=== PATIENT | female | born 1950 | race African-American/Black ===

== ENCOUNTER 2016-05-27 10:09 | Emergency (ER) | payer MEDICARE, MEDICAID ==
[~2016-05-27] VITALS: Ht 165.1 cm; Wt 81.8 kg
[~2016-05-27 10:09] MED LIST: AMLO-512 PO; CELE200 PO; CITA20TA9 PO; FLUT110HFA IH; METF500T4 PO; PANT40TA25 PO; PREM625 PO; QUET200XR PO; TIOT185 IH
[2016-05-27 10:26] LABS: GLUCOSE,POINT OF CARE 109 MG/DL (70-110)
[2016-05-27] MEDS ORDERED: BARIUM SULFATE 0.1% SUSPENSION 450 ML BOTTLE PO ONE (11:30)
[2016-05-27] MEDS ORDERED: KETOROLAC TROMETHAMINE 30 MG/ML VIAL IVP ONE (11:30)
[2016-05-27 11:52] LABS: BASOPHILS % (AUTO) 0.5 % (0.0-2.0); EOSINOPHILS % (AUTO) 0.8 % (1.0-6.0); HEMATOCRIT 31.5 % (36-46); LYMPHOCYTES # (AUTO) 2.1 K/uL (1.0-4.8); LYMPHOCYTES % (AUTO) 27.5 % (22.0-44.0); MEAN CORPUSCULAR HEMOGLOBIN 28.4 pg (26.0-34.0); MEAN CORPUSCULAR HGB CONC 31.7 G/dL (31.0-37.0); MEAN CORPUSCULAR VOLUME 90 fL (80-100); MONOCYTES # (AUTO) 0.8 K/uL (0.1-1.0); MONOCYTES % (AUTO) 10.3 % (2.0-9.0); NEUTROPHILS # (AUTO) 4.7 K/uL (1.8-7.7); NEUTROPHILS % (AUTO) 60.9 % (40.0-70.0); PLATELET COUNT (AUTO) 279 K/uL (150-450); RED BLOOD CELL COUNT(AUTO) 3.52 MIL/uL (4.00-5.20); RED CELL DISTRIBUTION WIDTH 16.4 % (11.5-14.5); WHITE BLOOD COUNT (AUTO) 7.7 K/uL (4.5-11.0)
[2016-05-27 12:01] LABS: ANION GAP 8 mmol/L (8-16); CALCIUM, TOTAL 8.7 mg/dL (8.8-10.5); CARBON DIOXIDE 29 mmol/L (22-29); CHLORIDE 105 mmol/L (98-107); GLOMERULAR FILTR. RATE CALC > 60 mL/min (>60); POTASSIUM 4.1 mmol/L (3.5-5.1); SODIUM SERUM 142 mmol/L (136-145); UREA NITROGEN, BLOOD 10 mg/dL (7-18)
[2016-05-27 12:08] LABS: ALANINE AMINOTRANSFERASE 49 U/L (12-78); ALBUMIN 3.1 g/dL (3.4-5.0); ASPARTATE AMINOTRANSFERASE 60 U/L (15-37); BILIRUBIN,TOTAL 0.4 mg/dL (0.1-1.0); TOTAL PROTEIN, SERUM 6.9 g/dL (6.4-8.2)
[2016-05-27] MEDS ORDERED: KETOROLAC TROMETHAMINE 60 MG/2 ML VIAL IM ONE (12:30)
[2016-05-27] MEDS ORDERED: SODIUM CHLORIDE 0.9% 100 ML ONE (13:08)
[2016-05-27] MEDS ORDERED: IOVERSOL 350 MG/ML 100 ML VIAL ONE (13:08)
[2016-05-27 15:36] VITALS: BP 128/82
[2016-06-17] MEDS ORDERED: DOXY100C PO (12:43)
== END 2016-05-27 15:51 | disposition home or self-care (01) ==
LOC: EMS 10:13
DX: T81.30XA Disruption of wound, unspecified, initial encounter (principal); E11.9 Type 2 diabetes mellitus without complications; I10 Essential (primary) hypertension; G43.909 Migraine, unspecified, not intractable, without status migrainosus; F17.210 Nicotine dependence, cigarettes, uncomplicated
CPT/HCPCS: 36415; 74176; 80053; 82962; 83690; 85025; 96372; 99285; J1885 ×2; J7050; Q9967

== ENCOUNTER 2016-06-04 10:37 | Emergency (ER) | payer MEDICARE, MEDICAID ==
[~2016-06-04] VITALS: Ht 165.1 cm; Wt 81.8 kg
[2016-06-04 10:57] LABS: GLUCOSE,POINT OF CARE 156 MG/DL (70-110)
[2016-06-04] MEDS ORDERED: NEOMYCIN/BACITRACIN/POLYMYXIN B OINTMENT PACKET TP ONE (11:30)
[2016-06-04] MEDS ORDERED: QUET200T PO (11:36)
[2016-06-04] MEDS ORDERED: QUET200XR PO (11:39)
[2016-06-04 11:49] VITALS: BP 128/62
[2016-06-17] MEDS ORDERED: DOXY100C PO (12:43)
== END 2016-06-04 11:52 | disposition home or self-care (01) ==
LOC: EMS 10:39 → EEVIPCON 10:39 → EMS 11:52
DX: T81.30XA Disruption of wound, unspecified, initial encounter (principal); E11.9 Type 2 diabetes mellitus without complications; I10 Essential (primary) hypertension; F20.9 Schizophrenia, unspecified; F41.9 Anxiety disorder, unspecified; F31.9 Bipolar disorder, unspecified; G43.909 Migraine, unspecified, not intractable, without status migrainosus
CPT/HCPCS: 82962; 87070; 87205; 99282

== ENCOUNTER → 2016-06-17 | Outpatient (CLI) | payer MEDICARE, MEDICAID ==
[~2016-06-17] VITALS: Ht 165.1 cm; Wt 83.7 kg
[~2016-06-17] MED LIST changes: +DOXY100C PO; +INSU100V12 SQ
[2016-06-17 10:35] VITALS: BP 137/69
[2016-06-17 11:26] LABS: GLUCOSE,POINT OF CARE 163 MG/DL (70-110)
== END | disposition home or self-care (01) ==
LOC: HBOWC 09:25
PROVIDERS: ATTEND Emergency Medicine
DX: E11.622 Type 2 diabetes mellitus with other skin ulcer (principal); L98.491 Non-pressure chronic ulcer of skin of other sites limited to breakdown of skin; E11.40 Type 2 diabetes mellitus with diabetic neuropathy, unspecified; I10 Essential (primary) hypertension; E66.9 Obesity, unspecified; J44.9 Chronic obstructive pulmonary disease, unspecified; G43.909 Migraine, unspecified, not intractable, without status migrainosus; M19.90 Unspecified osteoarthritis, unspecified site; Z96.659 Presence of unspecified artificial knee joint; F17.210 Nicotine dependence, cigarettes, uncomplicated
CPT/HCPCS: 82962; 97597

== ENCOUNTER → 2016-06-24 | Outpatient (CLI) | payer MEDICARE, MEDICAID ==
[2016-06-24 10:17] VITALS: BP 154/71
== END | disposition home or self-care (01) ==
LOC: HBOWC 09:49
PROVIDERS: ATTEND Emergency Medicine
DX: L98.491 Non-pressure chronic ulcer of skin of other sites limited to breakdown of skin (principal); I10 Essential (primary) hypertension; J44.9 Chronic obstructive pulmonary disease, unspecified; G43.909 Migraine, unspecified, not intractable, without status migrainosus; E11.40 Type 2 diabetes mellitus with diabetic neuropathy, unspecified; E66.9 Obesity, unspecified; F17.210 Nicotine dependence, cigarettes, uncomplicated; F20.9 Schizophrenia, unspecified; M16.12 Unilateral primary osteoarthritis, left hip; F31.9 Bipolar disorder, unspecified; F41.9 Anxiety disorder, unspecified; Z96.659 Presence of unspecified artificial knee joint

== ENCOUNTER 2016-08-03 20:52 | Emergency (ER) | payer MEDICARE, MEDICAID ==
[~2016-08-03] VITALS: Ht 165.1 cm; Wt 81.0 kg
[~2016-08-03 20:52] MED LIST changes: -INSU100V12 SQ
[2016-08-03 21:38] LABS: BASOPHILS # (AUTO) 0.03 K/uL (0.00-0.20); BASOPHILS % (AUTO) 0.3 % (0.0-2.0); EOSINOPHILS # (AUTO) 0.01 K/uL (0.00-0.70); EOSINOPHILS % (AUTO) 0.11 % (1.0-6.0); HEMATOCRIT 32.5 % (36-46); HEMOGLOBIN 10.4 g/dL (12.0-16.0); LYMPHOCYTES # (AUTO) 2.2 K/uL (1.0-4.8); LYMPHOCYTES % (AUTO) 18.3 % (22.0-44.0); MEAN CORPUSCULAR HEMOGLOBIN 25.6 pg (26.0-34.0); MEAN CORPUSCULAR HGB CONC 31.9 G/dL (31.0-37.0); MEAN CORPUSCULAR VOLUME 80 fL (80-100); MONOCYTES # (AUTO) 0.8 K/uL (0.1-1.0); MONOCYTES % (AUTO) 6.9 % (2.0-9.0); NEUTROPHILS % (AUTO) 74.4 % (40.0-70.0); PLATELET COUNT (AUTO) 373 K/uL (150-450); RED BLOOD CELL COUNT(AUTO) 4.05 MIL/uL (4.00-5.20); RED CELL DISTRIBUTION WIDTH 17.5 % (11.5-14.5)
[2016-08-03 21:38] LABS: APPEARANCE,URINE CLEAR (CLEAR); GLUCOSE, URINE (UA) >=1000 mg/dL (NEGATIVE); KETONES,URINE NEGATIVE (NEGATIVE); LEUKOCYTE ESTERASE ,URINE NEGATIVE (NEGATIVE); OCCULT BLOOD,URINE SMALL (NEGATIVE); PH,URINE 7.5 (5.0-8.0); PROTEIN,URINE NEGATIVE (NEGATIVE)
[2016-08-03] MEDS ORDERED: KETOROLAC TROMETHAMINE 30 MG/ML VIAL IVP ONE (21:45)
[2016-08-03] MEDS ORDERED: SODIUM CHLORIDE 0.9% 1,000 ML IV ONE (21:45)
[2016-08-03 21:46] LABS: ADD UA MICROSCOPIC YES
[2016-08-03 21:58] LABS: RBC MORPHOLOGY COMMENT ABNORMAL RBC MORPH
[2016-08-03 22:03] LABS: WBC,URINE 0-2 /HPF (0-5)
[2016-08-03 23:24] LABS: ALANINE AMINOTRANSFERASE 36 U/L (12-78); ALBUMIN 3.6 g/dL (3.4-5.0); ANION GAP 13 mmol/L (8-16); ASPARTATE AMINOTRANSFERASE 49 U/L (15-37); BILIRUBIN,TOTAL 0.5 mg/dL (0.1-1.0); CALCIUM, TOTAL 9.3 mg/dL (8.8-10.5); CARBON DIOXIDE 23 mmol/L (22-29); CHLORIDE 101 mmol/L (98-107); CREATININE 0.84 mg/dL (0.60-1.30); GLOMERULAR FILTR. RATE CALC > 60 mL/min (>60); POTASSIUM 4.1 mmol/L (3.5-5.1); SODIUM SERUM 137 mmol/L (136-145); TOTAL PROTEIN, SERUM 7.9 g/dL (6.4-8.2); UREA NITROGEN, BLOOD 11 mg/dL (7-18)
[2016-08-03] MEDS ORDERED: INSULIN REGULAR, HUMAN 100 UNITS/ML IVP ONE (23:45)
[2016-08-04 01:30] VITALS: BP 121/86
[2016-08-04 01:32] LABS: GLUCOSE COMMENT 1 Doctor Notified; GLUCOSE,POINT OF CARE 237 MG/DL (70-110)
== END 2016-08-04 02:19 | disposition home or self-care (01) ==
LOC: EMS 20:55
DX: N20.0 Calculus of kidney (principal); F17.210 Nicotine dependence, cigarettes, uncomplicated; F41.9 Anxiety disorder, unspecified; M19.90 Unspecified osteoarthritis, unspecified site; F31.9 Bipolar disorder, unspecified; I10 Essential (primary) hypertension; G43.909 Migraine, unspecified, not intractable, without status migrainosus; E11.9 Type 2 diabetes mellitus without complications; Z87.442 Personal history of urinary calculi; F20.9 Schizophrenia, unspecified; Z79.899 Other long term (current) drug therapy
CPT/HCPCS: 36415; 74176; 80053; 81001; 82962; 84703; 85025; 96361; 96374; 96375; 99285; J1815; J1885; J7030

== ENCOUNTER 2016-09-03 11:30 | Inpatient (IN) | payer MEDICARE, MEDICAID ==
[~2016-09-03] VITALS: Ht 165.1 cm; Wt 72.4 kg
[2016-09-03 11:46] LABS: GLUCOSE,POINT OF CARE 408 MG/DL (70-110)
[2016-09-03 14:18] LABS: BASOPHILS # (AUTO) 0.05 K/uL (0.00-0.20); BASOPHILS % (AUTO) 0.6 % (0.0-2.0); EOSINOPHILS # (AUTO) 0.05 K/uL (0.00-0.70); EOSINOPHILS % (AUTO) 0.65 % (1.0-6.0); HEMATOCRIT 30.7 % (36-46); HEMOGLOBIN 9.3 g/dL (12.0-16.0); LYMPHOCYTES # (AUTO) 2.8 K/uL (1.0-4.8); LYMPHOCYTES % (AUTO) 34.8 % (22.0-44.0); MEAN CORPUSCULAR HEMOGLOBIN 23.7 pg (26.0-34.0); MEAN CORPUSCULAR HGB CONC 30.4 G/dL (31.0-37.0); MEAN CORPUSCULAR VOLUME 78 fL (80-100); MONOCYTES # (AUTO) 0.7 K/uL (0.1-1.0); MONOCYTES % (AUTO) 8.2 % (2.0-9.0); NEUTROPHILS # (AUTO) 4.4 K/uL (1.8-7.7); NEUTROPHILS % (AUTO) 55.8 % (40.0-70.0); PLATELET COUNT (AUTO) 337 K/uL (150-450); RED BLOOD CELL COUNT(AUTO) 3.93 MIL/uL (4.00-5.20); RED CELL DISTRIBUTION WIDTH 17.6 % (11.5-14.5)
[2016-09-03 14:20] LABS: RBC MORPHOLOGY COMMENT ABNORMAL RBC MORPH
[2016-09-03] MEDS ORDERED: LORazepam 2 MG TABLET PO ONE (14:30)
[2016-09-03] MEDS ORDERED: QUEtiapine FUMARATE 25 MG TABLET PO ONE (14:30)
[2016-09-03 14:32] LABS: ALANINE AMINOTRANSFERASE 66 U/L (12-78); ALBUMIN 3.3 g/dL (3.4-5.0); ANION GAP 12 mmol/L (8-16); ASPARTATE AMINOTRANSFERASE 67 U/L (15-37); BILIRUBIN,TOTAL 0.6 mg/dL (0.1-1.0); CALCIUM, TOTAL 8.3 mg/dL (8.8-10.5); CARBON DIOXIDE 23 mmol/L (22-29); CHLORIDE 99 mmol/L (98-107); CREATININE 0.71 mg/dL (0.60-1.30); GLOMERULAR FILTR. RATE CALC > 60 mL/min (>60); POTASSIUM 3.5 mmol/L (3.5-5.1); SODIUM SERUM 134 mmol/L (136-145); TOTAL PROTEIN, SERUM 6.5 g/dL (6.4-8.2); UREA NITROGEN, BLOOD 8 mg/dL (7-18)
[2016-09-03] MEDS ORDERED: MetFORMIN HCL 500 MG TABLET PO ONE ×2 (14:45→17:15)
[2016-09-03] MEDS ORDERED: INSULIN REGULAR, HUMAN 100 UNITS/ML SQ ONE ×2 (14:45→17:15)
[2016-09-03 14:52] LABS: GLUCOSE COMMENT 1 Doctor Notified; GLUCOSE,POINT OF CARE 520 MG/DL (70-110)
[2016-09-03] MEDS ORDERED: ZOLPIDEM TARTRATE 10 MG TABLET PO PRN (15:15)
[2016-09-03 15:57] LABS: GLUCOSE COMMENT 1 Doctor Notified; GLUCOSE,POINT OF CARE 490 MG/DL (70-110)
[2016-09-03 16:39] LABS: CHOL/HDL RATIO 1.7 (3.9-5.7)
[2016-09-03 16:47] LABS: GLUCOSE COMMENT 1 Repeated; GLUCOSE,POINT OF CARE 476 MG/DL (70-110)
[2016-09-03 17:52] LABS: GLUCOSE,POINT OF CARE 349 MG/DL (70-110)
[2016-09-03 20:17] LABS: GLUCOSE,POINT OF CARE 281 MG/DL (70-110)
[2016-09-03] MEDS: QUEtiapine FUMARATE 200 MG TABLET PO SCH (21:43)
[2016-09-03] MEDS: CITALOPRAM HYDROBROMIDE 20 MG TABLET PO SCH (21:43)
[2016-09-03 22:20] VITALS: BP 145/74
[2016-09-04] MEDS ORDERED: DEXTROSE 50%-WATER 25 GM/50 ML SYRINGE IVP PRN ×2 (06:15)
[2016-09-04 06:17] LABS: GLUCOSE COMMENT 1 Doctor Notified; GLUCOSE,POINT OF CARE 468 MG/DL (70-110)
[2016-09-04] MEDS ORDERED: INSULIN ASPART 100 UNITS/ML SQ ONE ×3 (07:00→12:30)
[2016-09-04] MEDS: PANTOPRAZOLE SODIUM 40 MG DR TABLET PO SCH (07:11)
[2016-09-04] MEDS: MetFORMIN HCL 500 MG TABLET PO SCH ×2 (07:11→16:31)
[2016-09-04] MEDS: AmLODIPine BESYLATE 10 MG TABLET PO SCH (08:35)
[2016-09-04] MEDS: TIOTROPIUM BROMIDE 18 MCG/INH HANDIHALER [5] IH SCH (08:35)
[2016-09-04] MEDS: FLUTICASONE PROPIONATE HFA 110 MCG/PUFF 12 GM INHALER IH SCH ×2 (08:36→16:23)
[2016-09-04] MEDS: INSULIN DETEMIR 100 UNITS/ML SQ SCH ×2 (09:50→20:59)
[2016-09-04 10:14] VITALS: BP 153/89
[2016-09-04] MEDS: TraMADol HCL 50 MG TABLET PO PRN (10:14)
[2016-09-04 11:22] LABS: GLUCOSE COMMENT 1 Received Meds; GLUCOSE,POINT OF CARE 565 MG/DL (70-110)
[2016-09-04] MEDS: INSULIN ASPART 100 UNITS/ML SQ PRN ×3 (11:32→21:00)
[2016-09-04 12:41] LABS: GLUCOSE COMMENT 1 Post Meal; GLUCOSE,POINT OF CARE 527 MG/DL (70-110)
[2016-09-04 13:52] LABS: GLUCOSE COMMENT 1 Doctor Notified; GLUCOSE,POINT OF CARE 300 MG/DL (70-110)
[2016-09-04] MEDS: LORazepam 2 MG TABLET PO PRN (13:54)
[2016-09-04] MEDS: HALOPERIDOL 5 MG TABLET PO PRN (16:31)
[2016-09-04 16:42] LABS: GLUCOSE COMMENT 1 Received Meds; GLUCOSE,POINT OF CARE 382 MG/DL (70-110)
[2016-09-04 16:57] VITALS: BP 152/90
[2016-09-04] MEDS: QUEtiapine FUMARATE 200 MG TABLET PO SCH (20:40)
[2016-09-04] MEDS: CITALOPRAM HYDROBROMIDE 20 MG TABLET PO SCH (20:40)
[2016-09-04 20:43] LABS: GLUCOSE COMMENT 1 Received Meds; GLUCOSE,POINT OF CARE 370 MG/DL (70-110)
[2016-09-05 03:20] VITALS: BP 138/92
[2016-09-05 05:57] LABS: GLUCOSE COMMENT 1 Received Meds; GLUCOSE,POINT OF CARE 401 MG/DL (70-110)
[2016-09-05] MEDS ORDERED: INSULIN ASPART 100 UNITS/ML SQ ONE (06:30)
[2016-09-05] MEDS: MetFORMIN HCL 500 MG TABLET PO SCH ×2 (07:19→16:18)
[2016-09-05] MEDS: PANTOPRAZOLE SODIUM 40 MG DR TABLET PO SCH (07:19)
[2016-09-05] MEDS: TIOTROPIUM BROMIDE 18 MCG/INH HANDIHALER [5] IH SCH (08:36)
[2016-09-05] MEDS: FLUTICASONE PROPIONATE HFA 110 MCG/PUFF 12 GM INHALER IH SCH ×2 (08:36→16:17)
[2016-09-05] MEDS: AmLODIPine BESYLATE 10 MG TABLET PO SCH (08:38)
[2016-09-05 08:40] VITALS: BP 108/56
[2016-09-05] MEDS: LORazepam 2 MG TABLET PO PRN (08:40)
[2016-09-05] MEDS: TraMADol HCL 50 MG TABLET PO PRN ×2 (08:40→16:24)
[2016-09-05] MEDS ORDERED: INSULIN DETEMIR 100 UNITS/ML SQ SCH (09:00)
[2016-09-05 11:12] LABS: GLUCOSE COMMENT 1 Received Meds; GLUCOSE,POINT OF CARE 350 MG/DL (70-110)
[2016-09-05] MEDS: INSULIN ASPART 100 UNITS/ML SQ PRN ×3 (11:16→21:19)
[2016-09-05] MEDS ORDERED: INSULIN DETEMIR 100 UNITS/ML SQ ONE (14:30)
[2016-09-05] MEDS: HALOPERIDOL 5 MG TABLET PO PRN (16:23)
[2016-09-05 16:26] VITALS: BP 125/78
[2016-09-05 16:46] LABS: GLUCOSE,POINT OF CARE 332 MG/DL (70-110)
[2016-09-05] MEDS: CITALOPRAM HYDROBROMIDE 20 MG TABLET PO SCH (20:31)
[2016-09-05] MEDS: QUEtiapine FUMARATE 200 MG TABLET PO SCH (20:31)
[2016-09-05 20:37] LABS: GLUCOSE COMMENT 1 Received Meds; GLUCOSE,POINT OF CARE 365 MG/DL (70-110)
[2016-09-05] MEDS: INSULIN DETEMIR 100 UNITS/ML SQ SCH (21:18)
[2016-09-06 02:31] VITALS: BP 145/82
[2016-09-06 03:54] VITALS: BP 152/85
[2016-09-06] MEDS: TraMADol HCL 50 MG TABLET PO PRN ×2 (03:54→11:09)
[2016-09-06 03:56] VITALS: BP_SYST 152; BP_DIAS 85; BP_DIAS 87
[2016-09-06 04:02] LABS: GLUCOSE,POINT OF CARE 243 MG/DL (70-110)
[2016-09-06] MEDS: PANTOPRAZOLE SODIUM 40 MG DR TABLET PO SCH (06:37)
[2016-09-06] MEDS: INSULIN ASPART 100 UNITS/ML SQ PRN ×3 (06:45→12:17)
[2016-09-06] MEDS: MetFORMIN HCL 500 MG TABLET PO SCH (06:57)
[2016-09-06] MEDS: FLUTICASONE PROPIONATE HFA 110 MCG/PUFF 12 GM INHALER IH SCH (08:39)
[2016-09-06] MEDS: TIOTROPIUM BROMIDE 18 MCG/INH HANDIHALER [5] IH SCH (08:40)
[2016-09-06] MEDS: AmLODIPine BESYLATE 10 MG TABLET PO SCH (08:41)
[2016-09-06] MEDS: INSULIN DETEMIR 100 UNITS/ML SQ SCH (09:17)
[2016-09-06 10:22] VITALS: BP 153/88
[2016-09-06] MEDS ORDERED: INSULIN DETEMIR 100 UNITS/ML SQ ONE (11:45)
[2016-09-06 11:57] LABS: GLUCOSE COMMENT 1 Received Meds; GLUCOSE,POINT OF CARE 377 MG/DL (70-110)
[2016-09-06 12:09] VITALS: BP 148/84
[2016-09-06] MEDS ORDERED: CITA20TA9 PO (12:28)
[2016-09-06] MEDS ORDERED: INSU100V12 SQ (12:29)
[2016-09-06] MEDS ORDERED: INSULIN DETEMIR 100 UNITS/ML SQ SCH (21:00)
== END 2016-09-06 15:21 | disposition home or self-care (01) | DRG 885 ==
LOC: EMS 11:32 → 3EX 20:45
PROVIDERS: ADMIT Psychiatry & Neurology Psychiatry; ATTEND Psychiatry & Neurology Psychiatry
DX: F25.9 Schizoaffective disorder, unspecified (principal); R45.851 Suicidal ideations; F41.9 Anxiety disorder, unspecified; F31.9 Bipolar disorder, unspecified; I10 Essential (primary) hypertension; G43.909 Migraine, unspecified, not intractable, without status migrainosus; B19.20 Unspecified viral hepatitis C without hepatic coma; M19.90 Unspecified osteoarthritis, unspecified site; E11.65 Type 2 diabetes mellitus with hyperglycemia; D64.9 Anemia, unspecified; J44.9 Chronic obstructive pulmonary disease, unspecified; K21.9 Gastro-esophageal reflux disease without esophagitis; F10.20 Alcohol dependence, uncomplicated; F11.10 Opioid abuse, uncomplicated; F17.210 Nicotine dependence, cigarettes, uncomplicated; Z79.899 Other long term (current) drug therapy; Z79.84 Long term (current) use of oral hypoglycemic drugs; Z90.710 Acquired absence of both cervix and uterus; Z96.659 Presence of unspecified artificial knee joint; Z91.14 Patient's other noncompliance with medication regimen; Z87.442 Personal history of urinary calculi; Z82.49 Family history of ischemic heart disease and other diseases of the circulatory system; Z83.3 Family history of diabetes mellitus
CPT/HCPCS: 82962; 96372; 99285; J1815; J3535

== ENCOUNTER 2016-09-28 01:43 | Emergency (ER) | payer MEDICARE, MEDICAID ==
[~2016-09-28] VITALS: Ht 165.1 cm; Wt 72.7 kg
[~2016-09-28 01:43] MED LIST changes: -CELE200 PO; -DOXY100C PO; +INSU100V12 SQ; -PREM625 PO
[2016-09-28] MEDS ORDERED: HYDROCODONE/ACETAMINOPHEN 5-325 MG TABLET PO ONE (03:15)
[2016-09-28] MEDS ORDERED: TraMADol HCL 50 MG TABLET PO ONE (03:45)
[2016-09-28 04:03] VITALS: BP 142/75
== END 2016-09-28 04:13 | disposition home or self-care (01) ==
LOC: EMS 01:46
DX: Z76.0 Encounter for issue of repeat prescription (principal); M25.552 Pain in left hip; G89.29 Other chronic pain; I10 Essential (primary) hypertension; F41.9 Anxiety disorder, unspecified; E11.9 Type 2 diabetes mellitus without complications; F20.9 Schizophrenia, unspecified; F17.210 Nicotine dependence, cigarettes, uncomplicated; F31.9 Bipolar disorder, unspecified; Z79.4 Long term (current) use of insulin; G43.909 Migraine, unspecified, not intractable, without status migrainosus; Z79.899 Other long term (current) drug therapy
CPT/HCPCS: 82962; 99283

== ENCOUNTER 2016-12-28 10:59 | Emergency (ER) | payer MEDICARE, MEDICAID ==
[~2016-12-28] VITALS: Ht 165.1 cm; Wt 73.6 kg
[2016-12-28 11:12] LABS: GLUCOSE,POINT OF CARE 96 MG/DL (70-110)
[2016-12-28] MEDS ORDERED: KETOROLAC TROMETHAMINE 60 MG/2 ML VIAL IM ONE (12:00)
[2016-12-28 14:44] VITALS: BP 121/63
== END 2016-12-28 15:07 | disposition home or self-care (01) ==
LOC: EMS 11:02
DX: S30.0XXA Contusion of lower back and pelvis, initial encounter (principal); M19.90 Unspecified osteoarthritis, unspecified site; F17.210 Nicotine dependence, cigarettes, uncomplicated; E11.9 Type 2 diabetes mellitus without complications; I10 Essential (primary) hypertension; G43.909 Migraine, unspecified, not intractable, without status migrainosus; Z87.442 Personal history of urinary calculi; W01.0XXA Fall on same level from slipping, tripping and stumbling without subsequent striking against object, initial encounter; Y93.89 Activity, other specified; Y92.89 Other specified places as the place of occurrence of the external cause; Y99.8 Other external cause status
CPT/HCPCS: 72220; 82962; 96372; 99284; 99406; J1885

== ENCOUNTER 2017-01-11 12:45 | Emergency (ER) | payer MEDICARE, MEDICAID ==
[~2017-01-11] VITALS: Ht 165.1 cm; Wt 72.7 kg
[2017-01-11 12:57] LABS: GLUCOSE,POINT OF CARE 279 MG/DL (70-110)
[2017-01-11] MEDS ORDERED: LIDOCAINE HCL 5% TRANSDERMAL PATCH TD ONE (14:00)
[2017-01-11] MEDS ORDERED: HYDROmorphone 2 MG/ML SYRINGE IM ONE (14:00)
[2017-01-11 14:16] VITALS: BP 149/72
== END 2017-01-11 14:26 | disposition home or self-care (01) ==
LOC: EMS 12:48
DX: G89.29 Other chronic pain (principal); M54.5 Low back pain; E11.9 Type 2 diabetes mellitus without complications; M19.90 Unspecified osteoarthritis, unspecified site; I10 Essential (primary) hypertension; F17.210 Nicotine dependence, cigarettes, uncomplicated; Z87.442 Personal history of urinary calculi
CPT/HCPCS: 82962; 96372; 99283; J1170

== ENCOUNTER 2017-01-30 13:05 | Emergency (ER) | payer MEDICARE, MEDICAID ==
[~2017-01-30] VITALS: Ht 165.1 cm; Wt 72.0 kg
[2017-01-30] MEDS ORDERED: TRAM50TA4 PO (13:18)
[2017-01-30] MEDS ORDERED: KETOROLAC TROMETHAMINE 30 MG/ML VIAL IVP ONE (13:30)
[2017-01-30] MEDS ORDERED: ONDANSETRON HCL 4 MG/2 ML VIAL IVP ONE (13:30)
[2017-01-30] MEDS ORDERED: SODIUM CHLORIDE 0.9% 1,000 ML IV ONE (13:30)
[2017-01-30] MEDS ORDERED: LORazepam 2 MG/ML VIAL IVP ONE (13:30)
[2017-01-30 13:56] LABS: BASOPHILS % (AUTO) 0.7 % (0.0-2.0); EOSINOPHILS % (AUTO) 0.2 % (1.0-6.0); HEMATOCRIT 35.7 % (36-46); HEMOGLOBIN 11.3 g/dL (12.0-16.0); LYMPHOCYTES # (AUTO) 2.2 K/uL (1.0-4.8); LYMPHOCYTES % (AUTO) 21.9 % (22.0-44.0); MEAN CORPUSCULAR HEMOGLOBIN 24.4 pg (26.0-34.0); MEAN CORPUSCULAR HGB CONC 31.6 G/dL (31.0-37.0); MEAN CORPUSCULAR VOLUME 77 fL (80-100); MONOCYTES # (AUTO) 0.3 K/uL (0.1-1.0); NEUTROPHILS # (AUTO) 7.3 K/uL (1.8-7.7); NEUTROPHILS % (AUTO) 74.2 % (40.0-70.0); PLATELET COUNT (AUTO) 366 K/uL (150-450); RED BLOOD CELL COUNT(AUTO) 4.63 MIL/uL (4.00-5.20); RED CELL DISTRIBUTION WIDTH 17.4 % (11.5-14.5); WHITE BLOOD COUNT (AUTO) 9.9 K/uL (4.5-11.0)
[2017-01-30 14:10] LABS: ANION GAP 17 mmol/L (8-16); CALCIUM, TOTAL 9.1 mg/dL (8.8-10.5); CARBON DIOXIDE 22 mmol/L (22-29); CHLORIDE 104 mmol/L (98-107); CREATININE 0.69 mg/dL (0.60-1.30); GLOMERULAR FILTR. RATE CALC > 60 mL/min (>60); POTASSIUM 3.2 mmol/L (3.5-5.1); SODIUM SERUM 143 mmol/L (136-145); UREA NITROGEN, BLOOD 8 mg/dL (7-18)
[2017-01-30 14:11] LABS: RBC MORPHOLOGY COMMENT ABNORMAL RBC MORPH
[2017-01-30 14:16] LABS: ALANINE AMINOTRANSFERASE 37 U/L (12-78); ALBUMIN 3.8 g/dL (3.4-5.0); ASPARTATE AMINOTRANSFERASE 44 U/L (15-37); BILIRUBIN,TOTAL 0.6 mg/dL (0.1-1.0); TOTAL PROTEIN, SERUM 8.3 g/dL (6.4-8.2)
[2017-01-30 15:15] VITALS: BP 122/76
[2017-01-30 16:19] LABS: GLUCOSE,POINT OF CARE 198 MG/DL (70-110)
== END 2017-01-30 15:39 | disposition home or self-care (01) ==
LOC: EMS 13:08
DX: R10.13 Epigastric pain (principal); F41.9 Anxiety disorder, unspecified; I10 Essential (primary) hypertension; E11.9 Type 2 diabetes mellitus without complications; F17.210 Nicotine dependence, cigarettes, uncomplicated
CPT/HCPCS: 36415; 71010; 80053; 82962; 83690; 84484; 85025; 93005; 96361; 96374; 96375; 99285; J1885; J2060; J2405; J7030

== ENCOUNTER 2017-03-27 00:01 | Emergency (ER) | payer MEDICARE, MEDICAID ==
[~2017-03-27] VITALS: Ht 165.1 cm; Wt 72.0 kg
[~2017-03-27 00:01] MED LIST changes: +TRAM50TA4 PO
[2017-03-27 00:32] LABS: GLUCOSE,POINT OF CARE 280 MG/DL (70-110)
[2017-03-27] MEDS ORDERED: CITALOPRAM HYDROBROMIDE 20 MG TABLET PO ONE (01:30)
[2017-03-27] MEDS ORDERED: MORPHINE SULFATE 4 MG/ML SYRINGE IM ONE (01:30)
[2017-03-27] MEDS ORDERED: ONDANSETRON HCL 4 MG/2 ML VIAL IM ONE (01:30)
[2017-03-27] MEDS ORDERED: QUEtiapine FUMARATE 100 MG TABLET PO ONE (01:30)
[2017-03-27 02:04] VITALS: BP 130/90
== END 2017-03-27 03:09 | disposition home or self-care (01) ==
LOC: EMS 00:03
DX: M54.5 Low back pain (principal); G89.29 Other chronic pain; E11.9 Type 2 diabetes mellitus without complications; I10 Essential (primary) hypertension; G43.909 Migraine, unspecified, not intractable, without status migrainosus; F17.210 Nicotine dependence, cigarettes, uncomplicated; Z87.442 Personal history of urinary calculi; Z79.4 Long term (current) use of insulin
CPT/HCPCS: 82962; 96372; 99284; 99406; J2270; J2405

== ENCOUNTER 2017-04-04 11:49 | Emergency (ER) | payer MEDICARE, MEDICAID ==
[~2017-04-04] VITALS: Ht 165.1 cm; Wt 72.7 kg
[2017-04-04 13:45] VITALS: BP 148/95
[2017-04-04 14:07] LABS: GLUCOSE,POINT OF CARE 203 MG/DL (70-110)
== END 2017-04-04 13:56 | disposition home or self-care (01) ==
LOC: EMS 11:52
DX: Z76.0 Encounter for issue of repeat prescription (principal); I10 Essential (primary) hypertension; F17.210 Nicotine dependence, cigarettes, uncomplicated; E11.9 Type 2 diabetes mellitus without complications; G43.909 Migraine, unspecified, not intractable, without status migrainosus; Z87.442 Personal history of urinary calculi
CPT/HCPCS: 82962; 99283

== ENCOUNTER 2017-04-06 11:15 | Emergency (ER) | payer MEDICARE, MEDICAID ==
[~2017-04-06] VITALS: Ht 165.1 cm; Wt 72.7 kg
[2017-04-06 11:28] LABS: GLUCOSE,POINT OF CARE 132 MG/DL (70-110)
[2017-04-06 12:59] VITALS: BP 152/94
== END 2017-04-06 13:21 | disposition home or self-care (01) ==
LOC: EMS 11:17
DX: M54.5 Low back pain (principal); G89.29 Other chronic pain; I10 Essential (primary) hypertension; E11.9 Type 2 diabetes mellitus without complications; G43.909 Migraine, unspecified, not intractable, without status migrainosus; F17.210 Nicotine dependence, cigarettes, uncomplicated; Z76.0 Encounter for issue of repeat prescription; Z87.442 Personal history of urinary calculi
CPT/HCPCS: 82962; 99283

== ENCOUNTER 2017-04-14 16:06 | Emergency (ER) | payer MEDICARE, MEDICAID ==
[~2017-04-14] VITALS: Ht 165.1 cm; Wt 72.7 kg
[2017-04-14 18:20] VITALS: BP 153/84
== END 2017-04-14 18:31 | disposition home or self-care (01) ==
LOC: EMS 16:07
DX: Z76.0 Encounter for issue of repeat prescription (principal); I10 Essential (primary) hypertension; M19.90 Unspecified osteoarthritis, unspecified site; F31.9 Bipolar disorder, unspecified; E11.9 Type 2 diabetes mellitus without complications; K75.9 Inflammatory liver disease, unspecified; G43.909 Migraine, unspecified, not intractable, without status migrainosus; F20.9 Schizophrenia, unspecified; F17.210 Nicotine dependence, cigarettes, uncomplicated; Z87.442 Personal history of urinary calculi; Z90.710 Acquired absence of both cervix and uterus; Z98.890 Other specified postprocedural states; Z79.899 Other long term (current) drug therapy
CPT/HCPCS: 99283

== ENCOUNTER 2017-04-19 11:32 | Emergency (ER) | payer MEDICARE, MEDICAID ==
[~2017-04-19] VITALS: Ht 170.2 cm; Wt 70.5 kg
[2017-04-19 12:18] VITALS: BP 137/72
== END 2017-04-19 12:52 | disposition home or self-care (01) ==
LOC: EMS 11:38
DX: Z76.0 Encounter for issue of repeat prescription (principal); M19.90 Unspecified osteoarthritis, unspecified site; F31.9 Bipolar disorder, unspecified; K75.9 Inflammatory liver disease, unspecified; I10 Essential (primary) hypertension; G43.909 Migraine, unspecified, not intractable, without status migrainosus; F17.210 Nicotine dependence, cigarettes, uncomplicated; Z79.899 Other long term (current) drug therapy; Z98.890 Other specified postprocedural states
CPT/HCPCS: 82962; 99283

== ENCOUNTER 2017-05-18 14:19 | Emergency (ER) | payer MEDICARE, MEDICAID ==
[~2017-05-18] VITALS: Ht 165.1 cm; Wt 72.7 kg
[2017-05-18 14:48] LABS: GLUCOSE,POINT OF CARE 208 MG/DL (70-110)
[2017-05-18] MEDS ORDERED: TraMADol HCL 50 MG TABLET PO ONE (16:45)
[2017-05-18 17:31] VITALS: BP 133/73
== END 2017-05-18 17:33 | disposition home or self-care (01) ==
LOC: EMS 14:28
DX: S50.312A Abrasion of left elbow, initial encounter (principal); M54.9 Dorsalgia, unspecified; G43.909 Migraine, unspecified, not intractable, without status migrainosus; F20.9 Schizophrenia, unspecified; E11.9 Type 2 diabetes mellitus without complications; F41.9 Anxiety disorder, unspecified; I10 Essential (primary) hypertension; M19.90 Unspecified osteoarthritis, unspecified site; F17.210 Nicotine dependence, cigarettes, uncomplicated; Z79.4 Long term (current) use of insulin; Z90.710 Acquired absence of both cervix and uterus; Z87.442 Personal history of urinary calculi; W18.39XA Other fall on same level, initial encounter; Y93.89 Activity, other specified; Y92.89 Other specified places as the place of occurrence of the external cause; Y99.8 Other external cause status
CPT/HCPCS: 70450; 72100; 72125; 82962; 99284

== ENCOUNTER 2017-06-03 23:27 | Emergency (ER) | payer MEDICARE, MEDICAID ==
[~2017-06-03] VITALS: Ht 165.1 cm; Wt 72.7 kg
[2017-06-03 23:53] LABS: BASOPHILS % (AUTO) 0.4 % (0.0-2.0); EOSINOPHILS % (AUTO) 0.1 % (1.0-6.0); HEMATOCRIT 29.6 % (36-46); HEMOGLOBIN 9.2 g/dL (12.0-16.0); LYMPHOCYTES # (AUTO) 0.9 K/uL (1.0-4.8); LYMPHOCYTES % (AUTO) 10.2 % (22.0-44.0); MEAN CORPUSCULAR HGB CONC 31.2 G/dL (31.0-37.0); MEAN CORPUSCULAR VOLUME 77 fL (80-100); MONOCYTES # (AUTO) 0.4 K/uL (0.1-1.0); MONOCYTES % (AUTO) 4.2 % (2.0-9.0); NEUTROPHILS # (AUTO) 7.6 K/uL (1.8-7.7); NEUTROPHILS % (AUTO) 85.1 % (40.0-70.0); PLATELET COUNT (AUTO) 174 K/uL (150-450); RED BLOOD CELL COUNT(AUTO) 3.84 MIL/uL (4.00-5.20); RED CELL DISTRIBUTION WIDTH 19.1 % (11.5-14.5)
[2017-06-04 00:02] LABS: ANION GAP 14 mmol/L (8-16); CALCIUM, TOTAL 8.4 mg/dL (8.8-10.5); CARBON DIOXIDE 23 mmol/L (22-29); CHLORIDE 102 mmol/L (98-107); CREATININE 0.63 mg/dL (0.60-1.30); GLOMERULAR FILTR. RATE CALC > 60 mL/min (>60); GLUCOSE,RANDOM 168 mg/dL (70-110); POTASSIUM 3.2 mmol/L (3.5-5.1); SODIUM SERUM 139 mmol/L (136-145); UREA NITROGEN, BLOOD 12 mg/dL (7-18)
[2017-06-04 00:07] LABS: ALANINE AMINOTRANSFERASE 41 U/L (12-78); ALBUMIN 3.4 g/dL (3.4-5.0); ALKALINE PHOSPHATASE 209 U/L (46-116); ASPARTATE AMINOTRANSFERASE 58 U/L (15-37); BILIRUBIN,TOTAL 0.4 mg/dL (0.1-1.0); TOTAL PROTEIN, SERUM 7.2 g/dL (6.4-8.2)
[2017-06-04 00:23] LABS: GLUCOSE,POINT OF CARE 190 MG/DL (70-110)
[2017-06-04 00:43] LABS: APPEARANCE,URINE CLEAR (CLEAR); BILIRUBIN,URINE NEGATIVE (NEGATIVE); GLUCOSE, URINE (UA) NEGATIVE (NEGATIVE); KETONES,URINE NEGATIVE (NEGATIVE); LEUKOCYTE ESTERASE ,URINE TRACE (NEGATIVE); NITRATE,URINE NEGATIVE (NEGATIVE); OCCULT BLOOD,URINE LARGE (NEGATIVE); PROTEIN,URINE NEGATIVE (NEGATIVE)
[2017-06-04 00:47] LABS: AMPHET/METH SCREEN,URINE NEGATIVE (NEGATIVE); BARBITURATE SCREEN, URINE NEGATIVE (NEGATIVE); BENZODIAZEPINES SCREEN,URINE NEGATIVE (NEGATIVE); CANNABINOID SCREEN,URINE NEGATIVE (NEGATIVE); COCAINE SCREEN,URINE NEGATIVE (NEGATIVE); METHADONE SCREEN, URINE NEGATIVE (NEGATIVE); OPIATE SCREEN,URINE POSITIVE (NEGATIVE); PHENCYCLIDINE SCREEN,URINE POSITIVE (NEGATIVE)
[2017-06-04 00:59] LABS: BACTERIA,URINE Moderate /HPF (None Seen); RBC,URINE 26-50 /HPF (0-2); SQUAMOUS EPITHELIAL CELL,UR Moderate /LPF (None Seen)
[2017-06-04 01:38] LABS: GLUCOSE,POINT OF CARE 105 MG/DL (70-110)
[2017-06-04 02:40] VITALS: BP 137/69
[2017-06-04 02:42] LABS: GLUCOSE,POINT OF CARE 136 MG/DL (70-110)
== END 2017-06-04 03:25 | disposition home or self-care (01) ==
LOC: EMS 23:31
DX: E11.649 Type 2 diabetes mellitus with hypoglycemia without coma (principal); T68.XXXA Hypothermia, initial encounter; F19.10 Other psychoactive substance abuse, uncomplicated; I10 Essential (primary) hypertension; Z79.4 Long term (current) use of insulin; F17.210 Nicotine dependence, cigarettes, uncomplicated
CPT/HCPCS: 36415; 80053; 80307; 81001; 82962; 85025; 87086; 93005; 99285; G0480

== ENCOUNTER 2017-06-17 12:01 | Inpatient (IN) | payer MEDICARE, MEDICAID ==
[~2017-06-17] VITALS: Ht 165.1 cm; Wt 72.3 kg
[2017-06-17 12:14] LABS: GLUCOSE,POINT OF CARE 209 MG/DL (70-110)
[2017-06-17 12:54] LABS: BASOPHILS % (AUTO) 1.1 % (0.0-2.0); EOSINOPHILS % (AUTO) 0.7 % (1.0-6.0); HEMATOCRIT 35.9 % (36-46); HEMOGLOBIN 11.3 g/dL (12.0-16.0); LYMPHOCYTES # (AUTO) 2.1 K/uL (1.0-4.8); LYMPHOCYTES % (AUTO) 30.6 % (22.0-44.0); MEAN CORPUSCULAR HEMOGLOBIN 24.2 pg (26.0-34.0); MEAN CORPUSCULAR HGB CONC 31.5 G/dL (31.0-37.0); MEAN CORPUSCULAR VOLUME 77 fL (80-100); MONOCYTES # (AUTO) 0.6 K/uL (0.1-1.0); MONOCYTES % (AUTO) 8.4 % (2.0-9.0); NEUTROPHILS % (AUTO) 59.2 % (40.0-70.0); PLATELET COUNT (AUTO) 250 K/uL (150-450); RED BLOOD CELL COUNT(AUTO) 4.68 MIL/uL (4.00-5.20)
[2017-06-17 13:10] LABS: ANION GAP 13 mmol/L (8-16); CALCIUM, TOTAL 8.9 mg/dL (8.8-10.5); CARBON DIOXIDE 25 mmol/L (22-29); CHLORIDE 103 mmol/L (98-107); CREATININE 0.61 mg/dL (0.60-1.30); GLOMERULAR FILTR. RATE CALC > 60 mL/min (>60); GLUCOSE,RANDOM 146 mg/dL (70-110); POTASSIUM 3.7 mmol/L (3.5-5.1); SODIUM SERUM 141 mmol/L (136-145); UREA NITROGEN, BLOOD 9 mg/dL (7-18)
[2017-06-17 13:15] LABS: ALANINE AMINOTRANSFERASE 47 U/L (12-78); ALBUMIN 3.9 g/dL (3.4-5.0); ALKALINE PHOSPHATASE 222 U/L (46-116); ASPARTATE AMINOTRANSFERASE 56 U/L (15-37); BILIRUBIN,TOTAL 0.4 mg/dL (0.1-1.0); TOTAL PROTEIN, SERUM 7.7 g/dL (6.4-8.2)
[2017-06-17] MEDS ORDERED: TraMADol HCL 50 MG TABLET PO ONE (14:30)
[2017-06-17] MEDS ORDERED: DiphenhydrAMINE HCL 25 MG CAPSULE PO ONE (14:30)
[2017-06-17] MEDS ORDERED: HALOPERIDOL 5 MG TABLET PO ONE (14:30)
[2017-06-17] MEDS ORDERED: LORazepam 1 MG TABLET PO ONE (14:30)
[2017-06-17 16:15] LABS: APPEARANCE,URINE CLEAR (CLEAR); BILIRUBIN,URINE NEGATIVE (NEGATIVE); GLUCOSE, URINE (UA) NEGATIVE (NEGATIVE); KETONES,URINE NEGATIVE (NEGATIVE); LEUKOCYTE ESTERASE ,URINE SMALL (NEGATIVE); NITRATE,URINE NEGATIVE (NEGATIVE); OCCULT BLOOD,URINE NEGATIVE (NEGATIVE); PH,URINE 5.5 (5.0-8.0); PROTEIN,URINE NEGATIVE (NEGATIVE)
[2017-06-17 16:20] LABS: AMPHET/METH SCREEN,URINE NEGATIVE (NEGATIVE); BARBITURATE SCREEN, URINE NEGATIVE (NEGATIVE); BENZODIAZEPINES SCREEN,URINE NEGATIVE (NEGATIVE); CANNABINOID SCREEN,URINE NEGATIVE (NEGATIVE); COCAINE SCREEN,URINE NEGATIVE (NEGATIVE); METHADONE SCREEN, URINE NEGATIVE (NEGATIVE); OPIATE SCREEN,URINE POSITIVE (NEGATIVE)
[2017-06-17 16:24] LABS: PHENCYCLIDINE SCREEN,URINE NEGATIVE (NEGATIVE)
[2017-06-17 16:58] LABS: BACTERIA,URINE None Seen /HPF (None Seen); RBC,URINE None Seen /HPF (0-2); SQUAMOUS EPITHELIAL CELL,UR Rare /LPF (None Seen)
[2017-06-17 17:17] LABS: GLUCOMETER DEV NAME(LOC) 3EX 1; GLUCOSE,POINT OF CARE 148 MG/DL (70-110)
[2017-06-17] MEDS ORDERED: DEXTROSE 50%-WATER 25 GM/50 ML SYRINGE IVP PRN (17:45)
[2017-06-17] MEDS ORDERED: IBUPROFEN 400 MG TABLET PO PRN (18:15)
[2017-06-17] MEDS: LORazepam 2 MG TABLET PO PRN (20:21)
[2017-06-17] MEDS: HALOPERIDOL 5 MG TABLET PO PRN (20:21)
[2017-06-17 20:28] LABS: GLUCOMETER DEV NAME(LOC) 3EX 1; GLUCOSE,POINT OF CARE 180 MG/DL (70-110)
[2017-06-17 20:29] VITALS: BP 136/81
[2017-06-17] MEDS: INSULIN ASPART 100 UNITS/ML SQ PRN (20:29)
[2017-06-18 01:50] VITALS: BP 153/90
[2017-06-18] MEDS: TraMADol HCL 50 MG TABLET PO PRN ×2 (02:02→15:22)
[2017-06-18 05:28] LABS: GLUCOMETER DEV NAME(LOC) 3EI B; GLUCOSE,POINT OF CARE 151 MG/DL (70-110)
[2017-06-18] MEDS: MetFORMIN HCL 500 MG TABLET PO SCH ×2 (07:04→17:07)
[2017-06-18] MEDS: PANTOPRAZOLE SODIUM 40 MG DR TABLET PO SCH (07:04)
[2017-06-18] MEDS: INSULIN ASPART 100 UNITS/ML SQ PRN ×3 (07:16→17:15)
[2017-06-18 07:27] LABS: CHOL/HDL RATIO 1.7 (3.9-5.7)
[2017-06-18] MEDS: FLUTICASONE PROPIONATE HFA 110 MCG/PUFF 12 GM INHALER IH SCH ×2 (08:13→17:17)
[2017-06-18] MEDS: TIOTROPIUM BROMIDE 18 MCG/INH HANDIHALER [5] IH SCH (08:15)
[2017-06-18] MEDS: NICOTINE 7 MG/24 HOUR PATCH TD SCH (08:17)
[2017-06-18] MEDS: AmLODIPine BESYLATE 10 MG TABLET PO SCH (08:18)
[2017-06-18 08:58] LABS: GLUCOMETER DEV NAME(LOC) 3EI B; GLUCOSE,POINT OF CARE 89 MG/DL (70-110)
[2017-06-18] MEDS ORDERED: INSULIN DETEMIR 100 UNITS/ML SQ SCH (09:00)
[2017-06-18 10:10] VITALS: BP 150/83
[2017-06-18 12:03] LABS: GLUCOMETER DEV NAME(LOC) 3EI B; GLUCOSE,POINT OF CARE 155 MG/DL (70-110)
[2017-06-18] MEDS: ESTROGENS,CONJUGATED 0.625 MG TABLET PO SCH (12:26)
[2017-06-18 15:23] VITALS: BP 164/108
[2017-06-18 16:23] VITALS: BP 151/87
[2017-06-18] MEDS ORDERED: CloNIDine HCL 0.1 MG TABLET PO PRN (17:15)
[2017-06-18 18:37] LABS: GLUCOMETER DEV NAME(LOC) 3EX 1; GLUCOSE,POINT OF CARE 196 MG/DL (70-110)
[2017-06-18 20:54] VITALS: BP 145/89
[2017-06-18] MEDS: CITALOPRAM HYDROBROMIDE 20 MG TABLET PO SCH (21:14)
[2017-06-18] MEDS: QUEtiapine FUMARATE 200 MG ER TABLET PO SCH (21:14)
[2017-06-18 21:28] LABS: GLUCOMETER DEV NAME(LOC) 3EX 1; GLUCOSE,POINT OF CARE 106 MG/DL (70-110)
[2017-06-19 05:57] LABS: GLUCOMETER DEV NAME(LOC) 3EI B; GLUCOSE,POINT OF CARE 151 MG/DL (70-110)
[2017-06-19] MEDS: INSULIN ASPART 100 UNITS/ML SQ PRN ×3 (06:56→17:34)
[2017-06-19] MEDS: PANTOPRAZOLE SODIUM 40 MG DR TABLET PO SCH (07:06)
[2017-06-19 07:07] VITALS: BP 136/57
[2017-06-19] MEDS: MetFORMIN HCL 500 MG TABLET PO SCH ×2 (07:07→16:40)
[2017-06-19] MEDS: TraMADol HCL 50 MG TABLET PO PRN ×2 (07:17→16:25)
[2017-06-19 08:17] VITALS: BP 161/78
[2017-06-19] MEDS: NICOTINE 7 MG/24 HOUR PATCH TD SCH (09:00)
[2017-06-19 09:08] VITALS: BP 161/78
[2017-06-19] MEDS: FLUTICASONE PROPIONATE HFA 110 MCG/PUFF 12 GM INHALER IH SCH ×2 (09:20→16:22)
[2017-06-19] MEDS: AmLODIPine BESYLATE 10 MG TABLET PO SCH (09:20)
[2017-06-19] MEDS: ESTROGENS,CONJUGATED 0.625 MG TABLET PO SCH (09:20)
[2017-06-19] MEDS: TIOTROPIUM BROMIDE 18 MCG/INH HANDIHALER [5] IH SCH (09:20)
[2017-06-19 09:33] LABS: GLUCOMETER DEV NAME(LOC) 3EX 1; GLUCOSE,POINT OF CARE 127 MG/DL (70-110)
[2017-06-19 11:43] LABS: GLUCOMETER DEV NAME(LOC) 3EX 1; GLUCOSE,POINT OF CARE 175 MG/DL (70-110)
[2017-06-19] MEDS: INSULIN GLARGINE,HUM.REC.ANLOG 100 UNITS/ML SQ SCH ×2 (11:51→17:32)
[2017-06-19 16:26] VITALS: BP 130/81
[2017-06-19 17:12] LABS: GLUCOMETER DEV NAME(LOC) 3EX 1; GLUCOSE,POINT OF CARE 209 MG/DL (70-110)
[2017-06-19] MEDS: LORazepam 2 MG TABLET PO PRN (18:27)
[2017-06-19] MEDS: HALOPERIDOL 5 MG TABLET PO PRN (18:27)
[2017-06-19] MEDS: QUEtiapine FUMARATE 200 MG ER TABLET PO SCH (20:32)
[2017-06-19] MEDS: CITALOPRAM HYDROBROMIDE 20 MG TABLET PO SCH (20:32)
[2017-06-20 00:30] VITALS: BP 161/88
[2017-06-20] MEDS: LORazepam 2 MG TABLET PO PRN (00:37)
[2017-06-20] MEDS: TraMADol HCL 50 MG TABLET PO PRN (01:07)
[2017-06-20] MEDS: ZOLPIDEM TARTRATE 10 MG TABLET PO PRN (02:08)
[2017-06-20] MEDS: HALOPERIDOL 5 MG TABLET PO PRN (02:08)
[2017-06-20 05:44] LABS: GLUCOMETER DEV NAME(LOC) 3EI B; GLUCOSE,POINT OF CARE 285 MG/DL (70-110)
[2017-06-20] MEDS: MetFORMIN HCL 500 MG TABLET PO SCH ×2 (07:01→17:43)
[2017-06-20] MEDS: PANTOPRAZOLE SODIUM 40 MG DR TABLET PO SCH (07:01)
[2017-06-20] MEDS: INSULIN ASPART 100 UNITS/ML SQ PRN ×4 (07:19→21:02)
[2017-06-20] MEDS: ESTROGENS,CONJUGATED 0.625 MG TABLET PO SCH (09:09)
[2017-06-20] MEDS: AmLODIPine BESYLATE 10 MG TABLET PO SCH (09:09)
[2017-06-20] MEDS: TIOTROPIUM BROMIDE 18 MCG/INH HANDIHALER [5] IH SCH (09:10)
[2017-06-20] MEDS: FLUTICASONE PROPIONATE HFA 110 MCG/PUFF 12 GM INHALER IH SCH ×2 (09:11→16:52)
[2017-06-20] MEDS: NICOTINE 7 MG/24 HOUR PATCH TD SCH (09:17)
[2017-06-20] MEDS: INSULIN GLARGINE,HUM.REC.ANLOG 100 UNITS/ML SQ SCH ×2 (09:33→17:06)
[2017-06-20 10:13] VITALS: BP 159/100
[2017-06-20 11:12] LABS: GLUCOMETER DEV NAME(LOC) 3EX 1; GLUCOSE,POINT OF CARE 153 MG/DL (70-110)
[2017-06-20 16:02] LABS: GLUCOMETER DEV NAME(LOC) 3EX 1; GLUCOSE,POINT OF CARE 272 MG/DL (70-110)
[2017-06-20 17:00] VITALS: BP 143/64
[2017-06-20] MEDS: QUEtiapine FUMARATE 200 MG ER TABLET PO SCH (21:02)
[2017-06-20] MEDS: CITALOPRAM HYDROBROMIDE 20 MG TABLET PO SCH (21:02)
[2017-06-20 21:08] LABS: GLUCOMETER DEV NAME(LOC) 3EX 1; GLUCOSE,POINT OF CARE 156 MG/DL (70-110)
[2017-06-21 02:20] VITALS: BP 138/79
[2017-06-21] MEDS: TraMADol HCL 50 MG TABLET PO PRN ×3 (02:24→19:11)
[2017-06-21] MEDS: HALOPERIDOL 5 MG TABLET PO PRN ×3 (04:22→19:11)
[2017-06-21 06:38] LABS: GLUCOMETER DEV NAME(LOC) 3EX 1; GLUCOSE,POINT OF CARE 259 MG/DL (70-110)
[2017-06-21] MEDS: INSULIN ASPART 100 UNITS/ML SQ PRN ×4 (07:20→21:31)
[2017-06-21] MEDS: MetFORMIN HCL 500 MG TABLET PO SCH ×2 (07:23→16:46)
[2017-06-21] MEDS: PANTOPRAZOLE SODIUM 40 MG DR TABLET PO SCH (07:23)
[2017-06-21] MEDS: NICOTINE 7 MG/24 HOUR PATCH TD SCH (09:00)
[2017-06-21 09:05] VITALS: BP 157/83
[2017-06-21] MEDS: TIOTROPIUM BROMIDE 18 MCG/INH HANDIHALER [5] IH SCH (09:07)
[2017-06-21] MEDS: FLUTICASONE PROPIONATE HFA 110 MCG/PUFF 12 GM INHALER IH SCH ×2 (09:07→16:44)
[2017-06-21] MEDS: ESTROGENS,CONJUGATED 0.625 MG TABLET PO SCH (09:08)
[2017-06-21] MEDS: AmLODIPine BESYLATE 10 MG TABLET PO SCH (09:08)
[2017-06-21] MEDS: INSULIN GLARGINE,HUM.REC.ANLOG 100 UNITS/ML SQ SCH ×2 (09:18→16:53)
[2017-06-21] MEDS: ACETAMINOPHEN 325 MG TABLET PO PRN (09:20)
[2017-06-21 11:12] LABS: GLUCOMETER DEV NAME(LOC) 3EX 1; GLUCOSE,POINT OF CARE 248 MG/DL (70-110)
[2017-06-21] MEDS: LORazepam 2 MG TABLET PO PRN ×2 (11:19→19:11)
[2017-06-21 16:48] LABS: GLUCOMETER DEV NAME(LOC) 3EX 1; GLUCOSE,POINT OF CARE 217 MG/DL (70-110)
[2017-06-21 18:46] VITALS: BP 141/71
[2017-06-21 19:08] VITALS: BP 139/77
[2017-06-21 20:08] VITALS: BP 140/82
[2017-06-21] MEDS: QUEtiapine FUMARATE 200 MG ER TABLET PO SCH (21:10)
[2017-06-21] MEDS: CITALOPRAM HYDROBROMIDE 20 MG TABLET PO SCH (21:10)
[2017-06-21 21:22] LABS: GLUCOMETER DEV NAME(LOC) 3EX 1; GLUCOSE,POINT OF CARE 202 MG/DL (70-110)
[2017-06-22 00:28] VITALS: BP 160/96
[2017-06-22] MEDS: ZOLPIDEM TARTRATE 10 MG TABLET PO PRN (00:31)
[2017-06-22 05:28] LABS: GLUCOMETER DEV NAME(LOC) 3EI B; GLUCOSE,POINT OF CARE 178 MG/DL (70-110)
[2017-06-22] MEDS: PANTOPRAZOLE SODIUM 40 MG DR TABLET PO SCH (06:51)
[2017-06-22] MEDS: MetFORMIN HCL 500 MG TABLET PO SCH ×2 (06:52→16:45)
[2017-06-22] MEDS: INSULIN ASPART 100 UNITS/ML SQ PRN ×3 (07:15→21:32)
[2017-06-22] MEDS: NICOTINE 7 MG/24 HOUR PATCH TD SCH (09:00)
[2017-06-22] MEDS: TIOTROPIUM BROMIDE 18 MCG/INH HANDIHALER [5] IH SCH (09:05)
[2017-06-22] MEDS: FLUTICASONE PROPIONATE HFA 110 MCG/PUFF 12 GM INHALER IH SCH ×2 (09:05→16:34)
[2017-06-22] MEDS: ESTROGENS,CONJUGATED 0.625 MG TABLET PO SCH (09:06)
[2017-06-22] MEDS: AmLODIPine BESYLATE 10 MG TABLET PO SCH (09:06)
[2017-06-22 09:11] VITALS: BP 140/86
[2017-06-22] MEDS: TraMADol HCL 50 MG TABLET PO PRN ×2 (09:11→16:35)
[2017-06-22] MEDS: INSULIN GLARGINE,HUM.REC.ANLOG 100 UNITS/ML SQ SCH ×2 (09:45→16:44)
[2017-06-22 11:27] LABS: GLUCOMETER DEV NAME(LOC) 3EX 1; GLUCOSE,POINT OF CARE 138 MG/DL (70-110)
[2017-06-22] MEDS: LORazepam 2 MG TABLET PO PRN (13:03)
[2017-06-22] MEDS: HALOPERIDOL 5 MG TABLET PO PRN (14:09)
[2017-06-22 16:30] VITALS: BP 133/73
[2017-06-22 16:36] LABS: GLUCOMETER DEV NAME(LOC) 3EX 1; GLUCOSE,POINT OF CARE 170 MG/DL (70-110)
[2017-06-22 17:30] VITALS: BP 141/81
[2017-06-22] MEDS: QUEtiapine FUMARATE 200 MG ER TABLET PO SCH (20:32)
[2017-06-22] MEDS: CITALOPRAM HYDROBROMIDE 20 MG TABLET PO SCH (20:32)
[2017-06-22 20:57] LABS: GLUCOMETER DEV NAME(LOC) 3EX 1; GLUCOSE,POINT OF CARE 165 MG/DL (70-110)
[2017-06-23] VITALS (8 sets, daily range): BP systolic 127–147; BP diastolic 66–81
[2017-06-23] MEDS: ZOLPIDEM TARTRATE 10 MG TABLET PO PRN (00:45)
[2017-06-23] MEDS: TraMADol HCL 50 MG TABLET PO PRN ×3 (00:46→17:28)
[2017-06-23] MEDS: HALOPERIDOL 5 MG TABLET PO PRN ×2 (03:17→16:32)
[2017-06-23 05:43] LABS: GLUCOMETER DEV NAME(LOC) 3EI B; GLUCOSE,POINT OF CARE 133 MG/DL (70-110)
[2017-06-23] MEDS: MetFORMIN HCL 500 MG TABLET PO SCH ×2 (06:28→17:30)
[2017-06-23] MEDS: PANTOPRAZOLE SODIUM 40 MG DR TABLET PO SCH (06:28)
[2017-06-23] MEDS: QUEtiapine FUMARATE 200 MG ER TABLET PO SCH ×2 (08:58→21:15)
[2017-06-23] MEDS: AmLODIPine BESYLATE 10 MG TABLET PO SCH (08:59)
[2017-06-23] MEDS: TIOTROPIUM BROMIDE 18 MCG/INH HANDIHALER [5] IH SCH (08:59)
[2017-06-23] MEDS ORDERED: INSULIN GLARGINE,HUM.REC.ANLOG 100 UNITS/ML SQ SCH (09:00)
[2017-06-23] MEDS: FLUTICASONE PROPIONATE HFA 110 MCG/PUFF 12 GM INHALER IH SCH ×2 (09:00→16:32)
[2017-06-23] MEDS: ESTROGENS,CONJUGATED 0.625 MG TABLET PO SCH (09:00)
[2017-06-23] MEDS: NICOTINE 7 MG/24 HOUR PATCH TD SCH (09:00)
[2017-06-23 09:32] LABS: GLUCOMETER DEV NAME(LOC) 3EX 1; GLUCOSE,POINT OF CARE 183 MG/DL (70-110)
[2017-06-23] MEDS: INSULIN GLARGINE,HUM.REC.ANLOG 100 UNITS/ML SQ SCH ×2 (09:52→17:30)
[2017-06-23 12:12] LABS: GLUCOMETER DEV NAME(LOC) 3EX 1; GLUCOSE,POINT OF CARE 225 MG/DL (70-110)
[2017-06-23] MEDS: INSULIN ASPART 100 UNITS/ML SQ PRN ×2 (12:18→17:30)
[2017-06-23] MEDS: ACETAMINOPHEN 325 MG TABLET PO PRN (14:34)
[2017-06-23] MEDS: LORazepam 2 MG TABLET PO PRN (16:33)
[2017-06-23 16:43] LABS: GLUCOMETER DEV NAME(LOC) 3EX 1; GLUCOSE,POINT OF CARE 316 MG/DL (70-110)
[2017-06-23 20:33] LABS: GLUCOMETER DEV NAME(LOC) 3EX 1; GLUCOSE,POINT OF CARE 121 MG/DL (70-110)
[2017-06-23] MEDS: CITALOPRAM HYDROBROMIDE 20 MG TABLET PO SCH (21:14)
[2017-06-24] VITALS (8 sets, daily range): BP systolic 132–173; BP diastolic 59–84
[2017-06-24] MEDS: LORazepam 2 MG TABLET PO PRN ×3 (00:26→22:25)
[2017-06-24] MEDS: TraMADol HCL 50 MG TABLET PO PRN ×3 (01:32→17:53)
[2017-06-24] MEDS: HALOPERIDOL 5 MG TABLET PO PRN ×2 (04:11→22:01)
[2017-06-24 05:22] LABS: GLUCOMETER DEV NAME(LOC) 3EI B; GLUCOSE,POINT OF CARE 252 MG/DL (70-110)
[2017-06-24] MEDS: MetFORMIN HCL 500 MG TABLET PO SCH ×2 (07:03→16:09)
[2017-06-24] MEDS: PANTOPRAZOLE SODIUM 40 MG DR TABLET PO SCH (07:03)
[2017-06-24] MEDS: INSULIN ASPART 100 UNITS/ML SQ PRN ×3 (07:10→17:15)
[2017-06-24] MEDS ORDERED: HydrALAZINE HCL 25 MG TABLET PO SCH (09:00)
[2017-06-24] MEDS: FLUTICASONE PROPIONATE HFA 110 MCG/PUFF 12 GM INHALER IH SCH ×2 (09:32→16:10)
[2017-06-24] MEDS: TIOTROPIUM BROMIDE 18 MCG/INH HANDIHALER [5] IH SCH (09:32)
[2017-06-24] MEDS: NICOTINE 7 MG/24 HOUR PATCH TD SCH (09:34)
[2017-06-24] MEDS: ESTROGENS,CONJUGATED 0.625 MG TABLET PO SCH (09:34)
[2017-06-24] MEDS: HydrALAZINE HCL 25 MG TABLET PO SCH ×2 (09:35→21:21)
[2017-06-24] MEDS: AmLODIPine BESYLATE 10 MG TABLET PO SCH (09:36)
[2017-06-24 09:52] LABS: GLUCOMETER DEV NAME(LOC) 3EX 1; GLUCOSE,POINT OF CARE 106 MG/DL (70-110)
[2017-06-24] MEDS: INSULIN GLARGINE,HUM.REC.ANLOG 100 UNITS/ML SQ SCH ×2 (10:16→17:14)
[2017-06-24 11:52] LABS: GLUCOMETER DEV NAME(LOC) 3EX 1; GLUCOSE,POINT OF CARE 159 MG/DL (70-110)
[2017-06-24] MEDS: CITALOPRAM HYDROBROMIDE 20 MG TABLET PO SCH (21:21)
[2017-06-24] MEDS: QUEtiapine FUMARATE 200 MG ER TABLET PO SCH (21:22)
[2017-06-24 21:27] LABS: GLUCOMETER DEV NAME(LOC) 3EX 1; GLUCOSE,POINT OF CARE 177 MG/DL (70-110)
[2017-06-24 21:27] LABS: GLUCOMETER DEV NAME(LOC) 3EX 1; GLUCOSE,POINT OF CARE 208 MG/DL (70-110)
[2017-06-25 05:53] LABS: GLUCOMETER DEV NAME(LOC) 3EI B; GLUCOSE,POINT OF CARE 153 MG/DL (70-110)
[2017-06-25] MEDS: MetFORMIN HCL 500 MG TABLET PO SCH ×2 (07:05→16:50)
[2017-06-25] MEDS: PANTOPRAZOLE SODIUM 40 MG DR TABLET PO SCH (07:05)
[2017-06-25] MEDS: INSULIN ASPART 100 UNITS/ML SQ PRN ×3 (07:06→16:55)
[2017-06-25 08:30] VITALS: BP 131/69
[2017-06-25] MEDS: INSULIN GLARGINE,HUM.REC.ANLOG 100 UNITS/ML SQ SCH ×2 (08:34→16:54)
[2017-06-25] MEDS: FLUTICASONE PROPIONATE HFA 110 MCG/PUFF 12 GM INHALER IH SCH ×2 (08:36→16:49)
[2017-06-25] MEDS: ESTROGENS,CONJUGATED 0.625 MG TABLET PO SCH (08:36)
[2017-06-25] MEDS: AmLODIPine BESYLATE 10 MG TABLET PO SCH (08:36)
[2017-06-25] MEDS: HydrALAZINE HCL 25 MG TABLET PO SCH ×2 (08:36→21:16)
[2017-06-25] MEDS: TIOTROPIUM BROMIDE 18 MCG/INH HANDIHALER [5] IH SCH (08:36)
[2017-06-25] MEDS: TraMADol HCL 50 MG TABLET PO PRN ×2 (08:37→16:52)
[2017-06-25] MEDS: NICOTINE 7 MG/24 HOUR PATCH TD SCH (09:00)
[2017-06-25 16:10] LABS: GLUCOMETER DEV NAME(LOC) 3EX 1; GLUCOSE,POINT OF CARE 395 MG/DL (70-110)
[2017-06-25 16:52] VITALS: BP 148/84
[2017-06-25 17:12] LABS: GLUCOMETER DEV NAME(LOC) 3EX 1; GLUCOSE,POINT OF CARE 148 MG/DL (70-110)
[2017-06-25] MEDS: LORazepam 2 MG TABLET PO PRN (17:54)
[2017-06-25] MEDS: CITALOPRAM HYDROBROMIDE 20 MG TABLET PO SCH (21:16)
[2017-06-25] MEDS: QUEtiapine FUMARATE 200 MG ER TABLET PO SCH (21:16)
[2017-06-25 21:22] LABS: GLUCOMETER DEV NAME(LOC) 3EX 1; GLUCOSE,POINT OF CARE 115 MG/DL (70-110)
[2017-06-26 03:05] VITALS: BP 144/77
[2017-06-26] MEDS: TraMADol HCL 50 MG TABLET PO PRN ×2 (03:05→11:05)
[2017-06-26 07:11] LABS: GLUCOMETER DEV NAME(LOC) 3EI B; GLUCOSE,POINT OF CARE 137 MG/DL (70-110)
[2017-06-26] MEDS: MetFORMIN HCL 500 MG TABLET PO SCH (07:16)
[2017-06-26] MEDS: PANTOPRAZOLE SODIUM 40 MG DR TABLET PO SCH (07:16)
[2017-06-26] MEDS: NICOTINE 7 MG/24 HOUR PATCH TD SCH (09:00)
[2017-06-26] MEDS: FLUTICASONE PROPIONATE HFA 110 MCG/PUFF 12 GM INHALER IH SCH (09:32)
[2017-06-26] MEDS: TIOTROPIUM BROMIDE 18 MCG/INH HANDIHALER [5] IH SCH (09:32)
[2017-06-26] MEDS: INSULIN GLARGINE,HUM.REC.ANLOG 100 UNITS/ML SQ SCH (09:34)
[2017-06-26] MEDS: ESTROGENS,CONJUGATED 0.625 MG TABLET PO SCH (09:34)
[2017-06-26] MEDS: AmLODIPine BESYLATE 10 MG TABLET PO SCH (09:34)
[2017-06-26] MEDS: HydrALAZINE HCL 25 MG TABLET PO SCH (09:34)
[2017-06-26 10:44] VITALS: BP 124/63
[2017-06-26 11:23] LABS: GLUCOMETER DEV NAME(LOC) 3EX 1; GLUCOSE,POINT OF CARE 115 MG/DL (70-110)
[2017-06-26] MEDS ORDERED: PREM625 PO (13:02)
[2017-06-26] MEDS ORDERED: HYDR25TA84 PO (13:03)
[2017-06-26] MEDS ORDERED: INSLAN SQ (13:03)
== END 2017-06-26 15:15 | disposition home or self-care (01) | DRG 885 ==
LOC: EMS 12:03 → 3EX 16:21
PROVIDERS: ADMIT Psychiatry & Neurology Psychiatry; ATTEND Psychiatry & Neurology Psychiatry
DX: F25.1 Schizoaffective disorder, depressive type (principal); R45.851 Suicidal ideations; J44.9 Chronic obstructive pulmonary disease, unspecified; E11.65 Type 2 diabetes mellitus with hyperglycemia; B18.2 Chronic viral hepatitis C; F32.9 Major depressive disorder, single episode, unspecified; F60.9 Personality disorder, unspecified; I10 Essential (primary) hypertension; D64.9 Anemia, unspecified; F17.200 Nicotine dependence, unspecified, uncomplicated; K21.9 Gastro-esophageal reflux disease without esophagitis; M19.90 Unspecified osteoarthritis, unspecified site; Z96.659 Presence of unspecified artificial knee joint; Z79.899 Other long term (current) drug therapy; Z87.442 Personal history of urinary calculi; Z90.710 Acquired absence of both cervix and uterus
CPT/HCPCS: 82962; 99285; G0480; J1815; J3535

== ENCOUNTER 2017-07-13 11:28 | Emergency (ER) | payer MEDICARE, MEDICAID ==
[~2017-07-13] VITALS: Ht 165.1 cm; Wt 72.7 kg
[~2017-07-13 11:28] MED LIST changes: +HYDR25TA84 PO; +INSLAN SQ; -INSU100V12 SQ; +PREM625 PO; -TRAM50TA4 PO
[2017-07-13] MEDS ORDERED: KETOROLAC TROMETHAMINE 60 MG/2 ML VIAL IM ONE (12:45)
[2017-07-13 13:10] VITALS: BP 128/82
== END 2017-07-13 13:15 | disposition home or self-care (01) ==
LOC: EMS 11:29
DX: S50.01XA Contusion of right elbow, initial encounter (principal); M54.5 Low back pain; I10 Essential (primary) hypertension; E11.9 Type 2 diabetes mellitus without complications; F17.210 Nicotine dependence, cigarettes, uncomplicated; Z79.4 Long term (current) use of insulin; W18.39XA Other fall on same level, initial encounter; Y93.89 Activity, other specified; Y92.89 Other specified places as the place of occurrence of the external cause; Y99.8 Other external cause status
CPT/HCPCS: 96372; 99283; J1885

== ENCOUNTER 2017-07-15 12:35 | Emergency (ER) | payer MEDICARE, MEDICAID ==
[~2017-07-15] VITALS: Ht 165.1 cm; Wt 72.0 kg
[2017-07-15 12:43] LABS: GLUCOSE,POINT OF CARE 243 MG/DL (70-110)
[2017-07-15 14:05] LABS: BASOPHILS % (AUTO) 1.2 % (0.0-2.0); EOSINOPHILS % (AUTO) 0.3 % (1.0-6.0); HEMATOCRIT 31.6 % (36-46); HEMOGLOBIN 9.9 g/dL (12.0-16.0); LYMPHOCYTES # (AUTO) 2.7 K/uL (1.0-4.8); LYMPHOCYTES % (AUTO) 23.2 % (22.0-44.0); MEAN CORPUSCULAR HGB CONC 31.4 G/dL (31.0-37.0); MEAN CORPUSCULAR VOLUME 76 fL (80-100); MONOCYTES % (AUTO) 8.9 % (2.0-9.0); NEUTROPHILS # (AUTO) 7.6 K/uL (1.8-7.7); NEUTROPHILS % (AUTO) 66.4 % (40.0-70.0); PLATELET COUNT (AUTO) 295 K/uL (150-450); RED BLOOD CELL COUNT(AUTO) 4.15 MIL/uL (4.00-5.20); RED CELL DISTRIBUTION WIDTH 19.1 % (11.5-14.5)
[2017-07-15 14:10] LABS: ANION GAP 12 mmol/L (8-16); CALCIUM, TOTAL 8.5 mg/dL (8.8-10.5); CARBON DIOXIDE 23 mmol/L (22-29); CHLORIDE 104 mmol/L (98-107); CREATININE 0.76 mg/dL (0.60-1.30); GLOMERULAR FILTR. RATE CALC > 60 mL/min (>60); GLUCOSE,RANDOM 201 mg/dL (70-110); POTASSIUM 3.6 mmol/L (3.5-5.1); SODIUM SERUM 139 mmol/L (136-145); UREA NITROGEN, BLOOD 17 mg/dL (7-18)
[2017-07-15 14:17] LABS: ALANINE AMINOTRANSFERASE 37 U/L (12-78); ALBUMIN 3.2 g/dL (3.4-5.0); ALKALINE PHOSPHATASE 127 U/L (46-116); ASPARTATE AMINOTRANSFERASE 32 U/L (15-37); BILIRUBIN,TOTAL 0.4 mg/dL (0.1-1.0); PROTHROMBIN TIME 10.3 SEC (9.4-11.6); TOTAL PROTEIN, SERUM 7.5 g/dL (6.4-8.2)
[2017-07-15 14:18] VITALS: BP 104/60
[2017-07-15] MEDS ORDERED: SULFAMETHOX/TRIMETH DS 800-160 MG/TABLET PO ONE (15:00)
[2017-07-15] MEDS ORDERED: CEPHALEXIN MONOHYDRATE 500 MG CAPSULE PO ONE (15:00)
== END 2017-07-15 15:12 | disposition home or self-care (01) ==
LOC: EMS 12:37
DX: L03.115 Cellulitis of right lower limb (principal); E11.9 Type 2 diabetes mellitus without complications; F31.9 Bipolar disorder, unspecified; F20.9 Schizophrenia, unspecified; I10 Essential (primary) hypertension; G89.29 Other chronic pain; G43.909 Migraine, unspecified, not intractable, without status migrainosus; F41.9 Anxiety disorder, unspecified; F17.210 Nicotine dependence, cigarettes, uncomplicated; Z87.442 Personal history of urinary calculi; Z79.4 Long term (current) use of insulin
CPT/HCPCS: 82962; 93971; 99285

== ENCOUNTER 2017-10-05 17:06 | Inpatient (IN) | payer MEDICARE, MEDICAID ==
[~2017-10-05] VITALS: Ht 162.6 cm; Wt 71.6 kg
[~2017-10-05 17:06] MED LIST changes: +CITA-106 PO; -CITA20TA9 PO; -METF500T4 PO; +METF500T6 PO
[2017-10-05 17:18] LABS: GLUCOSE,POINT OF CARE 148 MG/DL (70-110)
[2017-10-05 19:25] LABS: AMPHET/METH SCREEN,URINE NEGATIVE (NEGATIVE); BARBITURATE SCREEN, URINE NEGATIVE (NEGATIVE); BENZODIAZEPINES SCREEN,URINE NEGATIVE (NEGATIVE); CANNABINOID SCREEN,URINE NEGATIVE (NEGATIVE); COCAINE SCREEN,URINE NEGATIVE (NEGATIVE); METHADONE SCREEN, URINE NEGATIVE (NEGATIVE); OPIATE SCREEN,URINE POSITIVE (NEGATIVE)
[2017-10-05 19:26] LABS: PHENCYCLIDINE SCREEN,URINE NEGATIVE (NEGATIVE)
[2017-10-05] MEDS ORDERED: DiphenhydrAMINE HCL 50 MG/ML VIAL IM ONE (19:30)
[2017-10-05 19:40] LABS: BASOPHILS % (AUTO) 0.5 % (0.0-2.0); EOSINOPHILS % (AUTO) 0.4 % (1.0-6.0); HEMATOCRIT 36.7 % (36-46); HEMOGLOBIN 11.9 g/dL (12.0-16.0); LYMPHOCYTES # (AUTO) 2.2 K/uL (1.0-4.8); LYMPHOCYTES % (AUTO) 28.7 % (22.0-44.0); MEAN CORPUSCULAR HEMOGLOBIN 26.6 pg (26.0-34.0); MEAN CORPUSCULAR HGB CONC 32.5 G/dL (31.0-37.0); MEAN CORPUSCULAR VOLUME 82 fL (80-100); MONOCYTES # (AUTO) 0.5 K/uL (0.1-1.0); NEUTROPHILS # (AUTO) 4.8 K/uL (1.8-7.7); NEUTROPHILS % (AUTO) 63.4 % (40.0-70.0); PLATELET COUNT (AUTO) 275 K/uL (150-450); RED BLOOD CELL COUNT(AUTO) 4.49 MIL/uL (4.00-5.20); RED CELL DISTRIBUTION WIDTH 17.9 % (11.5-14.5)
[2017-10-05 19:58] LABS: ANION GAP 11 mmol/L (8-16); CALCIUM, TOTAL 8.9 mg/dL (8.8-10.5); CARBON DIOXIDE 25 mmol/L (22-29); CHLORIDE 103 mmol/L (98-107); CREATININE 0.87 mg/dL (0.60-1.30); GLOMERULAR FILTR. RATE CALC > 60 mL/min (>60); GLUCOSE,RANDOM 175 mg/dL (70-110); POTASSIUM 3.6 mmol/L (3.5-5.1); SODIUM SERUM 139 mmol/L (136-145); UREA NITROGEN, BLOOD 12 mg/dL (7-18)
[2017-10-05 20:04] LABS: ALANINE AMINOTRANSFERASE 36 U/L (12-78); ALBUMIN 3.8 g/dL (3.4-5.0); ALKALINE PHOSPHATASE 129 U/L (46-116); ASPARTATE AMINOTRANSFERASE 34 U/L (15-37); BILIRUBIN,TOTAL 0.6 mg/dL (0.1-1.0); TOTAL PROTEIN, SERUM 8.2 g/dL (6.4-8.2)
[2017-10-05 21:58] LABS: APPEARANCE,URINE CLEAR (CLEAR); BILIRUBIN,URINE NEGATIVE (NEGATIVE); GLUCOSE, URINE (UA) NEGATIVE (NEGATIVE); KETONES,URINE NEGATIVE (NEGATIVE); LEUKOCYTE ESTERASE ,URINE SMALL (NEGATIVE); NITRATE,URINE NEGATIVE (NEGATIVE); OCCULT BLOOD,URINE MODERATE (NEGATIVE); PH,URINE 6.5 (5.0-8.0); PROTEIN,URINE NEGATIVE (NEGATIVE)
[2017-10-05 22:22] LABS: BACTERIA,URINE Few /HPF (None Seen); SQUAMOUS EPITHELIAL CELL,UR Few /LPF (None Seen)
[2017-10-05] MEDS: LORazepam 2 MG TABLET PO PRN (22:41)
[2017-10-05] MEDS: ZOLPIDEM TARTRATE 10 MG TABLET PO PRN (22:41)
[2017-10-05 23:19] VITALS: BP 155/89
[2017-10-06] MEDS: LORazepam 2 MG TABLET PO PRN ×4 (02:27→17:49)
[2017-10-06 06:19] LABS: CHOL/HDL RATIO 1.6 (3.9-5.7)
[2017-10-06 07:43] LABS: GLUCOSE,POINT OF CARE 137 MG/DL (70-110)
[2017-10-06 08:15] VITALS: BP 170/92
[2017-10-06] MEDS ORDERED: ACETAMINOPHEN 325 MG TABLET PO PRN ×2 (08:45→21:30)
[2017-10-06] MEDS ORDERED: IBUPROFEN 400 MG TABLET PO PRN (08:45)
[2017-10-06] MEDS ORDERED: DEXTROSE 50%-WATER 25 GM/50 ML SYRINGE IVP PRN (09:00)
[2017-10-06] MEDS: TIOTROPIUM BROMIDE 18 MCG/INH HANDIHALER [5] IH SCH (09:23)
[2017-10-06] MEDS: ESTROGENS,CONJUGATED 0.625 MG TABLET PO SCH (09:28)
[2017-10-06] MEDS: PANTOPRAZOLE SODIUM 40 MG DR TABLET PO SCH (09:28)
[2017-10-06] MEDS: CIPROFLOXACIN HCL 500 MG TABLET PO SCH ×2 (09:28→16:20)
[2017-10-06] MEDS: AmLODIPine BESYLATE 10 MG TABLET PO SCH (09:29)
[2017-10-06] MEDS: HydrALAZINE HCL 25 MG TABLET PO SCH ×2 (09:29→21:32)
[2017-10-06] MEDS: INSULIN GLARGINE,HUM.REC.ANLOG 100 UNITS/ML SQ SCH ×2 (09:46→17:17)
[2017-10-06 10:30] VITALS: BP 137/64
[2017-10-06 11:28] LABS: GLUCOSE,POINT OF CARE 211 MG/DL (70-110)
[2017-10-06] MEDS: INSULIN LISPRO 100 UNITS/ML SQ PRN ×3 (11:30→21:34)
[2017-10-06] MEDS: ChlorproMAZINE HCL 50 MG TABLET PO PRN ×2 (13:26→16:21)
[2017-10-06 16:23] LABS: GLUCOMETER DEV NAME(LOC) 3EI B; GLUCOSE,POINT OF CARE 264 MG/DL (70-110)
[2017-10-06] MEDS: MetFORMIN HCL 500 MG TABLET PO SCH (17:17)
[2017-10-06 19:52] VITALS: BP 130/70
[2017-10-06] MEDS ORDERED: ONDANSETRON HCL 4 MG TABLET PO PRN ×2 (21:30)
[2017-10-06] MEDS ORDERED: ALBUTEROL SULFATE HFA 90 MCG/PUFF 8 GM INHALER IH PRN (21:30)
[2017-10-06] MEDS ORDERED: PETROLATUM,WHITE 71 GM JELLY TP PRN (21:30)
[2017-10-06] MEDS ORDERED: MAG HYDROX/AL HYDROX/SIMETH ES 30 ML SUSPENSION UDCUP PO PRN (21:30)
[2017-10-06] MEDS ORDERED: MAGNESIUM HYDROXIDE SUSPENSION 30 ML UDCUP PO PRN (21:30)
[2017-10-06] MEDS ORDERED: DOCUSATE SODIUM 100 MG CAPSULE PO PRN (21:30)
[2017-10-06] MEDS: CITALOPRAM HYDROBROMIDE 20 MG TABLET PO SCH (21:32)
[2017-10-06 21:49] LABS: GLUCOMETER DEV NAME(LOC) 3EI B; GLUCOSE,POINT OF CARE 176 MG/DL (70-110)
[2017-10-06] MEDS: QUEtiapine FUMARATE 200 MG ER TABLET PO SCH (22:00)
[2017-10-07] MEDS: ZOLPIDEM TARTRATE 10 MG TABLET PO PRN (00:43)
[2017-10-07] MEDS: LORazepam 2 MG TABLET PO PRN (00:43)
[2017-10-07 00:48] VITALS: BP 138/68
[2017-10-07] MEDS: MetFORMIN HCL 500 MG TABLET PO SCH ×2 (06:31→17:27)
[2017-10-07 06:43] LABS: GLUCOMETER DEV NAME(LOC) 3EI B; GLUCOSE,POINT OF CARE 194 MG/DL (70-110)
[2017-10-07] MEDS: INSULIN LISPRO 100 UNITS/ML SQ PRN ×4 (06:48→21:30)
[2017-10-07 07:56] LABS: HEMOGLOBIN A1C 6.2 % (4.5-6.2)
[2017-10-07 08:18] LABS: THYROID STIMULATING HORMONE 1.94 uIU/mL (0.36-3.74)
[2017-10-07 08:30] VITALS: BP 136/93
[2017-10-07] MEDS: TIOTROPIUM BROMIDE 18 MCG/INH HANDIHALER [5] IH SCH (09:00)
[2017-10-07] MEDS: INSULIN GLARGINE,HUM.REC.ANLOG 100 UNITS/ML SQ SCH ×2 (09:00→17:28)
[2017-10-07] MEDS: AmLODIPine BESYLATE 10 MG TABLET PO SCH (11:06)
[2017-10-07] MEDS: HydrALAZINE HCL 25 MG TABLET PO SCH ×2 (11:06→20:40)
[2017-10-07] MEDS: PANTOPRAZOLE SODIUM 40 MG DR TABLET PO SCH (11:06)
[2017-10-07] MEDS: ESTROGENS,CONJUGATED 0.625 MG TABLET PO SCH (11:07)
[2017-10-07] MEDS: CIPROFLOXACIN HCL 500 MG TABLET PO SCH ×2 (11:07→17:27)
[2017-10-07] MEDS: NICOTINE 14 MG/24 HOUR PATCH TD SCH (11:15)
[2017-10-07] MEDS: IBUPROFEN 400 MG TABLET PO PRN (11:16)
[2017-10-07 11:48] LABS: GLUCOMETER DEV NAME(LOC) 3EI B; GLUCOSE,POINT OF CARE 172 MG/DL (70-110)
[2017-10-07 13:46] VITALS: BP 144/96
[2017-10-07 17:38] LABS: GLUCOMETER DEV NAME(LOC) 3EI B; GLUCOSE,POINT OF CARE 142 MG/DL (70-110)
[2017-10-07] MEDS: CITALOPRAM HYDROBROMIDE 20 MG TABLET PO SCH (20:40)
[2017-10-07] MEDS: QUEtiapine FUMARATE 200 MG ER TABLET PO SCH (20:40)
[2017-10-07 20:53] LABS: GLUCOMETER DEV NAME(LOC) 3EI B; GLUCOSE,POINT OF CARE 200 MG/DL (70-110)
[2017-10-07 22:42] VITALS: BP 137/68
[2017-10-08] MEDS: ZOLPIDEM TARTRATE 10 MG TABLET PO PRN (00:01)
[2017-10-08 01:43] VITALS: BP 118/70
[2017-10-08] MEDS: LORazepam 2 MG TABLET PO PRN (04:41)
[2017-10-08 05:53] LABS: GLUCOMETER DEV NAME(LOC) 3EI B; GLUCOSE,POINT OF CARE 85 MG/DL (70-110)
[2017-10-08] MEDS: MetFORMIN HCL 500 MG TABLET PO SCH ×2 (07:02→17:38)
[2017-10-08] MEDS: TIOTROPIUM BROMIDE 18 MCG/INH HANDIHALER [5] IH SCH (08:59)
[2017-10-08] MEDS: CIPROFLOXACIN HCL 500 MG TABLET PO SCH ×2 (09:00→17:38)
[2017-10-08] MEDS: HydrALAZINE HCL 25 MG TABLET PO SCH ×2 (09:00→20:31)
[2017-10-08] MEDS: PANTOPRAZOLE SODIUM 40 MG DR TABLET PO SCH (09:00)
[2017-10-08] MEDS: AmLODIPine BESYLATE 10 MG TABLET PO SCH (09:00)
[2017-10-08] MEDS: NICOTINE 14 MG/24 HOUR PATCH TD SCH (09:00)
[2017-10-08] MEDS: INSULIN GLARGINE,HUM.REC.ANLOG 100 UNITS/ML SQ SCH ×2 (09:01→17:55)
[2017-10-08] MEDS: ESTROGENS,CONJUGATED 0.625 MG TABLET PO SCH (09:02)
[2017-10-08] MEDS: IBUPROFEN 400 MG TABLET PO PRN (09:05)
[2017-10-08 09:39] LABS: % IRON SATURATION 20.1 % (22-44)
[2017-10-08 11:28] LABS: GLUCOMETER DEV NAME(LOC) 3EI B; GLUCOSE,POINT OF CARE 224 MG/DL (70-110)
[2017-10-08] MEDS: INSULIN LISPRO 100 UNITS/ML SQ PRN ×2 (12:16→17:55)
[2017-10-08 16:24] VITALS: BP 143/76
[2017-10-08 17:59] LABS: GLUCOMETER DEV NAME(LOC) 3EI B; GLUCOSE,POINT OF CARE 202 MG/DL (70-110)
[2017-10-08] MEDS: QUEtiapine FUMARATE 200 MG ER TABLET PO SCH (20:31)
[2017-10-08] MEDS: CITALOPRAM HYDROBROMIDE 20 MG TABLET PO SCH (20:32)
[2017-10-08 21:12] LABS: GLUCOMETER DEV NAME(LOC) 3EI B; GLUCOSE,POINT OF CARE 97 MG/DL (70-110)
[2017-10-09 00:50] VITALS: BP 147/77
[2017-10-09] MEDS: ZOLPIDEM TARTRATE 10 MG TABLET PO PRN ×2 (00:55→22:40)
[2017-10-09] MEDS: LORazepam 2 MG TABLET PO PRN ×2 (01:48→20:48)
[2017-10-09 06:14] LABS: GLUCOMETER DEV NAME(LOC) 3EI B; GLUCOSE,POINT OF CARE 152 MG/DL (70-110)
[2017-10-09] MEDS: INSULIN LISPRO 100 UNITS/ML SQ PRN ×2 (06:50→11:22)
[2017-10-09] MEDS: MetFORMIN HCL 500 MG TABLET PO SCH ×2 (06:51→17:12)
[2017-10-09] MEDS: HydrALAZINE HCL 25 MG TABLET PO SCH ×2 (08:41→20:47)
[2017-10-09] MEDS: ESTROGENS,CONJUGATED 0.625 MG TABLET PO SCH (08:41)
[2017-10-09] MEDS: TIOTROPIUM BROMIDE 18 MCG/INH HANDIHALER [5] IH SCH (08:42)
[2017-10-09] MEDS: AmLODIPine BESYLATE 10 MG TABLET PO SCH (08:42)
[2017-10-09] MEDS: NICOTINE 14 MG/24 HOUR PATCH TD SCH (08:42)
[2017-10-09] MEDS: CIPROFLOXACIN HCL 500 MG TABLET PO SCH ×2 (08:42→17:12)
[2017-10-09] MEDS: PANTOPRAZOLE SODIUM 40 MG DR TABLET PO SCH (08:42)
[2017-10-09] MEDS: INSULIN GLARGINE,HUM.REC.ANLOG 100 UNITS/ML SQ SCH ×2 (08:44→17:56)
[2017-10-09 09:24] VITALS: BP 155/90
[2017-10-09 11:18] LABS: GLUCOMETER DEV NAME(LOC) 3EI B; GLUCOSE,POINT OF CARE 159 MG/DL (70-110)
[2017-10-09] MEDS ORDERED: DEXTROSE 50%-WATER 25 GM/50 ML SYRINGE IVP PRN (15:30)
[2017-10-09 16:25] VITALS: BP 142/79
[2017-10-09] MEDS: FERROUS SULFATE 325 MG EC TABLET PO SCH (17:12)
[2017-10-09 17:23] LABS: GLUCOMETER DEV NAME(LOC) 3EI B; GLUCOSE,POINT OF CARE 123 MG/DL (70-110)
[2017-10-09] MEDS: CITALOPRAM HYDROBROMIDE 20 MG TABLET PO SCH (20:47)
[2017-10-09] MEDS: QUEtiapine FUMARATE 200 MG ER TABLET PO SCH (20:47)
[2017-10-09 20:58] LABS: GLUCOMETER DEV NAME(LOC) 3EI B; GLUCOSE,POINT OF CARE 99 MG/DL (70-110)
[2017-10-10] MEDS: LORazepam 2 MG TABLET PO PRN (01:16)
[2017-10-10 01:52] VITALS: BP 150/73
[2017-10-10 02:40] VITALS: BP 143/81
[2017-10-10] MEDS: IBUPROFEN 400 MG TABLET PO PRN ×2 (02:46→12:39)
[2017-10-10 05:40] LABS: GLUCOMETER DEV NAME(LOC) 3EI B; GLUCOSE,POINT OF CARE 267 MG/DL (70-110)
[2017-10-10] MEDS: MetFORMIN HCL 500 MG TABLET PO SCH ×2 (06:44→16:36)
[2017-10-10] MEDS: FERROUS SULFATE 325 MG EC TABLET PO SCH ×3 (06:44→16:36)
[2017-10-10] MEDS: INSULIN LISPRO 100 UNITS/ML SQ PRN ×2 (06:45→17:40)
[2017-10-10] MEDS: NICOTINE 14 MG/24 HOUR PATCH TD SCH (09:00)
[2017-10-10 09:42] VITALS: BP 158/92
[2017-10-10] MEDS: HydrALAZINE HCL 25 MG TABLET PO SCH ×2 (10:18→20:17)
[2017-10-10] MEDS: CIPROFLOXACIN HCL 500 MG TABLET PO SCH ×2 (10:18→16:36)
[2017-10-10] MEDS: AmLODIPine BESYLATE 10 MG TABLET PO SCH (10:18)
[2017-10-10] MEDS: PANTOPRAZOLE SODIUM 40 MG DR TABLET PO SCH (10:18)
[2017-10-10] MEDS: ESTROGENS,CONJUGATED 0.625 MG TABLET PO SCH (10:18)
[2017-10-10] MEDS: TIOTROPIUM BROMIDE 18 MCG/INH HANDIHALER [5] IH SCH (10:18)
[2017-10-10] MEDS: INSULIN GLARGINE,HUM.REC.ANLOG 100 UNITS/ML SQ SCH ×2 (10:21→16:43)
[2017-10-10 12:01] LABS: GLUCOMETER DEV NAME(LOC) 3EI B; GLUCOSE,POINT OF CARE 101 MG/DL (70-110)
[2017-10-10 12:39] VITALS: BP 144/89
[2017-10-10] MEDS: ChlorproMAZINE HCL 50 MG TABLET PO PRN (12:39)
[2017-10-10 13:39] VITALS: BP 135/76
[2017-10-10 16:13] VITALS: BP 140/84
[2017-10-10 18:16] LABS: GLUCOMETER DEV NAME(LOC) 3EI B; GLUCOSE,POINT OF CARE 181 MG/DL (70-110)
[2017-10-10] MEDS: CITALOPRAM HYDROBROMIDE 20 MG TABLET PO SCH (20:17)
[2017-10-10] MEDS: QUEtiapine FUMARATE 200 MG ER TABLET PO SCH (20:17)
[2017-10-10 20:36] LABS: GLUCOMETER DEV NAME(LOC) 3EI B; GLUCOSE,POINT OF CARE 128 MG/DL (70-110)
[2017-10-11 05:55] LABS: GLUCOMETER DEV NAME(LOC) 3EI B; GLUCOSE,POINT OF CARE 151 MG/DL (70-110)
[2017-10-11] MEDS: FERROUS SULFATE 325 MG EC TABLET PO SCH ×3 (07:00→17:37)
[2017-10-11] MEDS: MetFORMIN HCL 500 MG TABLET PO SCH ×2 (07:00→17:37)
[2017-10-11] MEDS: INSULIN LISPRO 100 UNITS/ML SQ PRN ×2 (07:20→17:38)
[2017-10-11] MEDS: HydrALAZINE HCL 25 MG TABLET PO SCH ×2 (08:28→20:25)
[2017-10-11] MEDS: ESTROGENS,CONJUGATED 0.625 MG TABLET PO SCH (08:28)
[2017-10-11] MEDS: PANTOPRAZOLE SODIUM 40 MG DR TABLET PO SCH (08:28)
[2017-10-11] MEDS: ChlorproMAZINE HCL 50 MG TABLET PO PRN ×3 (08:28→20:25)
[2017-10-11] MEDS: CIPROFLOXACIN HCL 500 MG TABLET PO SCH (08:28)
[2017-10-11] MEDS: AmLODIPine BESYLATE 10 MG TABLET PO SCH (08:29)
[2017-10-11] MEDS: NICOTINE 14 MG/24 HOUR PATCH TD SCH (08:29)
[2017-10-11] MEDS: INSULIN GLARGINE,HUM.REC.ANLOG 100 UNITS/ML SQ SCH ×2 (08:32→17:39)
[2017-10-11] MEDS: TIOTROPIUM BROMIDE 18 MCG/INH HANDIHALER [5] IH SCH (08:33)
[2017-10-11] MEDS: LORazepam 2 MG TABLET PO PRN (09:36)
[2017-10-11] MEDS: IBUPROFEN 400 MG TABLET PO PRN ×2 (09:37→19:00)
[2017-10-11 11:28] LABS: GLUCOMETER DEV NAME(LOC) 3EI B; GLUCOSE,POINT OF CARE 137 MG/DL (70-110)
[2017-10-11 17:56] LABS: GLUCOMETER DEV NAME(LOC) 3EI B; GLUCOSE,POINT OF CARE 204 MG/DL (70-110)
[2017-10-11 19:01] VITALS: BP 129/69
[2017-10-11] MEDS: CITALOPRAM HYDROBROMIDE 20 MG TABLET PO SCH (20:25)
[2017-10-11] MEDS: QUEtiapine FUMARATE 200 MG ER TABLET PO SCH (20:25)
[2017-10-11 20:32] LABS: GLUCOMETER DEV NAME(LOC) 3EI B; GLUCOSE,POINT OF CARE 133 MG/DL (70-110)
[2017-10-11] MEDS: ZOLPIDEM TARTRATE 10 MG TABLET PO PRN (21:26)
[2017-10-12] MEDS: ChlorproMAZINE HCL 50 MG TABLET PO PRN ×2 (03:38→09:55)
[2017-10-12 03:49] VITALS: BP 133/93
[2017-10-12] MEDS: LORazepam 2 MG TABLET PO PRN ×2 (04:37→12:38)
[2017-10-12 06:41] LABS: GLUCOMETER DEV NAME(LOC) 3EI B; GLUCOSE,POINT OF CARE 158 MG/DL (70-110)
[2017-10-12] MEDS: INSULIN LISPRO 100 UNITS/ML SQ PRN (06:50)
[2017-10-12] MEDS: MetFORMIN HCL 500 MG TABLET PO SCH (07:08)
[2017-10-12] MEDS: FERROUS SULFATE 325 MG EC TABLET PO SCH ×2 (07:08→12:38)
[2017-10-12] MEDS ORDERED: FERR-89 PO (07:53)
[2017-10-12] MEDS ORDERED: PANT40TA25 PO (07:54)
[2017-10-12] MEDS: NICOTINE 14 MG/24 HOUR PATCH TD SCH (09:00)
[2017-10-12] MEDS: PANTOPRAZOLE SODIUM 40 MG DR TABLET PO SCH (09:46)
[2017-10-12] MEDS: HydrALAZINE HCL 25 MG TABLET PO SCH (09:46)
[2017-10-12] MEDS: ESTROGENS,CONJUGATED 0.625 MG TABLET PO SCH (09:46)
[2017-10-12] MEDS: AmLODIPine BESYLATE 10 MG TABLET PO SCH (09:46)
[2017-10-12] MEDS: TIOTROPIUM BROMIDE 18 MCG/INH HANDIHALER [5] IH SCH (09:50)
[2017-10-12] MEDS: INSULIN GLARGINE,HUM.REC.ANLOG 100 UNITS/ML SQ SCH (09:50)
[2017-10-12 11:50] LABS: GLUCOMETER DEV NAME(LOC) 3EI B; GLUCOSE,POINT OF CARE 114 MG/DL (70-110)
[2017-10-12 12:38] VITALS: BP 138/77
[2017-10-12] MEDS: IBUPROFEN 400 MG TABLET PO PRN (12:38)
[2017-10-12 13:38] VITALS: BP 135/77
== END 2017-10-12 15:05 | disposition home or self-care (01) | DRG 885 ==
LOC: EMS 17:07 → AHU 22:30 → 3EI 10-06 14:30
PROVIDERS: ADMIT Psychiatry & Neurology Psychiatry; ATTEND Psychiatry & Neurology Psychiatry
DX: F25.9 Schizoaffective disorder, unspecified (principal); R45.851 Suicidal ideations; B18.2 Chronic viral hepatitis C; D50.9 Iron deficiency anemia, unspecified; E03.9 Hypothyroidism, unspecified; E11.9 Type 2 diabetes mellitus without complications; E78.5 Hyperlipidemia, unspecified; G43.909 Migraine, unspecified, not intractable, without status migrainosus; M70.21 Olecranon bursitis, right elbow; I10 Essential (primary) hypertension; I25.10 Atherosclerotic heart disease of native coronary artery without angina pectoris; J44.9 Chronic obstructive pulmonary disease, unspecified; F41.9 Anxiety disorder, unspecified; K21.9 Gastro-esophageal reflux disease without esophagitis; K59.00 Constipation, unspecified; M19.90 Unspecified osteoarthritis, unspecified site; F17.210 Nicotine dependence, cigarettes, uncomplicated; Z96.659 Presence of unspecified artificial knee joint; Z90.710 Acquired absence of both cervix and uterus; Z79.899 Other long term (current) drug therapy; Z79.4 Long term (current) use of insulin; Z87.442 Personal history of urinary calculi; Z71.6 Tobacco abuse counseling
CPT/HCPCS: 82728; 83036; 83540; 83550; 84443; 84550; 87086; 90472; 99285; G0480; J1200; J1815; J3230; Q0162

== ENCOUNTER 2017-11-20 17:05 | Emergency (ER) | payer MEDICAID, MEDICARE ==
[~2017-11-20] VITALS: Ht 165.1 cm; Wt 72.7 kg
[~2017-11-20 17:05] MED LIST changes: +FERR-89 PO
[2017-11-20] MEDS ORDERED: LIDOCAINE HCL 5% TRANSDERMAL PATCH TD ONE (18:00)
[2017-11-20] MEDS ORDERED: HYDROmorphone 2 MG/ML SYRINGE IM ONE (18:00)
[2017-11-20 20:00] VITALS: BP 132/71
== END 2017-11-20 20:22 | disposition home or self-care (01) ==
LOC: EMS 17:07
DX: M54.5 Low back pain (principal); G89.29 Other chronic pain; I10 Essential (primary) hypertension; E11.9 Type 2 diabetes mellitus without complications; G43.909 Migraine, unspecified, not intractable, without status migrainosus; F17.210 Nicotine dependence, cigarettes, uncomplicated; Z79.4 Long term (current) use of insulin
CPT/HCPCS: 72100; 96372; 99284; J1170

== ENCOUNTER 2017-12-01 11:19 | Emergency (ER) | payer MEDICARE, MEDICAID ==
[~2017-12-01] VITALS: Ht 165.1 cm; Wt 72.7 kg
[2017-12-01 11:34] LABS: GLUCOSE,POINT OF CARE 184 MG/DL (70-110)
[2017-12-01 13:49] LABS: BASOPHILS % (AUTO) 0.4 % (0.0-2.0); HEMATOCRIT 32.3 % (36-46); HEMOGLOBIN 10.5 g/dL (12.0-16.0); LYMPHOCYTES # (AUTO) 1.7 K/uL (1.0-4.8); LYMPHOCYTES % (AUTO) 19.6 % (22.0-44.0); MEAN CORPUSCULAR HGB CONC 32.4 G/dL (31.0-37.0); MEAN CORPUSCULAR VOLUME 86 fL (80-100); MONOCYTES # (AUTO) 0.6 K/uL (0.1-1.0); MONOCYTES % (AUTO) 6.8 % (2.0-9.0); NEUTROPHILS # (AUTO) 6.1 K/uL (1.8-7.7); NEUTROPHILS % (AUTO) 72.2 % (40.0-70.0); PLATELET COUNT (AUTO) 234 K/uL (150-450); RED BLOOD CELL COUNT(AUTO) 3.74 MIL/uL (4.00-5.20)
[2017-12-01 13:59] LABS: ANION GAP 10 mmol/L (8-16); CALCIUM, TOTAL 8.7 mg/dL (8.8-10.5); CARBON DIOXIDE 25 mmol/L (22-29); CHLORIDE 104 mmol/L (98-107); CREATININE 0.63 mg/dL (0.60-1.30); GLOMERULAR FILTR. RATE CALC > 60 mL/min (>60); GLUCOSE,RANDOM 252 mg/dL (70-110); POTASSIUM 3.5 mmol/L (3.5-5.1); SODIUM SERUM 139 mmol/L (136-145); UREA NITROGEN, BLOOD 10 mg/dL (7-18)
[2017-12-01] MEDS ORDERED: CeFAZolin 1 GM/DEXTROSE 50 ML IV ONE (14:00)
[2017-12-01 14:04] LABS: ALANINE AMINOTRANSFERASE 39 U/L (12-78); ALKALINE PHOSPHATASE 129 U/L (46-116); ASPARTATE AMINOTRANSFERASE 37 U/L (15-37); BILIRUBIN,TOTAL 0.3 mg/dL (0.1-1.0); TOTAL PROTEIN, SERUM 6.8 g/dL (6.4-8.2)
[2017-12-01] MEDS ORDERED: MORPHINE SULFATE 4 MG/ML SYRINGE IVP ONE (14:30)
[2017-12-01 16:26] VITALS: BP 132/85
== END 2017-12-01 15:30 | disposition home or self-care (01) ==
LOC: EMS 11:21
DX: L03.113 Cellulitis of right upper limb (principal); D64.9 Anemia, unspecified; L53.9 Erythematous condition, unspecified; F41.9 Anxiety disorder, unspecified; M19.90 Unspecified osteoarthritis, unspecified site; F31.9 Bipolar disorder, unspecified; E11.9 Type 2 diabetes mellitus without complications; I10 Essential (primary) hypertension; G43.909 Migraine, unspecified, not intractable, without status migrainosus; F20.9 Schizophrenia, unspecified; F17.210 Nicotine dependence, cigarettes, uncomplicated; Z96.659 Presence of unspecified artificial knee joint; Z90.710 Acquired absence of both cervix and uterus; Z79.4 Long term (current) use of insulin; Z79.84 Long term (current) use of oral hypoglycemic drugs
CPT/HCPCS: 36415; 80053; 82948; 82962; 85025; 93971; 96365; 96375; 99285; J0690; J2270

== ENCOUNTER 2018-01-23 12:36 | Emergency (ER) | payer MEDICARE, MEDICAID ==
[~2018-01-23] VITALS: Ht 165.1 cm; Wt 72.7 kg
[~2018-01-23 12:36] MED LIST changes: +METF-960 PO; -METF500T6 PO
[2018-01-23 13:31] VITALS: BP 154/78
[2018-01-23] MEDS ORDERED: CEPHALEXIN MONOHYDRATE 500 MG CAPSULE PO ONE (13:45)
[2018-01-23] MEDS ORDERED: MORPHINE SULFATE 4 MG/ML SYRINGE IM ONE (13:45)
== END 2018-01-23 14:02 | disposition home or self-care (01) ==
LOC: EMS 12:37
DX: L03.115 Cellulitis of right lower limb (principal); F41.9 Anxiety disorder, unspecified; F31.9 Bipolar disorder, unspecified; E11.9 Type 2 diabetes mellitus without complications; I10 Essential (primary) hypertension; G43.909 Migraine, unspecified, not intractable, without status migrainosus; F20.9 Schizophrenia, unspecified; F17.210 Nicotine dependence, cigarettes, uncomplicated; Z90.710 Acquired absence of both cervix and uterus; Z79.84 Long term (current) use of oral hypoglycemic drugs; Z79.899 Other long term (current) drug therapy; Z96.653 Presence of artificial knee joint, bilateral
CPT/HCPCS: 96372; 99283; J2270

== ENCOUNTER 2018-06-04 23:56 | Inpatient (IN) | payer MEDICARE, MEDICAID ==
[~2018-06-04] VITALS: Ht 165.1 cm; Wt 72.7 kg
[~2018-06-04 23:56] MED LIST changes: +CEFX1I IM; +HYDR10TA31 PO; +HYDR2 PO; +INSU100V SQ; +LORA1TAB3 PO; +LOSA25TA41 PO; +MAGN200T5 PO; -METF-960 PO; -PREM625 PO
[2018-06-05 00:14] LABS: GLUCOSE,POINT OF CARE 210 MG/DL (70-110)
[2018-06-05 01:00] LABS: BASOPHILS % (AUTO) 0.5 % (0.0-2.0); EOSINOPHILS % (AUTO) 0 % (1.0-6.0); HEMATOCRIT 28.9 % (36-46); HEMOGLOBIN 9.5 g/dL (12.0-16.0); LYMPHOCYTES # (AUTO) 2.2 K/uL (1.0-4.8); LYMPHOCYTES % (AUTO) 11.8 % (22.0-44.0); MEAN CORPUSCULAR HEMOGLOBIN 26.9 pg (26.0-34.0); MEAN CORPUSCULAR HGB CONC 32.8 G/dL (31.0-37.0); MEAN CORPUSCULAR VOLUME 82 fL (80-100); MONOCYTES # (AUTO) 1.4 K/uL (0.1-1.0); MONOCYTES % (AUTO) 7.8 % (2.0-9.0); NEUTROPHILS # (AUTO) 14.7 K/uL (1.8-7.7); NEUTROPHILS % (AUTO) 79.9 % (40.0-70.0); PLATELET COUNT (AUTO) 372 K/uL (150-450); RED BLOOD CELL COUNT(AUTO) 3.53 MIL/uL (4.00-5.20); RED CELL DISTRIBUTION WIDTH 16.8 % (11.5-14.5)
[2018-06-05] MEDS ORDERED: KETOROLAC TROMETHAMINE 30 MG/ML VIAL IVP ONE (01:00)
[2018-06-05] MEDS ORDERED: ONDANSETRON HCL 4 MG/2 ML VIAL IVP ONE (01:00)
[2018-06-05 01:02] LABS: APPEARANCE,URINE CLOUDY (CLEAR); GLUCOSE, URINE (UA) NEGATIVE (NEGATIVE); KETONES,URINE TRACE mg/dL (NEGATIVE); LEUKOCYTE ESTERASE ,URINE LARGE (NEGATIVE); NITRATE,URINE NEGATIVE (NEGATIVE); OCCULT BLOOD,URINE TRACE (NEGATIVE); PROTEIN,URINE POS 1+ (NEGATIVE)
[2018-06-05 01:04] LABS: BILIRUBIN,URINE PRELIM. POSITIVE (NEGATIVE)
[2018-06-05 01:08] LABS: BACTERIA,URINE Rare /HPF (None Seen); WBC,URINE >100 /HPF (0-5)
[2018-06-05 01:09] LABS: SQUAMOUS EPITHELIAL CELL,UR Rare /LPF (None Seen)
[2018-06-05 01:12] LABS: BILIRUBIN,TOTAL 1.6 mg/dL (0.1-1.0); CALCIUM, TOTAL 8.9 mg/dL (8.8-10.5); CREATININE 1.46 mg/dL (0.60-1.30); POTASSIUM 3.8 mmol/L (3.5-5.1); TOTAL PROTEIN, SERUM 7.3 g/dL (6.4-8.2)
[2018-06-05] MEDS ORDERED: AZITHROMYCIN 500 MG/NS 250 ML IV ONE (05:00)
[2018-06-05] MEDS ORDERED: CefTRIAXone 1 GM/DEXTROSE 50 ML IV ONE (05:00)
[2018-06-05] MEDS ORDERED: ZOLPIDEM TARTRATE 5 MG TABLET PO PRN (05:45)
[2018-06-05] MEDS ORDERED: BISACODYL 10 MG RECTAL RECTAL SUPPOSITORY PR PRN (05:45)
[2018-06-05] MEDS ORDERED: MAGNESIUM HYDROXIDE SUSPENSION 30 ML UDCUP PO PRN (05:45)
[2018-06-05] MEDS ORDERED: *CLINICAL-LEVOFLOXACIN IVPB DOSING CLINICAL ONE (05:45)
[2018-06-05] MEDS ORDERED: ONDANSETRON HCL 4 MG/2 ML VIAL IVP PRN (05:45)
[2018-06-05] MEDS ORDERED: ALBUTEROL SULFATE 2.5 MG/0.5 ML NEB SOLUTION NEB PRN (05:45)
[2018-06-05] MEDS ORDERED: SODIUM CHLORIDE 0.9% 1,000 ML IV ONE (05:45)
[2018-06-05] MEDS ORDERED: LEVOFLOXACIN 500 MG/D5% WATER 100 ML IV ONE (08:00)
[2018-06-05] MEDS: DOCUSATE SODIUM 100 MG CAPSULE PO SCH ×3 (09:19→21:34)
[2018-06-05] MEDS: HEPARIN SODIUM,PORCINE 5,000 UNITS/ML VIAL SQ SCH ×2 (09:19→15:56)
[2018-06-05] MEDS: PANTOPRAZOLE SODIUM 40 MG DR TABLET PO SCH (09:19)
[2018-06-05] MEDS: HydrALAZINE HCL 25 MG TABLET PO SCH ×2 (09:19→21:00)
[2018-06-05] MEDS: INSULIN GLARGINE,HUM.REC.ANLOG 100 UNITS/ML SQ SCH ×2 (09:21→20:28)
[2018-06-05 09:23] LABS: GLUCOSE,POINT OF CARE 212 MG/DL (70-110)
[2018-06-05] MEDS: MORPHINE SULFATE 2 MG/ML SYRINGE IVP PRN (10:13)
[2018-06-05] MEDS: HYDROCODONE/ACETAMINOPHEN 5-325 MG TABLET PO PRN (11:55)
[2018-06-05] MEDS: CITALOPRAM HYDROBROMIDE 20 MG TABLET PO SCH (12:02)
[2018-06-05] MEDS: FERROUS SULFATE 325 MG EC TABLET PO SCH ×3 (12:02→16:37)
[2018-06-05] MEDS: AmLODIPine BESYLATE 10 MG TABLET PO SCH (12:02)
[2018-06-05] MEDS ORDERED: MAGOX PO (13:05)
[2018-06-05] MEDS: LORazepam 1 MG TABLET PO PRN (13:13)
[2018-06-05 17:25] LABS: GLUCOMETER DEV NAME(LOC) 4E.; GLUCOSE,POINT OF CARE 187 MG/DL (70-110)
[2018-06-05] MEDS: QUEtiapine FUMARATE 200 MG ER TABLET PO SCH (18:00)
[2018-06-05] MEDS: SODIUM CHLORIDE 0.9% 1,000 ML IV SCH (18:09)
[2018-06-05 18:23] VITALS: BP 114/57
[2018-06-05 19:41] VITALS: BP 98/53
[2018-06-05 23:19] LABS: GLUCOMETER DEV NAME(LOC) 4E.; GLUCOSE,POINT OF CARE 180 MG/DL (70-110)
[2018-06-06 05:14] VITALS: BP 114/46
[2018-06-06] MEDS ORDERED: SODIUM CHLORIDE 0.9% 1,000 ML IV SCH (06:00)
[2018-06-06 06:24] LABS: GLUCOMETER DEV NAME(LOC) 4E.; GLUCOSE,POINT OF CARE 180 MG/DL (70-110)
[2018-06-06] MEDS ORDERED: IOHEXOL 240 MG/ML 20 ML VIAL ONE (07:19)
[2018-06-06] MEDS ORDERED: SODIUM CL IRRIG SOLN BAG 3,000 ML IRRIG ONE (07:20)
[2018-06-06 07:54] VITALS: BP 106/56
[2018-06-06] MEDS ORDERED: SODIUM CHLORIDE 0.9% 1,000 ML IV ONE (07:55)
[2018-06-06] MEDS ORDERED: LEVOFLOXACIN 250 MG/D5% WATER 50 ML IV SCH (08:00)
[2018-06-06] MEDS ORDERED: SUGAMMADEX SODIUM 200 MG/2 ML VIAL IVP ONE (08:44)
[2018-06-06] MEDS ORDERED: HydrALAZINE HCL 10 MG TABLET PO PRN (10:30)
[2018-06-06] MEDS ORDERED: DEXTROSE 50%-WATER 25 GM/50 ML SYRINGE IVP PRN (11:30)
[2018-06-06 11:39] VITALS: BP 103/57
[2018-06-06] MEDS: MORPHINE SULFATE 2 MG/ML SYRINGE IVP PRN ×2 (11:52→16:45)
[2018-06-06] MEDS: PANTOPRAZOLE SODIUM 40 MG DR TABLET PO SCH (11:53)
[2018-06-06] MEDS: FERROUS SULFATE 325 MG EC TABLET PO SCH ×3 (11:53→16:47)
[2018-06-06] MEDS: HEPARIN SODIUM,PORCINE 5,000 UNITS/ML VIAL SQ SCH ×3 (11:53→16:44)
[2018-06-06] MEDS: CITALOPRAM HYDROBROMIDE 20 MG TABLET PO SCH (11:53)
[2018-06-06] MEDS: AmLODIPine BESYLATE 10 MG TABLET PO SCH (11:53)
[2018-06-06] MEDS: HydrALAZINE HCL 25 MG TABLET PO SCH ×2 (11:54→21:04)
[2018-06-06] MEDS ORDERED: ALBUTEROL SULFATE HFA 90 MCG/PUFF 8 GM INHALER IH ONE (12:00)
[2018-06-06] MEDS ORDERED: ONDANSETRON HCL 4 MG/2 ML VIAL IVP ONE (12:00)
[2018-06-06] MEDS ORDERED: MIDAZOLAM HCL 2 MG/2 ML VIAL IVP ONE (12:00)
[2018-06-06] MEDS ORDERED: ROCURONIUM BROMIDE 10 MG/ML 5 ML VIAL IVP ONE (12:00)
[2018-06-06] MEDS ORDERED: PHENYLEPHRINE HCL 10 MG/ML VIAL IVP ONE (12:00)
[2018-06-06] MEDS ORDERED: FentaNYL CITRATE-PF 100 MCG/2 ML VIAL IVP ONE (12:00)
[2018-06-06] MEDS: INSULIN GLARGINE,HUM.REC.ANLOG 100 UNITS/ML SQ SCH ×2 (12:09→21:11)
[2018-06-06] MEDS: SODIUM CHLORIDE 0.9% 1,000 ML IV SCH (12:10)
[2018-06-06] MEDS: INSULIN LISPRO 100 UNITS/ML SQ PRN ×3 (12:13→21:10)
[2018-06-06 12:59] LABS: GLUCOMETER DEV NAME(LOC) 4E.; GLUCOSE,POINT OF CARE 175 MG/DL (70-110)
[2018-06-06 16:08] VITALS: BP 95/57
[2018-06-06 16:55] LABS: BASOPHILS % (AUTO) 0.7 % (0.0-2.0); EOSINOPHILS % (AUTO) 0.1 % (1.0-6.0); HEMATOCRIT 27.1 % (36-46); HEMOGLOBIN 8.9 g/dL (12.0-16.0); LYMPHOCYTES # (AUTO) 0.9 K/uL (1.0-4.8); LYMPHOCYTES % (AUTO) 5.8 % (22.0-44.0); MEAN CORPUSCULAR HEMOGLOBIN 27.2 pg (26.0-34.0); MEAN CORPUSCULAR VOLUME 82 fL (80-100); MONOCYTES # (AUTO) 1.2 K/uL (0.1-1.0); MONOCYTES % (AUTO) 7.9 % (2.0-9.0); NEUTROPHILS # (AUTO) 12.6 K/uL (1.8-7.7); PLATELET COUNT (AUTO) 257 K/uL (150-450); RED BLOOD CELL COUNT(AUTO) 3.29 MIL/uL (4.00-5.20); RED CELL DISTRIBUTION WIDTH 17.4 % (11.5-14.5)
[2018-06-06 16:59] LABS: NEUTROPHILS % (AUTO) 85.5 % (40.0-70.0)
[2018-06-06 17:04] LABS: GLUCOMETER DEV NAME(LOC) 4E.; GLUCOSE,POINT OF CARE 159 MG/DL (70-110)
[2018-06-06 17:10] LABS: ANION GAP 11 mmol/L (8-16); CALCIUM, TOTAL 8.5 mg/dL (8.8-10.5); CARBON DIOXIDE 22 mmol/L (22-29); CHLORIDE 100 mmol/L (98-107); CREATININE 0.96 mg/dL (0.60-1.30); GLOMERULAR FILTR. RATE CALC > 60 mL/min (>60); GLUCOSE,RANDOM 178 mg/dL (70-110); POTASSIUM 3.8 mmol/L (3.5-5.1); SODIUM SERUM 133 mmol/L (136-145); UREA NITROGEN, BLOOD 38 mg/dL (7-18)
[2018-06-06] MEDS: QUEtiapine FUMARATE 200 MG ER TABLET PO SCH (18:08)
[2018-06-06 19:35] VITALS: BP 111/54
[2018-06-06] MEDS: MAGNESIUM OXIDE 400 MG TABLET PO SCH (21:04)
[2018-06-06] MEDS: DOCUSATE SODIUM 100 MG CAPSULE PO SCH (21:04)
[2018-06-06] MEDS: ACETAMINOPHEN 325 MG TABLET PO PRN (21:07)
[2018-06-06 23:25] VITALS: BP 108/56
[2018-06-07] MEDS: SODIUM CHLORIDE 0.9% 1,000 ML IV SCH (00:29)
[2018-06-07] MEDS: HEPARIN SODIUM,PORCINE 5,000 UNITS/ML VIAL SQ SCH ×4 (00:29→23:47)
[2018-06-07] MEDS: ACETAMINOPHEN 325 MG TABLET PO PRN ×2 (00:29→23:46)
[2018-06-07 03:30] VITALS: BP 116/62
[2018-06-07] MEDS: MORPHINE SULFATE 2 MG/ML SYRINGE IVP PRN ×4 (04:24→23:46)
[2018-06-07 06:18] LABS: BASOPHILS % (AUTO) 0.5 % (0.0-2.0); EOSINOPHILS % (AUTO) 0 % (1.0-6.0); HEMATOCRIT 25.2 % (36-46); HEMOGLOBIN 8.5 g/dL (12.0-16.0); LYMPHOCYTES # (AUTO) 1.1 K/uL (1.0-4.8); LYMPHOCYTES % (AUTO) 7.8 % (22.0-44.0); MEAN CORPUSCULAR HEMOGLOBIN 27.8 pg (26.0-34.0); MEAN CORPUSCULAR HGB CONC 33.7 G/dL (31.0-37.0); MEAN CORPUSCULAR VOLUME 82 fL (80-100); MONOCYTES # (AUTO) 1.3 K/uL (0.1-1.0); MONOCYTES % (AUTO) 9.7 % (2.0-9.0); NEUTROPHILS # (AUTO) 11.1 K/uL (1.8-7.7); PLATELET COUNT (AUTO) 256 K/uL (150-450); RED BLOOD CELL COUNT(AUTO) 3.06 MIL/uL (4.00-5.20); RED CELL DISTRIBUTION WIDTH 17.3 % (11.5-14.5)
[2018-06-07] MEDS: INSULIN LISPRO 100 UNITS/ML SQ PRN ×3 (06:36→17:20)
[2018-06-07 07:01] LABS: ANION GAP 9 mmol/L (8-16); CALCIUM, TOTAL 8.4 mg/dL (8.8-10.5); CARBON DIOXIDE 23 mmol/L (22-29); CHLORIDE 104 mmol/L (98-107); CREATININE 0.88 mg/dL (0.60-1.30); GLOMERULAR FILTR. RATE CALC > 60 mL/min (>60); GLUCOSE,RANDOM 172 mg/dL (70-110); POTASSIUM 4.2 mmol/L (3.5-5.1); SODIUM SERUM 136 mmol/L (136-145); UREA NITROGEN, BLOOD 24 mg/dL (7-18)
[2018-06-07] MEDS: FERROUS SULFATE 325 MG EC TABLET PO SCH ×3 (08:15→17:12)
[2018-06-07] MEDS: MAGNESIUM OXIDE 400 MG TABLET PO SCH ×2 (08:15→20:31)
[2018-06-07] MEDS: PANTOPRAZOLE SODIUM 40 MG DR TABLET PO SCH (08:16)
[2018-06-07] MEDS: LORazepam 1 MG TABLET PO PRN ×2 (08:16→20:31)
[2018-06-07] MEDS: CITALOPRAM HYDROBROMIDE 20 MG TABLET PO SCH (08:17)
[2018-06-07] MEDS ORDERED: LEVOFLOXACIN 500 MG/D5% WATER 100 ML IV SCH (08:30)
[2018-06-07] MEDS: HydrALAZINE HCL 25 MG TABLET PO SCH ×2 (09:00→20:31)
[2018-06-07] MEDS ORDERED: PANTOPRAZOLE SODIUM 40 MG DR TABLET PO SCH (09:00)
[2018-06-07] MEDS: INSULIN GLARGINE,HUM.REC.ANLOG 100 UNITS/ML SQ SCH ×3 (09:00→20:35)
[2018-06-07 09:38] LABS: GLUCOMETER DEV NAME(LOC) 4E.; GLUCOSE,POINT OF CARE 175 MG/DL (70-110)
[2018-06-07 09:50] LABS: GLUCOMETER DEV NAME(LOC) 4E.; GLUCOSE,POINT OF CARE 184 MG/DL (70-110)
[2018-06-07 09:57] VITALS: BP 120/54
[2018-06-07 11:08] VITALS: BP 126/62
[2018-06-07] MEDS: DOCUSATE SODIUM 100 MG CAPSULE PO SCH ×2 (12:44→20:31)
[2018-06-07] MEDS: LOSARTAN POTASSIUM 25 MG TABLET PO SCH (12:45)
[2018-06-07] MEDS: AmLODIPine BESYLATE 10 MG TABLET PO SCH (12:45)
[2018-06-07] MEDS: HYDROCODONE/ACETAMINOPHEN 5-325 MG TABLET PO PRN (14:38)
[2018-06-07] MEDS: LACTULOSE 20 GM/30 ML SOLUTION UDCUP PO SCH ×2 (14:39→20:31)
[2018-06-07 15:32] VITALS: BP 124/56
[2018-06-07 17:30] LABS: GLUCOMETER DEV NAME(LOC) 6N.2; GLUCOSE,POINT OF CARE 141 MG/DL (70-110)
[2018-06-07 17:51] LABS: GLUCOMETER DEV NAME(LOC) 6N.1; GLUCOSE,POINT OF CARE 127 MG/DL (70-110)
[2018-06-07] MEDS: QUEtiapine FUMARATE 200 MG ER TABLET PO SCH (18:24)
[2018-06-07 20:00] VITALS: BP 122/52
[2018-06-07 21:15] LABS: GLUCOMETER DEV NAME(LOC) 6N.1; GLUCOSE,POINT OF CARE 92 MG/DL (70-110)
[2018-06-07 23:45] VITALS: BP 115/56
[2018-06-08 05:30] VITALS: BP 116/59
[2018-06-08] MEDS: MORPHINE SULFATE 2 MG/ML SYRINGE IVP PRN ×5 (05:49→23:22)
[2018-06-08 06:24] LABS: BASOPHILS % (AUTO) 0.7 % (0.0-2.0); EOSINOPHILS % (AUTO) 0.2 % (1.0-6.0); HEMATOCRIT 28.8 % (36-46); HEMOGLOBIN 9.3 g/dL (12.0-16.0); LYMPHOCYTES # (AUTO) 2.3 K/uL (1.0-4.8); LYMPHOCYTES % (AUTO) 17.4 % (22.0-44.0); MEAN CORPUSCULAR HEMOGLOBIN 26.8 pg (26.0-34.0); MEAN CORPUSCULAR HGB CONC 32.2 G/dL (31.0-37.0); MEAN CORPUSCULAR VOLUME 84 fL (80-100); MONOCYTES # (AUTO) 1.6 K/uL (0.1-1.0); MONOCYTES % (AUTO) 12.7 % (2.0-9.0); PLATELET COUNT (AUTO) 280 K/uL (150-450); RED BLOOD CELL COUNT(AUTO) 3.45 MIL/uL (4.00-5.20); RED CELL DISTRIBUTION WIDTH 18.1 % (11.5-14.5)
[2018-06-08 06:35] LABS: GLUCOMETER DEV NAME(LOC) 6N.2; GLUCOSE,POINT OF CARE 110 MG/DL (70-110)
[2018-06-08 06:45] LABS: ANION GAP 11 mmol/L (8-16); CARBON DIOXIDE 23 mmol/L (22-29); CHLORIDE 107 mmol/L (98-107); CREATININE 0.69 mg/dL (0.60-1.30); GLOMERULAR FILTR. RATE CALC > 60 mL/min (>60); GLUCOSE,RANDOM 104 mg/dL (70-110); POTASSIUM 3.4 mmol/L (3.5-5.1); SODIUM SERUM 141 mmol/L (136-145); UREA NITROGEN, BLOOD 11 mg/dL (7-18)
[2018-06-08] MEDS: FERROUS SULFATE 325 MG EC TABLET PO SCH ×3 (08:00→18:08)
[2018-06-08 08:15] VITALS: BP 111/47
[2018-06-08] MEDS: HYDROCODONE/ACETAMINOPHEN 5-325 MG TABLET PO PRN ×2 (09:31→20:12)
[2018-06-08] MEDS: PANTOPRAZOLE SODIUM 40 MG DR TABLET PO SCH (09:31)
[2018-06-08] MEDS: HEPARIN SODIUM,PORCINE 5,000 UNITS/ML VIAL SQ SCH ×3 (09:31→23:21)
[2018-06-08] MEDS: LACTULOSE 20 GM/30 ML SOLUTION UDCUP PO SCH ×2 (09:31→20:12)
[2018-06-08] MEDS: LORazepam 1 MG TABLET PO PRN (09:31)
[2018-06-08] MEDS: HydrALAZINE HCL 25 MG TABLET PO SCH ×2 (09:32→21:00)
[2018-06-08] MEDS: LOSARTAN POTASSIUM 25 MG TABLET PO SCH (09:32)
[2018-06-08] MEDS: CITALOPRAM HYDROBROMIDE 20 MG TABLET PO SCH (09:32)
[2018-06-08] MEDS: AmLODIPine BESYLATE 10 MG TABLET PO SCH (09:32)
[2018-06-08] MEDS: DOCUSATE SODIUM 100 MG CAPSULE PO SCH ×2 (09:32→20:12)
[2018-06-08] MEDS: MAGNESIUM OXIDE 400 MG TABLET PO SCH ×2 (09:32→20:12)
[2018-06-08] MEDS: INSULIN GLARGINE,HUM.REC.ANLOG 100 UNITS/ML SQ SCH ×2 (09:34→20:22)
[2018-06-08] MEDS ORDERED: POTASSIUM CHLORIDE 20 MEQ ER TABLET PO PRN (10:45)
[2018-06-08] MEDS ORDERED: POTASSIUM CHL 10 MEQ/WATER 50 ML IV PRN (10:45)
[2018-06-08] MEDS ORDERED: VANCOMYCIN HCL 750 MG in DEXTROSE 5%-WATER 250 ML IV ONE (11:00)
[2018-06-08] MEDS: LEVOFLOXACIN 750 MG/D5% WATER 150 ML IV SCH (11:09)
[2018-06-08] MEDS: INSULIN LISPRO 100 UNITS/ML SQ PRN ×3 (11:29→20:22)
[2018-06-08 12:58] VITALS: BP 116/52
[2018-06-08 13:43] LABS: GLUCOMETER DEV NAME(LOC) 6N.1; GLUCOSE,POINT OF CARE 123 MG/DL (70-110)
[2018-06-08] MEDS: VANCOMYCIN HCL 750 MG in DEXTROSE 5%-WATER 250 ML IV SCH ×2 (16:15→23:47)
[2018-06-08] MEDS: QUEtiapine FUMARATE 200 MG ER TABLET PO SCH (18:09)
[2018-06-08 18:48] LABS: GLUCOMETER DEV NAME(LOC) 6N.1; GLUCOSE,POINT OF CARE 196 MG/DL (70-110)
[2018-06-08 20:24] VITALS: BP 110/42
[2018-06-08 22:08] LABS: GLUCOMETER DEV NAME(LOC) 6N.2; GLUCOSE,POINT OF CARE 148 MG/DL (70-110)
[2018-06-08 23:23] VITALS: BP 108/50
[2018-06-09 04:09] VITALS: BP 112/65
[2018-06-09] MEDS: MORPHINE SULFATE 2 MG/ML SYRINGE IVP PRN ×4 (04:14→16:07)
[2018-06-09] MEDS: LORazepam 1 MG TABLET PO PRN ×2 (05:04→16:07)
[2018-06-09] MEDS: INSULIN LISPRO 100 UNITS/ML SQ PRN ×3 (05:52→17:32)
[2018-06-09] MEDS: HYDROCODONE/ACETAMINOPHEN 5-325 MG TABLET PO PRN (05:53)
[2018-06-09 05:59] LABS: GLUCOMETER DEV NAME(LOC) 6N.2; GLUCOSE,POINT OF CARE 184 MG/DL (70-110)
[2018-06-09 07:33] LABS: BASOPHILS % (AUTO) 1.3 % (0.0-2.0); EOSINOPHILS % (AUTO) 0.9 % (1.0-6.0); HEMATOCRIT 28.2 % (36-46); HEMOGLOBIN 9.8 g/dL (12.0-16.0); LYMPHOCYTES # (AUTO) 1.2 K/uL (1.0-4.8); LYMPHOCYTES % (AUTO) 10.8 % (22.0-44.0); MEAN CORPUSCULAR HEMOGLOBIN 28.5 pg (26.0-34.0); MEAN CORPUSCULAR HGB CONC 34.6 G/dL (31.0-37.0); MEAN CORPUSCULAR VOLUME 82 fL (80-100); MONOCYTES # (AUTO) 1.7 K/uL (0.1-1.0); MONOCYTES % (AUTO) 14.6 % (2.0-9.0); NEUTROPHILS # (AUTO) 8.4 K/uL (1.8-7.7); NEUTROPHILS % (AUTO) 72.4 % (40.0-70.0); PLATELET COUNT (AUTO) 284 K/uL (150-450); RED BLOOD CELL COUNT(AUTO) 3.44 MIL/uL (4.00-5.20); RED CELL DISTRIBUTION WIDTH 18.8 % (11.5-14.5)
[2018-06-09 07:45] LABS: ANION GAP 6 mmol/L (8-16); CALCIUM, TOTAL 8.6 mg/dL (8.8-10.5); CARBON DIOXIDE 25 mmol/L (22-29); CHLORIDE 106 mmol/L (98-107); GLOMERULAR FILTR. RATE CALC > 60 mL/min (>60); GLUCOSE,RANDOM 136 mg/dL (70-110); POTASSIUM 3.7 mmol/L (3.5-5.1); SODIUM SERUM 137 mmol/L (136-145); UREA NITROGEN, BLOOD 7 mg/dL (7-18)
[2018-06-09 08:12] VITALS: BP 119/58
[2018-06-09] MEDS ORDERED: SODIUM CHLORIDE 0.9% 500 ML IV ONE (08:24)
[2018-06-09] MEDS: HydrALAZINE HCL 25 MG TABLET PO SCH (08:26)
[2018-06-09] MEDS: VANCOMYCIN HCL 750 MG in DEXTROSE 5%-WATER 250 ML IV SCH (08:26)
[2018-06-09] MEDS: LACTULOSE 20 GM/30 ML SOLUTION UDCUP PO SCH (08:27)
[2018-06-09] MEDS: HEPARIN SODIUM,PORCINE 5,000 UNITS/ML VIAL SQ SCH ×2 (08:27→16:00)
[2018-06-09] MEDS: INSULIN GLARGINE,HUM.REC.ANLOG 100 UNITS/ML SQ SCH (08:27)
[2018-06-09] MEDS: PANTOPRAZOLE SODIUM 40 MG DR TABLET PO SCH (08:27)
[2018-06-09] MEDS: MAGNESIUM OXIDE 400 MG TABLET PO SCH (08:27)
[2018-06-09] MEDS: DOCUSATE SODIUM 100 MG CAPSULE PO SCH (08:28)
[2018-06-09] MEDS: FERROUS SULFATE 325 MG EC TABLET PO SCH ×2 (08:28→11:50)
[2018-06-09] MEDS: LOSARTAN POTASSIUM 25 MG TABLET PO SCH (08:28)
[2018-06-09] MEDS: CITALOPRAM HYDROBROMIDE 20 MG TABLET PO SCH (08:28)
[2018-06-09] MEDS: AmLODIPine BESYLATE 10 MG TABLET PO SCH (08:28)
[2018-06-09] MEDS: LEVOFLOXACIN 750 MG/D5% WATER 150 ML IV SCH (10:35)
[2018-06-09 11:20] VITALS: BP 117/57
[2018-06-09 13:04] LABS: GLUCOMETER DEV NAME(LOC) 6N.1; GLUCOSE,POINT OF CARE 152 MG/DL (70-110)
[2018-06-09] MEDS ORDERED: LEVO750T21 PO (13:36)
[2018-06-09 14:26] LABS: STONE CA-OXALATE MONOHYDRATE 95 %; STONE COLOR Brown
[2018-06-09 17:54] LABS: GLUCOMETER DEV NAME(LOC) 6N.2; GLUCOSE,POINT OF CARE 94 MG/DL (70-110)
== END 2018-06-09 19:15 | disposition home or self-care (01) | DRG 853 ==
LOC: EMS 23:58 → 4E 06-05 15:11 → 6N 06-07 09:07
PROVIDERS: ADMIT Internal Medicine; ATTEND Internal Medicine
PROC: 0TC68ZZ Extirpation of Matter from Right Ureter, Via Natural or Artificial Opening Endoscopic (ICD-10-PCS; 2018-06-06)
PROC: 0T7B8DZ Dilation of Bladder with Intraluminal Device, Via Natural or Artificial Opening Endoscopic (ICD-10-PCS; 2018-06-06)
PROC: 0TJ98ZZ Inspection of Ureter, Via Natural or Artificial Opening Endoscopic (ICD-10-PCS; 2018-06-06)
PROC: BT1D1ZZ Fluoroscopy of Right Kidney, Ureter and Bladder using Low Osmolar Contrast (ICD-10-PCS; principal; 2018-06-06 08:30)
DX: A41.9 Sepsis, unspecified organism (principal); J18.9 Pneumonia, unspecified organism; G93.41 Metabolic encephalopathy; E87.1 Hypo-osmolality and hyponatremia; F11.20 Opioid dependence, uncomplicated; N13.2 Hydronephrosis with renal and ureteral calculous obstruction; E11.9 Type 2 diabetes mellitus without complications; I10 Essential (primary) hypertension; J45.909 Unspecified asthma, uncomplicated; F20.9 Schizophrenia, unspecified; M19.90 Unspecified osteoarthritis, unspecified site; G43.909 Migraine, unspecified, not intractable, without status migrainosus; Z96.659 Presence of unspecified artificial knee joint; F17.210 Nicotine dependence, cigarettes, uncomplicated; F31.9 Bipolar disorder, unspecified; B96.5 Pseudomonas (aeruginosa) (mallei) (pseudomallei) as the cause of diseases classified elsewhere; B95.2 Enterococcus as the cause of diseases classified elsewhere; N19 Unspecified kidney failure; Z87.442 Personal history of urinary calculi; Z90.710 Acquired absence of both cervix and uterus
CPT/HCPCS: 71260; 74176; 83605; 84132; 87040; 87081; 87086; 88300; 96365; 96368; 96375; 97116; 97163; 97166; 97530; 97535; G0238; G0378; J0456; J0696; J1644; J1815; J1885; J1956; J2250; J2270; J2370; J2405; J3010; J3370; J3490; J3535; J7030; J7040; J7060; Q9966

== ENCOUNTER 2018-07-13 14:49 | Emergency (ER) | payer MEDICARE, MEDICAID ==
[~2018-07-13] VITALS: Ht 165.1 cm; Wt 75.0 kg
[~2018-07-13 14:49] MED LIST changes: +AMPI500C68 PO; -CEFX1I IM; -HYDR10TA31 PO; +LEVO500 PO; +LEVO750T21 PO; -MAGN200T5 PO; +MAGOX PO; +QUET200T5 PO; -QUET200XR PO
[2018-07-13 18:04] LABS: GLUCOSE,POINT OF CARE 172 MG/DL (70-110)
[2018-07-13] MEDS ORDERED: KETOROLAC TROMETHAMINE 30 MG/ML VIAL IVP ONE (18:15)
[2018-07-13 19:00] LABS: EOSINOPHILS % (AUTO) 0.7 % (1.0-6.0); HEMATOCRIT 36.4 % (36-46); HEMOGLOBIN 11.8 g/dL (12.0-16.0); LYMPHOCYTES % (AUTO) 35.1 % (22.0-44.0); MEAN CORPUSCULAR HEMOGLOBIN 26.7 pg (26.0-34.0); MEAN CORPUSCULAR HGB CONC 32.5 G/dL (31.0-37.0); MEAN CORPUSCULAR VOLUME 82 fL (80-100); MONOCYTES # (AUTO) 0.7 K/uL (0.1-1.0); MONOCYTES % (AUTO) 8.2 % (2.0-9.0); NEUTROPHILS # (AUTO) 4.7 K/uL (1.8-7.7); PLATELET COUNT (AUTO) 220 K/uL (150-450); RED BLOOD CELL COUNT(AUTO) 4.43 MIL/uL (4.00-5.20); RED CELL DISTRIBUTION WIDTH 19.8 % (11.5-14.5)
[2018-07-13 19:13] LABS: ANION GAP 15 mmol/L (8-16); CALCIUM, TOTAL 9.5 mg/dL (8.8-10.5); CARBON DIOXIDE 20 mmol/L (22-29); CHLORIDE 105 mmol/L (98-107); CREATININE 0.65 mg/dL (0.60-1.30); GLOMERULAR FILTR. RATE CALC > 60 mL/min (>60); GLUCOSE,RANDOM 138 mg/dL (70-110); POTASSIUM 3.7 mmol/L (3.5-5.1); SODIUM SERUM 140 mmol/L (136-145); UREA NITROGEN, BLOOD 10 mg/dL (7-18)
[2018-07-13 19:19] LABS: ALANINE AMINOTRANSFERASE 33 U/L (12-78); ALBUMIN 3.8 g/dL (3.4-5.0); ALKALINE PHOSPHATASE 152 U/L (46-116); ASPARTATE AMINOTRANSFERASE 39 U/L (15-37); BILIRUBIN,TOTAL 0.4 mg/dL (0.1-1.0); TOTAL PROTEIN, SERUM 7.5 g/dL (6.4-8.2)
[2018-07-13 20:41] VITALS: BP 148/84
== END 2018-07-13 20:40 | disposition home or self-care (01) ==
LOC: EMS 14:49
DX: R09.1 Pleurisy (principal); E11.9 Type 2 diabetes mellitus without complications; G43.909 Migraine, unspecified, not intractable, without status migrainosus; F20.9 Schizophrenia, unspecified; F31.9 Bipolar disorder, unspecified; F41.9 Anxiety disorder, unspecified; M19.90 Unspecified osteoarthritis, unspecified site; I10 Essential (primary) hypertension; G89.29 Other chronic pain; F17.210 Nicotine dependence, cigarettes, uncomplicated; Z90.710 Acquired absence of both cervix and uterus; Z79.4 Long term (current) use of insulin
CPT/HCPCS: 36415; 71045; 80053; 82962; 84484; 85025; 85379; 93005; 96374; 99285; 99406; J1885; 82948

== ENCOUNTER 2018-07-16 13:12 | Emergency (ER) | payer MEDICARE, MEDICAID ==
[~2018-07-16] VITALS: Ht 170.2 cm; Wt 84.0 kg
[~2018-07-16 13:12] MED LIST changes: -LEVO500 PO; -LEVO750T21 PO
[2018-07-16 13:49] LABS: GLUCOSE,POINT OF CARE 129 MG/DL (70-110)
[2018-07-16] MEDS ORDERED: KETOROLAC TROMETHAMINE 60 MG/2 ML VIAL IM ONE (15:15)
[2018-07-16 15:48] VITALS: BP 133/89
== END 2018-07-16 15:49 | disposition home or self-care (01) ==
LOC: EMS 13:12
DX: R07.89 Other chest pain (principal); I10 Essential (primary) hypertension; E11.9 Type 2 diabetes mellitus without complications; F31.9 Bipolar disorder, unspecified; F41.9 Anxiety disorder, unspecified; F20.9 Schizophrenia, unspecified; F17.210 Nicotine dependence, cigarettes, uncomplicated; Z79.4 Long term (current) use of insulin; Z79.899 Other long term (current) drug therapy
CPT/HCPCS: 71045; 82962; 93005; 96372; 99283; J1885

== ENCOUNTER 2018-07-28 12:45 | Emergency (ER) | payer MEDICARE, MEDICAID ==
[~2018-07-28] VITALS: Ht 167.6 cm; Wt 81.8 kg
[~2018-07-28 12:45] MED LIST changes: -AMPI500C68 PO
[2018-07-28 12:59] VITALS: BP 158/95
[2018-07-28 13:09] LABS: GLUCOSE,POINT OF CARE 119 MG/DL (70-110)
[2018-07-28] MEDS: KETOROLAC TROMETHAMINE 30 MG/ML VIAL IM ONE (13:44)
== END 2018-07-28 15:20 | disposition home or self-care (01) ==
LOC: EMS 12:48
DX: S30.0XXA Contusion of lower back and pelvis, initial encounter (principal); G43.909 Migraine, unspecified, not intractable, without status migrainosus; F20.9 Schizophrenia, unspecified; F41.9 Anxiety disorder, unspecified; E11.9 Type 2 diabetes mellitus without complications; F31.9 Bipolar disorder, unspecified; I10 Essential (primary) hypertension; F17.210 Nicotine dependence, cigarettes, uncomplicated; M19.90 Unspecified osteoarthritis, unspecified site; Z90.710 Acquired absence of both cervix and uterus; Z79.4 Long term (current) use of insulin; W19.XXXA Unspecified fall, initial encounter; Y93.89 Activity, other specified; Y92.89 Other specified places as the place of occurrence of the external cause; Y99.8 Other external cause status
CPT/HCPCS: 72220; 82962; 96372; 99283; J1885

== ENCOUNTER 2018-08-02 10:53 | Inpatient (IN) | payer MEDICARE, MEDICAID ==
[~2018-08-02] VITALS: Ht 165.1 cm; Wt 68.7 kg
[2018-08-02 11:04] LABS: GLUCOSE,POINT OF CARE 205 MG/DL (70-110)
[2018-08-02 11:34] LABS: BASOPHILS % (AUTO) 0.3 % (0.0-2.0); EOSINOPHILS % (AUTO) 0.4 % (1.0-6.0); HEMATOCRIT 35.4 % (36-46); HEMOGLOBIN 11.7 g/dL (12.0-16.0); LYMPHOCYTES # (AUTO) 1.5 K/uL (1.0-4.8); LYMPHOCYTES % (AUTO) 26.9 % (22.0-44.0); MEAN CORPUSCULAR HEMOGLOBIN 27.2 pg (26.0-34.0); MEAN CORPUSCULAR HGB CONC 33.1 G/dL (31.0-37.0); MEAN CORPUSCULAR VOLUME 82 fL (80-100); MONOCYTES # (AUTO) 0.3 K/uL (0.1-1.0); NEUTROPHILS # (AUTO) 3.9 K/uL (1.8-7.7); NEUTROPHILS % (AUTO) 67.4 % (40.0-70.0); PLATELET COUNT (AUTO) 317 K/uL (150-450); RED BLOOD CELL COUNT(AUTO) 4.29 MIL/uL (4.00-5.20); RED CELL DISTRIBUTION WIDTH 18.9 % (11.5-14.5)
[2018-08-02 11:46] LABS: ANION GAP 13 mmol/L (8-16); CALCIUM, TOTAL 9.1 mg/dL (8.8-10.5); CARBON DIOXIDE 23 mmol/L (22-29); CHLORIDE 108 mmol/L (98-107); GLOMERULAR FILTR. RATE CALC > 60 mL/min (>60); GLUCOSE,RANDOM 196 mg/dL (70-110); POTASSIUM 3.3 mmol/L (3.5-5.1); SODIUM SERUM 144 mmol/L (136-145); UREA NITROGEN, BLOOD 7 mg/dL (7-18)
[2018-08-02 11:52] LABS: ALANINE AMINOTRANSFERASE 31 U/L (12-78); ALBUMIN 3.1 g/dL (3.4-5.0); ALKALINE PHOSPHATASE 121 U/L (46-116); ASPARTATE AMINOTRANSFERASE 34 U/L (15-37); BILIRUBIN,TOTAL 0.4 mg/dL (0.1-1.0); TOTAL PROTEIN, SERUM 7.1 g/dL (6.4-8.2)
[2018-08-02 12:27] LABS: AMPHET/METH SCREEN,URINE NEGATIVE (NEGATIVE); BARBITURATE SCREEN, URINE NEGATIVE (NEGATIVE); BENZODIAZEPINES SCREEN,URINE NEGATIVE (NEGATIVE); CANNABINOID SCREEN,URINE NEGATIVE (NEGATIVE); COCAINE SCREEN,URINE NEGATIVE (NEGATIVE); METHADONE SCREEN, URINE NEGATIVE (NEGATIVE); OPIATE SCREEN,URINE POSITIVE (NEGATIVE)
[2018-08-02 12:28] LABS: PHENCYCLIDINE SCREEN,URINE NEGATIVE (NEGATIVE)
[2018-08-02 12:30] LABS: APPEARANCE,URINE CLEAR (CLEAR); BILIRUBIN,URINE NEGATIVE (NEGATIVE); GLUCOSE, URINE (UA) NEGATIVE (NEGATIVE); KETONES,URINE NEGATIVE (NEGATIVE); LEUKOCYTE ESTERASE ,URINE NEGATIVE (NEGATIVE); NITRATE,URINE NEGATIVE (NEGATIVE); OCCULT BLOOD,URINE NEGATIVE (NEGATIVE); PROTEIN,URINE NEGATIVE (NEGATIVE)
[2018-08-02] MEDS ORDERED: LORazepam 2 MG TABLET PO ONE (12:30)
[2018-08-02] MEDS ORDERED: POTASSIUM CHLORIDE 20 MEQ ER TABLET PO ONE (12:30)
[2018-08-02] MEDS ORDERED: IBUPROFEN 600 MG TABLET PO PRN (13:15)
[2018-08-02] MEDS ORDERED: ACETAMINOPHEN 325 MG TABLET PO PRN (13:15)
[2018-08-02] MEDS ORDERED: INSULIN LISPRO 100 UNITS/ML SQ PRN (13:15)
[2018-08-02] MEDS ORDERED: GLUCAGON,HUMAN RECOMBINANT 1 MG VIAL IM PRN (13:15)
[2018-08-02 13:50] LABS: GLUCOSE,POINT OF CARE 212 MG/DL (70-110)
[2018-08-02 15:35] VITALS: BP 175/97
[2018-08-02] MEDS: LORazepam 2 MG TABLET PO PRN (16:33)
[2018-08-02] MEDS: INSULIN GLARGINE,HUM.REC.ANLOG 100 UNITS/ML SQ SCH (17:00)
[2018-08-02 17:11] VITALS: BP 177/80
[2018-08-02] MEDS ORDERED: DEXTROSE 50%-WATER 25 GM/50 ML SYG IVP PRN (21:00)
[2018-08-02] MEDS: ZOLPIDEM TARTRATE 10 MG TABLET PO PRN (21:35)
[2018-08-02] MEDS: QUEtiapine FUMARATE 100 MG TABLET PO PRN (21:35)
[2018-08-02 21:44] LABS: GLUCOMETER DEV NAME(LOC) 3E.C; GLUCOSE,POINT OF CARE 165 MG/DL (70-110)
[2018-08-02] MEDS: INSULIN LISPRO 100 UNITS/ML SQ PRN (21:47)
[2018-08-03 00:21] VITALS: BP 146/89
[2018-08-03 06:05] LABS: GLUCOMETER DEV NAME(LOC) 3E.C; GLUCOSE,POINT OF CARE 168 MG/DL (70-110)
[2018-08-03] MEDS: INSULIN LISPRO 100 UNITS/ML SQ PRN ×3 (07:07→17:36)
[2018-08-03] MEDS: TIOTROPIUM BROMIDE 18 MCG/INH HANDIHALER [5] IH SCH (07:46)
[2018-08-03] MEDS: AmLODIPine BESYLATE 10 MG TABLET PO SCH (07:49)
[2018-08-03] MEDS: INSULIN GLARGINE,HUM.REC.ANLOG 100 UNITS/ML SQ SCH ×2 (07:52→17:36)
[2018-08-03] MEDS: LORazepam 2 MG TABLET PO PRN ×2 (08:57→14:45)
[2018-08-03 10:47] VITALS: BP 165/106
[2018-08-03 11:02] VITALS: BP 152/101
[2018-08-03] MEDS ORDERED: POTASSIUM CHLORIDE 20 MEQ ER TABLET PO ONE (11:30)
[2018-08-03 11:44] LABS: GLUCOMETER DEV NAME(LOC) 3E.C; GLUCOSE,POINT OF CARE 232 MG/DL (70-110)
[2018-08-03 12:38] LABS: HEMOGLOBIN A1C 6.5 % (4.5-6.2)
[2018-08-03 12:46] LABS: ANION GAP 15 mmol/L (8-16); CALCIUM, TOTAL 9.7 mg/dL (8.8-10.5); CARBON DIOXIDE 21 mmol/L (22-29); CHLORIDE 105 mmol/L (98-107); CHOLESTEROL 133 mg/dL (131-200); CREATINE KINASE, TOTAL ONLY 64 U/L (26-192); CREATININE 0.62 mg/dL (0.60-1.30); FREE T4 (FREE THYROXINE) 1.23 ng/dL (0.76-1.46); GLOMERULAR FILTR. RATE CALC > 60 mL/min (>60); GLUCOSE,RANDOM 156 mg/dL (70-110); HDL CHOLESTEROL 66 mg/dL (40-60); LDL CHOL (CALC.) 48 mg/dL (0-130); POTASSIUM 3.8 mmol/L (3.5-5.1); SODIUM SERUM 141 mmol/L (136-145); THYROID STIMULATING HORMONE 0.19 uIU/mL (0.36-3.74); TRIGLYCERIDES 94 mg/dL (15-150); UREA NITROGEN, BLOOD 8 mg/dL (7-18)
[2018-08-03] MEDS: CITALOPRAM HYDROBROMIDE 20 MG TABLET PO SCH (14:45)
[2018-08-03 16:10] VITALS: BP 138/80
[2018-08-03 16:29] LABS: GLUCOMETER DEV NAME(LOC) 3E.C; GLUCOSE,POINT OF CARE 228 MG/DL (70-110)
[2018-08-03] MEDS: QUEtiapine FUMARATE 200 MG ER TABLET PO SCH (20:00)
[2018-08-03 20:24] LABS: GLUCOMETER DEV NAME(LOC) 3E.C; GLUCOSE,POINT OF CARE 127 MG/DL (70-110)
[2018-08-04] MEDS: QUEtiapine FUMARATE 100 MG TABLET PO PRN ×3 (00:30→12:55)
[2018-08-04 05:00] VITALS: BP 96/64
[2018-08-04 06:10] LABS: GLUCOMETER DEV NAME(LOC) 3E.C; GLUCOSE,POINT OF CARE 156 MG/DL (70-110)
[2018-08-04 06:53] LABS: HEMOGLOBIN A1C 6.6 % (4.5-6.2)
[2018-08-04] MEDS: INSULIN LISPRO 100 UNITS/ML SQ PRN (07:07)
[2018-08-04 07:28] LABS: CHOL/HDL RATIO 1.9 (3.9-5.7); FREE T4 (FREE THYROXINE) 1.27 ng/dL (0.76-1.46); MAGNESIUM 1.8 mg/dL (1.80-2.40); THYROID STIMULATING HORMONE 0.31 uIU/mL (0.36-3.74)
[2018-08-04 08:00] VITALS: BP 159/80
[2018-08-04] MEDS: TIOTROPIUM BROMIDE 18 MCG/INH HANDIHALER [5] IH SCH (08:43)
[2018-08-04] MEDS: CITALOPRAM HYDROBROMIDE 20 MG TABLET PO SCH (08:49)
[2018-08-04] MEDS: LORazepam 2 MG TABLET PO PRN ×2 (08:50→12:55)
[2018-08-04] MEDS: AmLODIPine BESYLATE 10 MG TABLET PO SCH (08:51)
[2018-08-04] MEDS: INSULIN GLARGINE,HUM.REC.ANLOG 100 UNITS/ML SQ SCH ×2 (08:58→17:00)
[2018-08-04 12:09] LABS: GLUCOMETER DEV NAME(LOC) 3E.C; GLUCOSE,POINT OF CARE 75 MG/DL (70-110)
[2018-08-04 18:30] LABS: GLUCOMETER DEV NAME(LOC) 3E.C; GLUCOSE,POINT OF CARE 149 MG/DL (70-110)
[2018-08-04 18:30] LABS: GLUCOMETER DEV NAME(LOC) 3E.C; GLUCOSE,POINT OF CARE 54 MG/DL (70-110)
[2018-08-04] MEDS: QUEtiapine FUMARATE 200 MG ER TABLET PO SCH (19:47)
[2018-08-04 21:44] LABS: GLUCOMETER DEV NAME(LOC) 3E.C; GLUCOSE,POINT OF CARE 135 MG/DL (70-110)
[2018-08-04] MEDS: ZOLPIDEM TARTRATE 10 MG TABLET PO PRN (23:49)
[2018-08-05 07:04] LABS: GLUCOMETER DEV NAME(LOC) 3E.C; GLUCOSE,POINT OF CARE 61 MG/DL (70-110)
[2018-08-05 07:04] LABS: GLUCOMETER DEV NAME(LOC) 3E.C; GLUCOSE,POINT OF CARE 163 MG/DL (70-110)
[2018-08-05 08:00] VITALS: BP 117/63
[2018-08-05] MEDS: QUEtiapine FUMARATE 100 MG TABLET PO PRN ×2 (08:57→16:53)
[2018-08-05] MEDS: TIOTROPIUM BROMIDE 18 MCG/INH HANDIHALER [5] IH SCH (08:57)
[2018-08-05] MEDS: CITALOPRAM HYDROBROMIDE 20 MG TABLET PO SCH (08:57)
[2018-08-05] MEDS: AmLODIPine BESYLATE 10 MG TABLET PO SCH (08:57)
[2018-08-05] MEDS: INSULIN GLARGINE,HUM.REC.ANLOG 100 UNITS/ML SQ SCH ×2 (09:02→17:28)
[2018-08-05 12:05] LABS: GLUCOMETER DEV NAME(LOC) 3E.C; GLUCOSE,POINT OF CARE 180 MG/DL (70-110)
[2018-08-05] MEDS: LORazepam 2 MG TABLET PO PRN (12:58)
[2018-08-05] MEDS: INSULIN LISPRO 100 UNITS/ML SQ PRN ×2 (12:59→17:28)
[2018-08-05 16:29] LABS: GLUCOMETER DEV NAME(LOC) 3E.C; GLUCOSE,POINT OF CARE 186 MG/DL (70-110)
[2018-08-05 18:53] VITALS: BP 111/56
[2018-08-05] MEDS: QUEtiapine FUMARATE 200 MG ER TABLET PO SCH (19:03)
[2018-08-05 20:59] LABS: GLUCOMETER DEV NAME(LOC) 3E.C; GLUCOSE,POINT OF CARE 80 MG/DL (70-110)
[2018-08-06 00:03] VITALS: BP 109/60
[2018-08-06 00:37] VITALS: BP 109/60
[2018-08-06] MEDS: INSULIN LISPRO 100 UNITS/ML SQ PRN ×3 (07:00→17:00)
[2018-08-06 07:09] LABS: GLUCOMETER DEV NAME(LOC) 3E.C; GLUCOSE,POINT OF CARE 81 MG/DL (70-110)
[2018-08-06 08:15] VITALS: BP 133/62
[2018-08-06] MEDS: AmLODIPine BESYLATE 10 MG TABLET PO SCH (08:25)
[2018-08-06] MEDS: QUEtiapine FUMARATE 100 MG TABLET PO PRN (08:25)
[2018-08-06] MEDS: CITALOPRAM HYDROBROMIDE 20 MG TABLET PO SCH (08:26)
[2018-08-06] MEDS: TIOTROPIUM BROMIDE 18 MCG/INH HANDIHALER [5] IH SCH (08:26)
[2018-08-06] MEDS: INSULIN GLARGINE,HUM.REC.ANLOG 100 UNITS/ML SQ SCH ×2 (08:38→16:59)
[2018-08-06 11:44] LABS: GLUCOMETER DEV NAME(LOC) 3E.C; GLUCOSE,POINT OF CARE 171 MG/DL (70-110)
[2018-08-06] MEDS: LORazepam 2 MG TABLET PO PRN (11:53)
[2018-08-06 16:34] LABS: GLUCOMETER DEV NAME(LOC) 3E.C; GLUCOSE,POINT OF CARE 199 MG/DL (70-110)
[2018-08-06] MEDS: QUEtiapine FUMARATE 200 MG ER TABLET PO SCH (18:02)
[2018-08-06 21:09] LABS: GLUCOMETER DEV NAME(LOC) 3E.C; GLUCOSE,POINT OF CARE 101 MG/DL (70-110)
[2018-08-07] MEDS: ZOLPIDEM TARTRATE 10 MG TABLET PO PRN ×2 (02:31→21:14)
[2018-08-07] MEDS: LORazepam 2 MG TABLET PO PRN ×3 (02:31→17:12)
[2018-08-07 06:54] LABS: GLUCOMETER DEV NAME(LOC) 3E.C; GLUCOSE,POINT OF CARE 55 MG/DL (70-110)
[2018-08-07 08:00] VITALS: BP 133/63
[2018-08-07] MEDS ORDERED: INSULIN GLARGINE,HUM.REC.ANLOG 100 UNITS/ML SQ SCH (09:00)
[2018-08-07] MEDS: AmLODIPine BESYLATE 10 MG TABLET PO SCH (09:02)
[2018-08-07] MEDS: CITALOPRAM HYDROBROMIDE 20 MG TABLET PO SCH (09:02)
[2018-08-07] MEDS: TIOTROPIUM BROMIDE 18 MCG/INH HANDIHALER [5] IH SCH (09:02)
[2018-08-07 09:20] LABS: GLUCOMETER DEV NAME(LOC) 3E.C; GLUCOSE,POINT OF CARE 99 MG/DL (70-110)
[2018-08-07] MEDS: INSULIN GLARGINE,HUM.REC.ANLOG 100 UNITS/ML SQ SCH ×2 (09:29→17:15)
[2018-08-07 11:44] LABS: GLUCOMETER DEV NAME(LOC) 3E.C; GLUCOSE,POINT OF CARE 134 MG/DL (70-110)
[2018-08-07 16:08] VITALS: BP 127/72
[2018-08-07 17:14] LABS: GLUCOMETER DEV NAME(LOC) 3E.C; GLUCOSE,POINT OF CARE 146 MG/DL (70-110)
[2018-08-07] MEDS: INSULIN LISPRO 100 UNITS/ML SQ PRN ×2 (17:15→21:14)
[2018-08-07] MEDS: QUEtiapine FUMARATE 200 MG ER TABLET PO SCH (20:11)
[2018-08-07 20:39] LABS: GLUCOMETER DEV NAME(LOC) 3E.C; GLUCOSE,POINT OF CARE 145 MG/DL (70-110)
[2018-08-08 06:29] LABS: GLUCOMETER DEV NAME(LOC) 3E.C; GLUCOSE,POINT OF CARE 80 MG/DL (70-110)
[2018-08-08] MEDS: CITALOPRAM HYDROBROMIDE 20 MG TABLET PO SCH (08:08)
[2018-08-08] MEDS: AmLODIPine BESYLATE 10 MG TABLET PO SCH (08:08)
[2018-08-08] MEDS: QUEtiapine FUMARATE 100 MG TABLET PO PRN (08:08)
[2018-08-08] MEDS: LORazepam 2 MG TABLET PO PRN (08:08)
[2018-08-08] MEDS: TIOTROPIUM BROMIDE 18 MCG/INH HANDIHALER [5] IH SCH (08:08)
[2018-08-08] MEDS: INSULIN GLARGINE,HUM.REC.ANLOG 100 UNITS/ML SQ SCH (08:22)
[2018-08-08] MEDS: INSULIN LISPRO 100 UNITS/ML SQ PRN (11:51)
[2018-08-08 11:54] LABS: GLUCOMETER DEV NAME(LOC) 3E.C; GLUCOSE,POINT OF CARE 258 MG/DL (70-110)
[2018-08-08 12:45] VITALS: BP 130/74
== END 2018-08-08 14:14 | disposition home or self-care (01) | DRG 885 ==
LOC: EMS 10:53 → 3EC 13:52
PROVIDERS: ADMIT Psychiatry & Neurology Psychiatry; ATTEND Psychiatry & Neurology Psychiatry
DX: F25.9 Schizoaffective disorder, unspecified (principal); F11.20 Opioid dependence, uncomplicated; R45.851 Suicidal ideations; F31.9 Bipolar disorder, unspecified; B19.20 Unspecified viral hepatitis C without hepatic coma; J44.9 Chronic obstructive pulmonary disease, unspecified; I10 Essential (primary) hypertension; G43.909 Migraine, unspecified, not intractable, without status migrainosus; G89.4 Chronic pain syndrome; E87.6 Hypokalemia; E11.649 Type 2 diabetes mellitus with hypoglycemia without coma; D64.9 Anemia, unspecified; R26.9 Unspecified abnormalities of gait and mobility; Z96.659 Presence of unspecified artificial knee joint; F17.200 Nicotine dependence, unspecified, uncomplicated; Z71.6 Tobacco abuse counseling; Z87.442 Personal history of urinary calculi; Z90.710 Acquired absence of both cervix and uterus; Z90.5 Acquired absence of kidney
CPT/HCPCS: 76700; 82105; 83036; 83735; 84439; 84443; 97166; 97535; 99406; G0480; J1815

== ENCOUNTER 2018-08-16 10:43 | Emergency (ER) | payer MEDICARE, MEDICAID ==
[~2018-08-16] VITALS: Ht 157.5 cm; Wt 81.8 kg
[~2018-08-16 10:43] MED LIST changes: -FERR-89 PO; -FLUT110HFA IH; -HYDR2 PO; -HYDR25TA84 PO; -INSU100V SQ; -LORA1TAB3 PO; -LOSA25TA41 PO; -MAGOX PO; -PANT40TA25 PO
[2018-08-16 11:07] LABS: GLUCOSE,POINT OF CARE 154 MG/DL (70-110)
[2018-08-16] MEDS ORDERED: SODIUM CHLORIDE 0.9% 1,000 ML IV ONE (11:30)
[2018-08-16] MEDS ORDERED: MORPHINE SULFATE 4 MG/ML SYRINGE IVP ONE ×2 (11:30→16:30)
[2018-08-16] MEDS ORDERED: ONDANSETRON HCL 4 MG/2 ML VIAL IVP ONE (11:30)
[2018-08-16] MEDS ORDERED: LORazepam 2 MG/ML VIAL IVP ONE (11:30)
[2018-08-16 11:51] LABS: BASOPHILS % (AUTO) 0.4 % (0.0-2.0); EOSINOPHILS % (AUTO) 0.2 % (1.0-6.0); HEMATOCRIT 35.4 % (36-46); HEMOGLOBIN 11.5 g/dL (12.0-16.0); LYMPHOCYTES # (AUTO) 2.1 K/uL (1.0-4.8); LYMPHOCYTES % (AUTO) 34.6 % (22.0-44.0); MEAN CORPUSCULAR HGB CONC 32.5 G/dL (31.0-37.0); MEAN CORPUSCULAR VOLUME 83 fL (80-100); MONOCYTES # (AUTO) 0.4 K/uL (0.1-1.0); MONOCYTES % (AUTO) 5.9 % (2.0-9.0); NEUTROPHILS # (AUTO) 3.5 K/uL (1.8-7.7); NEUTROPHILS % (AUTO) 58.9 % (40.0-70.0); PLATELET COUNT (AUTO) 234 K/uL (150-450); RED BLOOD CELL COUNT(AUTO) 4.26 MIL/uL (4.00-5.20); RED CELL DISTRIBUTION WIDTH 18.4 % (11.5-14.5)
[2018-08-16 11:57] LABS: ANION GAP 11 mmol/L (8-16); CALCIUM, TOTAL 8.9 mg/dL (8.8-10.5); CARBON DIOXIDE 22 mmol/L (22-29); CHLORIDE 106 mmol/L (98-107); CREATININE 0.49 mg/dL (0.60-1.30); GLOMERULAR FILTR. RATE CALC > 60 mL/min (>60); GLUCOSE,RANDOM 129 mg/dL (70-110); POTASSIUM 3.3 mmol/L (3.5-5.1); SODIUM SERUM 139 mmol/L (136-145); UREA NITROGEN, BLOOD 6 mg/dL (7-18)
[2018-08-16 12:03] LABS: ALANINE AMINOTRANSFERASE 37 U/L (12-78); ALBUMIN 3.3 g/dL (3.4-5.0); ALKALINE PHOSPHATASE 134 U/L (46-116); ASPARTATE AMINOTRANSFERASE 48 U/L (15-37); BILIRUBIN,TOTAL 0.5 mg/dL (0.1-1.0); LIPASE 103 U/L (73-393)
[2018-08-16 14:47] LABS: APPEARANCE,URINE CLEAR (CLEAR); GLUCOSE, URINE (UA) NEGATIVE (NEGATIVE); KETONES,URINE TRACE mg/dL (NEGATIVE); LEUKOCYTE ESTERASE ,URINE SMALL (NEGATIVE); NITRATE,URINE NEGATIVE (NEGATIVE); OCCULT BLOOD,URINE NEGATIVE (NEGATIVE); PROTEIN,URINE NEGATIVE (NEGATIVE)
[2018-08-16 14:55] LABS: BILIRUBIN,URINE PRELIM. POSITIVE (NEGATIVE)
[2018-08-16 14:58] LABS: BACTERIA,URINE None Seen /HPF (None Seen); RBC,URINE None Seen /HPF (0-2)
[2018-08-16 17:10] VITALS: BP 151/74
== END 2018-08-16 17:32 | disposition home or self-care (01) ==
LOC: EMS 10:43
DX: R10.13 Epigastric pain (principal); R11.2 Nausea with vomiting, unspecified; I10 Essential (primary) hypertension; E11.9 Type 2 diabetes mellitus without complications; F31.9 Bipolar disorder, unspecified; F20.9 Schizophrenia, unspecified; F17.210 Nicotine dependence, cigarettes, uncomplicated; Z79.4 Long term (current) use of insulin; Z79.899 Other long term (current) drug therapy
CPT/HCPCS: 36415; 71045; 80053; 81001; 82962; 83690; 84484; 85025; 93005; 96361; 96374; 96375; 96376; 99285; 99406; J2060; J2270; J2405; J7030

== ENCOUNTER 2018-09-04 06:57 | Inpatient (IN) | payer MEDICARE, MEDICAID ==
[~2018-09-04] VITALS: Ht 165.1 cm; Wt 70.2 kg
[2018-09-04] MEDS ORDERED: AmLODIPine BESYLATE 5 MG TABLET PO ONE (07:30)
[2018-09-04 08:39] LABS: AMPHET/METH SCREEN,URINE POSITIVE (NEGATIVE); BARBITURATE SCREEN, URINE NEGATIVE (NEGATIVE); BENZODIAZEPINES SCREEN,URINE NEGATIVE (NEGATIVE); CANNABINOID SCREEN,URINE NEGATIVE (NEGATIVE); COCAINE SCREEN,URINE POSITIVE (NEGATIVE); METHADONE SCREEN, URINE NEGATIVE (NEGATIVE); OPIATE SCREEN,URINE POSITIVE (NEGATIVE)
[2018-09-04 08:40] LABS: PHENCYCLIDINE SCREEN,URINE NEGATIVE (NEGATIVE)
[2018-09-04 09:14] LABS: GLUCOSE,POINT OF CARE 156 MG/DL (70-110)
[2018-09-04 09:29] LABS: ANION GAP 11 mmol/L (8-16); BILIRUBIN,TOTAL 1.4 mg/dL (0.1-1.0); CALCIUM, TOTAL 9.2 mg/dL (8.8-10.5); CARBON DIOXIDE 24 mmol/L (22-29); CHLORIDE 105 mmol/L (98-107); CREATININE 0.65 mg/dL (0.60-1.30); GLOMERULAR FILTR. RATE CALC > 60 mL/min (>60); GLUCOSE,RANDOM 146 mg/dL (70-110); POTASSIUM 4.1 mmol/L (3.5-5.1); SODIUM SERUM 140 mmol/L (136-145)
[2018-09-04 09:30] LABS: ALANINE AMINOTRANSFERASE 43 U/L (12-78); ALBUMIN 3.8 g/dL (3.4-5.0); ALKALINE PHOSPHATASE 153 U/L (46-116); ASPARTATE AMINOTRANSFERASE 62 U/L (15-37); TOTAL PROTEIN, SERUM 7.5 g/dL (6.4-8.2)
[2018-09-04 09:36] LABS: UREA NITROGEN, BLOOD 21 mg/dL (7-18)
[2018-09-04] MEDS ORDERED: ZOLPIDEM TARTRATE 10 MG TABLET PO PRN (09:45)
[2018-09-04 10:03] LABS: BASOPHILS % (AUTO) 0.4 % (0.0-2.0); EOSINOPHILS % (AUTO) 0.1 % (1.0-6.0); HEMATOCRIT 40.6 % (36-46); LYMPHOCYTES # (AUTO) 2.4 K/uL (1.0-4.8); LYMPHOCYTES % (AUTO) 12.3 % (22.0-44.0); MEAN CORPUSCULAR HEMOGLOBIN 27.2 pg (26.0-34.0); MEAN CORPUSCULAR HGB CONC 31.9 G/dL (31.0-37.0); MEAN CORPUSCULAR VOLUME 85 fL (80-100); MONOCYTES # (AUTO) 0.9 K/uL (0.1-1.0); MONOCYTES % (AUTO) 4.7 % (2.0-9.0); NEUTROPHILS # (AUTO) 16.1 K/uL (1.8-7.7); NEUTROPHILS % (AUTO) 82.5 % (40.0-70.0); PLATELET COUNT (AUTO) 334 K/uL (150-450); RED BLOOD CELL COUNT(AUTO) 4.78 MIL/uL (4.00-5.20); RED CELL DISTRIBUTION WIDTH 18.1 % (11.5-14.5)
[2018-09-04] MEDS ORDERED: MORPHINE SULFATE 2 MG/ML SYRINGE IM ONE (11:15)
[2018-09-04] MEDS ORDERED: ALBUTEROL SULFATE HFA 90 MCG/PUFF 8 GM INHALER IH PRN (12:30)
[2018-09-04] MEDS ORDERED: GLUCAGON,HUMAN RECOMBINANT 1 MG VIAL IM PRN (12:30)
[2018-09-04] MEDS ORDERED: ACETAMINOPHEN 325 MG TABLET PO PRN (12:30)
[2018-09-04] MEDS ORDERED: IBUPROFEN 600 MG TABLET PO PRN (12:30)
[2018-09-04 13:01] VITALS: BP 158/98
[2018-09-04 15:12] VITALS: BP 159/78
[2018-09-04] MEDS: TraMADol HCL 50 MG TABLET PO PRN (15:15)
[2018-09-04 16:40] LABS: GLUCOMETER DEV NAME(LOC) 3E.I; GLUCOSE,POINT OF CARE 170 MG/DL (70-110)
[2018-09-04] MEDS: INSULIN LISPRO 100 UNITS/ML SQ PRN (17:34)
[2018-09-04] MEDS: INSULIN GLARGINE,HUM.REC.ANLOG 100 UNITS/ML SQ SCH (18:10)
[2018-09-04] MEDS: LORazepam 2 MG TABLET PO PRN (19:42)
[2018-09-04 20:44] LABS: GLUCOMETER DEV NAME(LOC) 3E.I; GLUCOSE,POINT OF CARE 139 MG/DL (70-110)
[2018-09-04] MEDS: BUDESONIDE 0.5 MG/2 ML NEB SOLUTION NEB SCH (21:00)
[2018-09-05] MEDS: TraMADol HCL 50 MG TABLET PO PRN ×3 (03:04→20:11)
[2018-09-05 03:08] VITALS: BP 159/81
[2018-09-05] MEDS: LORazepam 2 MG TABLET PO PRN ×3 (03:18→20:07)
[2018-09-05 05:55] LABS: GLUCOMETER DEV NAME(LOC) 3E.I; GLUCOSE,POINT OF CARE 150 MG/DL (70-110)
[2018-09-05] MEDS: INSULIN LISPRO 100 UNITS/ML SQ PRN ×3 (07:01→17:10)
[2018-09-05] MEDS: TIOTROPIUM BROMIDE 18 MCG/INH HANDIHALER [5] IH SCH (09:01)
[2018-09-05] MEDS: LISINOPRIL 5 MG TABLET PO SCH (09:02)
[2018-09-05] MEDS: AmLODIPine BESYLATE 10 MG TABLET PO SCH (09:02)
[2018-09-05] MEDS: INSULIN GLARGINE,HUM.REC.ANLOG 100 UNITS/ML SQ SCH ×2 (09:06→17:10)
[2018-09-05] MEDS: HALOPERIDOL 5 MG TABLET PO PRN ×2 (11:08→20:07)
[2018-09-05 11:54] LABS: GLUCOMETER DEV NAME(LOC) 3E.I; GLUCOSE,POINT OF CARE 182 MG/DL (70-110)
[2018-09-05 16:49] LABS: GLUCOMETER DEV NAME(LOC) 3E.I; GLUCOSE,POINT OF CARE 172 MG/DL (70-110)
[2018-09-05] MEDS: QUEtiapine FUMARATE 200 MG ER TABLET PO SCH (19:41)
[2018-09-05 20:11] VITALS: BP 148/80
[2018-09-05 20:15] LABS: GLUCOMETER DEV NAME(LOC) 3E.I; GLUCOSE,POINT OF CARE 120 MG/DL (70-110)
[2018-09-06 06:20] LABS: GLUCOMETER DEV NAME(LOC) 3E.I; GLUCOSE,POINT OF CARE 174 MG/DL (70-110)
[2018-09-06] MEDS: INSULIN LISPRO 100 UNITS/ML SQ PRN ×2 (07:18→21:39)
[2018-09-06] MEDS: TIOTROPIUM BROMIDE 18 MCG/INH HANDIHALER [5] IH SCH (09:00)
[2018-09-06] MEDS: LISINOPRIL 5 MG TABLET PO SCH (09:37)
[2018-09-06] MEDS: CITALOPRAM HYDROBROMIDE 20 MG TABLET PO SCH (09:38)
[2018-09-06] MEDS: AmLODIPine BESYLATE 10 MG TABLET PO SCH (09:38)
[2018-09-06] MEDS: INSULIN GLARGINE,HUM.REC.ANLOG 100 UNITS/ML SQ SCH ×2 (09:40→16:53)
[2018-09-06] MEDS: BUDESONIDE 0.5 MG/2 ML NEB SOLUTION NEB SCH ×2 (10:41→21:03)
[2018-09-06 11:59] LABS: GLUCOMETER DEV NAME(LOC) 3E.I; GLUCOSE,POINT OF CARE 114 MG/DL (70-110)
[2018-09-06] MEDS: LORazepam 2 MG TABLET PO PRN (12:57)
[2018-09-06] MEDS: HALOPERIDOL 5 MG TABLET PO PRN (12:57)
[2018-09-06] MEDS: TraMADol HCL 50 MG TABLET PO PRN (13:15)
[2018-09-06 13:36] LABS: APPEARANCE,URINE CLEAR (CLEAR); GLUCOSE, URINE (UA) NEGATIVE (NEGATIVE); KETONES,URINE NEGATIVE (NEGATIVE); LEUKOCYTE ESTERASE ,URINE MODERATE (NEGATIVE); NITRATE,URINE NEGATIVE (NEGATIVE); OCCULT BLOOD,URINE NEGATIVE (NEGATIVE); PH,URINE 6.5 (5.0-8.0); PROTEIN,URINE NEGATIVE (NEGATIVE)
[2018-09-06] MEDS ORDERED: LIDOCAINE 5% TRANSDERMAL PATCH TD SCH (13:48)
[2018-09-06 14:01] VITALS: BP 146/64
[2018-09-06 14:21] LABS: BILIRUBIN,URINE PRELIM. POSITIVE (NEGATIVE)
[2018-09-06 14:29] LABS: BACTERIA,URINE None Seen /HPF (None Seen); CALCIUM OXALATE CRYSTALS,UR Rare /LPF (None Seen); RBC,URINE 0-2 /HPF (0-2)
[2018-09-06 16:44] LABS: GLUCOMETER DEV NAME(LOC) 3E.I; GLUCOSE,POINT OF CARE 127 MG/DL (70-110)
[2018-09-06 16:45] VITALS: BP 147/64
[2018-09-06 20:34] LABS: GLUCOMETER DEV NAME(LOC) 3E.I; GLUCOSE,POINT OF CARE 156 MG/DL (70-110)
[2018-09-06] MEDS ORDERED: -LIDODERM PATCH NOTE- MISC SCH (21:00)
[2018-09-06] MEDS: QUEtiapine FUMARATE 200 MG ER TABLET PO SCH (21:16)
[2018-09-07 05:57] LABS: BASOPHILS % (AUTO) 0.4 % (0.0-2.0); EOSINOPHILS % (AUTO) 1.8 % (1.0-6.0); HEMATOCRIT 36.5 % (36-46); HEMOGLOBIN 11.7 g/dL (12.0-16.0); LYMPHOCYTES # (AUTO) 3.3 K/uL (1.0-4.8); LYMPHOCYTES % (AUTO) 40.3 % (22.0-44.0); MEAN CORPUSCULAR HEMOGLOBIN 27.5 pg (26.0-34.0); MEAN CORPUSCULAR VOLUME 86 fL (80-100); MONOCYTES # (AUTO) 0.9 K/uL (0.1-1.0); MONOCYTES % (AUTO) 10.7 % (2.0-9.0); NEUTROPHILS # (AUTO) 3.8 K/uL (1.8-7.7); NEUTROPHILS % (AUTO) 46.8 % (40.0-70.0); PLATELET COUNT (AUTO) 240 K/uL (150-450); RED BLOOD CELL COUNT(AUTO) 4.24 MIL/uL (4.00-5.20); RED CELL DISTRIBUTION WIDTH 18.3 % (11.5-14.5)
[2018-09-07 06:05] VITALS: BP 139/70
[2018-09-07] MEDS: TraMADol HCL 50 MG TABLET PO PRN ×2 (06:05→13:21)
[2018-09-07 06:44] LABS: GLUCOMETER DEV NAME(LOC) 3E.C; GLUCOSE,POINT OF CARE 110 MG/DL (70-110)
[2018-09-07 06:44] LABS: GLUCOMETER DEV NAME(LOC) 3E.C; GLUCOSE,POINT OF CARE 59 MG/DL (70-110)
[2018-09-07] MEDS: TIOTROPIUM BROMIDE 18 MCG/INH HANDIHALER [5] IH SCH (09:15)
[2018-09-07] MEDS: CITALOPRAM HYDROBROMIDE 20 MG TABLET PO SCH (09:15)
[2018-09-07] MEDS: AmLODIPine BESYLATE 10 MG TABLET PO SCH (09:16)
[2018-09-07] MEDS: LISINOPRIL 5 MG TABLET PO SCH (09:16)
[2018-09-07] MEDS: LORazepam 2 MG TABLET PO PRN ×2 (09:17→13:21)
[2018-09-07] MEDS: HALOPERIDOL 5 MG TABLET PO PRN ×2 (09:17→13:21)
[2018-09-07] MEDS: BUDESONIDE 0.5 MG/2 ML NEB SOLUTION NEB SCH (10:09)
[2018-09-07] MEDS: INSULIN GLARGINE,HUM.REC.ANLOG 100 UNITS/ML SQ SCH ×2 (10:41→16:59)
[2018-09-07 10:44] LABS: GLUCOMETER DEV NAME(LOC) 3E.I; GLUCOSE,POINT OF CARE 179 MG/DL (70-110)
[2018-09-07 10:46] VITALS: BP 135/75
[2018-09-07 12:00] LABS: GLUCOMETER DEV NAME(LOC) 3E.I; GLUCOSE,POINT OF CARE 151 MG/DL (70-110)
[2018-09-07] MEDS: INSULIN LISPRO 100 UNITS/ML SQ PRN (12:38)
[2018-09-07 13:17] VITALS: BP 142/96
[2018-09-07] MEDS ORDERED: MEBROFENIN TC99M/MCL ISOTOPE 1 EA INJ INJ ONE (15:40)
[2018-09-07 17:09] LABS: GLUCOMETER DEV NAME(LOC) 3E.I; GLUCOSE,POINT OF CARE 96 MG/DL (70-110)
[2018-09-07 17:24] VITALS: BP 156/89
== END 2018-09-07 19:02 | disposition short-term general hospital (02) | DRG 885 ==
LOC: EMS 07:01 → 3EX 10:32
PROVIDERS: ADMIT Psychiatry & Neurology Psychiatry; ATTEND Psychiatry & Neurology Psychiatry
DX: F25.9 Schizoaffective disorder, unspecified (principal); J44.1 Chronic obstructive pulmonary disease with (acute) exacerbation; B19.20 Unspecified viral hepatitis C without hepatic coma; F11.20 Opioid dependence, uncomplicated; K81.0 Acute cholecystitis; R45.851 Suicidal ideations; D64.9 Anemia, unspecified; E11.9 Type 2 diabetes mellitus without complications; F17.200 Nicotine dependence, unspecified, uncomplicated; G43.909 Migraine, unspecified, not intractable, without status migrainosus; G89.29 Other chronic pain; I10 Essential (primary) hypertension; K21.9 Gastro-esophageal reflux disease without esophagitis; K59.00 Constipation, unspecified; N20.0 Calculus of kidney; Z83.2 Family history of diseases of the blood and blood-forming organs and certain disorders involving the immune mechanism; Z87.442 Personal history of urinary calculi; Z90.5 Acquired absence of kidney; Z90.710 Acquired absence of both cervix and uterus; Z91.14 Patient's other noncompliance with medication regimen; Z96.653 Presence of artificial knee joint, bilateral; Z90.49 Acquired absence of other specified parts of digestive tract
CPT/HCPCS: 76700; 78226; 83036; 84145; 87040; 87081; 87086; 94640; A9537; G0378; G0480; J1815; J2270

== ENCOUNTER 2018-09-07 19:00 | Inpatient (IN) | payer MEDICARE, MEDICAID ==
[~2018-09-07] VITALS: Ht 165.1 cm; Wt 70.5 kg
[2018-09-07 19:20] VITALS: BP 141/70
[2018-09-07] MEDS ORDERED: MORPHINE SULFATE 2 MG/ML SYRINGE IVP PRN (21:30)
[2018-09-07] MEDS: MORPHINE SULFATE 2 MG/ML SYRINGE IVP PRN (21:42)
[2018-09-07] MEDS ORDERED: BISACODYL 10 MG RECTAL RECTAL SUPPOSITORY PR PRN (22:45)
[2018-09-07] MEDS ORDERED: MAGNESIUM HYDROXIDE SUSPENSION 30 ML UDCUP PO PRN (22:45)
[2018-09-07] MEDS ORDERED: ONDANSETRON HCL 4 MG/2 ML VIAL IVP PRN (22:45)
[2018-09-07] MEDS ORDERED: ZOLPIDEM TARTRATE 5 MG TABLET PO PRN (22:45)
[2018-09-07] MEDS ORDERED: ALBUTEROL SULFATE 2.5 MG/0.5 ML NEB SOLUTION NEB PRN (22:45)
[2018-09-07] MEDS ORDERED: IPRATROPIUM BROMIDE 0.5 MG/2.5 ML NEB SOLUTION NEB PRN (22:45)
[2018-09-07] MEDS: SODIUM CHLORIDE 0.45% 1,000 ML IV SCH (23:03)
[2018-09-07] MEDS: PIPERACILLIN/TAZO 3.375 GM/D5W 50 ML IV SCH (23:03)
[2018-09-08 04:01] VITALS: BP 115/78
[2018-09-08] MEDS: MORPHINE SULFATE 2 MG/ML SYRINGE IVP PRN ×2 (04:08→08:08)
[2018-09-08] MEDS: PIPERACILLIN/TAZO 3.375 GM/D5W 50 ML IV SCH ×4 (04:08→22:31)
[2018-09-08] MEDS: DEXTROSE 50%-WATER 25 GM/50 ML SYRINGE IVP PRN ×3 (04:34→11:30)
[2018-09-08 04:41] LABS: GLUCOMETER DEV NAME(LOC) 4E.; GLUCOSE,POINT OF CARE 65 MG/DL (70-110)
[2018-09-08 07:05] LABS: GLUCOMETER DEV NAME(LOC) 4E.; GLUCOSE,POINT OF CARE 64 MG/DL (70-110)
[2018-09-08 07:05] LABS: GLUCOMETER DEV NAME(LOC) 4E.; GLUCOSE,POINT OF CARE 192 MG/DL (70-110)
[2018-09-08 07:23] LABS: BASOPHILS % (AUTO) 0.5 % (0.0-2.0); EOSINOPHILS % (AUTO) 1.9 % (1.0-6.0); HEMATOCRIT 33.2 % (36-46); HEMOGLOBIN 10.9 g/dL (12.0-16.0); LYMPHOCYTES # (AUTO) 2.5 K/uL (1.0-4.8); LYMPHOCYTES % (AUTO) 36.9 % (22.0-44.0); MEAN CORPUSCULAR HEMOGLOBIN 27.7 pg (26.0-34.0); MEAN CORPUSCULAR HGB CONC 32.8 G/dL (31.0-37.0); MEAN CORPUSCULAR VOLUME 85 fL (80-100); MONOCYTES # (AUTO) 0.5 K/uL (0.1-1.0); MONOCYTES % (AUTO) 7.9 % (2.0-9.0); NEUTROPHILS # (AUTO) 3.6 K/uL (1.8-7.7); NEUTROPHILS % (AUTO) 52.8 % (40.0-70.0); PLATELET COUNT (AUTO) 246 K/uL (150-450); RED BLOOD CELL COUNT(AUTO) 3.92 MIL/uL (4.00-5.20); RED CELL DISTRIBUTION WIDTH 18.1 % (11.5-14.5)
[2018-09-08 07:26] LABS: HEMOGLOBIN A1C 6.6 % (4.5-6.2)
[2018-09-08] MEDS: PANTOPRAZOLE SODIUM 40 MG/VIAL IVP SCH (07:52)
[2018-09-08 07:54] LABS: ALANINE AMINOTRANSFERASE 40 U/L (12-78); ALBUMIN 2.7 g/dL (3.4-5.0); ALKALINE PHOSPHATASE 121 U/L (46-116); ANION GAP 10 mmol/L (8-16); ASPARTATE AMINOTRANSFERASE 38 U/L (15-37); BILIRUBIN,TOTAL 0.5 mg/dL (0.1-1.0); CALCIUM, TOTAL 8.3 mg/dL (8.8-10.5); CARBON DIOXIDE 24 mmol/L (22-29); CHLORIDE 107 mmol/L (98-107); CHOL/HDL RATIO 1.8 (3.9-5.7); CHOLESTEROL 80 mg/dL (131-200); CREATINE KINASE, TOTAL ONLY 37 U/L (26-192); CREATININE 0.74 mg/dL (0.60-1.30); FREE T4 (FREE THYROXINE) 1.39 ng/dL (0.76-1.46); GLOMERULAR FILTR. RATE CALC > 60 mL/min (>60); GLUCOSE,RANDOM 181 mg/dL (70-110); HDL CHOLESTEROL 44 mg/dL (40-60); LDL CHOL (CALC.) 31 mg/dL (0-130); LIPASE 83 U/L (73-393); POTASSIUM 3.6 mmol/L (3.5-5.1); SODIUM SERUM 141 mmol/L (136-145); THYROID STIMULATING HORMONE 2.63 uIU/mL (0.36-3.74); TOTAL PROTEIN, SERUM 5.5 g/dL (6.4-8.2); TRIGLYCERIDES 27 mg/dL (15-150); UREA NITROGEN, BLOOD 10 mg/dL (7-18)
[2018-09-08 08:06] VITALS: BP 122/65
[2018-09-08 08:10] LABS: LACTIC ACID 1.2 mmol/L (0.4-2.0)
[2018-09-08] MEDS: HEPARIN SODIUM,PORCINE 5,000 UNITS/ML VIAL SQ SCH ×2 (09:00→20:20)
[2018-09-08] MEDS ORDERED: MORPHINE SULFATE 2 MG/ML SYRINGE IM ONE (09:30)
[2018-09-08] MEDS ORDERED: MORPHINE SULFATE 2 MG/ML SYRINGE IVP ONE (09:45)
[2018-09-08] MEDS ORDERED: ACETAMINOPHEN 500 MG TABLET PO PRN (10:30)
[2018-09-08] MEDS ORDERED: MORPHINE SULFATE 2 MG/ML SYRINGE IVP PRN ×2 (11:30)
[2018-09-08] MEDS ORDERED: SUGAMMADEX SODIUM 200 MG/2 ML VIAL IVP ONE (11:57)
[2018-09-08] MEDS ORDERED: ACETAMINOPHEN 1000 MG/ISO-OSM 100 ML IV ONE (11:57)
[2018-09-08] MEDS ORDERED: RINGERS SOLUTION,LACTATED 1,000 ML IV ONE ×2 (11:58→12:00)
[2018-09-08] MEDS ORDERED: KETAMINE HCL 50 MG/ML 10 ML VIAL IVP ONE (12:00)
[2018-09-08] MEDS ORDERED: EPHEDrine SULFATE 50 MG/ML VIAL IM ONE (12:00)
[2018-09-08] MEDS ORDERED: ROCURONIUM BROMIDE 10 MG/ML 5 ML VIAL IVP ONE (12:00)
[2018-09-08] MEDS ORDERED: LIDOCAINE/PF 2% 5 ML VIAL INJ ONE (12:00)
[2018-09-08] MEDS ORDERED: PROPOFOL 1% 20 ML VIAL IVP ONE (12:00)
[2018-09-08] MEDS ORDERED: ONDANSETRON HCL 4 MG/2 ML VIAL IVP ONE (12:00)
[2018-09-08] MEDS ORDERED: DEXAMETHASONE SOD PHOS 4 MG/ML VIAL IVP ONE (12:00)
[2018-09-08] MEDS ORDERED: MIDAZOLAM HCL 2 MG/2 ML VIAL IVP ONE (12:00)
[2018-09-08 12:03] VITALS: BP 120/63
[2018-09-08] MEDS ORDERED: BUPIVACAINE 0.25%/EPI 1:200,000/PF 10 ML VIAL ONE ×2 (12:14→12:15)
[2018-09-08] MEDS ORDERED: MICROFIBRILLAR COLLAGEN 1 GM PACKAGE TP ONE (12:15)
[2018-09-08 12:29] LABS: GLUCOMETER DEV NAME(LOC) 4E.; GLUCOSE,POINT OF CARE 59 MG/DL (70-110)
[2018-09-08 12:29] LABS: GLUCOMETER DEV NAME(LOC) 4E.; GLUCOSE,POINT OF CARE 45 MG/DL (70-110)
[2018-09-08] MEDS ORDERED: IOHEXOL 240 MG/ML 20 ML VIAL ONE (13:13)
[2018-09-08] MEDS ORDERED: BUPIVACAINE HCL/PF 0.25% 30 ML VIAL ONE (14:31)
[2018-09-08] MEDS ORDERED: DEXAMETHASONE SOD PHOS 4 MG/ML VIAL ONE (16:13)
[2018-09-08] MEDS ORDERED: LIDOCAINE/PF 2% 5 ML VIAL ONE (16:14)
[2018-09-08] MEDS ORDERED: BUPIVACAINE HCL/PF 0.5% 30 ML VIAL ONE (16:14)
[2018-09-08 16:42] VITALS: BP 136/61
[2018-09-08] MEDS: SODIUM CHLORIDE 0.45% 1,000 ML IV SCH (16:43)
[2018-09-08] MEDS: MORPHINE SULFATE 4 MG/ML SYRINGE IVP PRN ×2 (17:53→22:36)
[2018-09-08 19:54] LABS: GLUCOMETER DEV NAME(LOC) 4E.; GLUCOSE,POINT OF CARE 116 MG/DL (70-110)
[2018-09-08] MEDS: FAMOTIDINE 20 MG TABLET PO SCH (20:19)
[2018-09-08] MEDS: HYDROCODONE/ACETAMINOPHEN 5-325 MG TABLET PO PRN (20:20)
[2018-09-08 20:40] VITALS: BP 136/87
[2018-09-08] MEDS: INSULIN LISPRO 100 UNITS/ML SQ PRN (22:34)
[2018-09-08] MEDS ORDERED: MAGNESIUM SULFATE 2 GM/WATER 50 ML IV PRN (22:45)
[2018-09-08] MEDS ORDERED: MAGNESIUM SULFATE 4 GM/WATER 100 ML IV PRN (22:45)
[2018-09-09 00:12] VITALS: BP 133/83
[2018-09-09] MEDS: MORPHINE SULFATE 4 MG/ML SYRINGE IVP PRN ×8 (01:36→23:54)
[2018-09-09 01:49] LABS: GLUCOMETER DEV NAME(LOC) 4E.; GLUCOSE,POINT OF CARE 289 MG/DL (70-110)
[2018-09-09] MEDS: HYDROCODONE/ACETAMINOPHEN 5-325 MG TABLET PO PRN ×5 (03:02→20:06)
[2018-09-09 03:10] VITALS: BP 141/84
[2018-09-09] MEDS: PIPERACILLIN/TAZO 3.375 GM/D5W 50 ML IV SCH ×4 (04:56→22:01)
[2018-09-09] MEDS: INSULIN LISPRO 100 UNITS/ML SQ PRN ×3 (06:35→21:18)
[2018-09-09 07:45] VITALS: BP 138/79
[2018-09-09] MEDS: HEPARIN SODIUM,PORCINE 5,000 UNITS/ML VIAL SQ SCH ×2 (08:56→20:07)
[2018-09-09] MEDS: PANTOPRAZOLE SODIUM 40 MG/VIAL IVP SCH (08:57)
[2018-09-09] MEDS: FAMOTIDINE 20 MG TABLET PO SCH ×2 (08:57→20:15)
[2018-09-09 09:29] LABS: BASOPHILS % (AUTO) 0.5 % (0.0-2.0); EOSINOPHILS % (AUTO) 0 % (1.0-6.0); HEMATOCRIT 35.9 % (36-46); HEMOGLOBIN 11.5 g/dL (12.0-16.0); LYMPHOCYTES % (AUTO) 7.6 % (22.0-44.0); MEAN CORPUSCULAR HEMOGLOBIN 27.4 pg (26.0-34.0); MEAN CORPUSCULAR HGB CONC 32.1 G/dL (31.0-37.0); MEAN CORPUSCULAR VOLUME 85 fL (80-100); MONOCYTES # (AUTO) 0.2 K/uL (0.1-1.0); MONOCYTES % (AUTO) 1.9 % (2.0-9.0); NEUTROPHILS # (AUTO) 11.4 K/uL (1.8-7.7); PLATELET COUNT (AUTO) 268 K/uL (150-450); RED BLOOD CELL COUNT(AUTO) 4.21 MIL/uL (4.00-5.20); RED CELL DISTRIBUTION WIDTH 18.2 % (11.5-14.5)
[2018-09-09 09:50] LABS: PROTHROMBIN TIME 10.7 SEC (9.4-11.6)
[2018-09-09 09:59] LABS: ALBUMIN 3.1 g/dL (3.4-5.0); ANION GAP 12 mmol/L (8-16); CALCIUM, TOTAL 8.8 mg/dL (8.8-10.5); CARBON DIOXIDE 23 mmol/L (22-29); CHLORIDE 100 mmol/L (98-107); CREATININE 0.84 mg/dL (0.60-1.30); GLOMERULAR FILTR. RATE CALC > 60 mL/min (>60); GLUCOSE,RANDOM 221 mg/dL (70-110); POTASSIUM 4.8 mmol/L (3.5-5.1); SODIUM SERUM 135 mmol/L (136-145); UREA NITROGEN, BLOOD 10 mg/dL (7-18)
[2018-09-09 11:45] VITALS: BP 145/91
[2018-09-09] MEDS: SODIUM CHLORIDE 0.45% 1,000 ML IV SCH (15:06)
[2018-09-09 15:44] LABS: GLUCOMETER DEV NAME(LOC) 4E.; GLUCOSE,POINT OF CARE 193 MG/DL (70-110)
[2018-09-09 15:44] LABS: GLUCOMETER DEV NAME(LOC) 4E.; GLUCOSE,POINT OF CARE 202 MG/DL (70-110)
[2018-09-09 15:46] VITALS: BP 123/81
[2018-09-09] MEDS: MAGNESIUM OXIDE 400 MG TABLET PO PRN (20:07)
[2018-09-09 20:10] VITALS: BP 161/84
[2018-09-09 23:14] LABS: GLUCOMETER DEV NAME(LOC) 4E.; GLUCOSE,POINT OF CARE 99 MG/DL (70-110)
[2018-09-09 23:14] LABS: GLUCOMETER DEV NAME(LOC) 4E.; GLUCOSE,POINT OF CARE 237 MG/DL (70-110)
[2018-09-09] MEDS: ZOLPIDEM TARTRATE 10 MG TABLET PO PRN (23:59)
[2018-09-10] VITALS (7 sets, daily range): BP systolic 137–158; BP diastolic 78–99
[2018-09-10] MEDS: MAGNESIUM OXIDE 400 MG TABLET PO PRN (03:03)
[2018-09-10] MEDS: MORPHINE SULFATE 4 MG/ML SYRINGE IVP PRN ×7 (03:03→22:43)
[2018-09-10] MEDS: PIPERACILLIN/TAZO 3.375 GM/D5W 50 ML IV SCH ×4 (04:03→21:19)
[2018-09-10] MEDS: HYDROCODONE/ACETAMINOPHEN 5-325 MG TABLET PO PRN ×4 (05:30→21:19)
[2018-09-10 06:35] LABS: GLUCOMETER DEV NAME(LOC) 4E.; GLUCOSE,POINT OF CARE 92 MG/DL (70-110)
[2018-09-10 06:57] LABS: BASOPHILS % (AUTO) 0.3 % (0.0-2.0); EOSINOPHILS % (AUTO) 0.1 % (1.0-6.0); HEMATOCRIT 35.8 % (36-46); HEMOGLOBIN 11.5 g/dL (12.0-16.0); LYMPHOCYTES # (AUTO) 4.1 K/uL (1.0-4.8); LYMPHOCYTES % (AUTO) 28.9 % (22.0-44.0); MEAN CORPUSCULAR HEMOGLOBIN 27.4 pg (26.0-34.0); MEAN CORPUSCULAR HGB CONC 32.2 G/dL (31.0-37.0); MEAN CORPUSCULAR VOLUME 85 fL (80-100); MONOCYTES # (AUTO) 1.2 K/uL (0.1-1.0); MONOCYTES % (AUTO) 8.8 % (2.0-9.0); NEUTROPHILS # (AUTO) 8.7 K/uL (1.8-7.7); NEUTROPHILS % (AUTO) 61.9 % (40.0-70.0); PLATELET COUNT (AUTO) 278 K/uL (150-450); RED BLOOD CELL COUNT(AUTO) 4.22 MIL/uL (4.00-5.20); RED CELL DISTRIBUTION WIDTH 17.5 % (11.5-14.5)
[2018-09-10 07:14] LABS: ANION GAP 9 mmol/L (8-16); CALCIUM, TOTAL 9.3 mg/dL (8.8-10.5); CARBON DIOXIDE 26 mmol/L (22-29); CHLORIDE 102 mmol/L (98-107); CREATININE 0.69 mg/dL (0.60-1.30); GLOMERULAR FILTR. RATE CALC > 60 mL/min (>60); GLUCOSE,RANDOM 103 mg/dL (70-110); POTASSIUM 4.2 mmol/L (3.5-5.1); SODIUM SERUM 137 mmol/L (136-145); UREA NITROGEN, BLOOD 12 mg/dL (7-18)
[2018-09-10] MEDS: PANTOPRAZOLE SODIUM 40 MG/VIAL IVP SCH (07:53)
[2018-09-10] MEDS: FAMOTIDINE 20 MG TABLET PO SCH ×2 (07:53→19:38)
[2018-09-10] MEDS: HEPARIN SODIUM,PORCINE 5,000 UNITS/ML VIAL SQ SCH (07:53)
[2018-09-10] MEDS: HYDROmorphone 2 MG/ML SYRINGE IVP PRN ×3 (10:01→19:32)
[2018-09-10 12:05] LABS: GLUCOMETER DEV NAME(LOC) 4E.; GLUCOSE,POINT OF CARE 137 MG/DL (70-110)
[2018-09-10] MEDS: INSULIN LISPRO 100 UNITS/ML SQ PRN (17:20)
[2018-09-10 17:39] LABS: GLUCOMETER DEV NAME(LOC) 4E.; GLUCOSE,POINT OF CARE 158 MG/DL (70-110)
[2018-09-10 21:16] LABS: APPEARANCE,URINE CLEAR (CLEAR); BILIRUBIN,URINE NEGATIVE (NEGATIVE); GLUCOSE, URINE (UA) NEGATIVE (NEGATIVE); KETONES,URINE NEGATIVE (NEGATIVE); LEUKOCYTE ESTERASE ,URINE NEGATIVE (NEGATIVE); NITRATE,URINE NEGATIVE (NEGATIVE); OCCULT BLOOD,URINE NEGATIVE (NEGATIVE); PROTEIN,URINE NEGATIVE (NEGATIVE)
[2018-09-10] MEDS: ZOLPIDEM TARTRATE 10 MG TABLET PO PRN (23:24)
[2018-09-11 00:44] LABS: GLUCOMETER DEV NAME(LOC) 4E.; GLUCOSE,POINT OF CARE 90 MG/DL (70-110)
[2018-09-11] MEDS: HYDROCODONE/ACETAMINOPHEN 5-325 MG TABLET PO PRN ×2 (01:23→11:46)
[2018-09-11] MEDS: MORPHINE SULFATE 4 MG/ML SYRINGE IVP PRN ×2 (02:29→08:31)
[2018-09-11] MEDS: PIPERACILLIN/TAZO 3.375 GM/D5W 50 ML IV SCH ×3 (04:03→15:29)
[2018-09-11] MEDS: HYDROmorphone 2 MG/ML SYRINGE IVP PRN (04:35)
[2018-09-11 06:54] LABS: GLUCOMETER DEV NAME(LOC) 4E.; GLUCOSE,POINT OF CARE 134 MG/DL (70-110)
[2018-09-11 08:13] VITALS: BP 151/88
[2018-09-11 08:26] LABS: BASOPHILS % (AUTO) 0.9 % (0.0-2.0); EOSINOPHILS % (AUTO) 0.9 % (1.0-6.0); HEMOGLOBIN 12.2 g/dL (12.0-16.0); LYMPHOCYTES # (AUTO) 3.8 K/uL (1.0-4.8); LYMPHOCYTES % (AUTO) 35.5 % (22.0-44.0); MEAN CORPUSCULAR HEMOGLOBIN 27.6 pg (26.0-34.0); MEAN CORPUSCULAR VOLUME 86 fL (80-100); MONOCYTES # (AUTO) 1.7 K/uL (0.1-1.0); MONOCYTES % (AUTO) 15.8 % (2.0-9.0); NEUTROPHILS % (AUTO) 46.9 % (40.0-70.0); PLATELET COUNT (AUTO) 239 K/uL (150-450); RED BLOOD CELL COUNT(AUTO) 4.41 MIL/uL (4.00-5.20)
[2018-09-11] MEDS: FAMOTIDINE 20 MG TABLET PO SCH (08:31)
[2018-09-11] MEDS: PANTOPRAZOLE SODIUM 40 MG/VIAL IVP SCH (08:31)
[2018-09-11 08:59] LABS: ANION GAP 12 mmol/L (8-16); CALCIUM, TOTAL 9.4 mg/dL (8.8-10.5); CARBON DIOXIDE 25 mmol/L (22-29); CHLORIDE 101 mmol/L (98-107); CREATININE 0.74 mg/dL (0.60-1.30); GLOMERULAR FILTR. RATE CALC > 60 mL/min (>60); GLUCOSE,RANDOM 118 mg/dL (70-110); SODIUM SERUM 138 mmol/L (136-145); UREA NITROGEN, BLOOD 12 mg/dL (7-18)
[2018-09-11] MEDS ORDERED: CITALOPRAM HYDROBROMIDE 20 MG TABLET PO SCH (11:30)
[2018-09-11] MEDS: INSULIN LISPRO 100 UNITS/ML SQ PRN (11:40)
[2018-09-11] MEDS ORDERED: INSLAN SQ (12:45)
[2018-09-11] MEDS ORDERED: PANT40TA25 PO (12:46)
[2018-09-11] MEDS ORDERED: ACET-66 PO (12:48)
[2018-09-11] MEDS ORDERED: A20IH1 IH (12:49)
[2018-09-11] MEDS ORDERED: BISA5TAB12 PR (12:50)
[2018-09-11] MEDS ORDERED: MOM30 PO (12:52)
[2018-09-11] MEDS ORDERED: IPRNEB IH (12:52)
[2018-09-11] MEDS ORDERED: ONDA4 PO (12:53)
[2018-09-11] MEDS ORDERED: ZOLP10TA7 PO (12:55)
[2018-09-11] MEDS ORDERED: HYDR-4455 PO ×2 (12:56→13:00)
[2018-09-11] MEDS ORDERED: TRAM50TA4 PO (13:04)
[2018-09-11 13:35] VITALS: BP 156/98
[2018-09-11] MEDS ORDERED: QUEtiapine FUMARATE 200 MG ER TABLET PO SCH (19:00)
[2018-09-11 20:59] LABS: GLUCOMETER DEV NAME(LOC) 4E.; GLUCOSE,POINT OF CARE 149 MG/DL (70-110)
== END 2018-09-11 16:47 | DRG 415 ==
LOC: 4E 19:00
PROVIDERS: ADMIT Internal Medicine Geriatric Medicine; ATTEND Internal Medicine Geriatric Medicine
PROC: BF131ZZ Fluoroscopy of Gallbladder and Bile Ducts using Low Osmolar Contrast (ICD-10-PCS; 2018-09-08)
PROC: 0FN40ZZ Release Gallbladder, Open Approach (ICD-10-PCS; 2018-09-08)
PROC: 05HY33Z Insertion of Infusion Device into Upper Vein, Percutaneous Approach (ICD-10-PCS; 2018-09-08)
PROC: B54NZZA Ultrasonography of Left Upper Extremity Veins, Guidance (ICD-10-PCS; 2018-09-08)
PROC: 0FT40ZZ Resection of Gallbladder, Open Approach (ICD-10-PCS; principal; 2018-09-08 12:15)
DX: K80.13 Calculus of gallbladder with acute and chronic cholecystitis with obstruction (principal); F11.20 Opioid dependence, uncomplicated; R45.851 Suicidal ideations; E11.9 Type 2 diabetes mellitus without complications; J44.9 Chronic obstructive pulmonary disease, unspecified; B19.20 Unspecified viral hepatitis C without hepatic coma; G89.29 Other chronic pain; D64.9 Anemia, unspecified; I50.9 Heart failure, unspecified; I11.0 Hypertensive heart disease with heart failure; F31.9 Bipolar disorder, unspecified; F17.200 Nicotine dependence, unspecified, uncomplicated; K82.8 Other specified diseases of gallbladder; K66.0 Peritoneal adhesions (postprocedural) (postinfection); K21.9 Gastro-esophageal reflux disease without esophagitis; Z96.653 Presence of artificial knee joint, bilateral; G43.909 Migraine, unspecified, not intractable, without status migrainosus; K59.00 Constipation, unspecified; F14.10 Cocaine abuse, uncomplicated; F25.1 Schizoaffective disorder, depressive type; F15.10 Other stimulant abuse, uncomplicated; Z91.5 Personal history of self-harm; Z90.49 Acquired absence of other specified parts of digestive tract; Z79.899 Other long term (current) drug therapy; Z90.710 Acquired absence of both cervix and uterus; Z90.5 Acquired absence of kidney; Z87.442 Personal history of urinary calculi
CPT/HCPCS: 36245; 36569; 76937; 82105; 83036; 83605; 83735; 84145; 84439; 84443; 87081; 88304; C9113; G0238; G0378; J0131; J0690; J1100; J1170; J1644; J2250; J2270; J2405; J2543; J2704; J3490; J7120; Q9966

== ENCOUNTER 2018-11-03 13:00 | Inpatient (IN) | payer MEDICARE, MEDICAID ==
[~2018-11-03] VITALS: Ht 165.1 cm; Wt 72.2 kg
[~2018-11-03 13:00] MED LIST changes: -AMLO-512 PO; +AMLO10TA7 PO; -CITA-106 PO; +HYDR-4455 PO; +IPRNEB IH; +PANT40TA25 PO; -QUET200T5 PO; -TIOT185 IH; +TRAM50TA4 PO
[2018-11-03] MEDS ORDERED: LORazepam 2 MG TABLET PO ONE (14:30)
[2018-11-03 14:39] LABS: GLUCOSE,POINT OF CARE 428 MG/DL (70-110)
[2018-11-03] MEDS ORDERED: INSULIN REGULAR, HUMAN 100 UNITS/ML SQ ONE (14:45)
[2018-11-03 15:18] LABS: APPEARANCE,URINE CLOUDY (CLEAR); GLUCOSE, URINE (UA) >=1000 mg/dL (NEGATIVE); KETONES,URINE TRACE mg/dL (NEGATIVE); LEUKOCYTE ESTERASE ,URINE NEGATIVE (NEGATIVE); NITRATE,URINE NEGATIVE (NEGATIVE); OCCULT BLOOD,URINE TRACE (NEGATIVE); PROTEIN,URINE NEGATIVE (NEGATIVE)
[2018-11-03 15:19] LABS: BILIRUBIN,URINE PRELIM. POSITIVE (NEGATIVE)
[2018-11-03 15:25] LABS: WBC,URINE 0-2 /HPF (0-5)
[2018-11-03 15:26] LABS: BACTERIA,URINE Rare /HPF (None Seen); CALCIUM OXALATE CRYSTALS,UR Moderate /LPF (None Seen); SQUAMOUS EPITHELIAL CELL,UR Rare /LPF (None Seen)
[2018-11-03 15:27] LABS: BASOPHILS % (AUTO) 1.1 % (0.0-2.0); EOSINOPHILS % (AUTO) 0.1 % (1.0-6.0); LYMPHOCYTES # (AUTO) 1.8 K/uL (1.0-4.8); LYMPHOCYTES % (AUTO) 22.6 % (22.0-44.0); MEAN CORPUSCULAR HEMOGLOBIN 28.5 pg (26.0-34.0); MEAN CORPUSCULAR HGB CONC 31.6 G/dL (31.0-37.0); MEAN CORPUSCULAR VOLUME 90 fL (80-100); MONOCYTES # (AUTO) 0.8 K/uL (0.1-1.0); MONOCYTES % (AUTO) 9.9 % (2.0-9.0); NEUTROPHILS # (AUTO) 5.2 K/uL (1.8-7.7); NEUTROPHILS % (AUTO) 66.3 % (40.0-70.0); PLATELET COUNT (AUTO) 231 K/uL (150-450); RED BLOOD CELL COUNT(AUTO) 4.54 MIL/uL (4.00-5.20); RED CELL DISTRIBUTION WIDTH 15.6 % (11.5-14.5)
[2018-11-03 16:04] LABS: ALANINE AMINOTRANSFERASE 36 U/L (12-78); ALBUMIN 3.8 g/dL (3.4-5.0); ALKALINE PHOSPHATASE 214 U/L (46-116); ANION GAP 12 mmol/L (8-16); ASPARTATE AMINOTRANSFERASE 30 U/L (15-37); BILIRUBIN,TOTAL 0.4 mg/dL (0.1-1.0); CALCIUM, TOTAL 9.3 mg/dL (8.8-10.5); CARBON DIOXIDE 21 mmol/L (22-29); CHLORIDE 103 mmol/L (98-107); GLOMERULAR FILTR. RATE CALC > 60 mL/min (>60); POTASSIUM 3.8 mmol/L (3.5-5.1); SODIUM SERUM 136 mmol/L (136-145); TOTAL PROTEIN, SERUM 7.4 g/dL (6.4-8.2); UREA NITROGEN, BLOOD 13 mg/dL (7-18)
[2018-11-03 16:05] LABS: GLUCOSE,RANDOM 435 mg/dL (70-110)
[2018-11-03 16:06] LABS: AMPHET/METH SCREEN,URINE NEGATIVE (NEGATIVE); BARBITURATE SCREEN, URINE NEGATIVE (NEGATIVE); BENZODIAZEPINES SCREEN,URINE NEGATIVE (NEGATIVE); CANNABINOID SCREEN,URINE NEGATIVE (NEGATIVE); COCAINE SCREEN,URINE NEGATIVE (NEGATIVE); METHADONE SCREEN, URINE NEGATIVE (NEGATIVE); OPIATE SCREEN,URINE POSITIVE (NEGATIVE)
[2018-11-03 16:27] LABS: PHENCYCLIDINE SCREEN,URINE NEGATIVE (NEGATIVE)
[2018-11-03] MEDS ORDERED: ZOLPIDEM TARTRATE 10 MG TABLET PO PRN (16:30)
[2018-11-03 16:49] LABS: GLUCOSE,POINT OF CARE 279 MG/DL (70-110)
[2018-11-03 17:29] LABS: GLUCOSE,POINT OF CARE 252 MG/DL (70-110)
[2018-11-03 20:41] VITALS: BP 148/97
[2018-11-03 23:15] VITALS: BP 125/83
[2018-11-04] MEDS ORDERED: DEXTROSE 50%-WATER 25 GM/50 ML SYRINGE IVP PRN (05:00)
[2018-11-04 05:35] LABS: GLUCOMETER DEV NAME(LOC) 3E.I; GLUCOSE,POINT OF CARE 178 MG/DL (70-110)
[2018-11-04] MEDS: INSULIN LISPRO 100 UNITS/ML SQ PRN ×3 (07:16→17:40)
[2018-11-04 08:17] VITALS: BP 140/92
[2018-11-04] MEDS: PANTOPRAZOLE SODIUM 40 MG DR TABLET PO SCH (08:17)
[2018-11-04] MEDS: QUEtiapine FUMARATE 200 MG ER TABLET PO SCH (08:17)
[2018-11-04] MEDS: TraMADol HCL 50 MG TABLET PO PRN ×2 (08:18→16:45)
[2018-11-04] MEDS: CITALOPRAM HYDROBROMIDE 20 MG TABLET PO SCH (08:18)
[2018-11-04] MEDS: AmLODIPine BESYLATE 10 MG TABLET PO SCH (08:18)
[2018-11-04 09:17] VITALS: BP 129/78
[2018-11-04 12:05] LABS: GLUCOMETER DEV NAME(LOC) 3EX.; GLUCOSE,POINT OF CARE 434 MG/DL (70-110)
[2018-11-04] MEDS ORDERED: INSULIN LISPRO 100 UNITS/ML SQ ONE (12:30)
[2018-11-04] MEDS: MetFORMIN HCL 500 MG TABLET PO SCH (16:45)
[2018-11-04 16:46] VITALS: BP 110/62
[2018-11-04 17:20] LABS: GLUCOMETER DEV NAME(LOC) 3EX.; GLUCOSE,POINT OF CARE 251 MG/DL (70-110)
[2018-11-04] MEDS: INSULIN GLARGINE,HUM.REC.ANLOG 100 UNITS/ML SQ SCH (22:55)
[2018-11-04] MEDS: LORazepam 2 MG TABLET PO PRN (23:02)
[2018-11-05 03:44] VITALS: BP 135/95
[2018-11-05] MEDS: TraMADol HCL 50 MG TABLET PO PRN ×2 (03:47→14:12)
[2018-11-05] MEDS: INSULIN LISPRO 100 UNITS/ML SQ PRN ×3 (06:52→20:52)
[2018-11-05 06:54] LABS: GLUCOMETER DEV NAME(LOC) 3E.I; GLUCOSE,POINT OF CARE 251 MG/DL (70-110)
[2018-11-05] MEDS: LORazepam 2 MG TABLET PO PRN ×2 (06:56→19:12)
[2018-11-05] MEDS: MetFORMIN HCL 500 MG TABLET PO SCH ×2 (06:56→17:33)
[2018-11-05] MEDS: PANTOPRAZOLE SODIUM 40 MG DR TABLET PO SCH (10:31)
[2018-11-05] MEDS: AmLODIPine BESYLATE 10 MG TABLET PO SCH (10:31)
[2018-11-05] MEDS: QUEtiapine FUMARATE 200 MG ER TABLET PO SCH (10:31)
[2018-11-05] MEDS: CITALOPRAM HYDROBROMIDE 20 MG TABLET PO SCH (10:31)
[2018-11-05 11:55] LABS: GLUCOMETER DEV NAME(LOC) 3EX.; GLUCOSE,POINT OF CARE 131 MG/DL (70-110)
[2018-11-05 14:12] VITALS: BP 141/79
[2018-11-05 17:17] VITALS: BP 129/64
[2018-11-05 17:45] LABS: GLUCOMETER DEV NAME(LOC) 3EX.; GLUCOSE,POINT OF CARE 158 MG/DL (70-110)
[2018-11-05 20:20] LABS: GLUCOMETER DEV NAME(LOC) 3EX.; GLUCOSE,POINT OF CARE 141 MG/DL (70-110)
[2018-11-05] MEDS: INSULIN GLARGINE,HUM.REC.ANLOG 100 UNITS/ML SQ SCH (20:51)
[2018-11-06 02:00] VITALS: BP 131/82
[2018-11-06] MEDS: TraMADol HCL 50 MG TABLET PO PRN ×3 (02:04→19:33)
[2018-11-06] MEDS: LORazepam 2 MG TABLET PO PRN ×4 (03:09→19:32)
[2018-11-06 06:05] LABS: GLUCOMETER DEV NAME(LOC) 3E.I; GLUCOSE,POINT OF CARE 272 MG/DL (70-110)
[2018-11-06] MEDS: INSULIN LISPRO 100 UNITS/ML SQ PRN ×4 (06:54→21:50)
[2018-11-06] MEDS: MetFORMIN HCL 500 MG TABLET PO SCH ×2 (06:54→17:37)
[2018-11-06] MEDS: CITALOPRAM HYDROBROMIDE 20 MG TABLET PO SCH (07:58)
[2018-11-06] MEDS: PANTOPRAZOLE SODIUM 40 MG DR TABLET PO SCH (07:58)
[2018-11-06] MEDS: QUEtiapine FUMARATE 200 MG ER TABLET PO SCH (07:58)
[2018-11-06 08:00] VITALS: BP 141/77
[2018-11-06] MEDS: AmLODIPine BESYLATE 5 MG TABLET PO SCH (08:02)
[2018-11-06 11:09] LABS: GLUCOMETER DEV NAME(LOC) 3EX.; GLUCOSE,POINT OF CARE 144 MG/DL (70-110)
[2018-11-06 11:14] VITALS: BP 141/77
[2018-11-06] MEDS: LISINOPRIL 5 MG TABLET PO SCH (11:14)
[2018-11-06 16:14] LABS: GLUCOMETER DEV NAME(LOC) 3EX.; GLUCOSE,POINT OF CARE 190 MG/DL (70-110)
[2018-11-06 18:49] VITALS: BP 123/62
[2018-11-06 19:32] VITALS: BP 124/76
[2018-11-06] MEDS: INSULIN GLARGINE,HUM.REC.ANLOG 100 UNITS/ML SQ SCH (21:00)
[2018-11-06 21:14] LABS: GLUCOMETER DEV NAME(LOC) 3EX.; GLUCOSE,POINT OF CARE 210 MG/DL (70-110)
[2018-11-07 05:29] LABS: GLUCOMETER DEV NAME(LOC) 3E.I; GLUCOSE,POINT OF CARE 157 MG/DL (70-110)
[2018-11-07 05:41] VITALS: BP 132/72
[2018-11-07] MEDS: TraMADol HCL 50 MG TABLET PO PRN ×2 (05:42→14:32)
[2018-11-07 06:32] LABS: CHOL/HDL RATIO 1.7 (3.9-5.7); FREE T4 (FREE THYROXINE) 1.14 ng/dL (0.76-1.46); MAGNESIUM 1.4 mg/dL (1.80-2.40); THYROID STIMULATING HORMONE 0.81 uIU/mL (0.36-3.74)
[2018-11-07] MEDS: MetFORMIN HCL 500 MG TABLET PO SCH ×2 (06:59→17:27)
[2018-11-07] MEDS: INSULIN LISPRO 100 UNITS/ML SQ PRN ×3 (07:01→20:40)
[2018-11-07 08:00] VITALS: BP 102/83
[2018-11-07] MEDS: LISINOPRIL 5 MG TABLET PO SCH (08:19)
[2018-11-07] MEDS: AmLODIPine BESYLATE 5 MG TABLET PO SCH (08:19)
[2018-11-07] MEDS: QUEtiapine FUMARATE 200 MG ER TABLET PO SCH (08:19)
[2018-11-07] MEDS: PANTOPRAZOLE SODIUM 40 MG DR TABLET PO SCH (08:19)
[2018-11-07] MEDS: CITALOPRAM HYDROBROMIDE 20 MG TABLET PO SCH (08:21)
[2018-11-07] MEDS: LORazepam 2 MG TABLET PO PRN ×3 (08:25→20:25)
[2018-11-07 11:14] LABS: GLUCOMETER DEV NAME(LOC) 3EX.; GLUCOSE,POINT OF CARE 136 MG/DL (70-110)
[2018-11-07 14:32] VITALS: BP 116/73
[2018-11-07 17:19] LABS: GLUCOMETER DEV NAME(LOC) 3EX.; GLUCOSE,POINT OF CARE 179 MG/DL (70-110)
[2018-11-07] MEDS: HALOPERIDOL 5 MG TABLET PO PRN (18:17)
[2018-11-07] MEDS: INSULIN GLARGINE,HUM.REC.ANLOG 100 UNITS/ML SQ SCH (20:39)
[2018-11-07 20:40] LABS: GLUCOMETER DEV NAME(LOC) 3EX.; GLUCOSE,POINT OF CARE 180 MG/DL (70-110)
[2018-11-08 01:37] VITALS: BP 135/91
[2018-11-08] MEDS: HALOPERIDOL 5 MG TABLET PO PRN ×3 (01:39→12:06)
[2018-11-08] MEDS: TraMADol HCL 50 MG TABLET PO PRN ×3 (01:39→19:34)
[2018-11-08 05:40] LABS: GLUCOMETER DEV NAME(LOC) 3E.I; GLUCOSE,POINT OF CARE 194 MG/DL (70-110)
[2018-11-08] MEDS: MetFORMIN HCL 500 MG TABLET PO SCH ×2 (07:04→16:50)
[2018-11-08] MEDS: INSULIN LISPRO 100 UNITS/ML SQ PRN ×4 (07:17→20:55)
[2018-11-08 08:00] VITALS: BP 127/63
[2018-11-08] MEDS: CITALOPRAM HYDROBROMIDE 20 MG TABLET PO SCH (08:00)
[2018-11-08] MEDS: MAGNESIUM OXIDE 400 MG TABLET PO SCH (08:00)
[2018-11-08] MEDS: AmLODIPine BESYLATE 5 MG TABLET PO SCH (08:01)
[2018-11-08] MEDS: PANTOPRAZOLE SODIUM 40 MG DR TABLET PO SCH (08:01)
[2018-11-08] MEDS: LISINOPRIL 5 MG TABLET PO SCH (08:01)
[2018-11-08] MEDS: QUEtiapine FUMARATE 200 MG ER TABLET PO SCH (08:01)
[2018-11-08] MEDS: LORazepam 2 MG TABLET PO PRN ×3 (08:01→19:55)
[2018-11-08 09:37] VITALS: BP 120/61
[2018-11-08 11:29] LABS: GLUCOMETER DEV NAME(LOC) 3EX.; GLUCOSE,POINT OF CARE 92 MG/DL (70-110)
[2018-11-08 16:36] VITALS: BP 124/72
[2018-11-08 17:10] LABS: GLUCOMETER DEV NAME(LOC) 3EX.; GLUCOSE,POINT OF CARE 219 MG/DL (70-110)
[2018-11-08 19:34] VITALS: BP 129/74
[2018-11-08 20:45] LABS: GLUCOMETER DEV NAME(LOC) 3EX.; GLUCOSE,POINT OF CARE 147 MG/DL (70-110)
[2018-11-08] MEDS: INSULIN GLARGINE,HUM.REC.ANLOG 100 UNITS/ML SQ SCH (20:54)
[2018-11-09 03:45] VITALS: BP 121/76
[2018-11-09] MEDS: TraMADol HCL 50 MG TABLET PO PRN ×2 (03:49→11:52)
[2018-11-09 05:40] LABS: GLUCOMETER DEV NAME(LOC) 3E.I; GLUCOSE,POINT OF CARE 206 MG/DL (70-110)
[2018-11-09] MEDS: INSULIN LISPRO 100 UNITS/ML SQ PRN ×3 (06:51→17:10)
[2018-11-09] MEDS: MetFORMIN HCL 500 MG TABLET PO SCH ×2 (07:03→16:55)
[2018-11-09 08:00] VITALS: BP 113/64
[2018-11-09] MEDS: LISINOPRIL 5 MG TABLET PO SCH (09:00)
[2018-11-09] MEDS: AmLODIPine BESYLATE 5 MG TABLET PO SCH (09:00)
[2018-11-09] MEDS: CITALOPRAM HYDROBROMIDE 20 MG TABLET PO SCH (09:00)
[2018-11-09] MEDS: PANTOPRAZOLE SODIUM 40 MG DR TABLET PO SCH (09:00)
[2018-11-09] MEDS: QUEtiapine FUMARATE 200 MG ER TABLET PO SCH (09:00)
[2018-11-09] MEDS: MAGNESIUM OXIDE 400 MG TABLET PO SCH (09:01)
[2018-11-09] MEDS: HALOPERIDOL 5 MG TABLET PO PRN ×2 (09:01→14:47)
[2018-11-09] MEDS: LORazepam 2 MG TABLET PO PRN ×2 (09:01→14:47)
[2018-11-09 11:35] LABS: GLUCOMETER DEV NAME(LOC) 3EX.; GLUCOSE,POINT OF CARE 118 MG/DL (70-110)
[2018-11-09 11:39] VITALS: BP 126/76
[2018-11-09 16:50] LABS: GLUCOMETER DEV NAME(LOC) 3EX.; GLUCOSE,POINT OF CARE 230 MG/DL (70-110)
[2018-11-09] MEDS: INSULIN GLARGINE,HUM.REC.ANLOG 100 UNITS/ML SQ SCH (21:00)
[2018-11-09 22:00] VITALS: BP 109/58
[2018-11-09 22:50] LABS: GLUCOMETER DEV NAME(LOC) 3E.I; GLUCOSE,POINT OF CARE 147 MG/DL (70-110)
[2018-11-10 05:50] VITALS: BP 138/78
[2018-11-10] MEDS: TraMADol HCL 50 MG TABLET PO PRN ×2 (05:58→14:01)
[2018-11-10 06:00] LABS: GLUCOMETER DEV NAME(LOC) 3E.I; GLUCOSE,POINT OF CARE 127 MG/DL (70-110)
[2018-11-10] MEDS: LORazepam 2 MG TABLET PO PRN ×2 (06:12→10:13)
[2018-11-10] MEDS: HALOPERIDOL 5 MG TABLET PO PRN ×2 (06:12→10:13)
[2018-11-10] MEDS: MetFORMIN HCL 500 MG TABLET PO SCH ×2 (07:10→17:13)
[2018-11-10 08:00] VITALS: BP 121/64
[2018-11-10] MEDS: CITALOPRAM HYDROBROMIDE 20 MG TABLET PO SCH (08:15)
[2018-11-10] MEDS: AmLODIPine BESYLATE 5 MG TABLET PO SCH (08:15)
[2018-11-10] MEDS: MAGNESIUM OXIDE 400 MG TABLET PO SCH (08:15)
[2018-11-10] MEDS: QUEtiapine FUMARATE 200 MG ER TABLET PO SCH (08:15)
[2018-11-10] MEDS: LISINOPRIL 5 MG TABLET PO SCH (08:15)
[2018-11-10] MEDS: PANTOPRAZOLE SODIUM 40 MG DR TABLET PO SCH (08:16)
[2018-11-10] MEDS: INSULIN LISPRO 100 UNITS/ML SQ PRN ×2 (11:38→17:47)
[2018-11-10 12:05] LABS: GLUCOMETER DEV NAME(LOC) 3EX.; GLUCOSE,POINT OF CARE 180 MG/DL (70-110)
[2018-11-10 13:58] VITALS: BP 123/74
[2018-11-10 16:24] VITALS: BP 136/71
[2018-11-10 17:45] LABS: GLUCOMETER DEV NAME(LOC) 3EX.; GLUCOSE,POINT OF CARE 217 MG/DL (70-110)
[2018-11-10] MEDS: INSULIN GLARGINE,HUM.REC.ANLOG 100 UNITS/ML SQ SCH (21:57)
[2018-11-10 22:00] LABS: GLUCOMETER DEV NAME(LOC) 3EX.; GLUCOSE,POINT OF CARE 113 MG/DL (70-110)
[2018-11-11 02:10] VITALS: BP 126/76
[2018-11-11] MEDS: TraMADol HCL 50 MG TABLET PO PRN ×3 (02:15→18:16)
[2018-11-11 05:54] LABS: GLUCOMETER DEV NAME(LOC) 3E.I; GLUCOSE,POINT OF CARE 134 MG/DL (70-110)
[2018-11-11] MEDS: MetFORMIN HCL 500 MG TABLET PO SCH ×2 (06:37→17:32)
[2018-11-11] MEDS: QUEtiapine FUMARATE 200 MG ER TABLET PO SCH (08:00)
[2018-11-11] MEDS: AmLODIPine BESYLATE 5 MG TABLET PO SCH (08:00)
[2018-11-11] MEDS: PANTOPRAZOLE SODIUM 40 MG DR TABLET PO SCH (08:00)
[2018-11-11] MEDS: HALOPERIDOL 5 MG TABLET PO PRN ×2 (08:00→16:16)
[2018-11-11] MEDS: LORazepam 2 MG TABLET PO PRN ×2 (08:00→16:16)
[2018-11-11] MEDS: MAGNESIUM OXIDE 400 MG TABLET PO SCH (08:01)
[2018-11-11] MEDS: CITALOPRAM HYDROBROMIDE 20 MG TABLET PO SCH (08:01)
[2018-11-11] MEDS: LISINOPRIL 5 MG TABLET PO SCH (08:01)
[2018-11-11 08:46] VITALS: BP 145/94
[2018-11-11 10:10] VITALS: BP 130/70
[2018-11-11 11:44] LABS: GLUCOMETER DEV NAME(LOC) 3EX.; GLUCOSE,POINT OF CARE 123 MG/DL (70-110)
[2018-11-11] MEDS: INSULIN LISPRO 100 UNITS/ML SQ PRN ×3 (12:02→21:23)
[2018-11-11 16:25] LABS: GLUCOMETER DEV NAME(LOC) 3EX.; GLUCOSE,POINT OF CARE 179 MG/DL (70-110)
[2018-11-11 16:57] VITALS: BP 115/60
[2018-11-11 18:10] VITALS: BP 130/75
[2018-11-11 21:14] LABS: GLUCOMETER DEV NAME(LOC) 3EX.; GLUCOSE,POINT OF CARE 171 MG/DL (70-110)
[2018-11-11] MEDS: INSULIN GLARGINE,HUM.REC.ANLOG 100 UNITS/ML SQ SCH (21:22)
[2018-11-12 05:10] VITALS: BP 116/66
[2018-11-12] MEDS: TraMADol HCL 50 MG TABLET PO PRN ×2 (05:17→13:20)
[2018-11-12 05:55] LABS: GLUCOMETER DEV NAME(LOC) 3E.I; GLUCOSE,POINT OF CARE 130 MG/DL (70-110)
[2018-11-12] MEDS: MetFORMIN HCL 500 MG TABLET PO SCH ×2 (06:48→17:13)
[2018-11-12 08:00] VITALS: BP 119/97
[2018-11-12] MEDS: PANTOPRAZOLE SODIUM 40 MG DR TABLET PO SCH (08:30)
[2018-11-12] MEDS: QUEtiapine FUMARATE 200 MG ER TABLET PO SCH (08:30)
[2018-11-12] MEDS: CITALOPRAM HYDROBROMIDE 20 MG TABLET PO SCH (08:30)
[2018-11-12] MEDS: HALOPERIDOL 5 MG TABLET PO PRN (08:30)
[2018-11-12] MEDS: MAGNESIUM OXIDE 400 MG TABLET PO SCH (08:30)
[2018-11-12] MEDS: LISINOPRIL 5 MG TABLET PO SCH (08:30)
[2018-11-12] MEDS: AmLODIPine BESYLATE 5 MG TABLET PO SCH (08:30)
[2018-11-12] MEDS: LORazepam 2 MG TABLET PO PRN (08:31)
[2018-11-12] MEDS: INSULIN LISPRO 100 UNITS/ML SQ PRN ×2 (11:20→21:23)
[2018-11-12 11:30] LABS: GLUCOMETER DEV NAME(LOC) 3EX.; GLUCOSE,POINT OF CARE 124 MG/DL (70-110)
[2018-11-12 13:15] VITALS: BP 135/75
[2018-11-12 16:25] LABS: GLUCOMETER DEV NAME(LOC) 3EX.; GLUCOSE,POINT OF CARE 136 MG/DL (70-110)
[2018-11-12 16:46] VITALS: BP 136/67
[2018-11-12 20:24] LABS: GLUCOMETER DEV NAME(LOC) 3EX.; GLUCOSE,POINT OF CARE 154 MG/DL (70-110)
[2018-11-12] MEDS: INSULIN GLARGINE,HUM.REC.ANLOG 100 UNITS/ML SQ SCH (21:22)
[2018-11-13 03:44] VITALS: BP 138/79
[2018-11-13] MEDS: TraMADol HCL 50 MG TABLET PO PRN ×2 (03:48→12:06)
[2018-11-13 05:35] LABS: GLUCOMETER DEV NAME(LOC) 3E.I; GLUCOSE,POINT OF CARE 81 MG/DL (70-110)
[2018-11-13] MEDS: MetFORMIN HCL 500 MG TABLET PO SCH ×2 (07:05→16:46)
[2018-11-13 08:00] VITALS: BP 124/85
[2018-11-13] MEDS: LISINOPRIL 5 MG TABLET PO SCH (08:31)
[2018-11-13] MEDS: AmLODIPine BESYLATE 5 MG TABLET PO SCH (08:31)
[2018-11-13] MEDS: LORazepam 2 MG TABLET PO PRN (08:31)
[2018-11-13] MEDS: CITALOPRAM HYDROBROMIDE 20 MG TABLET PO SCH (08:31)
[2018-11-13] MEDS: MAGNESIUM OXIDE 400 MG TABLET PO SCH (08:31)
[2018-11-13] MEDS: QUEtiapine FUMARATE 200 MG ER TABLET PO SCH (08:31)
[2018-11-13] MEDS: HALOPERIDOL 5 MG TABLET PO PRN ×2 (08:31→16:47)
[2018-11-13] MEDS: PANTOPRAZOLE SODIUM 40 MG DR TABLET PO SCH (08:31)
[2018-11-13 12:01] VITALS: BP 130/80
[2018-11-13 12:05] LABS: GLUCOMETER DEV NAME(LOC) 3EX.; GLUCOSE,POINT OF CARE 129 MG/DL (70-110)
[2018-11-13] MEDS: INSULIN LISPRO 100 UNITS/ML SQ PRN ×2 (13:10→17:24)
[2018-11-13 16:45] LABS: GLUCOMETER DEV NAME(LOC) 3EX.; GLUCOSE,POINT OF CARE 147 MG/DL (70-110)
[2018-11-13 17:00] VITALS: BP 134/68
[2018-11-13] MEDS: INSULIN GLARGINE,HUM.REC.ANLOG 100 UNITS/ML SQ SCH (22:00)
[2018-11-13 22:05] LABS: GLUCOMETER DEV NAME(LOC) 3EX.; GLUCOSE,POINT OF CARE 134 MG/DL (70-110)
[2018-11-14] MEDS: TraMADol HCL 50 MG TABLET PO PRN ×4 (01:22→22:23)
[2018-11-14] MEDS: HALOPERIDOL 5 MG TABLET PO PRN ×3 (02:13→21:23)
[2018-11-14 06:40] LABS: GLUCOMETER DEV NAME(LOC) 3E.I; GLUCOSE,POINT OF CARE 122 MG/DL (70-110)
[2018-11-14] MEDS: MetFORMIN HCL 500 MG TABLET PO SCH ×2 (07:05→17:21)
[2018-11-14 08:00] VITALS: BP 140/75
[2018-11-14] MEDS: QUEtiapine FUMARATE 200 MG ER TABLET PO SCH (08:38)
[2018-11-14] MEDS: MAGNESIUM OXIDE 400 MG TABLET PO SCH (08:38)
[2018-11-14] MEDS: PANTOPRAZOLE SODIUM 40 MG DR TABLET PO SCH (08:38)
[2018-11-14] MEDS: CITALOPRAM HYDROBROMIDE 20 MG TABLET PO SCH (08:38)
[2018-11-14] MEDS: AmLODIPine BESYLATE 5 MG TABLET PO SCH (08:38)
[2018-11-14] MEDS: LISINOPRIL 5 MG TABLET PO SCH (08:39)
[2018-11-14 09:20] VITALS: BP 120/70
[2018-11-14 11:35] LABS: GLUCOMETER DEV NAME(LOC) 3EX.; GLUCOSE,POINT OF CARE 112 MG/DL (70-110)
[2018-11-14] MEDS: INSULIN LISPRO 100 UNITS/ML SQ PRN ×3 (13:08→21:22)
[2018-11-14 16:19] VITALS: BP 132/63
[2018-11-14 16:28] VITALS: BP 109/69
[2018-11-14 17:10] LABS: GLUCOMETER DEV NAME(LOC) 3EX.; GLUCOSE,POINT OF CARE 177 MG/DL (70-110)
[2018-11-14 21:15] LABS: GLUCOMETER DEV NAME(LOC) 3EX.; GLUCOSE,POINT OF CARE 157 MG/DL (70-110)
[2018-11-14] MEDS: INSULIN GLARGINE,HUM.REC.ANLOG 100 UNITS/ML SQ SCH (21:22)
[2018-11-14 22:23] VITALS: BP 149/71
[2018-11-15] MEDS: TraMADol HCL 50 MG TABLET PO PRN ×4 (04:22→22:44)
[2018-11-15 05:35] LABS: GLUCOMETER DEV NAME(LOC) 3E.I; GLUCOSE,POINT OF CARE 120 MG/DL (70-110)
[2018-11-15] MEDS: MetFORMIN HCL 500 MG TABLET PO SCH ×2 (06:47→16:44)
[2018-11-15] MEDS: AmLODIPine BESYLATE 5 MG TABLET PO SCH (08:16)
[2018-11-15] MEDS: PANTOPRAZOLE SODIUM 40 MG DR TABLET PO SCH (08:16)
[2018-11-15] MEDS: CITALOPRAM HYDROBROMIDE 20 MG TABLET PO SCH (08:17)
[2018-11-15] MEDS: QUEtiapine FUMARATE 200 MG ER TABLET PO SCH (08:17)
[2018-11-15] MEDS: MAGNESIUM OXIDE 400 MG TABLET PO SCH (08:17)
[2018-11-15] MEDS: LISINOPRIL 5 MG TABLET PO SCH (08:17)
[2018-11-15] MEDS: HALOPERIDOL 5 MG TABLET PO PRN ×2 (08:18→20:33)
[2018-11-15 10:44] VITALS: BP 142/77
[2018-11-15 11:43] VITALS: BP 117/65
[2018-11-15 12:01] LABS: GLUCOMETER DEV NAME(LOC) 3EX.; GLUCOSE,POINT OF CARE 123 MG/DL (70-110)
[2018-11-15] MEDS: INSULIN LISPRO 100 UNITS/ML SQ PRN (13:03)
[2018-11-15 16:45] VITALS: BP 112/75
[2018-11-15 16:56] LABS: GLUCOMETER DEV NAME(LOC) 3EX.; GLUCOSE,POINT OF CARE 128 MG/DL (70-110)
[2018-11-15 20:41] LABS: GLUCOMETER DEV NAME(LOC) 3EX.; GLUCOSE,POINT OF CARE 132 MG/DL (70-110)
[2018-11-15] MEDS: INSULIN GLARGINE,HUM.REC.ANLOG 100 UNITS/ML SQ SCH (20:45)
[2018-11-15 22:44] VITALS: BP 137/78
[2018-11-16 00:49] VITALS: BP 145/86
[2018-11-16] MEDS: HALOPERIDOL 5 MG TABLET PO PRN (00:52)
[2018-11-16] MEDS: TraMADol HCL 50 MG TABLET PO PRN ×2 (05:18→12:20)
[2018-11-16 05:44] LABS: GLUCOMETER DEV NAME(LOC) 3E.I; GLUCOSE,POINT OF CARE 77 MG/DL (70-110)
[2018-11-16 05:53] LABS: BASOPHILS % (AUTO) 1.1 % (0.0-2.0); EOSINOPHILS % (AUTO) 1.1 % (1.0-6.0); HEMATOCRIT 36.4 % (36-46); HEMOGLOBIN 11.5 g/dL (12.0-16.0); LYMPHOCYTES # (AUTO) 2.9 K/uL (1.0-4.8); LYMPHOCYTES % (AUTO) 31.7 % (22.0-44.0); MEAN CORPUSCULAR HEMOGLOBIN 28.8 pg (26.0-34.0); MEAN CORPUSCULAR HGB CONC 31.7 G/dL (31.0-37.0); MEAN CORPUSCULAR VOLUME 91 fL (80-100); MONOCYTES # (AUTO) 0.8 K/uL (0.1-1.0); MONOCYTES % (AUTO) 8.6 % (2.0-9.0); NEUTROPHILS # (AUTO) 5.3 K/uL (1.8-7.7); NEUTROPHILS % (AUTO) 57.5 % (40.0-70.0); RED BLOOD CELL COUNT(AUTO) 3.99 MIL/uL (4.00-5.20); RED CELL DISTRIBUTION WIDTH 15.2 % (11.5-14.5)
[2018-11-16 06:05] LABS: ALANINE AMINOTRANSFERASE 48 U/L (12-78); ALBUMIN 3.4 g/dL (3.4-5.0); ALKALINE PHOSPHATASE 176 U/L (46-116); ANION GAP 10 mmol/L (8-16); ASPARTATE AMINOTRANSFERASE 47 U/L (15-37); BILIRUBIN,TOTAL 0.7 mg/dL (0.1-1.0); CALCIUM, TOTAL 9.6 mg/dL (8.8-10.5); CARBON DIOXIDE 28 mmol/L (22-29); CHLORIDE 101 mmol/L (98-107); CREATINE KINASE, TOTAL ONLY 48 U/L (26-192); CREATININE 0.58 mg/dL (0.60-1.30); GLOMERULAR FILTR. RATE CALC > 60 mL/min (>60); GLUCOSE,RANDOM 83 mg/dL (70-110); POTASSIUM 4.3 mmol/L (3.5-5.1); SODIUM SERUM 139 mmol/L (136-145); TOTAL PROTEIN, SERUM 7.2 g/dL (6.4-8.2); UREA NITROGEN, BLOOD 14 mg/dL (7-18)
[2018-11-16] MEDS: MetFORMIN HCL 500 MG TABLET PO SCH (07:02)
[2018-11-16 07:03] LABS: PLATELET COUNT (AUTO) 218 K/uL (150-450)
[2018-11-16 09:00] VITALS: BP 154/81
[2018-11-16] MEDS: PANTOPRAZOLE SODIUM 40 MG DR TABLET PO SCH (09:07)
[2018-11-16] MEDS: AmLODIPine BESYLATE 5 MG TABLET PO SCH (09:07)
[2018-11-16] MEDS: QUEtiapine FUMARATE 200 MG ER TABLET PO SCH (09:07)
[2018-11-16] MEDS: CITALOPRAM HYDROBROMIDE 20 MG TABLET PO SCH (09:08)
[2018-11-16] MEDS: MAGNESIUM OXIDE 400 MG TABLET PO SCH (09:08)
[2018-11-16] MEDS: LISINOPRIL 5 MG TABLET PO SCH (09:08)
[2018-11-16 11:55] LABS: GLUCOMETER DEV NAME(LOC) 3EX.; GLUCOSE,POINT OF CARE 79 MG/DL (70-110)
[2018-11-16] MEDS ORDERED: LISI-660 PO (12:19)
[2018-11-16] MEDS ORDERED: MAGOX PO (12:20)
[2018-11-16] MEDS ORDERED: METF-960 PO (12:21)
[2018-11-16] MEDS ORDERED: CITA-106 PO (12:24)
[2018-11-16] MEDS ORDERED: QUET200T5 PO (12:24)
[2018-11-16] MEDS: INSULIN LISPRO 100 UNITS/ML SQ PRN (14:17)
[2018-11-16] MEDS ORDERED: MAGNESIUM OXIDE 400 MG TABLET PO SCH (17:00)
== END 2018-11-16 15:10 | disposition home or self-care (01) | DRG 885 ==
LOC: EMS 13:02 → B2X 16:36 → 3EX 16:37
PROVIDERS: ADMIT Psychiatry & Neurology Psychiatry; ATTEND Psychiatry & Neurology Psychiatry
DX: F25.9 Schizoaffective disorder, unspecified (principal); B19.20 Unspecified viral hepatitis C without hepatic coma; E11.65 Type 2 diabetes mellitus with hyperglycemia; R45.851 Suicidal ideations; F32.9 Major depressive disorder, single episode, unspecified; G43.909 Migraine, unspecified, not intractable, without status migrainosus; G89.29 Other chronic pain; F17.210 Nicotine dependence, cigarettes, uncomplicated; D64.9 Anemia, unspecified; J44.9 Chronic obstructive pulmonary disease, unspecified; Z96.659 Presence of unspecified artificial knee joint; F41.9 Anxiety disorder, unspecified; I10 Essential (primary) hypertension; Z87.442 Personal history of urinary calculi; Z90.710 Acquired absence of both cervix and uterus; Z90.49 Acquired absence of other specified parts of digestive tract; Z79.899 Other long term (current) drug therapy; Z79.4 Long term (current) use of insulin
CPT/HCPCS: 82105; 82948; 83036; 83735; 84439; 84443; 86706; 86803; 87340; G0378; G0480; J1815

== ENCOUNTER 2018-12-02 16:47 | Emergency (ER) | payer MEDICARE, MEDICAID ==
[~2018-12-02] VITALS: Ht 165.1 cm; Wt 68.2 kg
[~2018-12-02 16:47] MED LIST changes: +CITA-106 PO; -HYDR-4455 PO; -IPRNEB IH; +LISI-660 PO; +MAGOX PO; +METF-960 PO; +QUET200T5 PO; -TRAM50TA4 PO
[2018-12-02 17:06] LABS: GLUCOSE,POINT OF CARE 277 MG/DL (70-110)
[2018-12-02 18:06] LABS: BASOPHILS % (AUTO) 0.4 % (0.0-2.0); EOSINOPHILS % (AUTO) 0.4 % (1.0-6.0); HEMATOCRIT 40.1 % (36-46); LYMPHOCYTES # (AUTO) 2.2 K/uL (1.0-4.8); LYMPHOCYTES % (AUTO) 28.4 % (22.0-44.0); MEAN CORPUSCULAR HEMOGLOBIN 28.7 pg (26.0-34.0); MEAN CORPUSCULAR HGB CONC 32.4 G/dL (31.0-37.0); MEAN CORPUSCULAR VOLUME 89 fL (80-100); MONOCYTES # (AUTO) 0.6 K/uL (0.1-1.0); MONOCYTES % (AUTO) 7.2 % (2.0-9.0); NEUTROPHILS # (AUTO) 4.9 K/uL (1.8-7.7); NEUTROPHILS % (AUTO) 63.6 % (40.0-70.0); PLATELET COUNT (AUTO) 284 K/uL (150-450); RED BLOOD CELL COUNT(AUTO) 4.53 MIL/uL (4.00-5.20); RED CELL DISTRIBUTION WIDTH 14.4 % (11.5-14.5)
[2018-12-02] MEDS ORDERED: ONDANSETRON HCL 4 MG/2 ML VIAL IVP ONE (18:15)
[2018-12-02] MEDS ORDERED: DICYCLOMINE HCL 10 MG/ML 2 ML AMP IM ONE (18:15)
[2018-12-02] MEDS ORDERED: KETOROLAC TROMETHAMINE 30 MG/ML VIAL IVP ONE (18:15)
[2018-12-02 18:27] LABS: ANION GAP 14 mmol/L (8-16); CALCIUM, TOTAL 9.3 mg/dL (8.8-10.5); CARBON DIOXIDE 23 mmol/L (22-29); CHLORIDE 102 mmol/L (98-107); CREATININE 0.67 mg/dL (0.60-1.30); GLOMERULAR FILTR. RATE CALC > 60 mL/min (>60); GLUCOSE,RANDOM 185 mg/dL (70-110); POTASSIUM 3.3 mmol/L (3.5-5.1); SODIUM SERUM 139 mmol/L (136-145); UREA NITROGEN, BLOOD 12 mg/dL (7-18)
[2018-12-02] MEDS ORDERED: SODIUM CHLORIDE 0.9% 1,000 ML IV ONE (18:30)
[2018-12-02 18:34] LABS: ALANINE AMINOTRANSFERASE 42 U/L (12-78); ALBUMIN 4.1 g/dL (3.4-5.0); ALKALINE PHOSPHATASE 191 U/L (46-116); ASPARTATE AMINOTRANSFERASE 42 U/L (15-37); BILIRUBIN,TOTAL 0.6 mg/dL (0.1-1.0); LIPASE 95 U/L (73-393); TOTAL PROTEIN, SERUM 7.8 g/dL (6.4-8.2)
[2018-12-02 19:35] VITALS: BP 158/71
== END 2018-12-02 19:41 | disposition left against medical advice (07) ==
LOC: EMS 16:50
DX: R10.13 Epigastric pain (principal); R11.0 Nausea; G89.29 Other chronic pain; F41.9 Anxiety disorder, unspecified; F31.9 Bipolar disorder, unspecified; E11.9 Type 2 diabetes mellitus without complications; I10 Essential (primary) hypertension; G43.909 Migraine, unspecified, not intractable, without status migrainosus; F20.9 Schizophrenia, unspecified; F17.210 Nicotine dependence, cigarettes, uncomplicated; Z76.5 Malingerer [conscious simulation]; Z90.710 Acquired absence of both cervix and uterus; Z79.899 Other long term (current) drug therapy; Z79.4 Long term (current) use of insulin; Z79.84 Long term (current) use of oral hypoglycemic drugs
CPT/HCPCS: 36415; 74022; 80053; 82962; 83690; 84484; 85025; 93005; 96372; 96374; 99284; J0500; J2405; J7030

== ENCOUNTER 2018-12-03 14:11 | Emergency (ER) | payer MEDICARE, MEDICAID ==
[~2018-12-03] VITALS: Ht 165.1 cm; Wt 72.7 kg
[2018-12-03] MEDS ORDERED: PB/HYOSCY/ATR/SCOP/LIDO/MAALOX 55 ML BOTTLE PO ONE (14:45)
[2018-12-03] MEDS ORDERED: BARIUM SULFATE 0.1% SUSPENSION 450 ML BOTTLE PO ONE (14:45)
[2018-12-03] MEDS ORDERED: FAMOTIDINE 10 MG/ML 2 ML VIAL IVP ONE (14:45)
[2018-12-03 15:24] LABS: BASOPHILS % (AUTO) 0.3 % (0.0-2.0); EOSINOPHILS % (AUTO) 0.3 % (1.0-6.0); HEMATOCRIT 36.3 % (36-46); HEMOGLOBIN 11.9 g/dL (12.0-16.0); MEAN CORPUSCULAR HEMOGLOBIN 29.1 pg (26.0-34.0); MEAN CORPUSCULAR HGB CONC 32.8 G/dL (31.0-37.0); MEAN CORPUSCULAR VOLUME 89 fL (80-100); MONOCYTES # (AUTO) 0.5 K/uL (0.1-1.0); MONOCYTES % (AUTO) 6.8 % (2.0-9.0); NEUTROPHILS # (AUTO) 4.6 K/uL (1.8-7.7); NEUTROPHILS % (AUTO) 64.6 % (40.0-70.0); PLATELET COUNT (AUTO) 249 K/uL (150-450); RED BLOOD CELL COUNT(AUTO) 4.09 MIL/uL (4.00-5.20); RED CELL DISTRIBUTION WIDTH 14.2 % (11.5-14.5)
[2018-12-03 15:37] LABS: ALANINE AMINOTRANSFERASE 31 U/L (12-78); ALBUMIN 3.6 g/dL (3.4-5.0); ALKALINE PHOSPHATASE 163 U/L (46-116); ANION GAP 9 mmol/L (8-16); ASPARTATE AMINOTRANSFERASE 33 U/L (15-37); BILIRUBIN,TOTAL 0.5 mg/dL (0.1-1.0); CALCIUM, TOTAL 9.1 mg/dL (8.8-10.5); CARBON DIOXIDE 24 mmol/L (22-29); CHLORIDE 103 mmol/L (98-107); CREATININE 0.63 mg/dL (0.60-1.30); GLOMERULAR FILTR. RATE CALC > 60 mL/min (>60); GLUCOSE,RANDOM 155 mg/dL (70-110); LIPASE 161 U/L (73-393); POTASSIUM 3.2 mmol/L (3.5-5.1); SODIUM SERUM 136 mmol/L (136-145); TOTAL PROTEIN, SERUM 7.3 g/dL (6.4-8.2); UREA NITROGEN, BLOOD 6 mg/dL (7-18)
[2018-12-03 15:41] LABS: PROTHROMBIN TIME 10.7 SEC (9.4-11.6)
[2018-12-03 16:12] LABS: APPEARANCE,URINE CLEAR (CLEAR); BILIRUBIN,URINE NEGATIVE (NEGATIVE); GLUCOSE, URINE (UA) NEGATIVE (NEGATIVE); KETONES,URINE NEGATIVE (NEGATIVE); LEUKOCYTE ESTERASE ,URINE SMALL (NEGATIVE); NITRATE,URINE NEGATIVE (NEGATIVE); OCCULT BLOOD,URINE NEGATIVE (NEGATIVE); PH,URINE 6.5 (5.0-8.0); PROTEIN,URINE NEGATIVE (NEGATIVE)
[2018-12-03 16:17] LABS: BACTERIA,URINE Few /HPF (None Seen); RBC,URINE 0-2 /HPF (0-2); SQUAMOUS EPITHELIAL CELL,UR Few /LPF (None Seen)
[2018-12-03 17:15] VITALS: BP 130/70
[2018-12-03] MEDS ORDERED: DICYCLOMINE HCL 20 MG TABLET PO ONE (17:15)
[2018-12-03] MEDS ORDERED: KETOROLAC TROMETHAMINE 30 MG/ML VIAL IVP ONE (17:15)
== END 2018-12-03 17:25 | disposition home or self-care (01) ==
LOC: EMS 14:13
DX: K56.7 Ileus, unspecified (principal); F41.9 Anxiety disorder, unspecified; F31.9 Bipolar disorder, unspecified; E11.9 Type 2 diabetes mellitus without complications; I10 Essential (primary) hypertension; F20.9 Schizophrenia, unspecified; G43.909 Migraine, unspecified, not intractable, without status migrainosus; F17.210 Nicotine dependence, cigarettes, uncomplicated; Z90.710 Acquired absence of both cervix and uterus; Z79.84 Long term (current) use of oral hypoglycemic drugs; Z79.899 Other long term (current) drug therapy; Z79.4 Long term (current) use of insulin
CPT/HCPCS: 36415; 71045; 74176; 80053; 81001; 83690; 84484; 85025; 85610; 87077; 87086; 87186; 93005; 96374; 96375; 99285; J1885; J3490

== ENCOUNTER 2018-12-27 11:42 | Inpatient (IN) | payer MEDICARE, MEDICAID ==
[~2018-12-27] VITALS: Ht 165.1 cm; Wt 76.6 kg
[2018-12-27 12:21] LABS: GLUCOSE,POINT OF CARE 174 MG/DL (70-110)
[2018-12-27] MEDS ORDERED: TraMADol HCL 50 MG TABLET PO ONE (12:30)
[2018-12-27 12:56] LABS: HEMATOCRIT 37.8 % (36-46); HEMOGLOBIN 12.2 g/dL (12.0-16.0); LYMPHOCYTES # (AUTO) 1.5 K/uL (1.0-4.8); LYMPHOCYTES % (AUTO) 19.3 % (22.0-44.0); MEAN CORPUSCULAR HEMOGLOBIN 28.4 pg (26.0-34.0); MEAN CORPUSCULAR HGB CONC 32.4 G/dL (31.0-37.0); MEAN CORPUSCULAR VOLUME 88 fL (80-100); MONOCYTES # (AUTO) 0.6 K/uL (0.1-1.0); MONOCYTES % (AUTO) 8.1 % (2.0-9.0); NEUTROPHILS # (AUTO) 5.5 K/uL (1.8-7.7); NEUTROPHILS % (AUTO) 70.6 % (40.0-70.0); PLATELET COUNT (AUTO) 221 K/uL (150-450); RED BLOOD CELL COUNT(AUTO) 4.31 MIL/uL (4.00-5.20)
[2018-12-27 13:09] LABS: ANION GAP 12 mmol/L (8-16); CALCIUM, TOTAL 9.3 mg/dL (8.8-10.5); CARBON DIOXIDE 23 mmol/L (22-29); CHLORIDE 106 mmol/L (98-107); CREATININE 0.74 mg/dL (0.60-1.30); GLOMERULAR FILTR. RATE CALC > 60 mL/min (>60); GLUCOSE,RANDOM 202 mg/dL (70-110); POTASSIUM 3.9 mmol/L (3.5-5.1); SODIUM SERUM 141 mmol/L (136-145); UREA NITROGEN, BLOOD 10 mg/dL (7-18)
[2018-12-27 13:15] LABS: ALANINE AMINOTRANSFERASE 43 U/L (12-78); ALBUMIN 3.8 g/dL (3.4-5.0); ALKALINE PHOSPHATASE 164 U/L (46-116); ASPARTATE AMINOTRANSFERASE 37 U/L (15-37); BILIRUBIN,TOTAL 0.5 mg/dL (0.1-1.0); TOTAL PROTEIN, SERUM 7.5 g/dL (6.4-8.2)
[2018-12-27] MEDS ORDERED: OLANZapine 5 MG TABLET PO PRN (13:15)
[2018-12-27] MEDS ORDERED: ZOLPIDEM TARTRATE 10 MG TABLET PO PRN (13:15)
[2018-12-27] MEDS ORDERED: ChlorproMAZINE HCL 25 MG TABLET PO ONE (13:30)
[2018-12-27 14:15] LABS: AMPHET/METH SCREEN,URINE NEGATIVE (NEGATIVE); BARBITURATE SCREEN, URINE NEGATIVE (NEGATIVE); BENZODIAZEPINES SCREEN,URINE NEGATIVE (NEGATIVE); CANNABINOID SCREEN,URINE NEGATIVE (NEGATIVE); COCAINE SCREEN,URINE NEGATIVE (NEGATIVE); METHADONE SCREEN, URINE NEGATIVE (NEGATIVE); OPIATE SCREEN,URINE NEGATIVE (NEGATIVE); PHENCYCLIDINE SCREEN,URINE NEGATIVE (NEGATIVE)
[2018-12-27 14:42] VITALS: BP 145/99
[2018-12-27] MEDS ORDERED: ACETAMINOPHEN 325 MG TABLET PO PRN (16:00)
[2018-12-27] MEDS: MetFORMIN HCL 500 MG TABLET PO SCH (16:23)
[2018-12-27] MEDS: LORazepam 2 MG TABLET PO PRN (16:24)
[2018-12-27] MEDS: QUEtiapine FUMARATE 200 MG ER TABLET PO SCH (20:41)
[2018-12-27] MEDS ORDERED: DEXTROSE 50%-WATER 25 GM/50 ML SYRINGE IVP PRN (20:45)
[2018-12-27] MEDS: INSULIN GLARGINE,HUM.REC.ANLOG 100 UNITS/ML SQ SCH (21:05)
[2018-12-27 21:10] LABS: GLUCOMETER DEV NAME(LOC) 3EX.; GLUCOSE,POINT OF CARE 246 MG/DL (70-110)
[2018-12-28 03:18] VITALS: BP 136/72
[2018-12-28] MEDS: IBUPROFEN 600 MG TABLET PO PRN ×2 (03:25→08:22)
[2018-12-28] MEDS: LORazepam 2 MG TABLET PO PRN ×3 (03:25→16:37)
[2018-12-28] MEDS: INSULIN LISPRO 100 UNITS/ML SQ PRN ×4 (06:20→21:27)
[2018-12-28 06:36] LABS: GLUCOMETER DEV NAME(LOC) 3E.I; GLUCOSE,POINT OF CARE 200 MG/DL (70-110)
[2018-12-28] MEDS: MetFORMIN HCL 500 MG TABLET PO SCH ×2 (06:56→16:37)
[2018-12-28] MEDS: PANTOPRAZOLE SODIUM 40 MG DR TABLET PO SCH (07:53)
[2018-12-28] MEDS: CITALOPRAM HYDROBROMIDE 20 MG TABLET PO SCH ×2 (07:54→09:00)
[2018-12-28] MEDS: AmLODIPine BESYLATE 10 MG TABLET PO SCH (08:19)
[2018-12-28] MEDS: LISINOPRIL 5 MG TABLET PO SCH (08:20)
[2018-12-28 08:22] VITALS: BP 142/78
[2018-12-28 09:22] VITALS: BP 139/74
[2018-12-28] MEDS ORDERED: PNEUMOCOCCAL VACCINE POLYVALENT 0.5 ML VIAL [PPSV23] IM ONE (11:15)
[2018-12-28 12:30] LABS: GLUCOMETER DEV NAME(LOC) 3EX.; GLUCOSE,POINT OF CARE 203 MG/DL (70-110)
[2018-12-28 16:32] VITALS: BP 133/85
[2018-12-28 17:20] LABS: GLUCOMETER DEV NAME(LOC) 3EX.; GLUCOSE,POINT OF CARE 187 MG/DL (70-110)
[2018-12-28] MEDS: QUEtiapine FUMARATE 200 MG ER TABLET PO SCH (20:37)
[2018-12-28] MEDS: INSULIN GLARGINE,HUM.REC.ANLOG 100 UNITS/ML SQ SCH (21:27)
[2018-12-28 21:31] LABS: GLUCOMETER DEV NAME(LOC) 3EX.; GLUCOSE,POINT OF CARE 195 MG/DL (70-110)
[2018-12-29 05:41] LABS: GLUCOMETER DEV NAME(LOC) 3E.I; GLUCOSE,POINT OF CARE 148 MG/DL (70-110)
[2018-12-29] MEDS: MetFORMIN HCL 500 MG TABLET PO SCH (06:53)
[2018-12-29] MEDS: INSULIN LISPRO 100 UNITS/ML SQ PRN ×4 (07:15→20:37)
[2018-12-29] MEDS ORDERED: OLANZapine 5 MG TABLET PO PRN (07:30)
[2018-12-29 08:00] VITALS: BP 130/82
[2018-12-29] MEDS: PANTOPRAZOLE SODIUM 40 MG DR TABLET PO SCH (08:45)
[2018-12-29] MEDS: LISINOPRIL 5 MG TABLET PO SCH (08:45)
[2018-12-29] MEDS: AmLODIPine BESYLATE 10 MG TABLET PO SCH (08:45)
[2018-12-29] MEDS: CITALOPRAM HYDROBROMIDE 20 MG TABLET PO SCH (08:45)
[2018-12-29] MEDS: LORazepam 2 MG TABLET PO PRN ×3 (09:14→18:15)
[2018-12-29 09:17] VITALS: BP 130/82
[2018-12-29] MEDS: IBUPROFEN 600 MG TABLET PO PRN ×2 (09:17→15:02)
[2018-12-29 11:30] LABS: GLUCOMETER DEV NAME(LOC) 3EX.; GLUCOSE,POINT OF CARE 192 MG/DL (70-110)
[2018-12-29 13:42] LABS: CHOL/HDL RATIO 1.7 (3.9-5.7); FREE T4 (FREE THYROXINE) 1.16 ng/dL (0.76-1.46); MAGNESIUM 1.6 mg/dL (1.80-2.40); THYROID STIMULATING HORMONE 0.53 uIU/mL (0.36-3.74)
[2018-12-29 14:46] LABS: HEMOGLOBIN A1C 7.1 % (4.5-6.2)
[2018-12-29 14:49] VITALS: BP 124/77
[2018-12-29 16:36] LABS: GLUCOMETER DEV NAME(LOC) 3EX.; GLUCOSE,POINT OF CARE 210 MG/DL (70-110)
[2018-12-29 17:15] VITALS: BP 130/69
[2018-12-29] MEDS: TraMADol HCL 50 MG TABLET PO PRN (17:15)
[2018-12-29] MEDS: QUEtiapine FUMARATE 200 MG ER TABLET PO SCH (20:11)
[2018-12-29] MEDS: INSULIN GLARGINE,HUM.REC.ANLOG 100 UNITS/ML SQ SCH (20:36)
[2018-12-29 20:45] LABS: GLUCOMETER DEV NAME(LOC) 3EX.; GLUCOSE,POINT OF CARE 191 MG/DL (70-110)
[2018-12-30 05:35] LABS: GLUCOMETER DEV NAME(LOC) 3E.I; GLUCOSE,POINT OF CARE 166 MG/DL (70-110)
[2018-12-30 05:40] VITALS: BP 137/65
[2018-12-30] MEDS: LORazepam 2 MG TABLET PO PRN ×3 (05:47→16:30)
[2018-12-30] MEDS: TraMADol HCL 50 MG TABLET PO PRN ×3 (05:47→18:02)
[2018-12-30] MEDS: INSULIN LISPRO 100 UNITS/ML SQ PRN ×4 (06:39→21:23)
[2018-12-30] MEDS: AmLODIPine BESYLATE 10 MG TABLET PO SCH (08:38)
[2018-12-30] MEDS: PANTOPRAZOLE SODIUM 40 MG DR TABLET PO SCH (08:38)
[2018-12-30] MEDS: MAGNESIUM OXIDE 400 MG TABLET PO SCH (08:38)
[2018-12-30] MEDS: LISINOPRIL 5 MG TABLET PO SCH (08:38)
[2018-12-30 10:28] VITALS: BP 132/85
[2018-12-30 11:41] LABS: GLUCOMETER DEV NAME(LOC) 3EX.; GLUCOSE,POINT OF CARE 202 MG/DL (70-110)
[2018-12-30 11:44] VITALS: BP 119/45
[2018-12-30 12:45] VITALS: BP 133/65
[2018-12-30 17:01] LABS: GLUCOMETER DEV NAME(LOC) 3EX.; GLUCOSE,POINT OF CARE 178 MG/DL (70-110)
[2018-12-30 17:19] VITALS: BP 144/82
[2018-12-30] MEDS: IBUPROFEN 600 MG TABLET PO PRN (17:19)
[2018-12-30 18:02] VITALS: BP 125/70
[2018-12-30] MEDS: QUEtiapine FUMARATE 200 MG ER TABLET PO SCH (21:15)
[2018-12-30] MEDS: INSULIN GLARGINE,HUM.REC.ANLOG 100 UNITS/ML SQ SCH (21:22)
[2018-12-30 21:25] LABS: GLUCOMETER DEV NAME(LOC) 3EX.; GLUCOSE,POINT OF CARE 178 MG/DL (70-110)
[2018-12-31 04:53] VITALS: BP 110/40
[2018-12-31] MEDS: TraMADol HCL 50 MG TABLET PO PRN ×3 (04:53→18:41)
[2018-12-31] MEDS: LORazepam 2 MG TABLET PO PRN ×3 (04:53→17:22)
[2018-12-31 05:51] LABS: GLUCOMETER DEV NAME(LOC) 3EX.; GLUCOSE,POINT OF CARE 112 MG/DL (70-110)
[2018-12-31 08:37] VITALS: BP 109/59
[2018-12-31] MEDS: MAGNESIUM OXIDE 400 MG TABLET PO SCH (08:43)
[2018-12-31] MEDS: AmLODIPine BESYLATE 10 MG TABLET PO SCH (08:43)
[2018-12-31] MEDS: PANTOPRAZOLE SODIUM 40 MG DR TABLET PO SCH (08:43)
[2018-12-31] MEDS: LISINOPRIL 5 MG TABLET PO SCH (08:43)
[2018-12-31 11:15] LABS: GLUCOMETER DEV NAME(LOC) 3EX.; GLUCOSE,POINT OF CARE 114 MG/DL (70-110)
[2018-12-31 12:18] VITALS: BP 139/74
[2018-12-31] MEDS: IBUPROFEN 600 MG TABLET PO PRN ×2 (13:00→22:25)
[2018-12-31 17:26] LABS: GLUCOMETER DEV NAME(LOC) 3EX.; GLUCOSE,POINT OF CARE 121 MG/DL (70-110)
[2018-12-31 18:41] VITALS: BP 127/64
[2018-12-31] MEDS: QUEtiapine FUMARATE 200 MG ER TABLET PO SCH (22:01)
[2018-12-31 22:16] LABS: GLUCOMETER DEV NAME(LOC) 3EX.; GLUCOSE,POINT OF CARE 158 MG/DL (70-110)
[2018-12-31] MEDS: INSULIN GLARGINE,HUM.REC.ANLOG 100 UNITS/ML SQ SCH (22:17)
[2018-12-31] MEDS: INSULIN LISPRO 100 UNITS/ML SQ PRN (22:18)
[2018-12-31 22:20] VITALS: BP 131/77
[2019-01-01] MEDS: LORazepam 2 MG TABLET PO PRN ×2 (00:09→08:15)
[2019-01-01 04:25] VITALS: BP 127/67
[2019-01-01] MEDS: TraMADol HCL 50 MG TABLET PO PRN (04:33)
[2019-01-01 06:01] LABS: GLUCOMETER DEV NAME(LOC) 3EX.; GLUCOSE,POINT OF CARE 181 MG/DL (70-110)
[2019-01-01] MEDS: INSULIN LISPRO 100 UNITS/ML SQ PRN (06:51)
[2019-01-01 08:14] VITALS: BP 118/75
[2019-01-01] MEDS: AmLODIPine BESYLATE 10 MG TABLET PO SCH (08:15)
[2019-01-01] MEDS: MAGNESIUM OXIDE 400 MG TABLET PO SCH (08:15)
[2019-01-01] MEDS: LISINOPRIL 5 MG TABLET PO SCH (08:15)
[2019-01-01] MEDS: IBUPROFEN 600 MG TABLET PO PRN (08:15)
[2019-01-01] MEDS: PANTOPRAZOLE SODIUM 40 MG DR TABLET PO SCH (08:15)
== END 2019-01-01 10:50 | disposition home or self-care (01) | DRG 885 ==
LOC: EMS 11:45 → 3EX 14:12
PROVIDERS: ADMIT Psychiatry & Neurology Psychiatry; ATTEND Psychiatry & Neurology Psychiatry
DX: F25.9 Schizoaffective disorder, unspecified (principal); B19.20 Unspecified viral hepatitis C without hepatic coma; R45.851 Suicidal ideations; E11.9 Type 2 diabetes mellitus without complications; G43.909 Migraine, unspecified, not intractable, without status migrainosus; G89.29 Other chronic pain; I10 Essential (primary) hypertension; J44.9 Chronic obstructive pulmonary disease, unspecified; K21.9 Gastro-esophageal reflux disease without esophagitis; M79.7 Fibromyalgia; Z87.442 Personal history of urinary calculi; Z87.891 Personal history of nicotine dependence; Z90.49 Acquired absence of other specified parts of digestive tract; Z90.5 Acquired absence of kidney; Z90.710 Acquired absence of both cervix and uterus; Z96.653 Presence of artificial knee joint, bilateral; Z79.4 Long term (current) use of insulin
CPT/HCPCS: 83036; 83735; 84439; 84443; G0378; G0480; J1815

== ENCOUNTER 2019-01-20 14:48 | Inpatient (IN) | payer MEDICARE, MEDICAID ==
[~2019-01-20] VITALS: Ht 165.1 cm; Wt 70.2 kg
[~2019-01-20 14:48] MED LIST changes: -CITA-106 PO; -METF-960 PO
[2019-01-20] MEDS ORDERED: ChlorproMAZINE HCL 25 MG TABLET PO ONE (15:45)
[2019-01-20 16:00] LABS: BASOPHILS % (AUTO) 0.7 % (0.0-2.0); EOSINOPHILS % (AUTO) 0.6 % (1.0-6.0); HEMATOCRIT 37.4 % (36-46); HEMOGLOBIN 12.3 g/dL (12.0-16.0); LYMPHOCYTES # (AUTO) 1.3 K/uL (1.0-4.8); MEAN CORPUSCULAR HEMOGLOBIN 27.7 pg (26.0-34.0); MEAN CORPUSCULAR HGB CONC 32.8 G/dL (31.0-37.0); MEAN CORPUSCULAR VOLUME 85 fL (80-100); MONOCYTES # (AUTO) 0.5 K/uL (0.1-1.0); MONOCYTES % (AUTO) 9.9 % (2.0-9.0); NEUTROPHILS # (AUTO) 3.4 K/uL (1.8-7.7); NEUTROPHILS % (AUTO) 63.8 % (40.0-70.0); PLATELET COUNT (AUTO) 221 K/uL (150-450); RED BLOOD CELL COUNT(AUTO) 4.42 MIL/uL (4.00-5.20); RED CELL DISTRIBUTION WIDTH 15.7 % (11.5-14.5)
[2019-01-20 16:09] LABS: ANION GAP 10 mmol/L (8-16); CALCIUM, TOTAL 8.9 mg/dL (8.8-10.5); CARBON DIOXIDE 24 mmol/L (22-29); CHLORIDE 104 mmol/L (98-107); CREATININE 0.53 mg/dL (0.60-1.30); GLOMERULAR FILTR. RATE CALC > 60 mL/min (>60); GLUCOSE,RANDOM 112 mg/dL (70-110); POTASSIUM 3.3 mmol/L (3.5-5.1); SODIUM SERUM 138 mmol/L (136-145); UREA NITROGEN, BLOOD 9 mg/dL (7-18)
[2019-01-20] MEDS ORDERED: POTASSIUM CHLORIDE 20 MEQ ER TABLET PO ONE (16:15)
[2019-01-20 16:16] LABS: ALANINE AMINOTRANSFERASE 37 U/L (12-78); ALBUMIN 3.5 g/dL (3.4-5.0); ALKALINE PHOSPHATASE 127 U/L (46-116); ASPARTATE AMINOTRANSFERASE 40 U/L (15-37); BILIRUBIN,TOTAL 0.8 mg/dL (0.1-1.0); TOTAL PROTEIN, SERUM 7.4 g/dL (6.4-8.2)
[2019-01-20 16:21] LABS: AMPHET/METH SCREEN,URINE NEGATIVE (NEGATIVE); BARBITURATE SCREEN, URINE NEGATIVE (NEGATIVE); BENZODIAZEPINES SCREEN,URINE NEGATIVE (NEGATIVE); CANNABINOID SCREEN,URINE NEGATIVE (NEGATIVE); COCAINE SCREEN,URINE NEGATIVE (NEGATIVE); METHADONE SCREEN, URINE NEGATIVE (NEGATIVE); OPIATE SCREEN,URINE POSITIVE (NEGATIVE); PHENCYCLIDINE SCREEN,URINE NEGATIVE (NEGATIVE)
[2019-01-20] MEDS ORDERED: QUEtiapine FUMARATE 100 MG TABLET PO PRN (17:15)
[2019-01-20] MEDS ORDERED: QUEtiapine FUMARATE 25 MG TABLET PO PRN (18:33)
[2019-01-20 19:18] VITALS: BP 130/80
[2019-01-20] MEDS: QUEtiapine FUMARATE 200 MG ER TABLET PO SCH (20:05)
[2019-01-21 08:00] VITALS: BP 144/80
[2019-01-21] MEDS: CITALOPRAM HYDROBROMIDE 20 MG TABLET PO SCH (09:09)
[2019-01-21 11:52] LABS: GLUCOMETER DEV NAME(LOC) 3E.I; GLUCOSE,POINT OF CARE 166 MG/DL (70-110)
[2019-01-21] MEDS ORDERED: DEXTROSE 50%-WATER 25 GM/50 ML SYRINGE IVP PRN (15:45)
[2019-01-21 16:12] VITALS: BP 138/68
[2019-01-21] MEDS: TraMADol HCL 50 MG TABLET PO PRN ×2 (16:15→22:40)
[2019-01-21] MEDS: MetFORMIN HCL 500 MG TABLET PO SCH (16:15)
[2019-01-21 17:01] LABS: GLUCOMETER DEV NAME(LOC) 3E.I; GLUCOSE,POINT OF CARE 256 MG/DL (70-110)
[2019-01-21] MEDS: INSULIN LISPRO 100 UNITS/ML SQ PRN ×2 (17:28→21:07)
[2019-01-21] MEDS: QUEtiapine FUMARATE 200 MG ER TABLET PO SCH (20:27)
[2019-01-21 20:50] LABS: GLUCOMETER DEV NAME(LOC) 3E.I; GLUCOSE,POINT OF CARE 160 MG/DL (70-110)
[2019-01-21] MEDS: INSULIN GLARGINE,HUM.REC.ANLOG 100 UNITS/ML SQ SCH (21:06)
[2019-01-21 22:35] VITALS: BP 150/76
[2019-01-22] VITALS (7 sets, daily range): BP systolic 128–159; BP diastolic 72–107
[2019-01-22] MEDS: TraMADol HCL 50 MG TABLET PO PRN ×4 (04:54→23:54)
[2019-01-22 06:16] LABS: GLUCOMETER DEV NAME(LOC) 3E.I; GLUCOSE,POINT OF CARE 197 MG/DL (70-110)
[2019-01-22] MEDS: INSULIN LISPRO 100 UNITS/ML SQ PRN ×3 (06:47→17:04)
[2019-01-22] MEDS: MetFORMIN HCL 500 MG TABLET PO SCH ×2 (06:48→17:02)
[2019-01-22] MEDS: MAGNESIUM OXIDE 400 MG TABLET PO SCH (08:57)
[2019-01-22] MEDS: CITALOPRAM HYDROBROMIDE 20 MG TABLET PO SCH (08:57)
[2019-01-22] MEDS: LISINOPRIL 5 MG TABLET PO SCH (08:57)
[2019-01-22] MEDS: AmLODIPine BESYLATE 10 MG TABLET PO SCH (08:57)
[2019-01-22] MEDS: PANTOPRAZOLE SODIUM 40 MG DR TABLET PO SCH (08:57)
[2019-01-22 11:26] LABS: GLUCOMETER DEV NAME(LOC) 3E.I; GLUCOSE,POINT OF CARE 121 MG/DL (70-110)
[2019-01-22 16:26] LABS: GLUCOMETER DEV NAME(LOC) 3E.I; GLUCOSE,POINT OF CARE 255 MG/DL (70-110)
[2019-01-22] MEDS: QUEtiapine FUMARATE 200 MG ER TABLET PO SCH (20:09)
[2019-01-22 20:20] LABS: GLUCOMETER DEV NAME(LOC) 3E.I; GLUCOSE,POINT OF CARE 81 MG/DL (70-110)
[2019-01-22] MEDS: ZOLPIDEM TARTRATE 10 MG TABLET PO PRN (21:08)
[2019-01-22] MEDS: INSULIN GLARGINE,HUM.REC.ANLOG 100 UNITS/ML SQ SCH (21:08)
[2019-01-23 05:25] LABS: GLUCOMETER DEV NAME(LOC) 3E.I; GLUCOSE,POINT OF CARE 307 MG/DL (70-110)
[2019-01-23] MEDS: MetFORMIN HCL 500 MG TABLET PO SCH ×3 (06:04→17:43)
[2019-01-23 06:05] VITALS: BP 122/92
[2019-01-23] MEDS: TraMADol HCL 50 MG TABLET PO PRN ×3 (06:05→19:06)
[2019-01-23] MEDS: INSULIN LISPRO 100 UNITS/ML SQ PRN ×4 (06:49→21:34)
[2019-01-23] MEDS: MAGNESIUM OXIDE 400 MG TABLET PO SCH (08:11)
[2019-01-23] MEDS: CITALOPRAM HYDROBROMIDE 20 MG TABLET PO SCH (08:11)
[2019-01-23] MEDS: PANTOPRAZOLE SODIUM 40 MG DR TABLET PO SCH (08:12)
[2019-01-23] MEDS: AmLODIPine BESYLATE 10 MG TABLET PO SCH (08:12)
[2019-01-23] MEDS: LISINOPRIL 5 MG TABLET PO SCH (08:12)
[2019-01-23 11:16] LABS: GLUCOMETER DEV NAME(LOC) 3EX.; GLUCOSE,POINT OF CARE 182 MG/DL (70-110)
[2019-01-23 11:22] VITALS: BP 125/62
[2019-01-23 12:34] VITALS: BP 113/67
[2019-01-23 16:15] LABS: GLUCOMETER DEV NAME(LOC) 3E.I; GLUCOSE,POINT OF CARE 213 MG/DL (70-110)
[2019-01-23 17:03] VITALS: BP 100/73
[2019-01-23 19:05] VITALS: BP 128/79
[2019-01-23] MEDS: QUEtiapine FUMARATE 200 MG ER TABLET PO SCH (20:17)
[2019-01-23 20:21] LABS: GLUCOMETER DEV NAME(LOC) 3E.I; GLUCOSE,POINT OF CARE 255 MG/DL (70-110)
[2019-01-23] MEDS: INSULIN GLARGINE,HUM.REC.ANLOG 100 UNITS/ML SQ SCH (21:34)
[2019-01-23] MEDS: ZOLPIDEM TARTRATE 10 MG TABLET PO PRN (22:36)
[2019-01-24 01:55] VITALS: BP 131/92
[2019-01-24] MEDS: TraMADol HCL 50 MG TABLET PO PRN ×4 (01:58→21:23)
[2019-01-24] MEDS: MetFORMIN HCL 500 MG TABLET PO SCH ×2 (07:08→17:17)
[2019-01-24 09:00] VITALS: BP 118/84
[2019-01-24] MEDS: LISINOPRIL 5 MG TABLET PO SCH (09:04)
[2019-01-24] MEDS: PANTOPRAZOLE SODIUM 40 MG DR TABLET PO SCH (09:04)
[2019-01-24] MEDS: MAGNESIUM OXIDE 400 MG TABLET PO SCH (09:05)
[2019-01-24] MEDS: AmLODIPine BESYLATE 10 MG TABLET PO SCH (09:05)
[2019-01-24] MEDS: CITALOPRAM HYDROBROMIDE 20 MG TABLET PO SCH (09:05)
[2019-01-24] MEDS: HALOPERIDOL 5 MG TABLET PO PRN ×2 (09:10→15:16)
[2019-01-24 11:16] LABS: GLUCOMETER DEV NAME(LOC) 3E.I; GLUCOSE,POINT OF CARE 243 MG/DL (70-110)
[2019-01-24 11:25] LABS: GLUCOMETER DEV NAME(LOC) 3EX.; GLUCOSE,POINT OF CARE 183 MG/DL (70-110)
[2019-01-24] MEDS: INSULIN LISPRO 100 UNITS/ML SQ PRN ×3 (11:37→21:08)
[2019-01-24 15:13] VITALS: BP 153/77
[2019-01-24 17:31] LABS: GLUCOMETER DEV NAME(LOC) 3EX.; GLUCOSE,POINT OF CARE 204 MG/DL (70-110)
[2019-01-24] MEDS: QUEtiapine FUMARATE 200 MG ER TABLET PO SCH (20:54)
[2019-01-24] MEDS: ZOLPIDEM TARTRATE 10 MG TABLET PO PRN (20:55)
[2019-01-24 21:01] LABS: GLUCOMETER DEV NAME(LOC) 3EX.; GLUCOSE,POINT OF CARE 150 MG/DL (70-110)
[2019-01-24] MEDS: INSULIN GLARGINE,HUM.REC.ANLOG 100 UNITS/ML SQ SCH (21:06)
[2019-01-24 21:23] VITALS: BP 147/76
[2019-01-25 05:16] VITALS: BP 136/87
[2019-01-25] MEDS: TraMADol HCL 50 MG TABLET PO PRN ×3 (05:16→19:09)
[2019-01-25 06:21] LABS: GLUCOMETER DEV NAME(LOC) 3E.I; GLUCOSE,POINT OF CARE 174 MG/DL (70-110)
[2019-01-25] MEDS: MetFORMIN HCL 500 MG TABLET PO SCH ×2 (07:01→16:14)
[2019-01-25] MEDS: INSULIN LISPRO 100 UNITS/ML SQ PRN ×4 (07:02→20:37)
[2019-01-25 08:00] VITALS: BP 136/68
[2019-01-25] MEDS: CITALOPRAM HYDROBROMIDE 20 MG TABLET PO SCH (08:08)
[2019-01-25] MEDS: MAGNESIUM OXIDE 400 MG TABLET PO SCH (08:08)
[2019-01-25] MEDS: AmLODIPine BESYLATE 10 MG TABLET PO SCH (08:09)
[2019-01-25] MEDS: LISINOPRIL 5 MG TABLET PO SCH (08:09)
[2019-01-25] MEDS: PANTOPRAZOLE SODIUM 40 MG DR TABLET PO SCH (08:09)
[2019-01-25 11:55] LABS: GLUCOMETER DEV NAME(LOC) 3EX.; GLUCOSE,POINT OF CARE 259 MG/DL (70-110)
[2019-01-25 12:20] VITALS: BP 138/74
[2019-01-25 16:32] LABS: GLUCOMETER DEV NAME(LOC) 3EX.; GLUCOSE,POINT OF CARE 199 MG/DL (70-110)
[2019-01-25 19:05] VITALS: BP 136/72
[2019-01-25] MEDS: QUEtiapine FUMARATE 200 MG ER TABLET PO SCH (20:11)
[2019-01-25 20:20] LABS: GLUCOMETER DEV NAME(LOC) 3EX.; GLUCOSE,POINT OF CARE 200 MG/DL (70-110)
[2019-01-25] MEDS: INSULIN GLARGINE,HUM.REC.ANLOG 100 UNITS/ML SQ SCH (20:37)
[2019-01-25] MEDS: ZOLPIDEM TARTRATE 10 MG TABLET PO PRN (21:29)
[2019-01-26 01:15] VITALS: BP 130/72
[2019-01-26] MEDS: TraMADol HCL 50 MG TABLET PO PRN ×4 (01:16→19:33)
[2019-01-26 05:31] LABS: GLUCOMETER DEV NAME(LOC) 3E.I; GLUCOSE,POINT OF CARE 171 MG/DL (70-110)
[2019-01-26 07:24] VITALS: BP 132/71
[2019-01-26] MEDS: MetFORMIN HCL 500 MG TABLET PO SCH ×2 (07:24→16:23)
[2019-01-26 08:30] VITALS: BP 149/81
[2019-01-26] MEDS: CITALOPRAM HYDROBROMIDE 20 MG TABLET PO SCH (08:31)
[2019-01-26] MEDS: AmLODIPine BESYLATE 10 MG TABLET PO SCH (08:31)
[2019-01-26] MEDS: PANTOPRAZOLE SODIUM 40 MG DR TABLET PO SCH (08:31)
[2019-01-26] MEDS: LISINOPRIL 5 MG TABLET PO SCH (08:31)
[2019-01-26] MEDS: MAGNESIUM OXIDE 400 MG TABLET PO SCH (08:31)
[2019-01-26 09:14] LABS: ALANINE AMINOTRANSFERASE 35 U/L (12-78); ALKALINE PHOSPHATASE 144 U/L (46-116); ANION GAP 9 mmol/L (8-16); ASPARTATE AMINOTRANSFERASE 36 U/L (15-37); BILIRUBIN,TOTAL 0.5 mg/dL (0.1-1.0); CARBON DIOXIDE 27 mmol/L (22-29); CHLORIDE 105 mmol/L (98-107); CREATINE KINASE, TOTAL ONLY 33 U/L (26-192); CREATININE 0.67 mg/dL (0.60-1.30); GLOMERULAR FILTR. RATE CALC > 60 mL/min (>60); GLUCOSE,RANDOM 143 mg/dL (70-110); POTASSIUM 3.9 mmol/L (3.5-5.1); SODIUM SERUM 141 mmol/L (136-145); TOTAL PROTEIN, SERUM 6.7 g/dL (6.4-8.2); UREA NITROGEN, BLOOD 11 mg/dL (7-18)
[2019-01-26 11:46] LABS: GLUCOMETER DEV NAME(LOC) 3EX.; GLUCOSE,POINT OF CARE 119 MG/DL (70-110)
[2019-01-26 13:33] VITALS: BP 142/78
[2019-01-26 14:33] VITALS: BP 135/96
[2019-01-26] MEDS: HALOPERIDOL 5 MG TABLET PO PRN (16:23)
[2019-01-26 16:51] LABS: GLUCOMETER DEV NAME(LOC) 3EX.; GLUCOSE,POINT OF CARE 186 MG/DL (70-110)
[2019-01-26] MEDS: INSULIN LISPRO 100 UNITS/ML SQ PRN (17:18)
[2019-01-26 19:33] VITALS: BP 132/70
[2019-01-26] MEDS: QUEtiapine FUMARATE 200 MG ER TABLET PO SCH (21:10)
[2019-01-26] MEDS: INSULIN GLARGINE,HUM.REC.ANLOG 100 UNITS/ML SQ SCH (21:18)
[2019-01-26 21:21] LABS: GLUCOMETER DEV NAME(LOC) 3EX.; GLUCOSE,POINT OF CARE 127 MG/DL (70-110)
[2019-01-26] MEDS: ZOLPIDEM TARTRATE 10 MG TABLET PO PRN (21:21)
[2019-01-27 01:32] VITALS: BP 135/76
[2019-01-27] MEDS: TraMADol HCL 50 MG TABLET PO PRN ×4 (01:32→19:39)
[2019-01-27] MEDS: MetFORMIN HCL 500 MG TABLET PO SCH ×2 (07:12→16:40)
[2019-01-27 07:20] LABS: GLUCOMETER DEV NAME(LOC) 3E.I; GLUCOSE,POINT OF CARE 99 MG/DL (70-110)
[2019-01-27 07:30] VITALS: BP 136/78
[2019-01-27] MEDS: MAGNESIUM OXIDE 400 MG TABLET PO SCH (08:27)
[2019-01-27] MEDS: LISINOPRIL 10 MG TABLET PO SCH (08:27)
[2019-01-27] MEDS: CITALOPRAM HYDROBROMIDE 20 MG TABLET PO SCH (08:27)
[2019-01-27] MEDS: PANTOPRAZOLE SODIUM 40 MG DR TABLET PO SCH (08:28)
[2019-01-27] MEDS: AmLODIPine BESYLATE 10 MG TABLET PO SCH (08:28)
[2019-01-27 09:15] VITALS: BP 116/77
[2019-01-27] MEDS: INSULIN LISPRO 100 UNITS/ML SQ PRN ×3 (11:15→21:49)
[2019-01-27 11:20] LABS: GLUCOSE,POINT OF CARE 156 MG/DL (70-110)
[2019-01-27 11:21] LABS: GLUCOMETER DEV NAME(LOC) 3E.I
[2019-01-27 13:34] VITALS: BP 120/81
[2019-01-27] MEDS: HALOPERIDOL 5 MG TABLET PO PRN (16:39)
[2019-01-27 16:51] LABS: GLUCOMETER DEV NAME(LOC) 3EX.; GLUCOSE,POINT OF CARE 144 MG/DL (70-110)
[2019-01-27 17:46] VITALS: BP 136/69
[2019-01-27] MEDS: QUEtiapine FUMARATE 200 MG ER TABLET PO SCH (20:28)
[2019-01-27] MEDS: ZOLPIDEM TARTRATE 10 MG TABLET PO PRN (20:28)
[2019-01-27 20:41] LABS: GLUCOMETER DEV NAME(LOC) 3EX.; GLUCOSE,POINT OF CARE 154 MG/DL (70-110)
[2019-01-27] MEDS: INSULIN GLARGINE,HUM.REC.ANLOG 100 UNITS/ML SQ SCH (21:48)
[2019-01-28 02:00] VITALS: BP 124/74
[2019-01-28] MEDS: TraMADol HCL 50 MG TABLET PO PRN ×2 (02:02→08:13)
[2019-01-28 03:02] VITALS: BP 144/56
[2019-01-28] MEDS: HALOPERIDOL 5 MG TABLET PO PRN (03:05)
[2019-01-28 06:30] LABS: GLUCOMETER DEV NAME(LOC) 3EX.; GLUCOSE,POINT OF CARE 118 MG/DL (70-110)
[2019-01-28] MEDS: INSULIN LISPRO 100 UNITS/ML SQ PRN (06:58)
[2019-01-28] MEDS: MetFORMIN HCL 500 MG TABLET PO SCH (07:15)
[2019-01-28] MEDS: LISINOPRIL 10 MG TABLET PO SCH (08:12)
[2019-01-28] MEDS: AmLODIPine BESYLATE 10 MG TABLET PO SCH (08:12)
[2019-01-28] MEDS: CITALOPRAM HYDROBROMIDE 20 MG TABLET PO SCH (08:12)
[2019-01-28] MEDS: MAGNESIUM OXIDE 400 MG TABLET PO SCH (08:12)
[2019-01-28] MEDS: PANTOPRAZOLE SODIUM 40 MG DR TABLET PO SCH (08:12)
[2019-01-28 08:13] VITALS: BP 119/61
[2019-01-28 09:02] VITALS: BP 119/61
[2019-01-28 11:00] LABS: GLUCOMETER DEV NAME(LOC) 3E.I; GLUCOSE,POINT OF CARE 124 MG/DL (70-110)
[2019-01-28] MEDS ORDERED: PANT40TA25 PO (12:39)
[2019-01-28] MEDS ORDERED: METF-960 PO (12:39)
[2019-01-28] MEDS ORDERED: CITA-106 PO (12:39)
== END 2019-01-28 17:21 | disposition home or self-care (01) | DRG 885 ==
LOC: EMS 14:50 → 3EX 17:40 → UNDOADMIN 17:40 → UNDODISIN 01-21 14:41 → 3EX 01-21 15:37
PROVIDERS: ADMIT Psychiatry & Neurology Psychiatry; ATTEND Psychiatry & Neurology Psychiatry
DX: F25.9 Schizoaffective disorder, unspecified (principal); B19.20 Unspecified viral hepatitis C without hepatic coma; F11.20 Opioid dependence, uncomplicated; R45.851 Suicidal ideations; E11.9 Type 2 diabetes mellitus without complications; E78.5 Hyperlipidemia, unspecified; E87.6 Hypokalemia; G89.4 Chronic pain syndrome; I10 Essential (primary) hypertension; J44.9 Chronic obstructive pulmonary disease, unspecified; K21.9 Gastro-esophageal reflux disease without esophagitis; K81.9 Cholecystitis, unspecified; M79.7 Fibromyalgia; Z79.899 Other long term (current) drug therapy; Z87.442 Personal history of urinary calculi; Z87.891 Personal history of nicotine dependence; Z90.5 Acquired absence of kidney; Z90.710 Acquired absence of both cervix and uterus; Z96.653 Presence of artificial knee joint, bilateral
CPT/HCPCS: 83735; 87081; G0378; G0480; J1815

== ENCOUNTER 2019-01-30 17:08 | Emergency (ER) | payer MEDICARE, MEDICAID ==
[~2019-01-30] VITALS: Ht 165.1 cm; Wt 72.3 kg
[~2019-01-30 17:08] MED LIST changes: +CITA-106 PO; +METF-960 PO
[2019-01-30] MEDS ORDERED: KETOROLAC TROMETHAMINE 30 MG/ML VIAL IM ONE (18:15)
[2019-01-30] MEDS ORDERED: LISI-661 PO (18:17)
[2019-01-30 19:10] VITALS: BP 151/96
[2019-01-30 19:25] LABS: GLUCOSE,POINT OF CARE 104 MG/DL (70-110)
== END 2019-01-30 19:44 | disposition home or self-care (01) ==
LOC: EMS 17:10
DX: S20.212A Contusion of left front wall of thorax, initial encounter (principal); S20.211A Contusion of right front wall of thorax, initial encounter; F41.9 Anxiety disorder, unspecified; F31.9 Bipolar disorder, unspecified; E11.9 Type 2 diabetes mellitus without complications; I10 Essential (primary) hypertension; F20.9 Schizophrenia, unspecified; G43.909 Migraine, unspecified, not intractable, without status migrainosus; F17.210 Nicotine dependence, cigarettes, uncomplicated; Z90.710 Acquired absence of both cervix and uterus; Z79.899 Other long term (current) drug therapy; Z79.4 Long term (current) use of insulin; Z79.84 Long term (current) use of oral hypoglycemic drugs; X58.XXXA Exposure to other specified factors, initial encounter; Y93.89 Activity, other specified; Y92.89 Other specified places as the place of occurrence of the external cause; Y99.8 Other external cause status
CPT/HCPCS: 71045; 82948; 82962; 96372; 99283; J1885

== ENCOUNTER 2019-02-18 08:38 | Inpatient (IN) | payer MEDICARE, MEDICAID ==
[~2019-02-18] VITALS: Ht 165.1 cm; Wt 75.1 kg
[~2019-02-18 08:38] MED LIST changes: -LISI-660 PO; +LISI-661 PO
[2019-02-18 09:09] LABS: GLUCOSE,POINT OF CARE 150 MG/DL (70-110)
[2019-02-18 09:37] LABS: BASOPHILS % (AUTO) 0.5 % (0.0-2.0); EOSINOPHILS % (AUTO) 0.5 % (1.0-6.0); HEMATOCRIT 34.9 % (36-46); HEMOGLOBIN 11.3 g/dL (12.0-16.0); LYMPHOCYTES # (AUTO) 1.3 K/uL (1.0-4.8); LYMPHOCYTES % (AUTO) 29.5 % (22.0-44.0); MEAN CORPUSCULAR HEMOGLOBIN 27.4 pg (26.0-34.0); MEAN CORPUSCULAR HGB CONC 32.4 G/dL (31.0-37.0); MEAN CORPUSCULAR VOLUME 85 fL (80-100); MONOCYTES # (AUTO) 0.3 K/uL (0.1-1.0); NEUTROPHILS # (AUTO) 2.7 K/uL (1.8-7.7); NEUTROPHILS % (AUTO) 62.5 % (40.0-70.0); PLATELET COUNT (AUTO) 220 K/uL (150-450); RED BLOOD CELL COUNT(AUTO) 4.12 MIL/uL (4.00-5.20); RED CELL DISTRIBUTION WIDTH 16.2 % (11.5-14.5)
[2019-02-18] MEDS ORDERED: HydrOXYzine PAMOATE 50 MG CAPSULE PO ONE (10:00)
[2019-02-18 10:06] LABS: ALANINE AMINOTRANSFERASE 30 U/L (12-78); ALBUMIN 3.3 g/dL (3.4-5.0); ALKALINE PHOSPHATASE 164 U/L (46-116); ANION GAP 7 mmol/L (8-16); ASPARTATE AMINOTRANSFERASE 32 U/L (15-37); BILIRUBIN,TOTAL 0.5 mg/dL (0.1-1.0); CALCIUM, TOTAL 8.4 mg/dL (8.8-10.5); CARBON DIOXIDE 26 mmol/L (22-29); CHLORIDE 104 mmol/L (98-107); CREATININE 0.58 mg/dL (0.60-1.30); GLOMERULAR FILTR. RATE CALC > 60 mL/min (>60); GLUCOSE,RANDOM 142 mg/dL (70-110); POTASSIUM 3.8 mmol/L (3.5-5.1); SODIUM SERUM 137 mmol/L (136-145); TOTAL PROTEIN, SERUM 7.3 g/dL (6.4-8.2); UREA NITROGEN, BLOOD 10 mg/dL (7-18)
[2019-02-18 11:21] LABS: LIPASE 53 U/L (73-393)
[2019-02-18] MEDS ORDERED: LORazepam 1 MG TABLET PO ONE (13:45)
[2019-02-18 14:40] LABS: APPEARANCE,URINE CLEAR (CLEAR); GLUCOSE, URINE (UA) NEGATIVE (NEGATIVE); KETONES,URINE NEGATIVE (NEGATIVE); LEUKOCYTE ESTERASE ,URINE NEGATIVE (NEGATIVE); NITRATE,URINE NEGATIVE (NEGATIVE); OCCULT BLOOD,URINE NEGATIVE (NEGATIVE); PH,URINE 6.5 (5.0-8.0); PROTEIN,URINE NEGATIVE (NEGATIVE)
[2019-02-18 14:43] VITALS: BP 146/76
[2019-02-18 14:45] LABS: AMPHET/METH SCREEN,URINE NEGATIVE (NEGATIVE); BARBITURATE SCREEN, URINE NEGATIVE (NEGATIVE); BENZODIAZEPINES SCREEN,URINE NEGATIVE (NEGATIVE); CANNABINOID SCREEN,URINE NEGATIVE (NEGATIVE); COCAINE SCREEN,URINE NEGATIVE (NEGATIVE); METHADONE SCREEN, URINE NEGATIVE (NEGATIVE); OPIATE SCREEN,URINE NEGATIVE (NEGATIVE)
[2019-02-18 14:50] LABS: PHENCYCLIDINE SCREEN,URINE NEGATIVE (NEGATIVE)
[2019-02-18 14:51] LABS: BILIRUBIN,URINE PRELIM. POSITIVE (NEGATIVE)
[2019-02-18 15:04] LABS: BACTERIA,URINE None Seen /HPF (None Seen); RBC,URINE None Seen /HPF (0-2); WBC,URINE 0-2 /HPF (0-5)
[2019-02-18 15:05] LABS: SQUAMOUS EPITHELIAL CELL,UR Rare /LPF (None Seen)
[2019-02-18] MEDS ORDERED: ChlorproMAZINE HCL 50 MG TABLET PO PRN (15:30)
[2019-02-18] MEDS: QUEtiapine FUMARATE 100 MG TABLET PO PRN ×2 (16:23→20:33)
[2019-02-18 16:46] VITALS: BP 143/68
[2019-02-18] MEDS: LORazepam 2 MG TABLET PO PRN (20:34)
[2019-02-18] MEDS: ZOLPIDEM TARTRATE 10 MG TABLET PO PRN (22:33)
[2019-02-19] VITALS (9 sets, daily range): BP systolic 109–166; BP diastolic 67–85
[2019-02-19 06:33] LABS: GLUCOMETER DEV NAME(LOC) 3EX.; GLUCOSE,POINT OF CARE 270 MG/DL (70-110)
[2019-02-19 07:15] LABS: CHOL/HDL RATIO 1.8 (3.9-5.7); FREE T4 (FREE THYROXINE) 1.19 ng/dL (0.76-1.46); THYROID STIMULATING HORMONE 1.33 uIU/mL (0.36-3.74)
[2019-02-19] MEDS ORDERED: DEXTROSE 50%-WATER 25 GM/50 ML SYRINGE IVP PRN (07:15)
[2019-02-19] MEDS: TraMADol HCL 50 MG TABLET PO PRN ×2 (10:18→15:53)
[2019-02-19] MEDS: INSULIN LISPRO 100 UNITS/ML SQ PRN ×2 (11:26→23:14)
[2019-02-19 13:25] LABS: GLUCOMETER DEV NAME(LOC) 3E.I; GLUCOSE,POINT OF CARE 275 MG/DL (70-110)
[2019-02-19] MEDS: MetFORMIN HCL 500 MG TABLET PO SCH (18:21)
[2019-02-19 19:32] LABS: GLUCOMETER DEV NAME(LOC) 3EX.; GLUCOSE,POINT OF CARE 205 MG/DL (70-110)
[2019-02-19] MEDS: QUEtiapine FUMARATE 200 MG ER TABLET PO SCH (20:37)
[2019-02-19] MEDS: LORazepam 2 MG TABLET PO PRN (21:29)
[2019-02-19] MEDS: ZOLPIDEM TARTRATE 10 MG TABLET PO PRN (21:34)
[2019-02-19] MEDS: INSULIN GLARGINE,HUM.REC.ANLOG 100 UNITS/ML SQ SCH (21:36)
[2019-02-19 21:47] LABS: GLUCOMETER DEV NAME(LOC) 3EX.; GLUCOSE,POINT OF CARE 276 MG/DL (70-110)
[2019-02-20] VITALS (7 sets, daily range): BP systolic 113–160; BP diastolic 45–93
[2019-02-20] MEDS: TraMADol HCL 50 MG TABLET PO PRN ×4 (00:41→21:16)
[2019-02-20 05:53] LABS: GLUCOMETER DEV NAME(LOC) 3EX.; GLUCOSE,POINT OF CARE 154 MG/DL (70-110)
[2019-02-20] MEDS: MetFORMIN HCL 500 MG TABLET PO SCH ×2 (06:58→17:17)
[2019-02-20] MEDS: INSULIN LISPRO 100 UNITS/ML SQ PRN ×3 (07:01→21:27)
[2019-02-20] MEDS: PANTOPRAZOLE SODIUM 40 MG DR TABLET PO SCH (08:00)
[2019-02-20] MEDS: CITALOPRAM HYDROBROMIDE 20 MG TABLET PO SCH (08:00)
[2019-02-20] MEDS: MAGNESIUM OXIDE 400 MG TABLET PO SCH (08:00)
[2019-02-20] MEDS: LISINOPRIL 10 MG TABLET PO SCH (08:00)
[2019-02-20 11:24] LABS: GLUCOMETER DEV NAME(LOC) 3E.I; GLUCOSE,POINT OF CARE 140 MG/DL (70-110)
[2019-02-20] MEDS: QUEtiapine FUMARATE 100 MG TABLET PO PRN ×2 (14:04→18:47)
[2019-02-20] MEDS: LORazepam 2 MG TABLET PO PRN (16:08)
[2019-02-20 16:22] LABS: GLUCOMETER DEV NAME(LOC) 3E.I; GLUCOSE,POINT OF CARE 245 MG/DL (70-110)
[2019-02-20] MEDS: QUEtiapine FUMARATE 200 MG ER TABLET PO SCH (21:16)
[2019-02-20] MEDS: INSULIN GLARGINE,HUM.REC.ANLOG 100 UNITS/ML SQ SCH (21:26)
[2019-02-20 21:27] LABS: GLUCOMETER DEV NAME(LOC) 3E.I; GLUCOSE,POINT OF CARE 189 MG/DL (70-110)
[2019-02-21 05:40] VITALS: BP 123/79
[2019-02-21] MEDS: TraMADol HCL 50 MG TABLET PO PRN ×3 (05:47→20:34)
[2019-02-21 06:10] LABS: GLUCOMETER DEV NAME(LOC) 3EX.; GLUCOSE,POINT OF CARE 191 MG/DL (70-110)
[2019-02-21] MEDS: MetFORMIN HCL 500 MG TABLET PO SCH ×2 (06:46→16:34)
[2019-02-21] MEDS: INSULIN LISPRO 100 UNITS/ML SQ PRN ×3 (07:19→21:44)
[2019-02-21 08:00] VITALS: BP 133/68
[2019-02-21] MEDS: PANTOPRAZOLE SODIUM 40 MG DR TABLET PO SCH (08:28)
[2019-02-21] MEDS: CITALOPRAM HYDROBROMIDE 20 MG TABLET PO SCH (08:29)
[2019-02-21] MEDS: MAGNESIUM OXIDE 400 MG TABLET PO SCH (08:29)
[2019-02-21] MEDS: LISINOPRIL 10 MG TABLET PO SCH (09:23)
[2019-02-21] MEDS: QUEtiapine FUMARATE 100 MG TABLET PO PRN ×2 (09:24→16:32)
[2019-02-21 12:04] LABS: GLUCOMETER DEV NAME(LOC) 3EX.; GLUCOSE,POINT OF CARE 205 MG/DL (70-110)
[2019-02-21 12:14] VITALS: BP 130/68
[2019-02-21] MEDS: LORazepam 2 MG TABLET PO PRN (12:56)
[2019-02-21 13:17] VITALS: BP 132/69
[2019-02-21 16:47] LABS: GLUCOMETER DEV NAME(LOC) 3E.I; GLUCOSE,POINT OF CARE 111 MG/DL (70-110)
[2019-02-21] MEDS: QUEtiapine FUMARATE 200 MG ER TABLET PO SCH (20:34)
[2019-02-21 20:35] VITALS: BP 129/86
[2019-02-21] MEDS: ZOLPIDEM TARTRATE 10 MG TABLET PO PRN (21:43)
[2019-02-21] MEDS: INSULIN GLARGINE,HUM.REC.ANLOG 100 UNITS/ML SQ SCH (21:44)
[2019-02-22 00:10] VITALS: BP 124/77
[2019-02-22] MEDS: QUEtiapine FUMARATE 100 MG TABLET PO PRN (00:35)
[2019-02-22] MEDS: LORazepam 2 MG TABLET PO PRN ×4 (00:35→21:05)
[2019-02-22 04:00] VITALS: BP 117/72
[2019-02-22] MEDS: TraMADol HCL 50 MG TABLET PO PRN ×4 (04:05→22:38)
[2019-02-22] MEDS: MetFORMIN HCL 500 MG TABLET PO SCH ×2 (07:05→16:32)
[2019-02-22] MEDS: INSULIN LISPRO 100 UNITS/ML SQ PRN ×4 (07:11→21:13)
[2019-02-22] MEDS: PANTOPRAZOLE SODIUM 40 MG DR TABLET PO SCH (08:15)
[2019-02-22] MEDS: MAGNESIUM OXIDE 400 MG TABLET PO SCH (08:15)
[2019-02-22] MEDS: LISINOPRIL 10 MG TABLET PO SCH (08:15)
[2019-02-22] MEDS: CITALOPRAM HYDROBROMIDE 20 MG TABLET PO SCH (08:15)
[2019-02-22 08:47] VITALS: BP 157/93
[2019-02-22 11:05] VITALS: BP 144/79
[2019-02-22 13:17] LABS: GLUCOMETER DEV NAME(LOC) 3E.I; GLUCOSE,POINT OF CARE 200 MG/DL (70-110)
[2019-02-22 13:28] LABS: GLUCOMETER DEV NAME(LOC) 3EX.; GLUCOSE,POINT OF CARE 265 MG/DL (70-110)
[2019-02-22 13:45] LABS: GLUCOMETER DEV NAME(LOC) 3E.I; GLUCOSE,POINT OF CARE 174 MG/DL (70-110)
[2019-02-22 16:00] VITALS: BP 130/75
[2019-02-22 16:23] LABS: GLUCOMETER DEV NAME(LOC) 3E.I; GLUCOSE,POINT OF CARE 268 MG/DL (70-110)
[2019-02-22] MEDS: QUEtiapine FUMARATE 200 MG ER TABLET PO SCH (21:00)
[2019-02-22] MEDS: INSULIN GLARGINE,HUM.REC.ANLOG 100 UNITS/ML SQ SCH (21:12)
[2019-02-22 21:15] LABS: GLUCOMETER DEV NAME(LOC) 3E.I; GLUCOSE,POINT OF CARE 198 MG/DL (70-110)
[2019-02-22 22:39] VITALS: BP 134/78
[2019-02-23 05:53] LABS: GLUCOMETER DEV NAME(LOC) 3EX.; GLUCOSE,POINT OF CARE 174 MG/DL (70-110)
[2019-02-23] MEDS: INSULIN LISPRO 100 UNITS/ML SQ PRN ×3 (06:24→17:21)
[2019-02-23] MEDS: MetFORMIN HCL 500 MG TABLET PO SCH ×2 (06:25→17:36)
[2019-02-23 06:49] VITALS: BP 145/77
[2019-02-23] MEDS: CITALOPRAM HYDROBROMIDE 20 MG TABLET PO SCH (08:15)
[2019-02-23] MEDS: MAGNESIUM OXIDE 400 MG TABLET PO SCH (08:16)
[2019-02-23] MEDS: LISINOPRIL 10 MG TABLET PO SCH (08:16)
[2019-02-23] MEDS: PANTOPRAZOLE SODIUM 40 MG DR TABLET PO SCH (08:16)
[2019-02-23 08:18] VITALS: BP 160/94
[2019-02-23] MEDS: TraMADol HCL 50 MG TABLET PO PRN ×2 (08:18→14:56)
[2019-02-23 12:00] LABS: GLUCOMETER DEV NAME(LOC) 3E.I; GLUCOSE,POINT OF CARE 170 MG/DL (70-110)
[2019-02-23] MEDS: LORazepam 2 MG TABLET PO PRN (12:23)
[2019-02-23] MEDS: QUEtiapine FUMARATE 100 MG TABLET PO PRN (13:27)
[2019-02-23 17:23] LABS: GLUCOMETER DEV NAME(LOC) 3EX.; GLUCOSE,POINT OF CARE 177 MG/DL (70-110)
[2019-02-23 18:00] VITALS: BP 111/71
[2019-02-23 21:34] LABS: GLUCOMETER DEV NAME(LOC) 3EX.; GLUCOSE,POINT OF CARE 118 MG/DL (70-110)
[2019-02-23] MEDS: QUEtiapine FUMARATE 200 MG ER TABLET PO SCH (21:34)
[2019-02-23] MEDS: INSULIN GLARGINE,HUM.REC.ANLOG 100 UNITS/ML SQ SCH (21:35)
[2019-02-24 03:05] VITALS: BP 130/73
[2019-02-24] MEDS: TraMADol HCL 50 MG TABLET PO PRN ×3 (03:07→19:05)
[2019-02-24] MEDS: LORazepam 2 MG TABLET PO PRN ×3 (03:07→19:05)
[2019-02-24 05:30] LABS: GLUCOMETER DEV NAME(LOC) 3EX.; GLUCOSE,POINT OF CARE 139 MG/DL (70-110)
[2019-02-24] MEDS: MetFORMIN HCL 500 MG TABLET PO SCH ×2 (06:35→16:35)
[2019-02-24] MEDS: PANTOPRAZOLE SODIUM 40 MG DR TABLET PO SCH (08:43)
[2019-02-24] MEDS: LISINOPRIL 10 MG TABLET PO SCH (08:44)
[2019-02-24] MEDS: CITALOPRAM HYDROBROMIDE 20 MG TABLET PO SCH (08:44)
[2019-02-24] MEDS: MAGNESIUM OXIDE 400 MG TABLET PO SCH (08:44)
[2019-02-24 11:01] VITALS: BP 147/80
[2019-02-24 12:16] LABS: GLUCOMETER DEV NAME(LOC) 3E.I; GLUCOSE,POINT OF CARE 203 MG/DL (70-110)
[2019-02-24] MEDS: INSULIN LISPRO 100 UNITS/ML SQ PRN (12:26)
[2019-02-24 12:45] VITALS: BP 157/98
[2019-02-24] MEDS: INSULIN GLARGINE,HUM.REC.ANLOG 100 UNITS/ML SQ SCH (21:00)
[2019-02-24 22:09] VITALS: BP 124/71
[2019-02-24] MEDS: QUEtiapine FUMARATE 200 MG ER TABLET PO SCH (23:06)
[2019-02-25 02:21] VITALS: BP 148/92
[2019-02-25] MEDS: LORazepam 2 MG TABLET PO PRN ×5 (02:24→19:23)
[2019-02-25] MEDS: TraMADol HCL 50 MG TABLET PO PRN ×3 (02:24→17:00)
[2019-02-25 05:22] LABS: GLUCOMETER DEV NAME(LOC) 3EX.; GLUCOSE,POINT OF CARE 118 MG/DL (70-110)
[2019-02-25] MEDS: MetFORMIN HCL 500 MG TABLET PO SCH ×2 (07:05→17:35)
[2019-02-25 08:30] VITALS: BP 114/66
[2019-02-25] MEDS: LISINOPRIL 10 MG TABLET PO SCH (08:30)
[2019-02-25] MEDS: MAGNESIUM OXIDE 400 MG TABLET PO SCH (08:30)
[2019-02-25] MEDS: CITALOPRAM HYDROBROMIDE 20 MG TABLET PO SCH (08:31)
[2019-02-25] MEDS: PANTOPRAZOLE SODIUM 40 MG DR TABLET PO SCH (08:31)
[2019-02-25 09:29] VITALS: BP 114/66
[2019-02-25 11:13] LABS: GLUCOMETER DEV NAME(LOC) 3EX.; GLUCOSE,POINT OF CARE 118 MG/DL (70-110)
[2019-02-25 16:36] LABS: GLUCOMETER DEV NAME(LOC) 3E.I; GLUCOSE,POINT OF CARE 175 MG/DL (70-110)
[2019-02-25 16:47] LABS: GLUCOMETER DEV NAME(LOC) 3EX.; GLUCOSE,POINT OF CARE 192 MG/DL (70-110)
[2019-02-25 17:00] VITALS: BP 114/66
[2019-02-25] MEDS: INSULIN LISPRO 100 UNITS/ML SQ PRN ×2 (17:38→19:21)
[2019-02-25 20:22] LABS: GLUCOMETER DEV NAME(LOC) 3EX.; GLUCOSE,POINT OF CARE 119 MG/DL (70-110)
[2019-02-25] MEDS: QUEtiapine FUMARATE 200 MG ER TABLET PO SCH (21:09)
[2019-02-25] MEDS: ZOLPIDEM TARTRATE 10 MG TABLET PO PRN (21:09)
[2019-02-25] MEDS: INSULIN GLARGINE,HUM.REC.ANLOG 100 UNITS/ML SQ SCH (21:32)
[2019-02-26 05:36] LABS: GLUCOMETER DEV NAME(LOC) 3EX.; GLUCOSE,POINT OF CARE 152 MG/DL (70-110)
[2019-02-26] MEDS: MetFORMIN HCL 500 MG TABLET PO SCH (06:30)
[2019-02-26] MEDS: INSULIN LISPRO 100 UNITS/ML SQ PRN (06:32)
[2019-02-26] MEDS: CITALOPRAM HYDROBROMIDE 20 MG TABLET PO SCH (09:05)
[2019-02-26] MEDS: MAGNESIUM OXIDE 400 MG TABLET PO SCH (09:06)
[2019-02-26] MEDS: PANTOPRAZOLE SODIUM 40 MG DR TABLET PO SCH (09:06)
[2019-02-26] MEDS: LISINOPRIL 10 MG TABLET PO SCH (09:06)
[2019-02-26 09:07] VITALS: BP 130/70
[2019-02-26] MEDS: TraMADol HCL 50 MG TABLET PO PRN (09:07)
[2019-02-26] MEDS ORDERED: MAGN200T8 PO (09:28)
[2019-02-26] MEDS: LORazepam 2 MG TABLET PO PRN (09:45)
== END 2019-02-26 10:50 | disposition home or self-care (01) | DRG 885 ==
LOC: EMS 08:40 → 3EX 13:04
PROVIDERS: ADMIT Psychiatry & Neurology Psychiatry; ATTEND Psychiatry & Neurology Psychiatry
DX: F25.9 Schizoaffective disorder, unspecified (principal); B19.20 Unspecified viral hepatitis C without hepatic coma; F11.20 Opioid dependence, uncomplicated; R45.851 Suicidal ideations; M48.56XA Collapsed vertebra, not elsewhere classified, lumbar region, initial encounter for fracture; G89.4 Chronic pain syndrome; I10 Essential (primary) hypertension; J44.9 Chronic obstructive pulmonary disease, unspecified; K21.9 Gastro-esophageal reflux disease without esophagitis; M79.7 Fibromyalgia; M81.0 Age-related osteoporosis without current pathological fracture; D64.9 Anemia, unspecified; E11.9 Type 2 diabetes mellitus without complications; E83.42 Hypomagnesemia; D72.819 Decreased white blood cell count, unspecified; F17.210 Nicotine dependence, cigarettes, uncomplicated; Z96.653 Presence of artificial knee joint, bilateral; F41.9 Anxiety disorder, unspecified; G43.909 Migraine, unspecified, not intractable, without status migrainosus; M19.90 Unspecified osteoarthritis, unspecified site; Z87.442 Personal history of urinary calculi; Z90.5 Acquired absence of kidney; Z90.710 Acquired absence of both cervix and uterus; Z90.49 Acquired absence of other specified parts of digestive tract
CPT/HCPCS: 72070; 72100; 84439; 84443; 87081; 93005; G0378; G0480; J1815

== ENCOUNTER 2019-03-25 12:39 | Emergency (ER) | payer MEDICARE, MEDICAID ==
[~2019-03-25] VITALS: Ht 165.1 cm; Wt 72.7 kg
[~2019-03-25 12:39] MED LIST changes: -AMLO10TA7 PO; +MAGN200T8 PO; -MAGOX PO
[2019-03-25] MEDS ORDERED: LIDOCAINE 5% TRANSDERMAL PATCH TD ONE (14:30)
[2019-03-25] MEDS ORDERED: KETOROLAC TROMETHAMINE 30 MG/ML VIAL IM ONE (14:30)
[2019-03-25 15:10] VITALS: BP 132/86
== END 2019-03-25 15:48 | disposition left against medical advice (07) ==
LOC: EMS 12:43
DX: M54.5 Low back pain (principal); E11.9 Type 2 diabetes mellitus without complications; I10 Essential (primary) hypertension; G43.909 Migraine, unspecified, not intractable, without status migrainosus; M19.90 Unspecified osteoarthritis, unspecified site; F20.9 Schizophrenia, unspecified; F31.9 Bipolar disorder, unspecified; F17.210 Nicotine dependence, cigarettes, uncomplicated; F41.9 Anxiety disorder, unspecified; F11.10 Opioid abuse, uncomplicated; Z86.19 Personal history of other infectious and parasitic diseases; Z98.890 Other specified postprocedural states; Z79.899 Other long term (current) drug therapy; Z79.4 Long term (current) use of insulin
CPT/HCPCS: 82962; 96372; 99283; J1885

== ENCOUNTER 2019-04-17 13:06 | Inpatient (IN) | payer MEDICARE, MEDICAID ==
[~2019-04-17] VITALS: Ht 165.1 cm; Wt 73.9 kg
[2019-04-17] MEDS ORDERED: INSU100V12 SQ (14:14)
[2019-04-17] MEDS ORDERED: TRAM50TA4 PO (14:14)
[2019-04-17 14:23] LABS: GLUCOSE,POINT OF CARE 175 MG/DL (70-110)
[2019-04-17 15:27] LABS: GLUCOSE,POINT OF CARE 196 MG/DL (70-110)
[2019-04-17] MEDS ORDERED: ACETAMINOPHEN 325 MG TABLET PO ONE (15:30)
[2019-04-17 15:46] LABS: BASOPHILS % (AUTO) 0.7 % (0.0-2.0); EOSINOPHILS % (AUTO) 0.1 % (1.0-6.0); HEMATOCRIT 37.9 % (36-46); HEMOGLOBIN 12.6 g/dL (12.0-16.0); LYMPHOCYTES # (AUTO) 1.7 K/uL (1.0-4.8); LYMPHOCYTES % (AUTO) 22.2 % (22.0-44.0); MEAN CORPUSCULAR HEMOGLOBIN 28.8 pg (26.0-34.0); MEAN CORPUSCULAR HGB CONC 33.3 G/dL (31.0-37.0); MEAN CORPUSCULAR VOLUME 87 fL (80-100); MONOCYTES # (AUTO) 0.4 K/uL (0.1-1.0); MONOCYTES % (AUTO) 4.9 % (2.0-9.0); NEUTROPHILS # (AUTO) 5.6 K/uL (1.8-7.7); NEUTROPHILS % (AUTO) 72.1 % (40.0-70.0); PLATELET COUNT (AUTO) 187 K/uL (150-450); RED BLOOD CELL COUNT(AUTO) 4.38 MIL/uL (4.00-5.20); RED CELL DISTRIBUTION WIDTH 16.3 % (11.5-14.5)
[2019-04-17 15:57] LABS: ANION GAP 9 mmol/L (8-16); CARBON DIOXIDE 24 mmol/L (22-29); CHLORIDE 103 mmol/L (98-107); CREATININE 0.68 mg/dL (0.60-1.30); GLOMERULAR FILTR. RATE CALC > 60 mL/min (>60); GLUCOSE,RANDOM 180 mg/dL (70-110); POTASSIUM 3.5 mmol/L (3.5-5.1); SODIUM SERUM 136 mmol/L (136-145); UREA NITROGEN, BLOOD 10 mg/dL (7-18)
[2019-04-17 16:03] LABS: ALANINE AMINOTRANSFERASE 34 U/L (12-78); ALBUMIN 3.5 g/dL (3.4-5.0); ALKALINE PHOSPHATASE 179 U/L (46-116); ASPARTATE AMINOTRANSFERASE 36 U/L (15-37); BILIRUBIN,TOTAL 0.6 mg/dL (0.1-1.0); TOTAL PROTEIN, SERUM 7.3 g/dL (6.4-8.2)
[2019-04-17] MEDS ORDERED: QUEtiapine FUMARATE 100 MG TABLET PO ONE (17:45)
[2019-04-17] MEDS ORDERED: DEXTROSE 50%-WATER 25 GM/50 ML SYRINGE IVP PRN (21:15)
[2019-04-17] MEDS: INSULIN LISPRO 100 UNITS/ML SQ PRN (21:34)
[2019-04-17] MEDS: QUEtiapine FUMARATE 200 MG ER TABLET PO SCH (21:35)
[2019-04-17] MEDS: TraMADol HCL 50 MG TABLET PO PRN (21:35)
[2019-04-17] MEDS: INSULIN GLARGINE,HUM.REC.ANLOG 100 UNITS/ML SQ SCH (21:35)
[2019-04-17 21:36] VITALS: BP 139/78
[2019-04-17 21:38] LABS: GLUCOMETER DEV NAME(LOC) 3E.I; GLUCOSE,POINT OF CARE 264 MG/DL (70-110)
[2019-04-17] MEDS ORDERED: INFLUENZA VIRUS VACCINE QVS 2019-20 (3YR+)/PF 60 MCG/0.5 ML SYRINGE IM ONE (23:30)
[2019-04-18 01:35] VITALS: BP 132/85
[2019-04-18] MEDS: ZOLPIDEM TARTRATE 10 MG TABLET PO PRN (01:36)
[2019-04-18] MEDS: LORazepam 2 MG TABLET PO PRN ×3 (01:36→18:02)
[2019-04-18 03:30] VITALS: BP 156/88
[2019-04-18] MEDS: TraMADol HCL 50 MG TABLET PO PRN ×4 (03:35→22:04)
[2019-04-18 06:08] LABS: GLUCOMETER DEV NAME(LOC) 3EX.; GLUCOSE,POINT OF CARE 197 MG/DL (70-110)
[2019-04-18] MEDS: INSULIN LISPRO 100 UNITS/ML SQ PRN ×4 (06:34→20:36)
[2019-04-18] MEDS ORDERED: ALBUTEROL SULFATE HFA 90 MCG/PUFF 8 GM INHALER IH PRN (07:15)
[2019-04-18] MEDS ORDERED: LOPERAMIDE HCL 2 MG CAPSULE PO PRN (07:15)
[2019-04-18] MEDS ORDERED: MAGNESIUM HYDROXIDE SUSPENSION 30 ML UDCUP PO PRN (07:15)
[2019-04-18] MEDS ORDERED: PETROLATUM,WHITE 28 GM JELLY TP PRN (07:15)
[2019-04-18] MEDS ORDERED: BENZOCAINE/MENTHOL LOZENGE MM PRN (07:15)
[2019-04-18] MEDS ORDERED: DOCUSATE SODIUM 100 MG CAPSULE PO PRN (07:15)
[2019-04-18] MEDS ORDERED: MAG HYDROX/AL HYDROX/SIMETH ES 30 ML SUSPENSION UDCUP PO PRN (07:15)
[2019-04-18] MEDS ORDERED: OMEPRAZOLE 20 MG CAPSULE PO PRN (07:15)
[2019-04-18] MEDS ORDERED: CloNIDine HCL 0.1 MG TABLET PO PRN (07:15)
[2019-04-18] MEDS ORDERED: ACETAMINOPHEN 325 MG TABLET PO PRN (07:15)
[2019-04-18] MEDS ORDERED: BACITRACIN 28.4 GM OINTMENT TP PRN (07:15)
[2019-04-18] MEDS ORDERED: ONDANSETRON HCL 4 MG TABLET PO PRN (07:15)
[2019-04-18] MEDS: LISINOPRIL 10 MG TABLET PO SCH (08:43)
[2019-04-18] MEDS: PANTOPRAZOLE SODIUM 40 MG DR TABLET PO SCH (08:43)
[2019-04-18] MEDS: CITALOPRAM HYDROBROMIDE 20 MG TABLET PO SCH (08:43)
[2019-04-18] MEDS ORDERED: HydrOXYzine PAMOATE 50 MG CAPSULE PO PRN (09:15)
[2019-04-18] MEDS ORDERED: GuaiFENesin/D-METHORPHAN [SUGAR-FREE] 200-20MG/10 ML SYRUP UDCUP PO PRN (09:15)
[2019-04-18 10:06] VITALS: BP 142/89
[2019-04-18 10:33] VITALS: BP 145/100
[2019-04-18 11:27] LABS: GLUCOMETER DEV NAME(LOC) 3E.I; GLUCOSE,POINT OF CARE 162 MG/DL (70-110)
[2019-04-18 16:06] VITALS: BP 149/76
[2019-04-18] MEDS: QUEtiapine FUMARATE 100 MG TABLET PO PRN (16:10)
[2019-04-18 16:21] LABS: GLUCOMETER DEV NAME(LOC) 3E.I; GLUCOSE,POINT OF CARE 160 MG/DL (70-110)
[2019-04-18] MEDS: THIAMINE HCL 100 MG TABLET PO SCH (18:02)
[2019-04-18] MEDS: QUEtiapine FUMARATE 200 MG ER TABLET PO SCH (20:29)
[2019-04-18] MEDS: INSULIN GLARGINE,HUM.REC.ANLOG 100 UNITS/ML SQ SCH (20:35)
[2019-04-18 20:40] LABS: GLUCOMETER DEV NAME(LOC) 3E.I; GLUCOSE,POINT OF CARE 155 MG/DL (70-110)
[2019-04-18 22:05] VITALS: BP 139/68
[2019-04-19 04:45] VITALS: BP 162/91
[2019-04-19] MEDS: LORazepam 2 MG TABLET PO PRN ×2 (04:50→18:01)
[2019-04-19] MEDS: TraMADol HCL 50 MG TABLET PO PRN ×3 (04:50→17:09)
[2019-04-19 05:33] LABS: GLUCOMETER DEV NAME(LOC) 3EX.; GLUCOSE,POINT OF CARE 124 MG/DL (70-110)
[2019-04-19] MEDS: MULTIVITAMINS WITH MINERALS, THERAPEUTIC TABLET PO SCH (08:28)
[2019-04-19] MEDS: FOLIC ACID 1 MG TABLET PO SCH (08:28)
[2019-04-19] MEDS: PANTOPRAZOLE SODIUM 40 MG DR TABLET PO SCH (08:28)
[2019-04-19] MEDS: CITALOPRAM HYDROBROMIDE 20 MG TABLET PO SCH (08:29)
[2019-04-19] MEDS: THIAMINE HCL 100 MG TABLET PO SCH ×2 (08:29→16:22)
[2019-04-19] MEDS: LISINOPRIL 10 MG TABLET PO SCH (08:29)
[2019-04-19 11:05] VITALS: BP 155/80
[2019-04-19 11:58] LABS: GLUCOMETER DEV NAME(LOC) 3EX.; GLUCOSE,POINT OF CARE 197 MG/DL (70-110)
[2019-04-19] MEDS: INSULIN LISPRO 100 UNITS/ML SQ PRN ×3 (12:01→20:53)
[2019-04-19 12:31] VITALS: BP 164/88
[2019-04-19 16:00] VITALS: BP 142/84
[2019-04-19] MEDS: QUEtiapine FUMARATE 100 MG TABLET PO PRN (16:22)
[2019-04-19 17:10] VITALS: BP 135/78
[2019-04-19 17:41] LABS: GLUCOMETER DEV NAME(LOC) 3EX.; GLUCOSE,POINT OF CARE 180 MG/DL (70-110)
[2019-04-19] MEDS: INSULIN GLARGINE,HUM.REC.ANLOG 100 UNITS/ML SQ SCH (20:54)
[2019-04-19] MEDS: QUEtiapine FUMARATE 200 MG ER TABLET PO SCH (20:55)
[2019-04-19 21:34] LABS: GLUCOMETER DEV NAME(LOC) 3E.I 2; GLUCOSE,POINT OF CARE 210 MG/DL (70-110)
[2019-04-20 05:42] LABS: GLUCOMETER DEV NAME(LOC) 3EX.; GLUCOSE,POINT OF CARE 168 MG/DL (70-110)
[2019-04-20] MEDS: INSULIN LISPRO 100 UNITS/ML SQ PRN ×2 (06:39→20:35)
[2019-04-20 07:06] VITALS: BP 132/90
[2019-04-20] MEDS: TraMADol HCL 50 MG TABLET PO PRN ×3 (07:08→20:31)
[2019-04-20] MEDS: PANTOPRAZOLE SODIUM 40 MG DR TABLET PO SCH (08:07)
[2019-04-20] MEDS: LISINOPRIL 10 MG TABLET PO SCH (08:07)
[2019-04-20] MEDS: FOLIC ACID 1 MG TABLET PO SCH (08:07)
[2019-04-20] MEDS: CITALOPRAM HYDROBROMIDE 20 MG TABLET PO SCH (08:08)
[2019-04-20] MEDS: THIAMINE HCL 100 MG TABLET PO SCH ×2 (08:08→16:07)
[2019-04-20] MEDS: MULTIVITAMINS WITH MINERALS, THERAPEUTIC TABLET PO SCH (08:08)
[2019-04-20 11:59] LABS: GLUCOMETER DEV NAME(LOC) 3E.I 2; GLUCOSE,POINT OF CARE 126 MG/DL (70-110)
[2019-04-20 12:12] VITALS: BP 134/90
[2019-04-20] MEDS: LORazepam 2 MG TABLET PO PRN ×2 (13:14→16:19)
[2019-04-20 16:17] LABS: GLUCOMETER DEV NAME(LOC) 3EX.; GLUCOSE,POINT OF CARE 130 MG/DL (70-110)
[2019-04-20 16:37] VITALS: BP 146/90
[2019-04-20] MEDS: QUEtiapine FUMARATE 200 MG ER TABLET PO SCH (20:31)
[2019-04-20] MEDS: INSULIN GLARGINE,HUM.REC.ANLOG 100 UNITS/ML SQ SCH (20:34)
[2019-04-20 22:54] LABS: GLUCOMETER DEV NAME(LOC) 3E.I 2; GLUCOSE,POINT OF CARE 200 MG/DL (70-110)
[2019-04-21 04:20] VITALS: BP 117/76
[2019-04-21] MEDS: TraMADol HCL 50 MG TABLET PO PRN ×3 (04:22→19:10)
[2019-04-21 06:09] LABS: GLUCOMETER DEV NAME(LOC) 3E.I 2; GLUCOSE,POINT OF CARE 160 MG/DL (70-110)
[2019-04-21] MEDS: INSULIN LISPRO 100 UNITS/ML SQ PRN ×3 (06:52→12:08)
[2019-04-21 08:32] VITALS: BP 123/71
[2019-04-21] MEDS: MULTIVITAMINS WITH MINERALS, THERAPEUTIC TABLET PO SCH (09:00)
[2019-04-21] MEDS: THIAMINE HCL 100 MG TABLET PO SCH ×2 (09:00→17:19)
[2019-04-21] MEDS: CITALOPRAM HYDROBROMIDE 20 MG TABLET PO SCH (09:00)
[2019-04-21] MEDS: PANTOPRAZOLE SODIUM 40 MG DR TABLET PO SCH (09:00)
[2019-04-21] MEDS: FOLIC ACID 1 MG TABLET PO SCH (09:00)
[2019-04-21] MEDS: LISINOPRIL 10 MG TABLET PO SCH (09:01)
[2019-04-21 12:05] LABS: GLUCOMETER DEV NAME(LOC) 3EX.; GLUCOSE,POINT OF CARE 154 MG/DL (70-110)
[2019-04-21 12:35] VITALS: BP 126/82
[2019-04-21 17:20] VITALS: BP 134/80
[2019-04-21] MEDS: IBUPROFEN 600 MG TABLET PO PRN (17:20)
[2019-04-21 17:21] VITALS: BP 145/82
[2019-04-21 17:25] VITALS: BP 146/52
[2019-04-21 17:27] LABS: GLUCOMETER DEV NAME(LOC) 3EX.; GLUCOSE,POINT OF CARE 115 MG/DL (70-110)
[2019-04-21] MEDS: QUEtiapine FUMARATE 200 MG ER TABLET PO SCH (21:30)
[2019-04-21] MEDS: INSULIN GLARGINE,HUM.REC.ANLOG 100 UNITS/ML SQ SCH (21:39)
[2019-04-21 21:47] LABS: GLUCOMETER DEV NAME(LOC) 3EX.; GLUCOSE,POINT OF CARE 118 MG/DL (70-110)
[2019-04-22] VITALS (8 sets, daily range): BP systolic 141–182; BP diastolic 80–104
[2019-04-22] MEDS: ZOLPIDEM TARTRATE 10 MG TABLET PO PRN (02:48)
[2019-04-22] MEDS: LORazepam 1 MG TABLET PO PRN ×2 (02:48→14:26)
[2019-04-22] MEDS: TraMADol HCL 50 MG TABLET PO PRN ×4 (02:49→21:12)
[2019-04-22 06:11] LABS: GLUCOMETER DEV NAME(LOC) 3E.I 2; GLUCOSE,POINT OF CARE 143 MG/DL (70-110)
[2019-04-22] MEDS: INSULIN LISPRO 100 UNITS/ML SQ PRN ×4 (06:49→21:14)
[2019-04-22] MEDS: MULTIVITAMINS WITH MINERALS, THERAPEUTIC TABLET PO SCH (08:35)
[2019-04-22] MEDS: LISINOPRIL 10 MG TABLET PO SCH (08:35)
[2019-04-22] MEDS: FOLIC ACID 1 MG TABLET PO SCH (08:36)
[2019-04-22] MEDS: PANTOPRAZOLE SODIUM 40 MG DR TABLET PO SCH (08:36)
[2019-04-22] MEDS: CITALOPRAM HYDROBROMIDE 20 MG TABLET PO SCH (08:36)
[2019-04-22] MEDS: THIAMINE HCL 100 MG TABLET PO SCH ×2 (08:36→17:04)
[2019-04-22 11:46] LABS: GLUCOMETER DEV NAME(LOC) 3EX.; GLUCOSE,POINT OF CARE 153 MG/DL (70-110)
[2019-04-22] MEDS: QUEtiapine FUMARATE 100 MG TABLET PO PRN (17:04)
[2019-04-22 17:19] LABS: GLUCOMETER DEV NAME(LOC) 3EX.; GLUCOSE,POINT OF CARE 150 MG/DL (70-110)
[2019-04-22] MEDS: QUEtiapine FUMARATE 200 MG ER TABLET PO SCH (21:12)
[2019-04-22] MEDS: INSULIN GLARGINE,HUM.REC.ANLOG 100 UNITS/ML SQ SCH (21:13)
[2019-04-22 21:18] LABS: GLUCOMETER DEV NAME(LOC) 3E.I 2; GLUCOSE,POINT OF CARE 149 MG/DL (70-110)
[2019-04-23 00:05] VITALS: BP 144/102
[2019-04-23] MEDS: ZOLPIDEM TARTRATE 10 MG TABLET PO PRN (00:10)
[2019-04-23] MEDS: QUEtiapine FUMARATE 100 MG TABLET PO PRN ×2 (00:10→09:09)
[2019-04-23] MEDS: LORazepam 1 MG TABLET PO PRN ×2 (00:10→09:10)
[2019-04-23] MEDS: IBUPROFEN 600 MG TABLET PO PRN (00:10)
[2019-04-23 04:35] VITALS: BP 136/99
[2019-04-23] MEDS: TraMADol HCL 50 MG TABLET PO PRN (04:40)
[2019-04-23 05:31] LABS: GLUCOMETER DEV NAME(LOC) 3E.I 2; GLUCOSE,POINT OF CARE 190 MG/DL (70-110)
[2019-04-23] MEDS: INSULIN LISPRO 100 UNITS/ML SQ PRN (06:48)
[2019-04-23 07:15] LABS: ANION GAP 9 mmol/L (8-16); CALCIUM, TOTAL 8.5 mg/dL (8.8-10.5); CARBON DIOXIDE 25 mmol/L (22-29); CHLORIDE 110 mmol/L (98-107); CREATINE KINASE, TOTAL ONLY 57 U/L (26-192); CREATININE 0.65 mg/dL (0.60-1.30); GLOMERULAR FILTR. RATE CALC > 60 mL/min (>60); GLUCOSE,RANDOM 168 mg/dL (70-110); SODIUM SERUM 144 mmol/L (136-145)
[2019-04-23 07:19] LABS: HEMOGLOBIN A1C 5.9 % (4.5-6.2)
[2019-04-23 07:25] LABS: UREA NITROGEN, BLOOD 14 mg/dL (7-18)
[2019-04-23 08:43] VITALS: BP 143/68
[2019-04-23] MEDS: MULTIVITAMINS WITH MINERALS, THERAPEUTIC TABLET PO SCH (09:09)
[2019-04-23] MEDS: THIAMINE HCL 100 MG TABLET PO SCH (09:10)
[2019-04-23] MEDS: FOLIC ACID 1 MG TABLET PO SCH (09:10)
[2019-04-23] MEDS: LISINOPRIL 10 MG TABLET PO SCH (09:10)
[2019-04-23] MEDS: CITALOPRAM HYDROBROMIDE 20 MG TABLET PO SCH (09:10)
[2019-04-23] MEDS: PANTOPRAZOLE SODIUM 40 MG DR TABLET PO SCH (09:11)
[2019-04-23] MEDS ORDERED: INSLAN SQ (10:37)
== END 2019-04-23 13:32 | disposition home or self-care (01) | DRG 885 ==
LOC: EMS 13:08 → 3EX 18:21
PROVIDERS: ADMIT Psychiatry & Neurology Child & Adolescent Psychiatry; ATTEND Psychiatry & Neurology Psychiatry
DX: F25.1 Schizoaffective disorder, depressive type (principal); R45.851 Suicidal ideations; I10 Essential (primary) hypertension; G43.909 Migraine, unspecified, not intractable, without status migrainosus; F41.9 Anxiety disorder, unspecified; E11.9 Type 2 diabetes mellitus without complications; M19.90 Unspecified osteoarthritis, unspecified site; F32.9 Major depressive disorder, single episode, unspecified; F17.210 Nicotine dependence, cigarettes, uncomplicated; Z96.653 Presence of artificial knee joint, bilateral; K59.00 Constipation, unspecified; G47.00 Insomnia, unspecified; J44.9 Chronic obstructive pulmonary disease, unspecified; E83.42 Hypomagnesemia; K21.9 Gastro-esophageal reflux disease without esophagitis; N20.0 Calculus of kidney; Z90.710 Acquired absence of both cervix and uterus; Z79.4 Long term (current) use of insulin; Z87.442 Personal history of urinary calculi; Z79.899 Other long term (current) drug therapy
CPT/HCPCS: 83036; 83735; 87081; G0378; G0480; J1815

== ENCOUNTER 2019-05-19 23:40 | Emergency (ER) | payer MEDICARE, MEDICAID ==
[~2019-05-19] VITALS: Ht 165.1 cm; Wt 75.0 kg
[~2019-05-19 23:40] MED LIST changes: -MAGN200T8 PO; -METF-960 PO
[2019-05-20] MEDS ORDERED: OXYC10TA59 PO (00:03)
[2019-05-20] MEDS ORDERED: TRAM50TA4 PO (00:03)
[2019-05-20 00:10] LABS: GLUCOSE,POINT OF CARE 329 MG/DL (70-110)
[2019-05-20] MEDS ORDERED: LIDOCAINE 5% TRANSDERMAL PATCH TD ONE (02:00)
[2019-05-20] MEDS ORDERED: IBUPROFEN 400 MG TABLET PO ONE (02:00)
[2019-05-20] MEDS ORDERED: ACETAMINOPHEN 325 MG TABLET PO ONE (02:00)
[2019-05-20 03:41] VITALS: BP 145/71
== END 2019-05-20 04:00 | disposition home or self-care (01) ==
LOC: EMS 23:44
DX: M54.5 Low back pain (principal); E11.9 Type 2 diabetes mellitus without complications; I10 Essential (primary) hypertension; G43.909 Migraine, unspecified, not intractable, without status migrainosus; M19.90 Unspecified osteoarthritis, unspecified site; F20.9 Schizophrenia, unspecified; F31.9 Bipolar disorder, unspecified; F41.9 Anxiety disorder, unspecified; F17.210 Nicotine dependence, cigarettes, uncomplicated; F11.10 Opioid abuse, uncomplicated; Z98.890 Other specified postprocedural states; Z90.710 Acquired absence of both cervix and uterus; Z79.4 Long term (current) use of insulin; Z86.19 Personal history of other infectious and parasitic diseases

== ENCOUNTER 2019-06-12 12:38 | Inpatient (IN) | payer MEDICARE, MEDICAID ==
[~2019-06-12] VITALS: Ht 160 cm; Wt 75.5 kg
[~2019-06-12 12:38] MED LIST changes: +OXYC10TA59 PO; +TRAM50TA4 PO
[2019-06-12] MEDS ORDERED: HALOPERIDOL 5 MG TABLET PO PRN (13:00)
[2019-06-12 13:36] VITALS: BP 176/95
[2019-06-12 14:28] VITALS: BP 158/88
[2019-06-12 14:48] VITALS: BP 158/88
[2019-06-12] MEDS ORDERED: DEXTROSE 50%-WATER 25 GM/50 ML SYRINGE IVP PRN (16:15)
[2019-06-12] MEDS: TraMADol HCL 50 MG TABLET PO PRN (16:37)
[2019-06-12] MEDS ORDERED: INFLUENZA VIRUS VACCINE QVS 2019-20 (3YR+)/PF 60 MCG/0.5 ML SYRINGE IM ONE (16:45)
[2019-06-12] MEDS ORDERED: PNEUMOCOCCAL VACCINE POLYVALENT 0.5 ML VIAL [PPSV23] IM ONE (16:45)
[2019-06-12] MEDS: INSULIN LISPRO 100 UNITS/ML SQ PRN ×2 (17:30→21:09)
[2019-06-12] MEDS: LORazepam 2 MG TABLET PO PRN ×2 (17:30→22:32)
[2019-06-12 17:33] LABS: GLUCOMETER DEV NAME(LOC) 3EX.; GLUCOSE,POINT OF CARE 242 MG/DL (70-110)
[2019-06-12 19:53] VITALS: BP 157/85
[2019-06-12] MEDS: ZOLPIDEM TARTRATE 10 MG TABLET PO PRN (20:01)
[2019-06-12] MEDS: CITALOPRAM HYDROBROMIDE 20 MG TABLET PO SCH (20:02)
[2019-06-12] MEDS: QUEtiapine FUMARATE 200 MG TABLET PO SCH (20:02)
[2019-06-12 21:28] LABS: GLUCOMETER DEV NAME(LOC) 3EX.; GLUCOSE,POINT OF CARE 163 MG/DL (70-110)
[2019-06-13 00:10] VITALS: BP 146/79
[2019-06-13] MEDS: TraMADol HCL 50 MG TABLET PO PRN ×3 (00:19→16:40)
[2019-06-13 05:47] LABS: GLUCOMETER DEV NAME(LOC) 3E.I 2; GLUCOSE,POINT OF CARE 128 MG/DL (70-110)
[2019-06-13 08:03] VITALS: BP 161/84
[2019-06-13] MEDS: CITALOPRAM HYDROBROMIDE 20 MG TABLET PO SCH (08:03)
[2019-06-13] MEDS: LORazepam 2 MG TABLET PO PRN (08:07)
[2019-06-13] MEDS ORDERED: PANTOPRAZOLE SODIUM 40 MG DR TABLET PO SCH (09:00)
[2019-06-13] MEDS ORDERED: LISINOPRIL 10 MG TABLET PO SCH (09:00)
[2019-06-13 11:17] LABS: GLUCOMETER DEV NAME(LOC) 3EX.; GLUCOSE,POINT OF CARE 113 MG/DL (70-110)
[2019-06-13] MEDS ORDERED: NICOTINE 14 MG/24 HOUR PATCH TD PRN ×2 (16:00)
[2019-06-13] MEDS ORDERED: IBUPROFEN 400 MG TABLET PO PRN ×2 (16:00)
[2019-06-13] MEDS ORDERED: ALBUTEROL SULFATE HFA 90 MCG/PUFF 8 GM INHALER IH PRN ×2 (16:00)
[2019-06-13] MEDS ORDERED: LOPERAMIDE HCL 2 MG CAPSULE PO PRN ×2 (16:00)
[2019-06-13] MEDS ORDERED: PETROLATUM,WHITE 28 GM JELLY TP PRN ×2 (16:00)
[2019-06-13] MEDS ORDERED: MAG HYDROX/AL HYDROX/SIMETH ES 30 ML SUSPENSION UDCUP PO PRN ×2 (16:00)
[2019-06-13] MEDS ORDERED: DOCUSATE SODIUM 100 MG CAPSULE PO PRN ×2 (16:00)
[2019-06-13] MEDS ORDERED: ACETAMINOPHEN 325 MG TABLET PO PRN ×2 (16:00)
[2019-06-13] MEDS ORDERED: MAGNESIUM HYDROXIDE SUSPENSION 30 ML UDCUP PO PRN ×2 (16:00)
[2019-06-13] MEDS ORDERED: ONDANSETRON HCL 4 MG TABLET PO PRN ×2 (16:00)
[2019-06-13] MEDS ORDERED: CloNIDine HCL 0.1 MG TABLET PO PRN ×2 (16:00)
[2019-06-13] MEDS ORDERED: GuaiFENesin/D-METHORPHAN [SUGAR-FREE] 200-20MG/10 ML SYRUP UDCUP PO PRN ×2 (16:00)
[2019-06-13 16:30] VITALS: BP 109/73
[2019-06-13] MEDS: LORazepam 1 MG TABLET PO PRN (18:18)
[2019-06-13] MEDS: INSULIN LISPRO 100 UNITS/ML SQ PRN (20:51)
[2019-06-13] MEDS: ZOLPIDEM TARTRATE 10 MG TABLET PO PRN (20:56)
[2019-06-13] MEDS: QUEtiapine FUMARATE 200 MG TABLET PO SCH (20:56)
[2019-06-13 20:57] LABS: GLUCOMETER DEV NAME(LOC) 3EX.; GLUCOSE,POINT OF CARE 167 MG/DL (70-110)
[2019-06-13] MEDS ORDERED: INSULIN GLARGINE,HUM.REC.ANLOG 100 UNITS/ML SQ SCH (21:00)
[2019-06-14 00:10] VITALS: BP 136/81
[2019-06-14] MEDS: TraMADol HCL 50 MG TABLET PO PRN ×2 (00:14→08:22)
[2019-06-14] MEDS: LORazepam 1 MG TABLET PO PRN ×2 (00:14→08:21)
[2019-06-14 06:02] LABS: GLUCOMETER DEV NAME(LOC) 3E.I 2; GLUCOSE,POINT OF CARE 155 MG/DL (70-110)
[2019-06-14 08:22] VITALS: BP 129/89
[2019-06-14] MEDS: CITALOPRAM HYDROBROMIDE 20 MG TABLET PO SCH (08:22)
[2019-06-14] MEDS ORDERED: LISINOPRIL 10 MG TABLET PO SCH (09:00)
[2019-06-14] MEDS ORDERED: PANTOPRAZOLE SODIUM 40 MG DR TABLET PO SCH (09:00)
[2019-06-14 09:15] VITALS: BP 129/89
[2019-06-14 11:32] LABS: GLUCOMETER DEV NAME(LOC) 3EX.; GLUCOSE,POINT OF CARE 85 MG/DL (70-110)
[2019-07-12] MEDS ORDERED: DOCU-275 PO (14:40)
== END 2019-06-14 12:00 | disposition home or self-care (01) | DRG 885 ==
LOC: 3EX 14:00
PROVIDERS: ADMIT Psychiatry & Neurology Psychiatry; ATTEND Psychiatry & Neurology Psychiatry
DX: F25.9 Schizoaffective disorder, unspecified (principal); I11.0 Hypertensive heart disease with heart failure; E11.9 Type 2 diabetes mellitus without complications; I50.9 Heart failure, unspecified; J43.9 Emphysema, unspecified; K21.9 Gastro-esophageal reflux disease without esophagitis; Z96.653 Presence of artificial knee joint, bilateral
CPT/HCPCS: G0378; J1815

== ENCOUNTER 2019-07-01 15:30 | Emergency (ER) | payer MEDICARE, MEDICAID ==
[~2019-07-01] VITALS: Ht 165.1 cm; Wt 75.0 kg
[~2019-07-01 15:30] MED LIST changes: -OXYC10TA59 PO; -TRAM50TA4 PO
[2019-07-01] MEDS ORDERED: KETOROLAC TROMETHAMINE 60 MG/2 ML VIAL IM ONE (16:15)
[2019-07-01] MEDS ORDERED: METOCLOPRAMIDE HCL 10 MG TABLET PO ONE (16:15)
[2019-07-01 17:07] VITALS: BP 164/87
[2019-07-12] MEDS ORDERED: DOCU-275 PO (14:40)
== END 2019-07-01 17:17 | disposition home or self-care (01) ==
LOC: EMS 15:33
DX: G43.909 Migraine, unspecified, not intractable, without status migrainosus (principal); E11.9 Type 2 diabetes mellitus without complications; I10 Essential (primary) hypertension; F41.9 Anxiety disorder, unspecified; F31.9 Bipolar disorder, unspecified; F20.9 Schizophrenia, unspecified; F11.10 Opioid abuse, uncomplicated; F17.210 Nicotine dependence, cigarettes, uncomplicated; Z79.899 Other long term (current) drug therapy; Z98.890 Other specified postprocedural states; Z90.710 Acquired absence of both cervix and uterus; Z86.19 Personal history of other infectious and parasitic diseases
CPT/HCPCS: 96372; 99283; J1885

== ENCOUNTER 2019-08-06 11:02 | Inpatient (IN) | payer MEDICARE, MEDICAID ==
[~2019-08-06] VITALS: Ht 165.1 cm; Wt 75.9 kg
[~2019-08-06 11:02] MED LIST changes: +DOCU-275 PO
[2019-08-06 11:49] LABS: BASOPHILS % (AUTO) 0.4 % (0.0-2.0); EOSINOPHILS % (AUTO) 0.2 % (1.0-6.0); HEMATOCRIT 34.5 % (36-46); HEMOGLOBIN 11.1 g/dL (12.0-16.0); LYMPHOCYTES # (AUTO) 0.9 K/uL (1.0-4.8); LYMPHOCYTES % (AUTO) 16.8 % (22.0-44.0); MEAN CORPUSCULAR HEMOGLOBIN 27.7 pg (26.0-34.0); MEAN CORPUSCULAR HGB CONC 32.2 G/dL (31.0-37.0); MEAN CORPUSCULAR VOLUME 86 fL (80-100); MONOCYTES # (AUTO) 0.5 K/uL (0.1-1.0); MONOCYTES % (AUTO) 9.5 % (2.0-9.0); NEUTROPHILS # (AUTO) 3.9 K/uL (1.8-7.7); NEUTROPHILS % (AUTO) 73.1 % (40.0-70.0); PLATELET COUNT (AUTO) 194 K/uL (150-450); RED CELL DISTRIBUTION WIDTH 15.3 % (11.5-14.5)
[2019-08-06 12:05] LABS: ANION GAP 13 mmol/L (8-16); CALCIUM, TOTAL 8.5 mg/dL (8.8-10.5); CARBON DIOXIDE 20 mmol/L (22-29); CHLORIDE 104 mmol/L (98-107); CREATININE 0.77 mg/dL (0.60-1.30); GLOMERULAR FILTR. RATE CALC > 60 mL/min (>60); GLUCOSE,RANDOM 278 mg/dL (70-110); POTASSIUM 3.5 mmol/L (3.5-5.1); SODIUM SERUM 137 mmol/L (136-145); UREA NITROGEN, BLOOD 11 mg/dL (7-18)
[2019-08-06 12:11] LABS: ALANINE AMINOTRANSFERASE 30 U/L (12-78); ALBUMIN 3.4 g/dL (3.4-5.0); ALKALINE PHOSPHATASE 107 U/L (46-116); ASPARTATE AMINOTRANSFERASE 38 U/L (15-37); BILIRUBIN,TOTAL 0.8 mg/dL (0.1-1.0); TOTAL PROTEIN, SERUM 7.2 g/dL (6.4-8.2)
[2019-08-06] MEDS: LORazepam 2 MG TABLET PO PRN (14:46)
[2019-08-06 15:08] LABS: GLUCOSE,POINT OF CARE 168 MG/DL (70-110)
[2019-08-06 15:22] LABS: AMPHET/METH SCREEN,URINE NEGATIVE (NEGATIVE); BARBITURATE SCREEN, URINE NEGATIVE (NEGATIVE); BENZODIAZEPINES SCREEN,URINE NEGATIVE (NEGATIVE); CANNABINOID SCREEN,URINE NEGATIVE (NEGATIVE); COCAINE SCREEN,URINE NEGATIVE (NEGATIVE); METHADONE SCREEN, URINE NEGATIVE (NEGATIVE); OPIATE SCREEN,URINE POSITIVE (NEGATIVE)
[2019-08-06 15:23] LABS: PHENCYCLIDINE SCREEN,URINE NEGATIVE (NEGATIVE)
[2019-08-06 18:27] VITALS: BP 117/84
[2019-08-06] MEDS: TraMADol HCL 50 MG TABLET PO PRN (19:01)
[2019-08-06] MEDS: QUEtiapine FUMARATE 200 MG ER TABLET PO SCH (20:25)
[2019-08-06] MEDS: ZOLPIDEM TARTRATE 10 MG TABLET PO PRN (20:27)
[2019-08-07] VITALS (8 sets, daily range): BP systolic 130–154; BP diastolic 77–102
[2019-08-07] MEDS: HALOPERIDOL 5 MG TABLET PO PRN (03:18)
[2019-08-07] MEDS: LORazepam 2 MG TABLET PO PRN (03:18)
[2019-08-07 05:42] LABS: GLUCOMETER DEV NAME(LOC) 3E.I 2; GLUCOSE,POINT OF CARE 211 MG/DL (70-110)
[2019-08-07] MEDS ORDERED: BENZOCAINE/MENTHOL LOZENGE MM PRN (10:30)
[2019-08-07] MEDS ORDERED: PETROLATUM,WHITE 28 GM JELLY TP PRN (10:30)
[2019-08-07] MEDS: CITALOPRAM HYDROBROMIDE 20 MG TABLET PO SCH (10:30)
[2019-08-07] MEDS ORDERED: DOCUSATE SODIUM 100 MG CAPSULE PO PRN (10:30)
[2019-08-07] MEDS ORDERED: ACETAMINOPHEN 325 MG TABLET PO PRN (10:30)
[2019-08-07] MEDS ORDERED: LOPERAMIDE HCL 2 MG CAPSULE PO PRN (10:30)
[2019-08-07] MEDS ORDERED: ALBUTEROL SULFATE HFA 90 MCG/PUFF 8 GM INHALER IH PRN (10:30)
[2019-08-07] MEDS ORDERED: ONDANSETRON HCL 4 MG TABLET PO PRN (10:30)
[2019-08-07] MEDS ORDERED: CloNIDine HCL 0.1 MG TABLET PO PRN (10:30)
[2019-08-07] MEDS ORDERED: BACITRACIN 28.4 GM OINTMENT TP PRN (10:30)
[2019-08-07] MEDS ORDERED: OMEPRAZOLE 20 MG CAPSULE PO PRN (10:30)
[2019-08-07] MEDS ORDERED: DEXTROSE 50%-WATER 25 GM/50 ML SYRINGE IVP PRN (10:30)
[2019-08-07] MEDS ORDERED: MAGNESIUM HYDROXIDE SUSPENSION 30 ML UDCUP PO PRN (10:30)
[2019-08-07] MEDS ORDERED: MAG HYDROX/AL HYDROX/SIMETH ES 30 ML SUSPENSION UDCUP PO PRN (10:30)
[2019-08-07] MEDS ORDERED: IBUPROFEN 600 MG TABLET PO PRN (10:30)
[2019-08-07] MEDS: LISINOPRIL 10 MG TABLET PO SCH (10:32)
[2019-08-07 11:41] LABS: GLUCOMETER DEV NAME(LOC) 3E.I 2; GLUCOSE,POINT OF CARE 169 MG/DL (70-110)
[2019-08-07] MEDS: INSULIN LISPRO 100 UNITS/ML SQ PRN ×3 (11:49→20:54)
[2019-08-07] MEDS: TraMADol HCL 50 MG TABLET PO PRN (14:17)
[2019-08-07 16:26] LABS: GLUCOMETER DEV NAME(LOC) 3E.I 2; GLUCOSE,POINT OF CARE 157 MG/DL (70-110)
[2019-08-07] MEDS: QUEtiapine FUMARATE 200 MG ER TABLET PO SCH (20:06)
[2019-08-07 20:17] LABS: GLUCOMETER DEV NAME(LOC) 3E.I 2; GLUCOSE,POINT OF CARE 155 MG/DL (70-110)
[2019-08-07] MEDS: INSULIN GLARGINE,HUM.REC.ANLOG 100 UNITS/ML SQ SCH (20:50)
[2019-08-07] MEDS: ZOLPIDEM TARTRATE 10 MG TABLET PO PRN (21:08)
[2019-08-08 06:28] LABS: GLUCOMETER DEV NAME(LOC) 3E.I 2; GLUCOSE,POINT OF CARE 120 MG/DL (70-110)
[2019-08-08] MEDS: INSULIN LISPRO 100 UNITS/ML SQ PRN ×3 (06:59→17:31)
[2019-08-08 08:00] VITALS: BP 161/83
[2019-08-08] MEDS: CITALOPRAM HYDROBROMIDE 20 MG TABLET PO SCH (08:16)
[2019-08-08] MEDS: LISINOPRIL 10 MG TABLET PO SCH (08:16)
[2019-08-08] MEDS: LORazepam 2 MG TABLET PO PRN ×3 (08:17→18:21)
[2019-08-08] MEDS: HALOPERIDOL 5 MG TABLET PO PRN ×2 (08:17→13:27)
[2019-08-08] MEDS: TraMADol HCL 50 MG TABLET PO PRN ×2 (08:18→18:21)
[2019-08-08 09:18] VITALS: BP 142/82
[2019-08-08 11:06] LABS: GLUCOMETER DEV NAME(LOC) 3E.I 2; GLUCOSE,POINT OF CARE 163 MG/DL (70-110)
[2019-08-08 17:35] LABS: GLUCOMETER DEV NAME(LOC) 3E.I 2; GLUCOSE,POINT OF CARE 215 MG/DL (70-110)
[2019-08-08 18:10] VITALS: BP 140/87
[2019-08-08] MEDS: QUEtiapine FUMARATE 200 MG ER TABLET PO SCH (21:11)
[2019-08-08] MEDS: INSULIN GLARGINE,HUM.REC.ANLOG 100 UNITS/ML SQ SCH (21:19)
[2019-08-08 21:51] LABS: GLUCOMETER DEV NAME(LOC) 3E.I 2; GLUCOSE,POINT OF CARE 138 MG/DL (70-110)
[2019-08-09 05:08] LABS: GLUCOMETER DEV NAME(LOC) 3E.I 2; GLUCOSE,POINT OF CARE 112 MG/DL (70-110)
[2019-08-09 05:15] VITALS: BP 106/79
[2019-08-09 08:54] VITALS: BP 128/67
[2019-08-09 09:05] VITALS: BP 128/67
[2019-08-09] MEDS: LISINOPRIL 10 MG TABLET PO SCH (09:06)
[2019-08-09] MEDS: TraMADol HCL 50 MG TABLET PO PRN ×2 (09:06→15:54)
[2019-08-09] MEDS: CITALOPRAM HYDROBROMIDE 20 MG TABLET PO SCH (09:06)
[2019-08-09 10:06] VITALS: BP 155/84
[2019-08-09] MEDS: LORazepam 2 MG TABLET PO PRN ×3 (10:11→20:39)
[2019-08-09] MEDS: HALOPERIDOL 5 MG TABLET PO PRN ×2 (10:11→14:18)
[2019-08-09 11:22] LABS: GLUCOMETER DEV NAME(LOC) 3E.I 2; GLUCOSE,POINT OF CARE 101 MG/DL (70-110)
[2019-08-09] MEDS: INSULIN LISPRO 100 UNITS/ML SQ PRN ×3 (11:23→20:37)
[2019-08-09 15:54] VITALS: BP 150/70
[2019-08-09 16:33] VITALS: BP 156/79
[2019-08-09] MEDS: QUEtiapine FUMARATE 200 MG ER TABLET PO SCH (20:32)
[2019-08-09] MEDS: INSULIN GLARGINE,HUM.REC.ANLOG 100 UNITS/ML SQ SCH (20:35)
[2019-08-10] MEDS: LORazepam 2 MG TABLET PO PRN ×3 (04:58→20:57)
[2019-08-10] MEDS: TraMADol HCL 50 MG TABLET PO PRN ×3 (05:36→19:20)
[2019-08-10 05:50] LABS: GLUCOMETER DEV NAME(LOC) 3E.I 2; GLUCOSE,POINT OF CARE 119 MG/DL (70-110)
[2019-08-10 07:08] LABS: GLUCOMETER DEV NAME(LOC) 3E.I 2; GLUCOSE,POINT OF CARE 110 MG/DL (70-110)
[2019-08-10] MEDS: CITALOPRAM HYDROBROMIDE 20 MG TABLET PO SCH (09:12)
[2019-08-10] MEDS: LISINOPRIL 10 MG TABLET PO SCH (09:12)
[2019-08-10 09:43] VITALS: BP 116/63
[2019-08-10 11:21] LABS: GLUCOMETER DEV NAME(LOC) 3E.I 2; GLUCOSE,POINT OF CARE 141 MG/DL (70-110)
[2019-08-10] MEDS: INSULIN LISPRO 100 UNITS/ML SQ PRN ×3 (11:51→21:00)
[2019-08-10 12:24] VITALS: BP 145/68
[2019-08-10 16:16] LABS: GLUCOMETER DEV NAME(LOC) 3E.I 2; GLUCOSE,POINT OF CARE 153 MG/DL (70-110)
[2019-08-10 19:17] VITALS: BP 134/85
[2019-08-10] MEDS: QUEtiapine FUMARATE 200 MG ER TABLET PO SCH (20:57)
[2019-08-10] MEDS: INSULIN GLARGINE,HUM.REC.ANLOG 100 UNITS/ML SQ SCH (20:59)
[2019-08-10 21:10] LABS: GLUCOMETER DEV NAME(LOC) 3E.I 2; GLUCOSE,POINT OF CARE 141 MG/DL (70-110)
[2019-08-11 02:26] VITALS: BP 125/76
[2019-08-11 05:36] LABS: GLUCOMETER DEV NAME(LOC) 3E.I 2; GLUCOSE,POINT OF CARE 151 MG/DL (70-110)
[2019-08-11] MEDS: INSULIN LISPRO 100 UNITS/ML SQ PRN (06:46)
[2019-08-11 09:30] VITALS: BP 102/70
[2019-08-11 09:34] VITALS: BP 132/72
[2019-08-11] MEDS: LISINOPRIL 10 MG TABLET PO SCH (09:34)
[2019-08-11] MEDS: CITALOPRAM HYDROBROMIDE 20 MG TABLET PO SCH (09:34)
[2019-08-11] MEDS: LORazepam 2 MG TABLET PO PRN (09:34)
[2019-08-11] MEDS: TraMADol HCL 50 MG TABLET PO PRN (09:34)
[2019-08-11 11:20] LABS: GLUCOMETER DEV NAME(LOC) 3E.I 2; GLUCOSE,POINT OF CARE 124 MG/DL (70-110)
== END 2019-08-11 16:15 | disposition home or self-care (01) | DRG 885 ==
LOC: EMS 11:08 → 3EI 16:38
PROVIDERS: ADMIT Psychiatry & Neurology Psychiatry; ATTEND Psychiatry & Neurology Psychiatry
DX: F25.9 Schizoaffective disorder, unspecified (principal); R45.851 Suicidal ideations; F32.9 Major depressive disorder, single episode, unspecified; Z96.659 Presence of unspecified artificial knee joint; E11.9 Type 2 diabetes mellitus without complications; I10 Essential (primary) hypertension; Z72.0 Tobacco use; Z87.442 Personal history of urinary calculi; Z90.710 Acquired absence of both cervix and uterus
CPT/HCPCS: 87081; G0480; J1815

== ENCOUNTER 2019-09-25 06:22 | Emergency (ER) | payer MEDICARE, MEDICAID ==
[~2019-09-25] VITALS: Ht 160 cm; Wt 72.7 kg
[~2019-09-25 06:22] MED LIST changes: -CITA-106 PO; +CITA-144 PO; -DOCU-275 PO; -PANT40TA25 PO
[2019-09-25] MEDS ORDERED: KETOROLAC TROMETHAMINE 30 MG/ML VIAL IVP ONE (07:00)
[2019-09-25] MEDS ORDERED: ONDANSETRON HCL 4 MG/2 ML VIAL IVP ONE (07:00)
[2019-09-25] MEDS ORDERED: SODIUM CHLORIDE 0.9% 1,000 ML IV ONE (07:00)
[2019-09-25 08:20] LABS: BASOPHILS % (AUTO) 0.5 % (0.0-2.0); EOSINOPHILS % (AUTO) 0 % (1.0-6.0); HEMATOCRIT 35.7 % (36-46); HEMOGLOBIN 11.5 g/dL (12.0-16.0); LYMPHOCYTES % (AUTO) 13.6 % (22.0-44.0); MEAN CORPUSCULAR HEMOGLOBIN 26.7 pg (26.0-34.0); MEAN CORPUSCULAR HGB CONC 32.3 G/dL (31.0-37.0); MEAN CORPUSCULAR VOLUME 83 fL (80-100); MONOCYTES % (AUTO) 6.9 % (2.0-9.0); NEUTROPHILS # (AUTO) 11.4 K/uL (1.8-7.7); PLATELET COUNT (AUTO) 288 K/uL (150-450); RED BLOOD CELL COUNT(AUTO) 4.31 MIL/uL (4.00-5.20); RED CELL DISTRIBUTION WIDTH 15.8 % (11.5-14.5)
[2019-09-25 08:30] LABS: ANION GAP 19 mmol/L (8-16); CALCIUM, TOTAL 9.3 mg/dL (8.8-10.5); CARBON DIOXIDE 21 mmol/L (22-29); CHLORIDE 108 mmol/L (98-107); CREATININE 0.82 mg/dL (0.60-1.30); GLOMERULAR FILTR. RATE CALC > 60 mL/min (>60); GLUCOSE,RANDOM 161 mg/dL (70-110); POTASSIUM 3.1 mmol/L (3.5-5.1); SODIUM SERUM 148 mmol/L (136-145); UREA NITROGEN, BLOOD 18 mg/dL (7-18)
[2019-09-25 08:43] LABS: LACTIC ACID 2.6 mmol/L (0.4-2.0)
[2019-09-25 08:45] LABS: ALANINE AMINOTRANSFERASE 76 U/L (12-78); ALKALINE PHOSPHATASE 117 U/L (46-116); ASPARTATE AMINOTRANSFERASE 258 U/L (15-37); BILIRUBIN,TOTAL 1.8 mg/dL (0.1-1.0); LIPASE 60 U/L (73-393); TOTAL PROTEIN, SERUM 8.1 g/dL (6.4-8.2)
[2019-09-25] MEDS ORDERED: POTASSIUM CHLORIDE 20 MEQ ER TABLET PO ONE (08:45)
[2019-09-25 09:54] LABS: GLUCOSE, URINE (UA) NEGATIVE (NEGATIVE); KETONES,URINE 40 mg/dL (NEGATIVE); LEUKOCYTE ESTERASE ,URINE MODERATE (NEGATIVE); NITRATE,URINE NEGATIVE (NEGATIVE); PH,URINE 5.5 (5.0-8.0); PROTEIN,URINE POS 1+ (NEGATIVE)
[2019-09-25 09:56] LABS: BILIRUBIN,URINE PRELIM. POSITIVE (NEGATIVE)
[2019-09-25] MEDS ORDERED: IOVERSOL 350 MG/ML 100 ML VIAL ONE (10:01)
[2019-09-25] MEDS ORDERED: SODIUM CHLORIDE 0.9% 100 ML ONE (10:01)
[2019-09-25 10:06] LABS: APPEARANCE,URINE HAZY (CLEAR); OCCULT BLOOD,URINE SMALL (NEGATIVE)
[2019-09-25 10:07] LABS: BACTERIA,URINE Few /HPF (None Seen)
[2019-09-25 10:09] LABS: AMPHET/METH SCREEN,URINE NEGATIVE (NEGATIVE); BARBITURATE SCREEN, URINE NEGATIVE (NEGATIVE); BENZODIAZEPINES SCREEN,URINE NEGATIVE (NEGATIVE); CANNABINOID SCREEN,URINE NEGATIVE (NEGATIVE); COCAINE SCREEN,URINE NEGATIVE (NEGATIVE); METHADONE SCREEN, URINE NEGATIVE (NEGATIVE); OPIATE SCREEN,URINE POSITIVE (NEGATIVE); PHENCYCLIDINE SCREEN,URINE NEGATIVE (NEGATIVE)
[2019-09-25 11:39] VITALS: BP 165/87
== END 2019-09-25 12:55 | disposition home or self-care (01) ==
LOC: EMS 06:22
DX: D72.829 Elevated white blood cell count, unspecified (principal); E87.6 Hypokalemia; F17.210 Nicotine dependence, cigarettes, uncomplicated; F41.9 Anxiety disorder, unspecified; E11.9 Type 2 diabetes mellitus without complications; R11.2 Nausea with vomiting, unspecified; Z79.84 Long term (current) use of oral hypoglycemic drugs
CPT/HCPCS: 36415; 74176; 80053; 80307; 81001; 83605; 83690; 85025; 87086; 96361; 96374; 96375; 99284; G0480; J1885; J2405; J7050; Q9967

== ENCOUNTER 2019-10-31 13:37 | Inpatient (IN) | payer MEDICARE, MEDICAID ==
[~2019-10-31] VITALS: Ht 165.1 cm; Wt 72.0 kg
[2019-10-31 16:38] LABS: BASOPHILS % (AUTO) 0.5 % (0.0-2.0); EOSINOPHILS % (AUTO) 0.3 % (1.0-6.0); HEMATOCRIT 34.5 % (36-46); HEMOGLOBIN 11.1 g/dL (12.0-16.0); LYMPHOCYTES % (AUTO) 26.2 % (22.0-44.0); MEAN CORPUSCULAR HEMOGLOBIN 26.9 pg (26.0-34.0); MEAN CORPUSCULAR HGB CONC 32.3 G/dL (31.0-37.0); MEAN CORPUSCULAR VOLUME 83 fL (80-100); MONOCYTES # (AUTO) 0.4 K/uL (0.1-1.0); MONOCYTES % (AUTO) 5.3 % (2.0-9.0); NEUTROPHILS # (AUTO) 5.2 K/uL (1.8-7.7); NEUTROPHILS % (AUTO) 67.7 % (40.0-70.0); PLATELET COUNT (AUTO) 287 K/uL (150-450); RED BLOOD CELL COUNT(AUTO) 4.14 MIL/uL (4.00-5.20); RED CELL DISTRIBUTION WIDTH 16.7 % (11.5-14.5)
[2019-10-31 16:50] LABS: GLUCOSE,POINT OF CARE 115 MG/DL (70-110)
[2019-10-31 16:54] LABS: ANION GAP 10 mmol/L (8-16); CALCIUM, TOTAL 9.4 mg/dL (8.8-10.5); CARBON DIOXIDE 27 mmol/L (22-29); CHLORIDE 106 mmol/L (98-107); CREATININE 0.47 mg/dL (0.60-1.30); GLOMERULAR FILTR. RATE CALC > 60 mL/min (>60); GLUCOSE,RANDOM 75 mg/dL (70-110); POTASSIUM 3.4 mmol/L (3.5-5.1); SODIUM SERUM 143 mmol/L (136-145); UREA NITROGEN, BLOOD 8 mg/dL (7-18)
[2019-10-31 16:57] LABS: ALANINE AMINOTRANSFERASE 31 U/L (12-78); ALBUMIN 3.7 g/dL (3.4-5.0); ALKALINE PHOSPHATASE 151 U/L (46-116); ASPARTATE AMINOTRANSFERASE 42 U/L (15-37); BILIRUBIN,TOTAL 0.7 mg/dL (0.1-1.0); TOTAL PROTEIN, SERUM 8.2 g/dL (6.4-8.2)
[2019-10-31] MEDS ORDERED: LORazepam 1 MG TABLET PO ONE (17:15)
[2019-10-31 17:27] LABS: APPEARANCE,URINE CLEAR (CLEAR); BILIRUBIN,URINE NEGATIVE (NEGATIVE); GLUCOSE, URINE (UA) NEGATIVE (NEGATIVE); KETONES,URINE NEGATIVE (NEGATIVE); LEUKOCYTE ESTERASE ,URINE SMALL (NEGATIVE); NITRATE,URINE NEGATIVE (NEGATIVE); OCCULT BLOOD,URINE NEGATIVE (NEGATIVE); PH,URINE 6.5 (5.0-8.0); PROTEIN,URINE NEGATIVE (NEGATIVE)
[2019-10-31 17:33] LABS: AMPHET/METH SCREEN,URINE NEGATIVE (NEGATIVE); BARBITURATE SCREEN, URINE NEGATIVE (NEGATIVE); BENZODIAZEPINES SCREEN,URINE NEGATIVE (NEGATIVE); CANNABINOID SCREEN,URINE NEGATIVE (NEGATIVE); COCAINE SCREEN,URINE NEGATIVE (NEGATIVE); METHADONE SCREEN, URINE NEGATIVE (NEGATIVE); OPIATE SCREEN,URINE POSITIVE (NEGATIVE)
[2019-10-31 17:43] LABS: PHENCYCLIDINE SCREEN,URINE NEGATIVE (NEGATIVE)
[2019-10-31 17:49] LABS: BACTERIA,URINE Rare /HPF (None Seen); RBC,URINE None Seen /HPF (0-2); WBC,URINE 0-2 /HPF (0-5)
[2019-10-31 17:51] LABS: SQUAMOUS EPITHELIAL CELL,UR Rare /LPF (None Seen)
[2019-10-31] MEDS ORDERED: LORazepam 2 MG TABLET PO PRN (18:00)
[2019-10-31] MEDS ORDERED: ACETAMINOPHEN 500 MG TABLET PO ONE (18:15)
[2019-10-31] MEDS ORDERED: DEXTROSE 50%-WATER 25 GM/50 ML SYRINGE IVP PRN (20:00)
[2019-10-31] MEDS: HALOPERIDOL 5 MG TABLET PO PRN (20:15)
[2019-10-31] MEDS: TraMADol HCL 50 MG TABLET PO PRN (20:15)
[2019-10-31 20:21] VITALS: BP 146/79
[2019-10-31 20:31] LABS: GLUCOMETER DEV NAME(LOC) 3EX.; GLUCOSE,POINT OF CARE 210 MG/DL (70-110)
[2019-10-31] MEDS: INSULIN LISPRO 100 UNITS/ML SQ PRN (20:57)
[2019-10-31] MEDS: LORazepam 1 MG TABLET PO PRN (21:30)
[2019-11-01 00:20] VITALS: BP 141/95
[2019-11-01] MEDS: ZOLPIDEM TARTRATE 10 MG TABLET PO PRN ×2 (03:08→21:59)
[2019-11-01 04:20] VITALS: BP 114/65
[2019-11-01] MEDS: TraMADol HCL 50 MG TABLET PO PRN ×3 (04:22→17:05)
[2019-11-01] MEDS ORDERED: IBUPROFEN 400 MG TABLET PO PRN (05:15)
[2019-11-01] MEDS ORDERED: ACETAMINOPHEN 325 MG TABLET PO PRN (05:15)
[2019-11-01] MEDS ORDERED: MAG HYDROX/AL HYDROX/SIMETH ES 30 ML SUSPENSION UDCUP PO PRN (05:15)
[2019-11-01] MEDS ORDERED: MAGNESIUM HYDROXIDE SUSPENSION 30 ML UDCUP PO PRN (05:15)
[2019-11-01] MEDS ORDERED: DOCUSATE SODIUM 100 MG CAPSULE PO PRN (05:15)
[2019-11-01] MEDS ORDERED: ALBUTEROL SULFATE HFA 90 MCG/PUFF 8 GM INHALER IH PRN (05:15)
[2019-11-01] MEDS ORDERED: GuaiFENesin/D-METHORPHAN [SUGAR-FREE] 200-20MG/10 ML SYRUP UDCUP PO PRN (05:15)
[2019-11-01] MEDS ORDERED: ONDANSETRON HCL 4 MG TABLET PO PRN (05:15)
[2019-11-01] MEDS ORDERED: LOPERAMIDE HCL 2 MG CAPSULE PO PRN (05:15)
[2019-11-01] MEDS ORDERED: NICOTINE 14 MG/24 HOUR PATCH TD PRN (05:15)
[2019-11-01] MEDS ORDERED: PETROLATUM,WHITE 28 GM JELLY TP PRN (05:15)
[2019-11-01] MEDS ORDERED: CloNIDine HCL 0.1 MG TABLET PO PRN (05:15)
[2019-11-01 05:44] LABS: GLUCOMETER DEV NAME(LOC) 3E.I 2; GLUCOSE,POINT OF CARE 178 MG/DL (70-110)
[2019-11-01] MEDS: INSULIN LISPRO 100 UNITS/ML SQ PRN ×4 (06:56→22:05)
[2019-11-01 08:31] VITALS: BP 143/65
[2019-11-01] MEDS: HALOPERIDOL 5 MG TABLET PO PRN ×2 (08:32→13:54)
[2019-11-01] MEDS: LISINOPRIL 10 MG TABLET PO SCH (08:32)
[2019-11-01] MEDS: LORazepam 1 MG TABLET PO PRN ×2 (08:32→13:54)
[2019-11-01 10:33] VITALS: BP 143/65
[2019-11-01 12:02] LABS: GLUCOMETER DEV NAME(LOC) 3EX.; GLUCOSE,POINT OF CARE 140 MG/DL (70-110)
[2019-11-01 13:51] VITALS: BP 146/77
[2019-11-01 16:16] LABS: GLUCOMETER DEV NAME(LOC) 3EX.; GLUCOSE,POINT OF CARE 200 MG/DL (70-110)
[2019-11-01 20:13] LABS: GLUCOMETER DEV NAME(LOC) 3EX.; GLUCOSE,POINT OF CARE 142 MG/DL (70-110)
[2019-11-01] MEDS: QUEtiapine FUMARATE 200 MG TABLET PO SCH (21:59)
[2019-11-01] MEDS: INSULIN GLARGINE,HUM.REC.ANLOG 100 UNITS/ML SQ SCH (22:05)
[2019-11-02 00:45] VITALS: BP 158/89
[2019-11-02] MEDS: TraMADol HCL 50 MG TABLET PO PRN ×3 (00:48→15:48)
[2019-11-02] MEDS: LORazepam 1 MG TABLET PO PRN ×3 (01:59→15:50)
[2019-11-02 05:44] LABS: GLUCOMETER DEV NAME(LOC) 3E.I 2; GLUCOSE,POINT OF CARE 121 MG/DL (70-110)
[2019-11-02 08:22] VITALS: BP 160/86
[2019-11-02] MEDS: LISINOPRIL 10 MG TABLET PO SCH (09:09)
[2019-11-02] MEDS: CITALOPRAM HYDROBROMIDE 20 MG TABLET PO SCH (09:09)
[2019-11-02 09:10] VITALS: BP 160/86
[2019-11-02] MEDS: HALOPERIDOL 5 MG TABLET PO PRN (09:50)
[2019-11-02 11:53] LABS: GLUCOMETER DEV NAME(LOC) 3EX.; GLUCOSE,POINT OF CARE 134 MG/DL (70-110)
[2019-11-02] MEDS: INSULIN LISPRO 100 UNITS/ML SQ PRN ×2 (13:05→16:52)
[2019-11-02 15:48] VITALS: BP 118/70
[2019-11-02 16:23] LABS: GLUCOMETER DEV NAME(LOC) 3EX.; GLUCOSE,POINT OF CARE 179 MG/DL (70-110)
[2019-11-02] MEDS: QUEtiapine FUMARATE 200 MG TABLET PO SCH (20:06)
[2019-11-02] MEDS: ZOLPIDEM TARTRATE 10 MG TABLET PO PRN (20:50)
[2019-11-02 21:00] LABS: GLUCOMETER DEV NAME(LOC) 3EX.; GLUCOSE,POINT OF CARE 124 MG/DL (70-110)
[2019-11-02] MEDS: INSULIN GLARGINE,HUM.REC.ANLOG 100 UNITS/ML SQ SCH (21:19)
[2019-11-03 06:31] LABS: GLUCOMETER DEV NAME(LOC) 3E.I 2; GLUCOSE,POINT OF CARE 125 MG/DL (70-110)
[2019-11-03] MEDS: HALOPERIDOL 5 MG TABLET PO PRN (06:39)
[2019-11-03] MEDS: LORazepam 1 MG TABLET PO PRN (06:40)
[2019-11-03 08:00] VITALS: BP 142/89
[2019-11-03] MEDS: CITALOPRAM HYDROBROMIDE 20 MG TABLET PO SCH (08:02)
[2019-11-03] MEDS: LISINOPRIL 10 MG TABLET PO SCH (08:02)
[2019-11-03] MEDS: TraMADol HCL 50 MG TABLET PO PRN ×2 (08:04→16:41)
[2019-11-03 11:28] LABS: ANION GAP 11 mmol/L (8-16); CALCIUM, TOTAL 9.2 mg/dL (8.8-10.5); CARBON DIOXIDE 24 mmol/L (22-29); CHLORIDE 108 mmol/L (98-107); CREATININE 0.53 mg/dL (0.60-1.30); GLOMERULAR FILTR. RATE CALC > 60 mL/min (>60); GLUCOSE,RANDOM 104 mg/dL (70-110); POTASSIUM 4.2 mmol/L (3.5-5.1); SODIUM SERUM 143 mmol/L (136-145); UREA NITROGEN, BLOOD 11 mg/dL (7-18)
[2019-11-03 11:35] LABS: GLUCOMETER DEV NAME(LOC) 3EX.; GLUCOSE,POINT OF CARE 97 MG/DL (70-110)
[2019-11-03 16:00] VITALS: BP 141/76
[2019-11-03 16:56] LABS: GLUCOMETER DEV NAME(LOC) 3EX.; GLUCOSE,POINT OF CARE 168 MG/DL (70-110)
[2019-11-03] MEDS: INSULIN LISPRO 100 UNITS/ML SQ PRN (17:06)
[2019-11-03] MEDS: QUEtiapine FUMARATE 200 MG TABLET PO SCH (20:47)
[2019-11-03] MEDS: ZOLPIDEM TARTRATE 10 MG TABLET PO PRN (20:47)
[2019-11-03 21:02] LABS: GLUCOMETER DEV NAME(LOC) 3EX.; GLUCOSE,POINT OF CARE 120 MG/DL (70-110)
[2019-11-03] MEDS: INSULIN GLARGINE,HUM.REC.ANLOG 100 UNITS/ML SQ SCH (21:08)
[2019-11-04 03:47] VITALS: BP 142/79
[2019-11-04] MEDS: TraMADol HCL 50 MG TABLET PO PRN ×2 (03:50→09:09)
[2019-11-04] MEDS: LORazepam 1 MG TABLET PO PRN ×2 (03:50→10:24)
[2019-11-04 05:41] LABS: GLUCOMETER DEV NAME(LOC) 3E.I 2; GLUCOSE,POINT OF CARE 103 MG/DL (70-110)
[2019-11-04 08:00] VITALS: BP 140/89
[2019-11-04] MEDS: CITALOPRAM HYDROBROMIDE 20 MG TABLET PO SCH (09:09)
[2019-11-04] MEDS: LISINOPRIL 10 MG TABLET PO SCH (09:09)
[2019-11-04 11:32] LABS: GLUCOMETER DEV NAME(LOC) 3EX.; GLUCOSE,POINT OF CARE 103 MG/DL (70-110)
[2019-11-04] MEDS ORDERED: OLANZapine 5 MG TABLET PO SCH (17:00)
== END 2019-11-04 15:26 | disposition home or self-care (01) | DRG 885 ==
LOC: EMS 13:42 → 3EX 17:53
PROVIDERS: ADMIT Psychiatry & Neurology Psychiatry; ATTEND Psychiatry & Neurology Psychiatry
DX: F25.1 Schizoaffective disorder, depressive type (principal); B18.2 Chronic viral hepatitis C; R45.851 Suicidal ideations; E11.9 Type 2 diabetes mellitus without complications; E78.5 Hyperlipidemia, unspecified; E87.6 Hypokalemia; F10.10 Alcohol abuse, uncomplicated; F17.200 Nicotine dependence, unspecified, uncomplicated; F41.9 Anxiety disorder, unspecified; G89.29 Other chronic pain; I10 Essential (primary) hypertension; I25.10 Atherosclerotic heart disease of native coronary artery without angina pectoris; J44.9 Chronic obstructive pulmonary disease, unspecified; E03.9 Hypothyroidism, unspecified; Z96.653 Presence of artificial knee joint, bilateral; D64.9 Anemia, unspecified; Z90.49 Acquired absence of other specified parts of digestive tract; Z87.442 Personal history of urinary calculi; Z90.710 Acquired absence of both cervix and uterus; Z91.19 Patient's noncompliance with other medical treatment and regimen
CPT/HCPCS: G0378; G0480; J1815

== ENCOUNTER 2019-11-22 11:13 | Emergency (ER) | payer MEDICARE, MEDICAID ==
[~2019-11-22] VITALS: Ht 162.6 cm; Wt 75.0 kg
[2019-11-22] MEDS ORDERED: KETOROLAC TROMETHAMINE 10 MG TABLET PO ONE (12:00)
[2019-11-22 12:55] VITALS: BP 127/63
== END 2019-11-22 14:28 | disposition home or self-care (01) ==
LOC: EMS 11:15
DX: M13.852 Other specified arthritis, left hip (principal); F41.9 Anxiety disorder, unspecified; F31.9 Bipolar disorder, unspecified; E11.9 Type 2 diabetes mellitus without complications; I10 Essential (primary) hypertension; G43.909 Migraine, unspecified, not intractable, without status migrainosus; F17.210 Nicotine dependence, cigarettes, uncomplicated; F20.9 Schizophrenia, unspecified; Z90.710 Acquired absence of both cervix and uterus; Z79.4 Long term (current) use of insulin; Z79.899 Other long term (current) drug therapy
CPT/HCPCS: 73503

== ENCOUNTER 2019-11-24 14:22 | Emergency (ER) | payer MEDICARE, MEDICAID ==
[~2019-11-24] VITALS: Ht 165.1 cm; Wt 75.0 kg
[2019-11-24] MEDS ORDERED: OxyCODONE HCL/ACETAMINOPHEN 5-325 MG TABLET PO ONE (15:00)
[2019-11-24] MEDS ORDERED: KETOROLAC TROMETHAMINE 30 MG/ML VIAL IM ONE (15:00)
[2019-11-24 15:42] VITALS: BP 149/77
== END 2019-11-24 16:11 | disposition home or self-care (01) ==
LOC: EMS 14:23
DX: M25.552 Pain in left hip (principal); G89.29 Other chronic pain; F41.9 Anxiety disorder, unspecified; F31.9 Bipolar disorder, unspecified; I10 Essential (primary) hypertension; G43.909 Migraine, unspecified, not intractable, without status migrainosus; F20.9 Schizophrenia, unspecified; F17.210 Nicotine dependence, cigarettes, uncomplicated; Z90.710 Acquired absence of both cervix and uterus; Z79.4 Long term (current) use of insulin; Z79.899 Other long term (current) drug therapy
CPT/HCPCS: 82962; 96372; 99283; J1885

== ENCOUNTER 2019-11-25 10:46 | Emergency (ER) | payer MEDICAID, MEDICARE ==
[~2019-11-25] VITALS: Ht 165.1 cm; Wt 75.0 kg
[2019-11-25 11:11] LABS: GLUCOSE,POINT OF CARE 201 MG/DL (70-110)
[2019-11-25] MEDS ORDERED: OxyCODONE HCL 5 MG IR TABLET PO ONE (11:15)
[2019-11-25 11:23] LABS: BASOPHILS % (AUTO) 0.6 % (0.0-2.0); EOSINOPHILS % (AUTO) 0.4 % (1.0-6.0); HEMATOCRIT 34.7 % (36-46); HEMOGLOBIN 11.3 g/dL (12.0-16.0); LYMPHOCYTES # (AUTO) 1.1 K/uL (1.0-4.8); LYMPHOCYTES % (AUTO) 18.2 % (22.0-44.0); MEAN CORPUSCULAR HEMOGLOBIN 26.8 pg (26.0-34.0); MEAN CORPUSCULAR HGB CONC 32.5 G/dL (31.0-37.0); MEAN CORPUSCULAR VOLUME 82 fL (80-100); MONOCYTES # (AUTO) 0.3 K/uL (0.1-1.0); MONOCYTES % (AUTO) 5.2 % (2.0-9.0); NEUTROPHILS # (AUTO) 4.6 K/uL (1.8-7.7); NEUTROPHILS % (AUTO) 75.6 % (40.0-70.0); PLATELET COUNT (AUTO) 214 K/uL (150-450); RED BLOOD CELL COUNT(AUTO) 4.22 MIL/uL (4.00-5.20); RED CELL DISTRIBUTION WIDTH 16.5 % (11.5-14.5)
[2019-11-25 11:56] VITALS: BP 155/70
== END 2019-11-25 11:57 | disposition home or self-care (01) ==
LOC: EMS 10:51
DX: M25.552 Pain in left hip (principal); G89.29 Other chronic pain; F41.9 Anxiety disorder, unspecified; F31.9 Bipolar disorder, unspecified; E11.9 Type 2 diabetes mellitus without complications; I10 Essential (primary) hypertension; G43.909 Migraine, unspecified, not intractable, without status migrainosus; F20.9 Schizophrenia, unspecified; F17.210 Nicotine dependence, cigarettes, uncomplicated; Z90.710 Acquired absence of both cervix and uterus; Z79.4 Long term (current) use of insulin; Z79.899 Other long term (current) drug therapy

== ENCOUNTER 2020-01-01 16:12 | Inpatient (IN) | payer MEDICARE, MEDICAID ==
[~2020-01-01] VITALS: Ht 162.6 cm; Wt 68.4 kg
[~2020-01-01 16:12] MED LIST changes: +AMOX1TAB15 PO
[2020-01-01 17:32] LABS: BASOPHILS % (AUTO) 0.6 % (0.0-2.0); EOSINOPHILS % (AUTO) 0.2 % (1.0-6.0); HEMATOCRIT 37.7 % (36-46); HEMOGLOBIN 12.4 g/dL (12.0-16.0); LYMPHOCYTES % (AUTO) 25.9 % (22.0-44.0); MEAN CORPUSCULAR HEMOGLOBIN 27.3 pg (26.0-34.0); MEAN CORPUSCULAR HGB CONC 32.7 G/dL (31.0-37.0); MEAN CORPUSCULAR VOLUME 83 fL (80-100); MONOCYTES # (AUTO) 0.5 K/uL (0.1-1.0); MONOCYTES % (AUTO) 6.9 % (2.0-9.0); NEUTROPHILS # (AUTO) 5.2 K/uL (1.8-7.7); NEUTROPHILS % (AUTO) 66.4 % (40.0-70.0); PLATELET COUNT (AUTO) 233 K/uL (150-450); RED BLOOD CELL COUNT(AUTO) 4.52 MIL/uL (4.00-5.20); RED CELL DISTRIBUTION WIDTH 17.4 % (11.5-14.5)
[2020-01-01 17:43] LABS: ANION GAP 12 mmol/L (8-16); CALCIUM, TOTAL 9.5 mg/dL (8.8-10.5); CARBON DIOXIDE 23 mmol/L (22-29); CHLORIDE 102 mmol/L (98-107); CREATININE 0.82 mg/dL (0.60-1.30); GLOMERULAR FILTR. RATE CALC > 60 mL/min (>60); GLUCOSE,RANDOM 174 mg/dL (70-110); POTASSIUM 3.2 mmol/L (3.5-5.1); SODIUM SERUM 137 mmol/L (136-145); UREA NITROGEN, BLOOD 11 mg/dL (7-18)
[2020-01-01 17:50] LABS: ALANINE AMINOTRANSFERASE 51 U/L (12-78); ALBUMIN 3.7 g/dL (3.4-5.0); ALKALINE PHOSPHATASE 168 U/L (46-116); ASPARTATE AMINOTRANSFERASE 48 U/L (15-37); BILIRUBIN,TOTAL 0.8 mg/dL (0.1-1.0); TOTAL PROTEIN, SERUM 7.9 g/dL (6.4-8.2)
[2020-01-01] MEDS ORDERED: HALOPERIDOL 5 MG TABLET PO ONE (21:00)
[2020-01-01 23:31] LABS: AMPHET/METH SCREEN,URINE NEGATIVE (NEGATIVE); BARBITURATE SCREEN, URINE NEGATIVE (NEGATIVE); BENZODIAZEPINES SCREEN,URINE NEGATIVE (NEGATIVE); CANNABINOID SCREEN,URINE NEGATIVE (NEGATIVE); COCAINE SCREEN,URINE NEGATIVE (NEGATIVE); METHADONE SCREEN, URINE NEGATIVE (NEGATIVE); OPIATE SCREEN,URINE POSITIVE (NEGATIVE)
[2020-01-01 23:35] LABS: PHENCYCLIDINE SCREEN,URINE NEGATIVE (NEGATIVE)
[2020-01-02] MEDS: LORazepam 2 MG TABLET PO PRN ×3 (00:33→19:38)
[2020-01-02] MEDS: ZOLPIDEM TARTRATE 10 MG TABLET PO PRN (00:33)
[2020-01-02] MEDS: QUEtiapine FUMARATE 100 MG TABLET PO PRN ×2 (00:33→04:40)
[2020-01-02] MEDS ORDERED: POTASSIUM CHLORIDE 20 MEQ ER TABLET PO ONE (00:45)
[2020-01-02 05:48] VITALS: BP 145/89
[2020-01-02] MEDS ORDERED: PNEUMOCOCCAL VACCINE POLYVALENT 0.5 ML VIAL [PPSV23] IM ONE (06:00)
[2020-01-02 06:38] LABS: GLUCOMETER DEV NAME(LOC) BV2X.; GLUCOSE,POINT OF CARE 194 MG/DL (70-110)
[2020-01-02] MEDS ORDERED: DOCUSATE SODIUM 100 MG CAPSULE PO PRN (08:30)
[2020-01-02] MEDS ORDERED: GLUCAGON,HUMAN RECOMBINANT 1 MG VIAL IM PRN (08:30)
[2020-01-02] MEDS ORDERED: CloNIDine HCL 0.1 MG TABLET PO PRN (08:30)
[2020-01-02] MEDS ORDERED: DICLOFENAC SODIUM 1% 100 GM GEL [2GM] TP PRN (08:30)
[2020-01-02] MEDS ORDERED: MAG HYDROX/AL HYDROX/SIMETH ES 30 ML SUSPENSION UDCUP PO PRN (08:30)
[2020-01-02] MEDS ORDERED: MAGNESIUM HYDROXIDE SUSPENSION 30 ML UDCUP PO PRN (08:30)
[2020-01-02] MEDS ORDERED: BENZOCAINE/MENTHOL LOZENGE PO PRN (08:30)
[2020-01-02] MEDS ORDERED: PETROLATUM,WHITE 28 GM JELLY TP PRN (08:30)
[2020-01-02] MEDS ORDERED: BACITRACIN 28 GM OINTMENT TP PRN (08:30)
[2020-01-02] MEDS ORDERED: OMEPRAZOLE 20 MG CAPSULE PO PRN (08:30)
[2020-01-02] MEDS ORDERED: ACETAMINOPHEN 325 MG TABLET PO PRN (08:30)
[2020-01-02] MEDS ORDERED: ALBUTEROL SULFATE HFA 90 MCG/PUFF 8 GM INHALER IH PRN (08:30)
[2020-01-02] MEDS ORDERED: IBUPROFEN 600 MG TABLET PO PRN (08:30)
[2020-01-02] MEDS ORDERED: ONDANSETRON HCL 4 MG TABLET PO PRN (08:30)
[2020-01-02] MEDS ORDERED: LOPERAMIDE HCL 2 MG CAPSULE PO PRN (08:30)
[2020-01-02] MEDS: LISINOPRIL 10 MG TABLET PO SCH (09:32)
[2020-01-02] MEDS: TraMADol HCL 50 MG TABLET PO PRN ×3 (09:51→22:29)
[2020-01-02 10:23] VITALS: BP 126/78
[2020-01-02] MEDS: INSULIN LISPRO 100 UNITS/ML SQ PRN ×3 (12:33→21:09)
[2020-01-02] MEDS: CITALOPRAM HYDROBROMIDE 20 MG TABLET PO SCH (13:05)
[2020-01-02 16:11] LABS: GLUCOMETER DEV NAME(LOC) BV2X.; GLUCOSE,POINT OF CARE 217 MG/DL (70-110)
[2020-01-02 16:17] VITALS: BP 156/85
[2020-01-02 16:18] LABS: GLUCOMETER DEV NAME(LOC) BV2X.; GLUCOSE,POINT OF CARE 222 MG/DL (70-110)
[2020-01-02 19:24] VITALS: BP 129/72
[2020-01-02] MEDS: QUEtiapine FUMARATE 200 MG ER TABLET PO SCH (19:38)
[2020-01-02 19:57] LABS: GLUCOMETER DEV NAME(LOC) BV2X.; GLUCOSE,POINT OF CARE 147 MG/DL (70-110)
[2020-01-03] MEDS: ZOLPIDEM TARTRATE 10 MG TABLET PO PRN (00:03)
[2020-01-03 01:00] VITALS: BP 115/59
[2020-01-03] MEDS: TraMADol HCL 50 MG TABLET PO PRN ×3 (05:49→21:14)
[2020-01-03 05:50] VITALS: BP 121/72
[2020-01-03 06:35] LABS: GLUCOMETER DEV NAME(LOC) BV2X.; GLUCOSE,POINT OF CARE 129 MG/DL (70-110)
[2020-01-03 08:14] VITALS: BP 123/69
[2020-01-03 08:26] LABS: CHOL/HDL RATIO 1.6 (3.9-5.7)
[2020-01-03] MEDS: LISINOPRIL 10 MG TABLET PO SCH (08:38)
[2020-01-03] MEDS: CITALOPRAM HYDROBROMIDE 20 MG TABLET PO SCH (08:38)
[2020-01-03] MEDS ORDERED: POTASSIUM CHLORIDE 20 MEQ ER TABLET PO ONE (09:00)
[2020-01-03 11:24] LABS: GLUCOMETER DEV NAME(LOC) BV2X.; GLUCOSE,POINT OF CARE 144 MG/DL (70-110)
[2020-01-03] MEDS: INSULIN LISPRO 100 UNITS/ML SQ PRN ×3 (11:44→20:42)
[2020-01-03] MEDS: LORazepam 2 MG TABLET PO PRN (15:54)
[2020-01-03 16:09] VITALS: BP 137/76
[2020-01-03 16:27] LABS: GLUCOMETER DEV NAME(LOC) BV2X.; GLUCOSE,POINT OF CARE 172 MG/DL (70-110)
[2020-01-03 20:28] LABS: GLUCOMETER DEV NAME(LOC) BV2X.; GLUCOSE,POINT OF CARE 150 MG/DL (70-110)
[2020-01-03] MEDS: QUEtiapine FUMARATE 200 MG ER TABLET PO SCH (20:37)
[2020-01-03 21:10] VITALS: BP 144/83
[2020-01-04 03:00] VITALS: BP 116/67
[2020-01-04] MEDS: TraMADol HCL 50 MG TABLET PO PRN ×2 (03:17→09:26)
[2020-01-04 06:36] LABS: GLUCOMETER DEV NAME(LOC) BV2X.; GLUCOSE,POINT OF CARE 116 MG/DL (70-110)
[2020-01-04 08:21] VITALS: BP 130/85
[2020-01-04] MEDS: CITALOPRAM HYDROBROMIDE 20 MG TABLET PO SCH (09:25)
[2020-01-04] MEDS: LISINOPRIL 10 MG TABLET PO SCH (09:25)
== END 2020-01-04 13:00 | disposition home or self-care (01) | DRG 885 ==
LOC: EMS 16:15 → B2X 23:00
PROVIDERS: ATTEND Psychiatry & Neurology Psychiatry
DX: F25.1 Schizoaffective disorder, depressive type (principal); B19.20 Unspecified viral hepatitis C without hepatic coma; F11.20 Opioid dependence, uncomplicated; R45.851 Suicidal ideations; I10 Essential (primary) hypertension; E11.9 Type 2 diabetes mellitus without complications; M19.90 Unspecified osteoarthritis, unspecified site; G47.00 Insomnia, unspecified; K59.00 Constipation, unspecified; R26.9 Unspecified abnormalities of gait and mobility; G89.29 Other chronic pain; J44.9 Chronic obstructive pulmonary disease, unspecified; I25.10 Atherosclerotic heart disease of native coronary artery without angina pectoris; E78.5 Hyperlipidemia, unspecified; G43.909 Migraine, unspecified, not intractable, without status migrainosus; F41.9 Anxiety disorder, unspecified; Z96.659 Presence of unspecified artificial knee joint; F32.9 Major depressive disorder, single episode, unspecified; Z87.442 Personal history of urinary calculi; Z72.0 Tobacco use; Z90.710 Acquired absence of both cervix and uterus; Z91.5 Personal history of self-harm; Z03.818 Encounter for observation for suspected exposure to other biological agents ruled out
CPT/HCPCS: 84132; 87081; 87426; G0480

== ENCOUNTER 2020-03-13 18:43 | Emergency (ER) | payer MEDICARE, MEDICAID ==
[~2020-03-13] VITALS: Ht 167.6 cm; Wt 72.0 kg
[~2020-03-13 18:43] MED LIST changes: -AMOX1TAB15 PO; -INSLAN SQ; -LISI-661 PO
[2020-03-13 21:25] VITALS: BP 138/63
[2020-03-13] MEDS ORDERED: ACETAMINOPHEN 325 MG TABLET PO ONE (21:30)
[2020-03-13] MEDS ORDERED: LIDOCAINE 5% TRANSDERMAL PATCH TD ONE (21:30)
[2020-03-17] MEDS ORDERED: PARO-38 PO (09:51)
[2020-03-17] MEDS ORDERED: LURA20TA PO (09:51)
[2020-03-17] MEDS ORDERED: AMLO-258 PO (09:53)
[2020-03-17] MEDS ORDERED: LISI-661 PO (09:53)
[2020-03-17] MEDS ORDERED: PANT-31 PO (09:53)
[2020-03-17] MEDS ORDERED: INSLAN SQ (09:53)
== END 2020-03-13 21:41 | disposition home or self-care (01) ==
LOC: EMS 18:43
DX: S09.90XA Unspecified injury of head, initial encounter (principal); M25.552 Pain in left hip; F41.9 Anxiety disorder, unspecified; F31.9 Bipolar disorder, unspecified; E11.9 Type 2 diabetes mellitus without complications; I10 Essential (primary) hypertension; F20.9 Schizophrenia, unspecified; G43.909 Migraine, unspecified, not intractable, without status migrainosus; F17.210 Nicotine dependence, cigarettes, uncomplicated; Z90.710 Acquired absence of both cervix and uterus; W19.XXXA Unspecified fall, initial encounter; Y93.89 Activity, other specified; Y92.89 Other specified places as the place of occurrence of the external cause; Y99.8 Other external cause status
CPT/HCPCS: 70450; 73503

== ENCOUNTER 2020-09-10 08:38 | Emergency (ER) | payer MEDICARE, MEDICAID ==
[~2020-09-10] VITALS: Ht 165.1 cm; Wt 72.7 kg
[~2020-09-10 08:38] MED LIST changes: +AMLO-258 PO; +BACTDSB PO; -CITA-144 PO; +INSLAN SQ; +QUET200T PO; -QUET200T5 PO
[2020-09-10 08:41] VITALS: BP 140/58
== END 2020-09-10 10:07 | disposition left against medical advice (07) ==
LOC: EMS 08:47
DX: M54.5 Low back pain (principal); Z53.21 Procedure and treatment not carried out due to patient leaving prior to being seen by health care provider

== ENCOUNTER 2020-11-08 13:29 | Emergency (ER) | payer MEDICARE, MEDICAID ==
[~2020-11-08] VITALS: Ht 167.6 cm; Wt 72.7 kg
[~2020-11-08 13:29] MED LIST changes: -BACTDSB PO; +CITA-144 PO
[2020-11-08 13:35] VITALS: BP 126/59
[2020-11-08] MEDS ORDERED: ONDANSETRON HCL 4 MG/2 ML VIAL IM ONE (14:15)
[2020-11-08] MEDS ORDERED: MORPHINE SULFATE 4 MG/ML SYRINGE IM ONE (14:15)
== END 2020-11-08 14:49 | disposition home or self-care (01) ==
LOC: EMS 13:31
DX: S90.821A Blister (nonthermal), right foot, initial encounter (principal); L03.115 Cellulitis of right lower limb; F25.9 Schizoaffective disorder, unspecified; G89.29 Other chronic pain; E11.9 Type 2 diabetes mellitus without complications; I10 Essential (primary) hypertension; F17.210 Nicotine dependence, cigarettes, uncomplicated; Z79.4 Long term (current) use of insulin; X58.XXXA Exposure to other specified factors, initial encounter; Y93.89 Activity, other specified; Y92.89 Other specified places as the place of occurrence of the external cause; Y99.8 Other external cause status
CPT/HCPCS: 96372; 99284; J2270; J2405

== ENCOUNTER 2020-12-02 08:21 | Emergency (ER) | payer MEDICARE, MEDICAID ==
[~2020-12-02] VITALS: Ht 165.1 cm; Wt 81.8 kg
[2020-12-02 09:57] LABS: BASOPHILS % (AUTO) 0.3 % (0.0-2.0); EOSINOPHILS % (AUTO) 0.3 % (1.0-6.0); HEMOGLOBIN 11.4 g/dL (12.0-16.0); LYMPHOCYTES # (AUTO) 2.3 K/uL (1.0-4.8); LYMPHOCYTES % (AUTO) 25.5 % (22.0-44.0); MEAN CORPUSCULAR HEMOGLOBIN 27.3 pg (26.0-34.0); MEAN CORPUSCULAR HGB CONC 32.5 G/dL (31.0-37.0); MEAN CORPUSCULAR VOLUME 84 fL (80-100); MONOCYTES # (AUTO) 0.6 K/uL (0.1-1.0); MONOCYTES % (AUTO) 6.3 % (2.0-9.0); NEUTROPHILS # (AUTO) 6.1 K/uL (1.8-7.7); NEUTROPHILS % (AUTO) 67.6 % (40.0-70.0); PLATELET COUNT (AUTO) 174 K/uL (150-450); RED BLOOD CELL COUNT(AUTO) 4.17 MIL/uL (4.00-5.20); RED CELL DISTRIBUTION WIDTH 17.6 % (11.5-14.5)
[2020-12-02] MEDS ORDERED: SODIUM CHLORIDE 0.9% 1,000 ML IV ONE (10:00)
[2020-12-02] MEDS ORDERED: ONDANSETRON HCL 4 MG/2 ML VIAL IVP ONE (10:00)
[2020-12-02 10:02] LABS: ANION GAP 11 mmol/L (8-16); CALCIUM, TOTAL 8.7 mg/dL (8.8-10.5); CARBON DIOXIDE 24 mmol/L (22-29); CHLORIDE 106 mmol/L (98-107); CREATININE 0.62 mg/dL (0.60-1.30); GLOMERULAR FILTR. RATE CALC > 60 mL/min (>60); GLUCOSE,RANDOM 196 mg/dL (70-110); POTASSIUM 3.8 mmol/L (3.5-5.1); SODIUM SERUM 141 mmol/L (136-145); UREA NITROGEN, BLOOD 6 mg/dL (7-18)
[2020-12-02 10:08] LABS: ALANINE AMINOTRANSFERASE 32 U/L (12-78); ALBUMIN 3.4 g/dL (3.4-5.0); ALKALINE PHOSPHATASE 188 U/L (46-116); ASPARTATE AMINOTRANSFERASE 26 U/L (15-37); BILIRUBIN,TOTAL 0.5 mg/dL (0.1-1.0); LIPASE 89 U/L (73-393); TOTAL PROTEIN, SERUM 7.3 g/dL (6.4-8.2)
[2020-12-02] MEDS ORDERED: MORPHINE SULFATE 4 MG/ML SYRINGE IVP ONE (10:15)
[2020-12-02 12:44] VITALS: BP 151/78
== END 2020-12-02 12:57 | disposition home or self-care (01) ==
LOC: EMS 08:31
DX: R19.7 Diarrhea, unspecified (principal); R11.2 Nausea with vomiting, unspecified; I10 Essential (primary) hypertension; E11.9 Type 2 diabetes mellitus without complications; Z79.4 Long term (current) use of insulin; Z79.899 Other long term (current) drug therapy
CPT/HCPCS: 80053; 83690; 84484; 85025; 96361; 96374; 99283; J2270; J2405; J7030

== ENCOUNTER 2020-12-28 09:19 | Emergency (ER) | payer MEDICARE, MEDICAID ==
[~2020-12-28] VITALS: Ht 165.1 cm; Wt 72.7 kg
[2020-12-28 10:39] LABS: BASOPHILS % (AUTO) 0.8 % (0.0-2.0); EOSINOPHILS % (AUTO) 0.6 % (1.0-6.0); HEMOGLOBIN 11.6 g/dL (12.0-16.0); LYMPHOCYTES # (AUTO) 2.1 K/uL (1.0-4.8); LYMPHOCYTES % (AUTO) 24.5 % (22.0-44.0); MEAN CORPUSCULAR HEMOGLOBIN 27.4 pg (26.0-34.0); MEAN CORPUSCULAR HGB CONC 32.3 G/dL (31.0-37.0); MEAN CORPUSCULAR VOLUME 85 fL (80-100); MONOCYTES # (AUTO) 0.6 K/uL (0.1-1.0); MONOCYTES % (AUTO) 6.7 % (2.0-9.0); NEUTROPHILS # (AUTO) 5.8 K/uL (1.8-7.7); NEUTROPHILS % (AUTO) 67.4 % (40.0-70.0); PLATELET COUNT (AUTO) 201 K/uL (150-450); RED BLOOD CELL COUNT(AUTO) 4.25 MIL/uL (4.00-5.20); RED CELL DISTRIBUTION WIDTH 17.2 % (11.5-14.5)
[2020-12-28] MEDS ORDERED: ONDANSETRON HCL 4 MG/2 ML VIAL IVP ONE (10:45)
[2020-12-28 10:47] LABS: ANION GAP 14 mmol/L (8-16); CALCIUM, TOTAL 8.6 mg/dL (8.8-10.5); CARBON DIOXIDE 23 mmol/L (22-29); CHLORIDE 104 mmol/L (98-107); CREATININE 0.65 mg/dL (0.60-1.30); GLOMERULAR FILTR. RATE CALC > 60 mL/min (>60); GLUCOSE,RANDOM 151 mg/dL (70-110); POTASSIUM 3.7 mmol/L (3.5-5.1); SODIUM SERUM 141 mmol/L (136-145); UREA NITROGEN, BLOOD 11 mg/dL (7-18)
[2020-12-28 10:48] LABS: COVID AG,FIA SOURCE NASOPHARYNGEAL
[2020-12-28 10:53] LABS: ALANINE AMINOTRANSFERASE 38 U/L (12-78); ALBUMIN 3.5 g/dL (3.4-5.0); ALKALINE PHOSPHATASE 184 U/L (46-116); ASPARTATE AMINOTRANSFERASE 37 U/L (15-37); BILIRUBIN,TOTAL 0.4 mg/dL (0.1-1.0); LIPASE 112 U/L (73-393); TOTAL PROTEIN, SERUM 7.3 g/dL (6.4-8.2)
[2020-12-28 10:54] LABS: PROTHROMBIN TIME 10.8 SEC (9.4-11.6)
[2020-12-28] MEDS ORDERED: IOHEXOL 350 MG/ML 100 ML VIAL ONE (11:34)
[2020-12-28] MEDS ORDERED: SODIUM CHLORIDE 0.9% 100 ML ONE (11:34)
[2020-12-28 12:54] LABS: INFLUENZA TYPE A NEGATIVE FOR TYPE A (NEGATIVE); INFLUENZA TYPE B NEGATIVE FOR TYPE B (NEGATIVE)
[2020-12-28] MEDS ORDERED: KETOROLAC TROMETHAMINE 30 MG/ML VIAL IVP ONE (13:00)
[2020-12-28] MEDS ORDERED: BISMUTH SUBSALICYLATE 524 MG/30 ML SUSPENSION UDCUP PO ONE (13:00)
[2020-12-28 13:04] LABS: APPEARANCE,URINE CLEAR (CLEAR); BILIRUBIN,URINE NEGATIVE (NEGATIVE); GLUCOSE, URINE (UA) NEGATIVE (NEGATIVE); KETONES,URINE NEGATIVE (NEGATIVE); LEUKOCYTE ESTERASE ,URINE NEGATIVE (NEGATIVE); NITRATE,URINE NEGATIVE (NEGATIVE); OCCULT BLOOD,URINE NEGATIVE (NEGATIVE); PH,URINE 7.5 (5.0-8.0); PROTEIN,URINE NEGATIVE (NEGATIVE)
[2020-12-28 16:44] VITALS: BP 140/71
[2020-12-28 17:02] LABS: AMPHET/METH SCREEN,URINE NEGATIVE (NEGATIVE); BARBITURATE SCREEN, URINE NEGATIVE (NEGATIVE); BENZODIAZEPINES SCREEN,URINE NEGATIVE (NEGATIVE); CANNABINOID SCREEN,URINE NEGATIVE (NEGATIVE); COCAINE SCREEN,URINE NEGATIVE (NEGATIVE); METHADONE SCREEN, URINE NEGATIVE (NEGATIVE); OPIATE SCREEN,URINE NEGATIVE (NEGATIVE); PHENCYCLIDINE SCREEN,URINE NEGATIVE (NEGATIVE)
== END 2020-12-28 16:49 | disposition home or self-care (01) ==
LOC: EMS 09:19
DX: R10.84 Generalized abdominal pain (principal); R11.2 Nausea with vomiting, unspecified; R19.7 Diarrhea, unspecified; F41.9 Anxiety disorder, unspecified; G89.29 Other chronic pain; Z20.822 Contact with and (suspected) exposure to COVID-19
CPT/HCPCS: 36415; 71045; 74177; 80053; 80307; 81003; 83690; 85025; 85610; 85730; 86850; 86900; 86901; 87426; 87804; 93005; 96374; 96375; 99285; J1885; J2405; Q9967; J7050

== ENCOUNTER 2021-01-17 22:06 | Emergency (ER) | payer MEDICARE, MEDICAID ==
[~2021-01-17] VITALS: Ht 160 cm; Wt 75.9 kg
[2021-01-17 22:20] VITALS: BP 139/85
== END 2021-01-18 00:17 | disposition left against medical advice (07) ==
LOC: EMS 22:09
DX: R10.9 Unspecified abdominal pain (principal); Z53.21 Procedure and treatment not carried out due to patient leaving prior to being seen by health care provider

== ENCOUNTER 2021-02-17 22:43 | Emergency (ER) | payer MEDICARE, MEDICAID ==
[~2021-02-17] VITALS: Ht 165.1 cm; Wt 72.7 kg
[2021-02-17] MEDS ORDERED: ACETAMINOPHEN 500 MG TABLET PO ONE (23:00)
[2021-02-18 00:48] LABS: BASOPHILS % (AUTO) 0.6 % (0.0-2.0); EOSINOPHILS % (AUTO) 0 % (1.0-6.0); HEMATOCRIT 37.7 % (36-46); HEMOGLOBIN 12.1 g/dL (12.0-16.0); LYMPHOCYTES # (AUTO) 2.8 K/uL (1.0-4.8); LYMPHOCYTES % (AUTO) 13.9 % (22.0-44.0); MEAN CORPUSCULAR HEMOGLOBIN 27.9 pg (26.0-34.0); MEAN CORPUSCULAR HGB CONC 32.2 G/dL (31.0-37.0); MEAN CORPUSCULAR VOLUME 87 fL (80-100); MONOCYTES # (AUTO) 1.4 K/uL (0.1-1.0); MONOCYTES % (AUTO) 7.2 % (2.0-9.0); NEUTROPHILS # (AUTO) 15.6 K/uL (1.8-7.7); NEUTROPHILS % (AUTO) 78.3 % (40.0-70.0); PLATELET COUNT (AUTO) 275 K/uL (150-450); RED BLOOD CELL COUNT(AUTO) 4.36 MIL/uL (4.00-5.20); RED CELL DISTRIBUTION WIDTH 16.2 % (11.5-14.5)
[2021-02-18 00:52] LABS: ANION GAP 14 mmol/L (8-16); CALCIUM, TOTAL 9.3 mg/dL (8.8-10.5); CARBON DIOXIDE 26 mmol/L (22-29); CHLORIDE 104 mmol/L (98-107); CREATININE 0.79 mg/dL (0.60-1.30); GLOMERULAR FILTR. RATE CALC > 60 mL/min (>60); GLUCOSE,RANDOM 159 mg/dL (70-110); POTASSIUM 3.3 mmol/L (3.5-5.1); SODIUM SERUM 144 mmol/L (136-145); UREA NITROGEN, BLOOD 27 mg/dL (7-18)
[2021-02-18 00:58] LABS: ALANINE AMINOTRANSFERASE 70 U/L (12-78); ALBUMIN 3.8 g/dL (3.4-5.0); ALKALINE PHOSPHATASE 133 U/L (46-116); ASPARTATE AMINOTRANSFERASE 82 U/L (15-37); BILIRUBIN,TOTAL 1.5 mg/dL (0.1-1.0); CREATINE KINASE, TOTAL ONLY 553 U/L (26-192); TOTAL PROTEIN, SERUM 7.4 g/dL (6.4-8.2)
[2021-02-18 01:10] LABS: B-TYPE NATRIURETIC PEPTIDE 9 pg/mL (0-100)
[2021-02-18] MEDS ORDERED: LORazepam 2 MG/ML VIAL IM ONE (01:45)
[2021-02-18 03:22] VITALS: BP 146/89
[2021-02-27] MEDS ORDERED: CITA-144 PO (08:36)
[2021-02-27] MEDS ORDERED: QUET200T PO (08:37)
[2021-02-27] MEDS ORDERED: AMLO-258 PO (08:49)
== END 2021-02-18 03:29 | disposition home or self-care (01) ==
LOC: EMS 22:47
DX: S06.9X9A Unspecified intracranial injury with loss of consciousness of unspecified duration, initial encounter (principal); W18.39XA Other fall on same level, initial encounter; Y93.89 Activity, other specified; Y92.89 Other specified places as the place of occurrence of the external cause; Y99.8 Other external cause status; D72.828 Other elevated white blood cell count; F14.10 Cocaine abuse, uncomplicated; F17.210 Nicotine dependence, cigarettes, uncomplicated; I10 Essential (primary) hypertension; E11.9 Type 2 diabetes mellitus without complications; Z79.4 Long term (current) use of insulin; Z79.84 Long term (current) use of oral hypoglycemic drugs
CPT/HCPCS: 36415; 70450; 71045; 72125; 80053; 82550; 83880; 84484; 85025; 93005; 96372; 99285; G0480; J2060

== ENCOUNTER 2021-03-15 05:54 | Emergency (ER) | payer MEDICARE, MEDICAID ==
[~2021-03-15] VITALS: Ht 165.1 cm; Wt 72.7 kg
[~2021-03-15 05:54] MED LIST changes: -INSLAN SQ
[2021-03-15 06:19] LABS: GLUCOSE,POINT OF CARE 162 MG/DL (70-110)
[2021-03-15] MEDS ORDERED: QUEtiapine FUMARATE 100 MG TABLET PO ONE (06:30)
[2021-03-15] MEDS ORDERED: AmLODIPine BESYLATE 5 MG TABLET PO ONE ×2 (06:30→14:30)
[2021-03-15 06:38] LABS: BASOPHILS % (AUTO) 0.2 % (0.0-2.0); EOSINOPHILS % (AUTO) 0.2 % (1.0-6.0); HEMOGLOBIN 11.5 g/dL (12.0-16.0); LYMPHOCYTES # (AUTO) 2.3 K/uL (1.0-4.8); LYMPHOCYTES % (AUTO) 17.8 % (22.0-44.0); MEAN CORPUSCULAR HEMOGLOBIN 27.7 pg (26.0-34.0); MEAN CORPUSCULAR HGB CONC 31.9 G/dL (31.0-37.0); MEAN CORPUSCULAR VOLUME 87 fL (80-100); MONOCYTES # (AUTO) 1.2 K/uL (0.1-1.0); MONOCYTES % (AUTO) 8.9 % (2.0-9.0); NEUTROPHILS # (AUTO) 9.5 K/uL (1.8-7.7); NEUTROPHILS % (AUTO) 72.9 % (40.0-70.0); PLATELET COUNT (AUTO) 327 K/uL (150-450); RED BLOOD CELL COUNT(AUTO) 4.15 MIL/uL (4.00-5.20); RED CELL DISTRIBUTION WIDTH 15.6 % (11.5-14.5)
[2021-03-15 06:47] LABS: ANION GAP 12 mmol/L (8-16); CALCIUM, TOTAL 8.5 mg/dL (8.8-10.5); CARBON DIOXIDE 26 mmol/L (22-29); CHLORIDE 105 mmol/L (98-107); GLOMERULAR FILTR. RATE CALC > 60 mL/min (>60); GLUCOSE,RANDOM 198 mg/dL (70-110); POTASSIUM 3.5 mmol/L (3.5-5.1); SODIUM SERUM 143 mmol/L (136-145); UREA NITROGEN, BLOOD 16 mg/dL (7-18)
[2021-03-15 06:53] LABS: ALANINE AMINOTRANSFERASE 36 U/L (12-78); ALBUMIN 3.2 g/dL (3.4-5.0); ALKALINE PHOSPHATASE 131 U/L (46-116); ASPARTATE AMINOTRANSFERASE 47 U/L (15-37); TOTAL PROTEIN, SERUM 7.1 g/dL (6.4-8.2)
[2021-03-15 06:56] LABS: ACETAMINOPHEN < 2 mcg/mL (10-30)
[2021-03-15 07:06] LABS: SALICYLATE 2.8 mg/dL (2.8-20.0)
[2021-03-15] MEDS ORDERED: BACITRACIN 0.9 GM PACKET OINTMENT TP ONE (08:45)
[2021-03-15 09:06] VITALS: BP 149/87
[2021-03-15 09:14] LABS: COVID AG,FIA SOURCE NASOPHARYNGEAL
[2021-03-15] MEDS ORDERED: ACETAMINOPHEN 500 MG TABLET PO ONE (14:00)
[2021-03-15] MEDS ORDERED: CITALOPRAM HYDROBROMIDE 20 MG TABLET PO ONE (14:30)
== END 2021-03-16 11:31 | disposition home or self-care (01) ==
LOC: EMS 05:59
DX: F25.9 Schizoaffective disorder, unspecified (principal); I10 Essential (primary) hypertension; E11.9 Type 2 diabetes mellitus without complications; Z20.822 Contact with and (suspected) exposure to COVID-19; Z59.00 Homelessness unspecified
CPT/HCPCS: 36415; 80053; 82962; 85025; 87426; 99284; G0480; 99285; G0481

== ENCOUNTER 2021-03-17 01:37 | Emergency (ER) | payer MEDICARE, MEDICAID ==
[~2021-03-17] VITALS: Ht 165.1 cm; Wt 72.7 kg
[2021-03-17] MEDS ORDERED: BACITRACIN 0.9 GM PACKET OINTMENT TP ONE (02:00)
[2021-03-17 03:14] VITALS: BP 138/92
[2021-03-17 03:44] LABS: BASOPHILS % (AUTO) 0.2 % (0.0-2.0); EOSINOPHILS % (AUTO) 0.4 % (1.0-6.0); HEMOGLOBIN 10.9 g/dL (12.0-16.0); LYMPHOCYTES # (AUTO) 3.2 K/uL (1.0-4.8); LYMPHOCYTES % (AUTO) 28.8 % (22.0-44.0); MEAN CORPUSCULAR VOLUME 87 fL (80-100); MONOCYTES % (AUTO) 9.2 % (2.0-9.0); NEUTROPHILS # (AUTO) 6.8 K/uL (1.8-7.7); NEUTROPHILS % (AUTO) 61.4 % (40.0-70.0); PLATELET COUNT (AUTO) 290 K/uL (150-450); RED BLOOD CELL COUNT(AUTO) 3.89 MIL/uL (4.00-5.20); RED CELL DISTRIBUTION WIDTH 15.9 % (11.5-14.5)
[2021-03-17 03:51] LABS: COVID AG,FIA SOURCE NASOPHARYNGEAL
[2021-03-17 04:01] LABS: ANION GAP 8 mmol/L (8-16); CALCIUM, TOTAL 8.4 mg/dL (8.8-10.5); CARBON DIOXIDE 27 mmol/L (22-29); CHLORIDE 105 mmol/L (98-107); CREATININE 0.88 mg/dL (0.60-1.30); GLOMERULAR FILTR. RATE CALC > 60 mL/min (>60); GLUCOSE,RANDOM 268 mg/dL (70-110); POTASSIUM 3.3 mmol/L (3.5-5.1); SODIUM SERUM 140 mmol/L (136-145); UREA NITROGEN, BLOOD 4 mg/dL (7-18)
[2021-03-17 04:07] LABS: ALANINE AMINOTRANSFERASE 38 U/L (12-78); ALBUMIN 2.7 g/dL (3.4-5.0); ALKALINE PHOSPHATASE 130 U/L (46-116); ASPARTATE AMINOTRANSFERASE 48 U/L (15-37); BILIRUBIN,TOTAL 0.4 mg/dL (0.1-1.0); TOTAL PROTEIN, SERUM 6.3 g/dL (6.4-8.2)
[2021-03-17 04:21] LABS: AMPHET/METH SCREEN,URINE NEGATIVE (NEGATIVE); BARBITURATE SCREEN, URINE NEGATIVE (NEGATIVE); BENZODIAZEPINES SCREEN,URINE NEGATIVE (NEGATIVE); CANNABINOID SCREEN,URINE NEGATIVE (NEGATIVE); COCAINE SCREEN,URINE POSITIVE (NEGATIVE); METHADONE SCREEN, URINE NEGATIVE (NEGATIVE); OPIATE SCREEN,URINE NEGATIVE (NEGATIVE); PHENCYCLIDINE SCREEN,URINE NEGATIVE (NEGATIVE)
[2021-03-17] MEDS ORDERED: POTASSIUM CHLORIDE 20 MEQ ER TABLET PO ONE (05:00)
== END 2021-03-17 07:03 | disposition home or self-care (01) ==
LOC: EMS 01:39
DX: S70.312A Abrasion, left thigh, initial encounter (principal); S70.311A Abrasion, right thigh, initial encounter; X58.XXXA Exposure to other specified factors, initial encounter; F25.9 Schizoaffective disorder, unspecified; F17.210 Nicotine dependence, cigarettes, uncomplicated; E11.9 Type 2 diabetes mellitus without complications; Y93.89 Activity, other specified; Y92.89 Other specified places as the place of occurrence of the external cause; Y99.8 Other external cause status; Z59.00 Homelessness unspecified
CPT/HCPCS: 36415; 80053; 80307; 82962; 85025; 87426; 99283; G0480

== ENCOUNTER 2021-03-17 22:12 | Emergency (ER) | payer MEDICARE, MEDICAID ==
[~2021-03-17] VITALS: Ht 162.6 cm; Wt 63.6 kg
[2021-03-18] MEDS ORDERED: IBUPROFEN 600 MG TABLET PO ONE (01:30)
[2021-03-18] MEDS ORDERED: ZINC OXIDE 16% PASTE 57 GM TUBE TP ONE (01:30)
[2021-03-18 02:14] VITALS: BP 174/94
== END 2021-03-18 02:39 | disposition home or self-care (01) ==
LOC: EMS 23:24
DX: L22 Diaper dermatitis (principal); E11.9 Type 2 diabetes mellitus without complications; F14.90 Cocaine use, unspecified, uncomplicated; F17.210 Nicotine dependence, cigarettes, uncomplicated; Z79.899 Other long term (current) drug therapy
CPT/HCPCS: 99283

== ENCOUNTER 2021-07-28 11:01 | Emergency (ER) | payer MEDICARE, MEDICAID ==
[~2021-07-28] VITALS: Ht 170.2 cm; Wt 72.7 kg
[2021-07-28] MEDS: HALOPERIDOL LACTATE 5 MG/ML VIAL IM ONE (11:40)
[2021-07-28] MEDS: DiphenhydrAMINE HCL 50 MG/ML VIAL IM ONE (11:42)
[2021-07-28] MEDS: LORazepam 2 MG/ML VIAL IM ONE (11:43)
[2021-07-28 11:52] VITALS: BP 149/99
== END 2021-07-28 12:44 | disposition home or self-care (01) ==
LOC: EMS 11:01
DX: F41.9 Anxiety disorder, unspecified (principal); F32.A Depression, unspecified; E11.9 Type 2 diabetes mellitus without complications; F20.9 Schizophrenia, unspecified; F17.210 Nicotine dependence, cigarettes, uncomplicated; F14.90 Cocaine use, unspecified, uncomplicated
CPT/HCPCS: 96372; 99284; J1200; J1630; J2060; Z7502

== ENCOUNTER 2021-08-08 10:06 | Inpatient (IN) | payer MEDICARE, MEDICAID ==
[~2021-08-08] VITALS: Ht 165.1 cm; Wt 70.5 kg
[2021-08-08 12:03] LABS: BASOPHILS % (AUTO) 0.3 % (0.0-2.0); EOSINOPHILS % (AUTO) 0.4 % (1.0-6.0); HEMATOCRIT 33.6 % (36-46); HEMOGLOBIN 11.1 g/dL (12.0-16.0); LYMPHOCYTES # (AUTO) 1.7 K/uL (1.0-4.8); LYMPHOCYTES % (AUTO) 23.5 % (22.0-44.0); MEAN CORPUSCULAR HEMOGLOBIN 26.5 pg (26.0-34.0); MEAN CORPUSCULAR HGB CONC 33.1 G/dL (31.0-37.0); MEAN CORPUSCULAR VOLUME 80 fL (80-100); MONOCYTES # (AUTO) 0.4 K/uL (0.1-1.0); NEUTROPHILS % (AUTO) 69.8 % (40.0-70.0); PLATELET COUNT (AUTO) 187 K/uL (150-450); RED CELL DISTRIBUTION WIDTH 17.9 % (11.5-14.5)
[2021-08-08 12:11] LABS: ANION GAP 9 mmol/L (8-16); CARBON DIOXIDE 24 mmol/L (22-29); CHLORIDE 107 mmol/L (98-107); CREATININE 0.56 mg/dL (0.60-1.30); GLUCOSE,RANDOM 231 mg/dL (70-110); SODIUM SERUM 140 mmol/L (136-145); UREA NITROGEN, BLOOD 11 mg/dL (7-18)
[2021-08-08 12:12] LABS: GLOMERULAR FILTR. RATE CALC > 60 mL/min (>60)
[2021-08-08 12:25] LABS: ALANINE AMINOTRANSFERASE 43 U/L (12-78); ALBUMIN 3.4 g/dL (3.4-5.0); ALKALINE PHOSPHATASE 198 U/L (46-116); ASPARTATE AMINOTRANSFERASE 43 U/L (15-37); BILIRUBIN,TOTAL 0.3 mg/dL (0.1-1.0); TOTAL PROTEIN, SERUM 7.6 g/dL (6.4-8.2)
[2021-08-08 13:14] LABS: COVID AG,FIA SOURCE NASOPHARYNGEAL
[2021-08-08] MEDS ORDERED: LORazepam 1 MG TABLET PO ONE (13:30)
[2021-08-08] MEDS ORDERED: LIDO1ADH63 TP (13:34)
[2021-08-08] MEDS ORDERED: PANT40TA54 PO (13:34)
[2021-08-08] MEDS ORDERED: CHOL200074 PO (13:34)
[2021-08-08] MEDS ORDERED: INSU100I21 SQ (13:34)
[2021-08-08] MEDS ORDERED: METF-1211 PO (13:34)
[2021-08-08] MEDS ORDERED: OXYC10TA92 PO (13:34)
[2021-08-08] MEDS ORDERED: LORazepam 2 MG TABLET PO PRN (14:15)
[2021-08-08] MEDS ORDERED: ZOLPIDEM TARTRATE 10 MG TABLET PO PRN (14:15)
[2021-08-08 18:44] VITALS: BP 159/96
[2021-08-08] MEDS: HALOPERIDOL 5 MG TABLET PO PRN (20:05)
[2021-08-08] MEDS ORDERED: MAG HYDROX/AL HYDROX/SIMETH ES 30 ML SUSPENSION UDCUP PO PRN (21:30)
[2021-08-08] MEDS ORDERED: LOPERAMIDE HCL 2 MG CAPSULE PO PRN (21:30)
[2021-08-08] MEDS ORDERED: ACETAMINOPHEN 325 MG TABLET PO PRN (21:30)
[2021-08-08] MEDS ORDERED: MAGNESIUM HYDROXIDE SUSPENSION 30 ML UDCUP PO PRN (21:30)
[2021-08-08] MEDS ORDERED: DEXTROSE 50%-WATER 25 GM/50 ML SYG IVP PRN (21:30)
[2021-08-09 00:02] VITALS: BP 145/82
[2021-08-09] MEDS: TraMADol HCL 50 MG TABLET PO PRN ×3 (00:02→16:10)
[2021-08-09 06:41] LABS: GLUCOMETER DEV NAME(LOC) 3EX.; GLUCOSE,POINT OF CARE 229 MG/DL (70-110)
[2021-08-09] MEDS: INSULIN LISPRO 100 UNITS/ML SQ PRN ×4 (06:59→20:30)
[2021-08-09] MEDS: AmLODIPine BESYLATE 10 MG TABLET PO SCH (08:17)
[2021-08-09 08:30] VITALS: BP 145/79
[2021-08-09 08:38] VITALS: BP 145/79
[2021-08-09] MEDS: HALOPERIDOL 5 MG TABLET PO PRN ×2 (08:38→18:08)
[2021-08-09] MEDS ORDERED: PETROLATUM,WHITE 28 GM JELLY TP PRN (12:00)
[2021-08-09] MEDS ORDERED: CloNIDine HCL 0.1 MG TABLET PO PRN (12:00)
[2021-08-09] MEDS ORDERED: ALBUTEROL SULFATE HFA 90 MCG/PUFF 8 GM INHALER IH PRN (12:00)
[2021-08-09] MEDS ORDERED: ONDANSETRON HCL 4 MG TABLET PO PRN (12:00)
[2021-08-09] MEDS ORDERED: BACITRACIN 28 GM OINTMENT TP PRN (12:00)
[2021-08-09] MEDS ORDERED: DOCUSATE SODIUM 100 MG CAPSULE PO PRN (12:00)
[2021-08-09] MEDS ORDERED: LOPERAMIDE HCL 2 MG CAPSULE PO PRN (12:00)
[2021-08-09] MEDS ORDERED: OMEPRAZOLE 20 MG CAPSULE PO PRN (12:00)
[2021-08-09] MEDS ORDERED: BENZOCAINE/MENTHOL LOZENGE PO PRN (12:00)
[2021-08-09] MEDS ORDERED: IBUPROFEN 600 MG TABLET PO PRN (12:00)
[2021-08-09 12:21] LABS: GLUCOMETER DEV NAME(LOC) 3E.I 2; GLUCOSE,POINT OF CARE 282 MG/DL (70-110)
[2021-08-09 16:10] VITALS: BP 138/78
[2021-08-09 16:21] LABS: GLUCOMETER DEV NAME(LOC) 3E.I 2; GLUCOSE,POINT OF CARE 252 MG/DL (70-110)
[2021-08-09 16:44] VITALS: BP 140/80
[2021-08-09 17:10] VITALS: BP 137/75
[2021-08-09] MEDS: QUEtiapine FUMARATE 200 MG TABLET PO SCH (20:08)
[2021-08-09] MEDS: INSULIN GLARGINE,HUM.REC.ANLOG 100 UNITS/ML SQ SCH (20:30)
[2021-08-09 20:35] LABS: GLUCOMETER DEV NAME(LOC) 3EX.; GLUCOSE,POINT OF CARE 164 MG/DL (70-110)
[2021-08-10 00:12] VITALS: BP 130/70
[2021-08-10] MEDS: TraMADol HCL 50 MG TABLET PO PRN ×3 (00:12→17:08)
[2021-08-10] MEDS: HALOPERIDOL 5 MG TABLET PO PRN ×4 (00:13→23:59)
[2021-08-10 05:36] LABS: GLUCOMETER DEV NAME(LOC) 3EX.; GLUCOSE,POINT OF CARE 144 MG/DL (70-110)
[2021-08-10] MEDS: INSULIN LISPRO 100 UNITS/ML SQ PRN ×4 (06:41→20:48)
[2021-08-10] MEDS: CITALOPRAM HYDROBROMIDE 20 MG TABLET PO SCH (08:21)
[2021-08-10] MEDS: AmLODIPine BESYLATE 10 MG TABLET PO SCH (08:21)
[2021-08-10 08:25] VITALS: BP_SYST 100
[2021-08-10 09:24] VITALS: BP 129/77
[2021-08-10 09:28] VITALS: BP 137/77
[2021-08-10 14:46] LABS: GLUCOMETER DEV NAME(LOC) 3E.I 2; GLUCOSE,POINT OF CARE 216 MG/DL (70-110)
[2021-08-10 16:23] VITALS: BP 157/72
[2021-08-10 17:01] LABS: GLUCOMETER DEV NAME(LOC) 3E.I 2; GLUCOSE,POINT OF CARE 187 MG/DL (70-110)
[2021-08-10] MEDS: QUEtiapine FUMARATE 200 MG TABLET PO SCH (20:01)
[2021-08-10] MEDS: INSULIN GLARGINE,HUM.REC.ANLOG 100 UNITS/ML SQ SCH (20:47)
[2021-08-10 21:01] LABS: GLUCOMETER DEV NAME(LOC) 3E.I 2; GLUCOSE,POINT OF CARE 174 MG/DL (70-110)
[2021-08-10] MEDS ORDERED: QUET200T30 PO (22:06)
[2021-08-10] MEDS ORDERED: CITA-144 PO (22:06)
[2021-08-11] VITALS: BP 130/80
[2021-08-11 01:00] VITALS: BP 122/76
[2021-08-11] MEDS: TraMADol HCL 50 MG TABLET PO PRN ×2 (01:10→08:11)
[2021-08-11] MEDS: INSULIN LISPRO 100 UNITS/ML SQ PRN ×2 (06:48→12:41)
[2021-08-11 06:56] LABS: GLUCOMETER DEV NAME(LOC) 3EX.; GLUCOSE,POINT OF CARE 185 MG/DL (70-110)
[2021-08-11] MEDS: CITALOPRAM HYDROBROMIDE 20 MG TABLET PO SCH (08:09)
[2021-08-11] MEDS: AmLODIPine BESYLATE 10 MG TABLET PO SCH (08:09)
[2021-08-11 08:11] VITALS: BP 132/78
[2021-08-11] MEDS: HALOPERIDOL 5 MG TABLET PO PRN (08:11)
[2021-08-11 09:11] VITALS: BP 127/68
[2021-08-11 09:18] VITALS: BP 130/61
[2021-08-11] MEDS ORDERED: INSU100V SQ (21:55)
[2021-08-11] MEDS ORDERED: AMLO-258 PO (21:55)
[2021-08-11] MEDS ORDERED: INSLAN SQ (21:55)
== END 2021-08-11 10:40 | disposition home or self-care (01) | DRG 885 ==
LOC: EMS 10:10 → 3EX 17:22
PROVIDERS: ADMIT Psychiatry & Neurology Psychiatry; ATTEND Psychiatry & Neurology Psychiatry
DX: F25.9 Schizoaffective disorder, unspecified (principal); E11.65 Type 2 diabetes mellitus with hyperglycemia; E78.5 Hyperlipidemia, unspecified; F32.A Depression, unspecified; G89.29 Other chronic pain; M25.562 Pain in left knee; M25.561 Pain in right knee; I11.9 Hypertensive heart disease without heart failure; I25.10 Atherosclerotic heart disease of native coronary artery without angina pectoris; J44.9 Chronic obstructive pulmonary disease, unspecified; F41.9 Anxiety disorder, unspecified; M19.90 Unspecified osteoarthritis, unspecified site; M54.9 Dorsalgia, unspecified; Z20.822 Contact with and (suspected) exposure to COVID-19; Z72.0 Tobacco use; Z86.19 Personal history of other infectious and parasitic diseases; Z79.4 Long term (current) use of insulin
CPT/HCPCS: 80053; 82962; 85025; 99285; G0378; G0480; J1815

== ENCOUNTER 2021-08-29 13:20 | Inpatient (IN) | payer MEDICARE, MEDICAID ==
[~2021-08-29] VITALS: Ht 165.1 cm; Wt 72.0 kg
[~2021-08-29 13:20] MED LIST changes: +CHOL200074 PO; +INSLAN SQ; +INSU100I21 SQ; +INSU100V SQ; +LIDO1ADH63 TP; +METF-1211 PO; +OXYC10TA92 PO; +PANT40TA54 PO; +QUET200T30 PO
[2021-08-29 14:04] LABS: BASOPHILS % (AUTO) 0.3 % (0.0-2.0); EOSINOPHILS % (AUTO) 0.1 % (1.0-6.0); HEMATOCRIT 35.4 % (36-46); HEMOGLOBIN 11.8 g/dL (12.0-16.0); LYMPHOCYTES # (AUTO) 1.3 K/uL (1.0-4.8); LYMPHOCYTES % (AUTO) 18.4 % (22.0-44.0); MEAN CORPUSCULAR HEMOGLOBIN 27.2 pg (26.0-34.0); MEAN CORPUSCULAR HGB CONC 33.2 G/dL (31.0-37.0); MEAN CORPUSCULAR VOLUME 82 fL (80-100); MONOCYTES # (AUTO) 0.2 K/uL (0.1-1.0); MONOCYTES % (AUTO) 3.5 % (2.0-9.0); NEUTROPHILS # (AUTO) 5.5 K/uL (1.8-7.7); NEUTROPHILS % (AUTO) 77.7 % (40.0-70.0); PLATELET COUNT (AUTO) 193 K/uL (150-450); RED BLOOD CELL COUNT(AUTO) 4.33 MIL/uL (4.00-5.20); RED CELL DISTRIBUTION WIDTH 17.2 % (11.5-14.5)
[2021-08-29 14:05] LABS: COVID AG,FIA SOURCE NASOPHARYNGEAL
[2021-08-29 14:22] LABS: ANION GAP 15 mmol/L (8-16); CALCIUM, TOTAL 8.9 mg/dL (8.8-10.5); CARBON DIOXIDE 23 mmol/L (22-29); CHLORIDE 104 mmol/L (98-107); CREATININE 0.62 mg/dL (0.60-1.30); GLOMERULAR FILTR. RATE CALC > 60 mL/min (>60); GLUCOSE,RANDOM 173 mg/dL (70-110); POTASSIUM 3.8 mmol/L (3.5-5.1); SODIUM SERUM 142 mmol/L (136-145); UREA NITROGEN, BLOOD 14 mg/dL (7-18)
[2021-08-29 14:28] LABS: ALANINE AMINOTRANSFERASE 48 U/L (12-78); ALBUMIN 3.7 g/dL (3.4-5.0); ALKALINE PHOSPHATASE 144 U/L (46-116); ASPARTATE AMINOTRANSFERASE 46 U/L (15-37); BILIRUBIN,TOTAL 0.8 mg/dL (0.1-1.0); TOTAL PROTEIN, SERUM 7.8 g/dL (6.4-8.2)
[2021-08-29 14:31] LABS: AMPHET/METH SCREEN,URINE NEGATIVE (NEGATIVE); BARBITURATE SCREEN, URINE NEGATIVE (NEGATIVE); BENZODIAZEPINES SCREEN,URINE NEGATIVE (NEGATIVE); CANNABINOID SCREEN,URINE NEGATIVE (NEGATIVE); COCAINE SCREEN,URINE NEGATIVE (NEGATIVE); METHADONE SCREEN, URINE NEGATIVE (NEGATIVE); OPIATE SCREEN,URINE POSITIVE (NEGATIVE); PHENCYCLIDINE SCREEN,URINE NEGATIVE (NEGATIVE)
[2021-08-29] MEDS: LORazepam 2 MG TABLET PO PRN (14:54)
[2021-08-29 17:15] VITALS: BP 145/68
[2021-08-29 20:32] VITALS: BP 146/97
[2021-08-29] MEDS: TraMADol HCL 50 MG TABLET PO PRN (20:38)
[2021-08-29] MEDS: INSULIN LISPRO 100 UNITS/ML SQ PRN (20:39)
[2021-08-29 20:51] LABS: GLUCOMETER DEV NAME(LOC) 3E.C; GLUCOSE,POINT OF CARE 250 MG/DL (70-110)
[2021-08-29] MEDS: ZOLPIDEM TARTRATE 10 MG TABLET PO PRN (21:46)
[2021-08-30 02:20] VITALS: BP 174/92
[2021-08-30] MEDS: TraMADol HCL 50 MG TABLET PO PRN ×4 (02:38→22:48)
[2021-08-30] MEDS: LORazepam 2 MG TABLET PO PRN ×2 (02:53→08:14)
[2021-08-30 05:26] VITALS: BP 169/95
[2021-08-30 05:51] LABS: GLUCOMETER DEV NAME(LOC) 3E.C; GLUCOSE,POINT OF CARE 252 MG/DL (70-110)
[2021-08-30] MEDS: INSULIN LISPRO 100 UNITS/ML SQ PRN ×3 (06:36→16:29)
[2021-08-30] MEDS: MetFORMIN HCL 500 MG TABLET PO SCH ×2 (06:36→17:30)
[2021-08-30] MEDS ORDERED: ACETAMINOPHEN 325 MG TABLET PO PRN (06:45)
[2021-08-30] MEDS ORDERED: BACITRACIN 28 GM OINTMENT TP PRN (06:45)
[2021-08-30] MEDS ORDERED: ONDANSETRON HCL 4 MG TABLET PO PRN (06:45)
[2021-08-30] MEDS ORDERED: DOCUSATE SODIUM 100 MG CAPSULE PO PRN (06:45)
[2021-08-30] MEDS ORDERED: BENZOCAINE/MENTHOL LOZENGE PO PRN (06:45)
[2021-08-30] MEDS ORDERED: PETROLATUM,WHITE 28 GM JELLY TP PRN (06:45)
[2021-08-30] MEDS ORDERED: CloNIDine HCL 0.1 MG TABLET PO PRN (06:45)
[2021-08-30] MEDS ORDERED: OMEPRAZOLE 20 MG CAPSULE PO PRN (06:45)
[2021-08-30] MEDS ORDERED: LOPERAMIDE HCL 2 MG CAPSULE PO PRN (06:45)
[2021-08-30] MEDS ORDERED: IBUPROFEN 600 MG TABLET PO PRN (06:45)
[2021-08-30] MEDS ORDERED: ALBUTEROL SULFATE HFA 90 MCG/PUFF 8 GM INHALER IH PRN (06:45)
[2021-08-30] MEDS ORDERED: MAGNESIUM HYDROXIDE SUSPENSION 30 ML UDCUP PO PRN (06:45)
[2021-08-30] MEDS ORDERED: MAG HYDROX/AL HYDROX/SIMETH ES 30 ML SUSPENSION UDCUP PO PRN (06:45)
[2021-08-30 08:00] VITALS: BP 141/93
[2021-08-30] MEDS: AmLODIPine BESYLATE 10 MG TABLET PO SCH (08:14)
[2021-08-30 10:56] LABS: GLUCOMETER DEV NAME(LOC) 3E.C; GLUCOSE,POINT OF CARE 141 MG/DL (70-110)
[2021-08-30] MEDS: HALOPERIDOL 5 MG TABLET PO PRN ×2 (15:56→20:41)
[2021-08-30 16:07] VITALS: BP 157/91
[2021-08-30 16:26] LABS: GLUCOMETER DEV NAME(LOC) 3E.C; GLUCOSE,POINT OF CARE 237 MG/DL (70-110)
[2021-08-30] MEDS: ZOLPIDEM TARTRATE 10 MG TABLET PO PRN (20:41)
[2021-08-30 21:01] LABS: GLUCOMETER DEV NAME(LOC) 3E.C; GLUCOSE,POINT OF CARE 96 MG/DL (70-110)
[2021-08-30 22:53] VITALS: BP 145/74
[2021-08-31 04:05] VITALS: BP 134/72
[2021-08-31] MEDS: TraMADol HCL 50 MG TABLET PO PRN ×3 (04:09→16:56)
[2021-08-31 06:36] LABS: GLUCOMETER DEV NAME(LOC) 3E.C; GLUCOSE,POINT OF CARE 208 MG/DL (70-110)
[2021-08-31] MEDS: MetFORMIN HCL 500 MG TABLET PO SCH ×2 (06:46→17:44)
[2021-08-31] MEDS: INSULIN LISPRO 100 UNITS/ML SQ PRN ×3 (06:48→17:18)
[2021-08-31 08:13] VITALS: BP 104/71
[2021-08-31] MEDS: AmLODIPine BESYLATE 10 MG TABLET PO SCH (08:15)
[2021-08-31] MEDS: HALOPERIDOL 5 MG TABLET PO PRN ×2 (08:15→13:40)
[2021-08-31] MEDS: LORazepam 2 MG TABLET PO PRN ×2 (08:15→13:40)
[2021-08-31 10:06] VITALS: BP 130/70
[2021-08-31 11:36] LABS: GLUCOMETER DEV NAME(LOC) 3E.C; GLUCOSE,POINT OF CARE 127 MG/DL (70-110)
[2021-08-31 16:00] VITALS: BP 130/68
[2021-08-31 16:21] LABS: GLUCOMETER DEV NAME(LOC) 3E.C; GLUCOSE,POINT OF CARE 166 MG/DL (70-110)
[2021-08-31 17:10] VITALS: BP 127/84
[2021-08-31 20:31] LABS: GLUCOMETER DEV NAME(LOC) 3E.C; GLUCOSE,POINT OF CARE 134 MG/DL (70-110)
[2021-08-31] MEDS ORDERED: QUEtiapine FUMARATE 200 MG TABLET PO SCH (21:00)
[2021-09-01] MEDS ORDERED: CITALOPRAM HYDROBROMIDE 20 MG TABLET PO SCH (09:00)
== END 2021-08-31 21:00 | disposition home or self-care (01) | DRG 885 ==
LOC: EMS 13:20 → 3EC 15:38
PROVIDERS: ADMIT Psychiatry & Neurology Psychiatry; ATTEND Psychiatry & Neurology Psychiatry
DX: F25.9 Schizoaffective disorder, unspecified (principal); B18.2 Chronic viral hepatitis C; E11.9 Type 2 diabetes mellitus without complications; E78.5 Hyperlipidemia, unspecified; G89.29 Other chronic pain; I10 Essential (primary) hypertension; I25.10 Atherosclerotic heart disease of native coronary artery without angina pectoris; J44.9 Chronic obstructive pulmonary disease, unspecified; F17.210 Nicotine dependence, cigarettes, uncomplicated; M25.569 Pain in unspecified knee; F41.9 Anxiety disorder, unspecified; Z20.822 Contact with and (suspected) exposure to COVID-19; M19.90 Unspecified osteoarthritis, unspecified site; M54.9 Dorsalgia, unspecified; Z63.4 Disappearance and death of family member
CPT/HCPCS: 80053; 82962; 85025; 87081; 99285; G0480

== ENCOUNTER 2021-09-26 16:02 | Emergency (ER) | payer MEDICARE, MEDICAID ==
[~2021-09-26] VITALS: Ht 165.1 cm; Wt 72.2 kg
[~2021-09-26 16:02] MED LIST changes: -AMLO-258 PO; -CHOL200074 PO; -INSLAN SQ; -INSU100I21 SQ; -INSU100V SQ; -LIDO1ADH63 TP; -OXYC10TA92 PO; -PANT40TA54 PO; -QUET200T30 PO
[2021-09-26] MEDS ORDERED: SODIUM CHLORIDE 0.9% 1,000 ML IV ONE (16:30)
[2021-09-26 16:50] LABS: BASOPHILS % (AUTO) 0.6 % (0.0-2.0); EOSINOPHILS % (AUTO) 0.4 % (1.0-6.0); HEMATOCRIT 35.1 % (36-46); HEMOGLOBIN 11.4 g/dL (12.0-16.0); LYMPHOCYTES # (AUTO) 1.6 K/uL (1.0-4.8); LYMPHOCYTES % (AUTO) 22.2 % (22.0-44.0); MEAN CORPUSCULAR HEMOGLOBIN 27.4 pg (26.0-34.0); MEAN CORPUSCULAR HGB CONC 32.4 G/dL (31.0-37.0); MEAN CORPUSCULAR VOLUME 85 fL (80-100); MONOCYTES # (AUTO) 0.5 K/uL (0.1-1.0); MONOCYTES % (AUTO) 6.3 % (2.0-9.0); NEUTROPHILS # (AUTO) 5.2 K/uL (1.8-7.7); NEUTROPHILS % (AUTO) 70.5 % (40.0-70.0); PLATELET COUNT (AUTO) 213 K/uL (150-450); RED BLOOD CELL COUNT(AUTO) 4.14 MIL/uL (4.00-5.20); RED CELL DISTRIBUTION WIDTH 16.6 % (11.5-14.5)
[2021-09-26 16:59] LABS: ANION GAP 8 mmol/L (8-16); CALCIUM, TOTAL 9.3 mg/dL (8.8-10.5); CARBON DIOXIDE 25 mmol/L (22-29); CHLORIDE 105 mmol/L (98-107); CREATININE 0.62 mg/dL (0.60-1.30); GLOMERULAR FILTR. RATE CALC > 60 mL/min (>60); GLUCOSE,RANDOM 191 mg/dL (70-110); POTASSIUM 3.9 mmol/L (3.5-5.1); SODIUM SERUM 138 mmol/L (136-145); UREA NITROGEN, BLOOD 14 mg/dL (7-18)
[2021-09-26 17:04] LABS: ALANINE AMINOTRANSFERASE 45 U/L (12-78); ALBUMIN 3.5 g/dL (3.4-5.0); ALKALINE PHOSPHATASE 140 U/L (46-116); ASPARTATE AMINOTRANSFERASE 53 U/L (15-37); BILIRUBIN,TOTAL 0.6 mg/dL (0.1-1.0); LIPASE 45 U/L (73-393); TOTAL PROTEIN, SERUM 7.6 g/dL (6.4-8.2)
[2021-09-26] MEDS ORDERED: KETOROLAC TROMETHAMINE 30 MG/ML VIAL IVP ONE (17:30)
[2021-09-26 17:58] LABS: APPEARANCE,URINE CLEAR (CLEAR); BILIRUBIN,URINE NEGATIVE (NEGATIVE); GLUCOSE, URINE (UA) NEGATIVE (NEGATIVE); KETONES,URINE NEGATIVE (NEGATIVE); LEUKOCYTE ESTERASE ,URINE NEGATIVE (NEGATIVE); NITRATE,URINE NEGATIVE (NEGATIVE); OCCULT BLOOD,URINE NEGATIVE (NEGATIVE); PROTEIN,URINE NEGATIVE (NEGATIVE); SPECIFIC GRAVITIY, URINE 1.018 (1.003-1.030)
[2021-09-26 18:03] LABS: AMPHET/METH SCREEN,URINE NEGATIVE (NEGATIVE); BARBITURATE SCREEN, URINE NEGATIVE (NEGATIVE); BENZODIAZEPINES SCREEN,URINE NEGATIVE (NEGATIVE); CANNABINOID SCREEN,URINE NEGATIVE (NEGATIVE); COCAINE SCREEN,URINE NEGATIVE (NEGATIVE); METHADONE SCREEN, URINE NEGATIVE (NEGATIVE); OPIATE SCREEN,URINE NEGATIVE (NEGATIVE)
[2021-09-26 18:04] LABS: PHENCYCLIDINE SCREEN,URINE NEGATIVE (NEGATIVE)
[2021-09-26 19:40] VITALS: BP 141/82
[2021-10-06] MEDS ORDERED: CITA-144 PO (11:23)
[2021-10-06] MEDS ORDERED: QUET300T2 PO (11:23)
[2021-10-06] MEDS ORDERED: [UNRECOGNIZED DRUG - CODE] PO (11:28)
== END 2021-09-26 19:52 | disposition home or self-care (01) ==
LOC: EMS 16:02
DX: G89.29 Other chronic pain (principal); R10.9 Unspecified abdominal pain; R11.2 Nausea with vomiting, unspecified; E11.9 Type 2 diabetes mellitus without complications; F20.9 Schizophrenia, unspecified; F41.9 Anxiety disorder, unspecified; I10 Essential (primary) hypertension
CPT/HCPCS: 36415; 80053; 80307; 81003; 83690; 84484; 85025; 93005; 96361; 96374; 99284; J1885; J7030

== ENCOUNTER 2021-11-01 15:14 | Inpatient (IN) | payer MEDICARE, MEDICAID ==
[~2021-11-01] VITALS: Ht 165.1 cm; Wt 72.7 kg
[~2021-11-01 15:14] MED LIST changes: -CITA-144 PO; +INSU100V SQ; +MELO-381 PO; -METF-1211 PO; -QUET200T PO
[2021-11-01 15:51] LABS: GLUCOMETER DEV NAME(LOC) ERT.5; GLUCOSE,POINT OF CARE 154 MG/DL (70-110)
[2021-11-01 16:26] LABS: BASOPHILS % (AUTO) 0.2 % (0.0-2.0); EOSINOPHILS % (AUTO) 0.1 % (1.0-6.0); HEMATOCRIT 36.9 % (36-46); LYMPHOCYTES # (AUTO) 1.8 K/uL (1.0-4.8); LYMPHOCYTES % (AUTO) 24.8 % (22.0-44.0); MEAN CORPUSCULAR HEMOGLOBIN 27.4 pg (26.0-34.0); MEAN CORPUSCULAR HGB CONC 32.4 G/dL (31.0-37.0); MEAN CORPUSCULAR VOLUME 85 fL (80-100); MONOCYTES # (AUTO) 0.3 K/uL (0.1-1.0); MONOCYTES % (AUTO) 4.5 % (2.0-9.0); NEUTROPHILS % (AUTO) 70.4 % (40.0-70.0); PLATELET COUNT (AUTO) 190 K/uL (150-450); RED BLOOD CELL COUNT(AUTO) 4.37 MIL/uL (4.00-5.20); RED CELL DISTRIBUTION WIDTH 16.9 % (11.5-14.5)
[2021-11-01 16:38] LABS: ANION GAP 13 mmol/L (8-16); CALCIUM, TOTAL 9.4 mg/dL (8.8-10.5); CARBON DIOXIDE 22 mmol/L (22-29); CHLORIDE 105 mmol/L (98-107); CREATININE 0.62 mg/dL (0.60-1.30); GLOMERULAR FILTR. RATE CALC > 60 mL/min (>60); GLUCOSE,RANDOM 217 mg/dL (70-110); POTASSIUM 3.6 mmol/L (3.5-5.1); SODIUM SERUM 140 mmol/L (136-145); UREA NITROGEN, BLOOD 12 mg/dL (7-18)
[2021-11-01 16:44] LABS: ALANINE AMINOTRANSFERASE 49 U/L (12-78); ALBUMIN 3.5 g/dL (3.4-5.0); ALKALINE PHOSPHATASE 125 U/L (46-116); ASPARTATE AMINOTRANSFERASE 46 U/L (15-37); BILIRUBIN,TOTAL 0.7 mg/dL (0.1-1.0); TOTAL PROTEIN, SERUM 7.7 g/dL (6.4-8.2)
[2021-11-01] MEDS ORDERED: LORazepam 1 MG TABLET PO ONE (17:15)
[2021-11-01] MEDS ORDERED: ZOLPIDEM TARTRATE 10 MG TABLET PO PRN (17:15)
[2021-11-01] MEDS ORDERED: HALOPERIDOL 5 MG TABLET PO PRN (17:15)
[2021-11-01 17:35] LABS: COVID AG,FIA SOURCE NASOPHARYNGEAL
[2021-11-01] MEDS: LORazepam 2 MG TABLET PO PRN (20:41)
[2021-11-02] MEDS: LORazepam 2 MG TABLET PO PRN ×3 (03:34→12:54)
[2021-11-02 16:34] VITALS: BP 136/86
[2021-11-02] MEDS ORDERED: GLUCAGON,HUMAN RECOMBINANT 1 MG VIAL IM PRN (17:00)
[2021-11-02 17:21] LABS: GLUCOMETER DEV NAME(LOC) BV2X.2; GLUCOSE,POINT OF CARE 136 MG/DL (70-110)
[2021-11-02] MEDS ORDERED: PNEUMOCOCCAL VACCINE POLYVALENT 0.5 ML VIAL [PPSV23] IM. ONE (18:15)
[2021-11-02] MEDS: TraMADol HCL 50 MG TABLET PO PRN (23:44)
[2021-11-03] MEDS: LORazepam 2 MG TABLET PO PRN ×3 (03:09→16:18)
[2021-11-03 04:43] VITALS: BP 121/71
[2021-11-03] MEDS: INSULIN LISPRO 100 UNITS/ML SQ PRN ×3 (06:28→20:33)
[2021-11-03 06:31] LABS: GLUCOMETER DEV NAME(LOC) BV2X.2; GLUCOSE,POINT OF CARE 151 MG/DL (70-110)
[2021-11-03] MEDS: TraMADol HCL 50 MG TABLET PO PRN ×3 (06:42→20:20)
[2021-11-03 08:26] VITALS: BP 112/66
[2021-11-03 13:08] VITALS: BP 119/63
[2021-11-03 16:21] LABS: GLUCOMETER DEV NAME(LOC) BV2X.2; GLUCOSE,POINT OF CARE 144 MG/DL (70-110)
[2021-11-03 20:11] VITALS: BP 142/73
[2021-11-03 20:21] LABS: GLUCOMETER DEV NAME(LOC) BV2X.2; GLUCOSE,POINT OF CARE 157 MG/DL (70-110)
[2021-11-03] MEDS ORDERED: PETROLATUM,WHITE 28 GM JELLY TP PRN (21:15)
[2021-11-03] MEDS ORDERED: ACETAMINOPHEN 325 MG TABLET PO PRN (21:15)
[2021-11-03] MEDS ORDERED: BENZOCAINE/MENTHOL LOZENGE PO PRN (21:15)
[2021-11-03] MEDS ORDERED: ALBUTEROL SULFATE HFA 90 MCG/PUFF 8 GM INHALER IH PRN (21:15)
[2021-11-03] MEDS ORDERED: ONDANSETRON HCL 4 MG TABLET PO PRN (21:15)
[2021-11-03] MEDS ORDERED: CloNIDine HCL 0.1 MG TABLET PO PRN (21:15)
[2021-11-03] MEDS ORDERED: BACITRACIN 28 GM OINTMENT TP PRN (21:15)
[2021-11-03] MEDS ORDERED: MAGNESIUM HYDROXIDE SUSPENSION 30 ML UDCUP PO PRN (21:15)
[2021-11-03] MEDS ORDERED: IBUPROFEN 600 MG TABLET PO PRN (21:15)
[2021-11-03] MEDS ORDERED: DOCUSATE SODIUM 100 MG CAPSULE PO PRN (21:15)
[2021-11-03] MEDS ORDERED: OMEPRAZOLE 20 MG CAPSULE PO PRN (21:15)
[2021-11-03] MEDS ORDERED: MAG HYDROX/AL HYDROX/SIMETH ES 30 ML SUSPENSION UDCUP PO PRN (21:15)
[2021-11-03] MEDS ORDERED: LOPERAMIDE HCL 2 MG CAPSULE PO PRN (21:15)
[2021-11-04 00:44] VITALS: BP 138/72
[2021-11-04] MEDS: LORazepam 2 MG TABLET PO PRN ×2 (00:46→07:45)
[2021-11-04 06:02] LABS: GLUCOMETER DEV NAME(LOC) BV2X.2; GLUCOSE,POINT OF CARE 153 MG/DL (70-110)
[2021-11-04 06:03] VITALS: BP 140/90
[2021-11-04] MEDS: TraMADol HCL 50 MG TABLET PO PRN ×2 (06:12→13:21)
[2021-11-04] MEDS: INSULIN LISPRO 100 UNITS/ML SQ PRN (06:13)
[2021-11-04 09:19] VITALS: BP 139/95
== END 2021-11-04 15:30 | disposition home or self-care (01) | DRG 885 ==
LOC: EMS 15:16 → B2X 11-02 13:33
PROVIDERS: ADMIT Psychiatry & Neurology Psychiatry; ATTEND Psychiatry & Neurology Psychiatry
DX: F25.9 Schizoaffective disorder, unspecified (principal); B19.20 Unspecified viral hepatitis C without hepatic coma; R45.851 Suicidal ideations; E11.9 Type 2 diabetes mellitus without complications; F41.9 Anxiety disorder, unspecified; I10 Essential (primary) hypertension; M19.90 Unspecified osteoarthritis, unspecified site; G89.29 Other chronic pain; I25.10 Atherosclerotic heart disease of native coronary artery without angina pectoris; J44.9 Chronic obstructive pulmonary disease, unspecified; E78.5 Hyperlipidemia, unspecified; M54.9 Dorsalgia, unspecified; Z20.822 Contact with and (suspected) exposure to COVID-19; G47.00 Insomnia, unspecified; K59.00 Constipation, unspecified; R26.9 Unspecified abnormalities of gait and mobility; Z72.0 Tobacco use
CPT/HCPCS: 80053; 82962; 85025; 87081; 99285; G0480

== ENCOUNTER 2022-03-04 04:13 | Emergency (ER) | payer MEDICARE, MEDICAID ==
[~2022-03-04] VITALS: Ht 165.1 cm; Wt 75.0 kg
[~2022-03-04 04:13] MED LIST changes: +AMLO-258 PO; +CHOL200074 PO; +CITA-144 PO; -INSU100V SQ; -MELO-381 PO; +METF-1211 PO; +OXYC10TA92 PO; +OXYC20TA58 PO; +PANT-31 PO; +QUET300T2 PO; +XALA2.5OS OD
[2022-03-04 04:20] VITALS: BP 154/72
[2022-03-04] MEDS ORDERED: LORazepam 1 MG TABLET PO ONE (04:30)
== END 2022-03-04 04:41 | disposition home or self-care (01) ==
LOC: EMS 04:15
DX: F41.9 Anxiety disorder, unspecified (principal); E11.9 Type 2 diabetes mellitus without complications; F32.9 Major depressive disorder, single episode, unspecified; F25.1 Schizoaffective disorder, depressive type; F51.5 Nightmare disorder; F17.210 Nicotine dependence, cigarettes, uncomplicated; I10 Essential (primary) hypertension
CPT/HCPCS: 99283

== ENCOUNTER 2022-04-18 07:12 | Inpatient (IN) | payer MEDICARE, MEDICAID ==
[~2022-04-18] VITALS: Ht 165.1 cm; Wt 72.9 kg
[~2022-04-18 07:12] MED LIST changes: -METF-1211 PO; -OXYC10TA92 PO; -OXYC20TA58 PO; +QUET200T30 PO; -QUET300T2 PO
[2022-04-18 08:46] LABS: BASOPHILS % (AUTO) 0.1 % (0.0-2.0); EOSINOPHILS % (AUTO) 0.1 % (1.0-6.0); HEMATOCRIT 40.2 % (36-46); HEMOGLOBIN 12.6 g/dL (12.0-16.0); LYMPHOCYTES # (AUTO) 2.5 K/uL (1.0-4.8); LYMPHOCYTES % (AUTO) 19.8 % (22.0-44.0); MEAN CORPUSCULAR HEMOGLOBIN 26.2 pg (26.0-34.0); MEAN CORPUSCULAR HGB CONC 31.3 G/dL (31.0-37.0); MEAN CORPUSCULAR VOLUME 84 fL (80-100); MONOCYTES # (AUTO) 1.1 K/uL (0.1-1.0); MONOCYTES % (AUTO) 8.2 % (2.0-9.0); NEUTROPHILS # (AUTO) 9.2 K/uL (1.8-7.7); NEUTROPHILS % (AUTO) 71.8 % (40.0-70.0); PLATELET COUNT (AUTO) 258 K/uL (150-450); RED CELL DISTRIBUTION WIDTH 16.2 % (11.5-14.5)
[2022-04-18 09:10] LABS: ALANINE AMINOTRANSFERASE 58 U/L (12-78); ALBUMIN 3.7 g/dL (3.4-5.0); ALKALINE PHOSPHATASE 130 U/L (46-116); ANION GAP 14 mmol/L (8-16); ASPARTATE AMINOTRANSFERASE 64 U/L (15-37); BILIRUBIN,TOTAL 0.9 mg/dL (0.1-1.0); CALCIUM, TOTAL 9.2 mg/dL (8.8-10.5); CARBON DIOXIDE 23 mmol/L (22-29); CHLORIDE 96 mmol/L (98-107); CREATININE 1.34 mg/dL (0.60-1.30); SODIUM SERUM 133 mmol/L (136-145); UREA NITROGEN, BLOOD 24 mg/dL (7-18)
[2022-04-18 09:12] LABS: GLOMERULAR FILTR. RATE CALC 47 mL/min (>60); GLUCOSE,RANDOM 456 mg/dL (70-110); POTASSIUM 2.8 mmol/L (3.5-5.1)
[2022-04-18] MEDS ORDERED: POTASSIUM CHLORIDE 20 MEQ ER TABLET PO ONE (09:15)
[2022-04-18] MEDS ORDERED: SODIUM CHLORIDE 0.9% 1,000 ML IV ONE ×2 (09:15→17:00)
[2022-04-18] MEDS ORDERED: INSULIN REGULAR, HUMAN 100 UNITS/ML SQ ONE (14:00)
[2022-04-18 14:49] LABS: COVID AG,FIA SOURCE NASAL SWAB
[2022-04-18 15:09] LABS: INFLUENZA TYPE A NEGATIVE FOR TYPE A (NEGATIVE); INFLUENZA TYPE B NEGATIVE FOR TYPE B (NEGATIVE)
[2022-04-18] MEDS ORDERED: DEXTROSE 50%-WATER 25 GM/50 ML SYRINGE IVP PRN (16:45)
[2022-04-18] MEDS ORDERED: POTASSIUM CHLORIDE 10% 40 MEQ/30 ML LIQUID UDCUP PO ONE (17:00)
[2022-04-18] MEDS ORDERED: INSULIN GLARGINE,HUM.REC.ANLOG 100 UNITS/ML SQ ONE (17:00)
[2022-04-18] MEDS ORDERED: INSULIN REGULAR, HUMAN 100 UNITS/ML IVP ONE (17:00)
[2022-04-18] MEDS: ZOLPIDEM TARTRATE 10 MG TABLET PO PRN (19:33)
[2022-04-18] MEDS: INSULIN LISPRO 100 UNITS/ML SQ PRN (21:28)
[2022-04-19] MEDS: QUEtiapine FUMARATE 100 MG TABLET PO PRN ×2 (00:21→10:43)
[2022-04-19] MEDS: INSULIN LISPRO 100 UNITS/ML SQ PRN ×3 (05:55→21:45)
[2022-04-19] MEDS: LORazepam 2 MG TABLET PO PRN (10:43)
[2022-04-19 11:06] LABS: GLUCOMETER DEV NAME(LOC) ERT.5; GLUCOSE,POINT OF CARE 171 MG/DL (70-110)
[2022-04-19 14:30] VITALS: BP 150/97
[2022-04-19 15:31] LABS: GLUCOMETER DEV NAME(LOC) 3EX.2; GLUCOSE,POINT OF CARE 181 MG/DL (70-110)
[2022-04-19 16:11] VITALS: BP 138/97
[2022-04-19 21:56] LABS: GLUCOMETER DEV NAME(LOC) 3E.I 2; GLUCOSE,POINT OF CARE 293 MG/DL (70-110)
[2022-04-20] MEDS ORDERED: CloNIDine HCL 0.1 MG TABLET PO PRN (05:45)
[2022-04-20] MEDS ORDERED: PETROLATUM,WHITE 28 GM JELLY TP PRN (05:45)
[2022-04-20] MEDS ORDERED: BENZOCAINE/MENTHOL LOZENGE PO PRN (05:45)
[2022-04-20] MEDS ORDERED: IBUPROFEN 600 MG TABLET PO PRN (05:45)
[2022-04-20] MEDS ORDERED: OMEPRAZOLE 20 MG CAPSULE PO PRN (05:45)
[2022-04-20] MEDS ORDERED: BACITRACIN 28 GM OINTMENT TP PRN (05:45)
[2022-04-20] MEDS ORDERED: MAGNESIUM HYDROXIDE SUSPENSION 30 ML UDCUP PO PRN (05:45)
[2022-04-20] MEDS ORDERED: LOPERAMIDE HCL 2 MG CAPSULE PO PRN (05:45)
[2022-04-20] MEDS ORDERED: ONDANSETRON HCL 4 MG TABLET PO PRN (05:45)
[2022-04-20] MEDS ORDERED: ALBUTEROL SULFATE HFA 90 MCG/PUFF 8 GM INHALER IH PRN (05:45)
[2022-04-20] MEDS ORDERED: POTASSIUM CHLORIDE 20 MEQ ER TABLET PO ONE (05:45)
[2022-04-20] MEDS ORDERED: ACETAMINOPHEN 325 MG TABLET PO PRN (05:45)
[2022-04-20] MEDS ORDERED: DOCUSATE SODIUM 100 MG CAPSULE PO PRN (05:45)
[2022-04-20 05:52] LABS: GLUCOMETER DEV NAME(LOC) 3E.I 2; GLUCOSE,POINT OF CARE 268 MG/DL (70-110)
[2022-04-20] MEDS: INSULIN LISPRO 100 UNITS/ML SQ PRN ×4 (06:46→21:30)
[2022-04-20] MEDS: AmLODIPine BESYLATE 10 MG TABLET PO SCH (08:57)
[2022-04-20] MEDS: CHOLECALCIFEROL (VIT D3) 1,000 UNITS [25 MCG] TABLET PO SCH (08:57)
[2022-04-20] MEDS: LORazepam 2 MG TABLET PO PRN ×2 (09:55→20:27)
[2022-04-20 12:01] LABS: GLUCOMETER DEV NAME(LOC) 3E.I 2; GLUCOSE,POINT OF CARE 291 MG/DL (70-110)
[2022-04-20 16:06] VITALS: BP 160/89
[2022-04-20 17:21] LABS: GLUCOMETER DEV NAME(LOC) 3E.C; GLUCOSE,POINT OF CARE 359 MG/DL (70-110)
[2022-04-20] MEDS: LATANOPROST 0.005% 2.5 ML OPHTHALMIC SOLUTION OD SCH (20:27)
[2022-04-20] MEDS: QUEtiapine FUMARATE 100 MG TABLET PO PRN (20:27)
[2022-04-20 21:41] LABS: GLUCOMETER DEV NAME(LOC) 3E.I 2; GLUCOSE,POINT OF CARE 232 MG/DL (70-110)
[2022-04-21 06:11] LABS: GLUCOMETER DEV NAME(LOC) 3E.I 2; GLUCOSE,POINT OF CARE 175 MG/DL (70-110)
[2022-04-21] MEDS: INSULIN LISPRO 100 UNITS/ML SQ PRN ×4 (06:40→21:09)
[2022-04-21 06:59] LABS: BASOPHILS % (AUTO) 0.6 % (0.0-2.0); EOSINOPHILS % (AUTO) 0.6 % (1.0-6.0); HEMATOCRIT 38.2 % (36-46); HEMOGLOBIN 12.5 g/dL (12.0-16.0); LYMPHOCYTES # (AUTO) 2.1 K/uL (1.0-4.8); LYMPHOCYTES % (AUTO) 20.7 % (22.0-44.0); MEAN CORPUSCULAR HEMOGLOBIN 27.2 pg (26.0-34.0); MEAN CORPUSCULAR HGB CONC 32.6 G/dL (31.0-37.0); MEAN CORPUSCULAR VOLUME 83 fL (80-100); MONOCYTES % (AUTO) 9.8 % (2.0-9.0); NEUTROPHILS # (AUTO) 6.9 K/uL (1.8-7.7); NEUTROPHILS % (AUTO) 68.3 % (40.0-70.0); PLATELET COUNT (AUTO) 290 K/uL (150-450); RED BLOOD CELL COUNT(AUTO) 4.58 MIL/uL (4.00-5.20); RED CELL DISTRIBUTION WIDTH 16.5 % (11.5-14.5)
[2022-04-21 07:18] LABS: ALANINE AMINOTRANSFERASE 47 U/L (12-78); ALBUMIN 3.1 g/dL (3.4-5.0); ALKALINE PHOSPHATASE 121 U/L (46-116); ANION GAP 10 mmol/L (8-16); ASPARTATE AMINOTRANSFERASE 49 U/L (15-37); BILIRUBIN,TOTAL 0.9 mg/dL (0.1-1.0); CALCIUM, TOTAL 8.6 mg/dL (8.8-10.5); CARBON DIOXIDE 26 mmol/L (22-29); CHLORIDE 104 mmol/L (98-107); CREATININE 0.81 mg/dL (0.60-1.30); GLUCOSE,RANDOM 319 mg/dL (70-110); PHOSPHORUS 4.3 mg/dL (2.5-4.9); POTASSIUM 3.3 mmol/L (3.5-5.1); SODIUM SERUM 140 mmol/L (136-145); TOTAL PROTEIN, SERUM 7.3 g/dL (6.4-8.2); UREA NITROGEN, BLOOD 10 mg/dL (7-18)
[2022-04-21 07:20] LABS: GLOMERULAR FILTR. RATE CALC > 60 mL/min (>60)
[2022-04-21] MEDS: AmLODIPine BESYLATE 10 MG TABLET PO SCH (08:15)
[2022-04-21] MEDS: CHOLECALCIFEROL (VIT D3) 1,000 UNITS [25 MCG] TABLET PO SCH (08:15)
[2022-04-21 09:07] VITALS: BP 156/85
[2022-04-21] MEDS: LORazepam 2 MG TABLET PO PRN (09:53)
[2022-04-21] MEDS: MAG HYDROX/AL HYDROX/SIMETH ES 30 ML SUSPENSION UDCUP PO PRN (10:31)
[2022-04-21 11:51] LABS: GLUCOMETER DEV NAME(LOC) 3E.I 2; GLUCOSE,POINT OF CARE 282 MG/DL (70-110)
[2022-04-21 12:32] VITALS: BP 155/88
[2022-04-21] MEDS: TraMADol HCL 50 MG TABLET PO PRN (12:51)
[2022-04-21] MEDS ORDERED: LORazepam 2 MG TABLET PO PRN (13:30)
[2022-04-21 15:33] LABS: APPEARANCE,URINE TURBID (CLEAR); GLUCOSE, URINE (UA) 300-500 mg/dL (NEGATIVE); KETONES,URINE NEGATIVE (NEGATIVE); LEUKOCYTE ESTERASE ,URINE LARGE (NEGATIVE); NITRATE,URINE NEGATIVE (NEGATIVE); OCCULT BLOOD,URINE NEGATIVE (NEGATIVE); PH,URINE 8.5 (5.0-8.0); PROTEIN,URINE >600,SEE CONFIRM mg/dL (NEGATIVE); SPECIFIC GRAVITIY, URINE 1.022 (1.003-1.030)
[2022-04-21 15:34] LABS: BILIRUBIN,URINE SMALL (NEGATIVE)
[2022-04-21 15:40] LABS: AMPHET/METH SCREEN,URINE NEGATIVE (NEGATIVE); BARBITURATE SCREEN, URINE NEGATIVE (NEGATIVE); BENZODIAZEPINES SCREEN,URINE NEGATIVE (NEGATIVE); CANNABINOID SCREEN,URINE NEGATIVE (NEGATIVE); COCAINE SCREEN,URINE POSITIVE (NEGATIVE); METHADONE SCREEN, URINE NEGATIVE (NEGATIVE); OPIATE SCREEN,URINE NEGATIVE (NEGATIVE)
[2022-04-21 16:05] LABS: AMORPHOUS SEDIMENT,UR Many /LPF (None Seen); BACTERIA,URINE Few /HPF (None Seen); RBC,URINE 0-2 /HPF (0-2); SQUAMOUS EPITHELIAL CELL,UR Few /LPF (None Seen); SULFOSALICYLIC ACID,URINE 3+ (Negative)
[2022-04-21 16:07] LABS: PHENCYCLIDINE SCREEN,URINE NEGATIVE (NEGATIVE)
[2022-04-21 16:15] VITALS: BP 163/77
[2022-04-21 16:26] LABS: GLUCOMETER DEV NAME(LOC) 3E.I 2; GLUCOSE,POINT OF CARE 308 MG/DL (70-110)
[2022-04-21] MEDS: LATANOPROST 0.005% 2.5 ML OPHTHALMIC SOLUTION OD SCH (21:08)
[2022-04-21 21:21] LABS: GLUCOMETER DEV NAME(LOC) 3E.I 2; GLUCOSE,POINT OF CARE 272 MG/DL (70-110)
[2022-04-21 23:01] VITALS: BP 118/64
[2022-04-21] MEDS: QUEtiapine FUMARATE 100 MG TABLET PO PRN (23:04)
[2022-04-22 01:43] VITALS: BP 117/79
[2022-04-22] MEDS: LORazepam 1 MG TABLET PO PRN ×3 (01:43→18:30)
[2022-04-22 05:03] VITALS: BP 143/84
[2022-04-22] MEDS: TraMADol HCL 50 MG TABLET PO PRN (05:06)
[2022-04-22] MEDS: QUEtiapine FUMARATE 100 MG TABLET PO PRN ×2 (05:07→18:30)
[2022-04-22 05:31] LABS: GLUCOMETER DEV NAME(LOC) 3E.I 2; GLUCOSE,POINT OF CARE 142 MG/DL (70-110)
[2022-04-22] MEDS: INSULIN LISPRO 100 UNITS/ML SQ PRN ×4 (07:04→21:33)
[2022-04-22 08:00] VITALS: BP 145/80
[2022-04-22] MEDS: CHOLECALCIFEROL (VIT D3) 1,000 UNITS [25 MCG] TABLET PO SCH (09:52)
[2022-04-22] MEDS: AmLODIPine BESYLATE 10 MG TABLET PO SCH (09:52)
[2022-04-22 12:11] LABS: GLUCOMETER DEV NAME(LOC) 3EX.2; GLUCOSE,POINT OF CARE 305 MG/DL (70-110)
[2022-04-22] MEDS: LATANOPROST 0.005% 2.5 ML OPHTHALMIC SOLUTION OD SCH (20:56)
[2022-04-22 22:01] LABS: GLUCOMETER DEV NAME(LOC) 3EX.2; GLUCOSE,POINT OF CARE 303 MG/DL (70-110)
[2022-04-23] MEDS: QUEtiapine FUMARATE 100 MG TABLET PO PRN ×2 (02:37→06:56)
[2022-04-23] MEDS: LORazepam 1 MG TABLET PO PRN (06:57)
[2022-04-23] MEDS: INSULIN LISPRO 100 UNITS/ML SQ PRN ×4 (07:03→22:23)
[2022-04-23] MEDS: CHOLECALCIFEROL (VIT D3) 1,000 UNITS [25 MCG] TABLET PO SCH (08:48)
[2022-04-23] MEDS: AmLODIPine BESYLATE 10 MG TABLET PO SCH (08:49)
[2022-04-23 08:51] VITALS: BP 127/70
[2022-04-23] MEDS: MAG HYDROX/AL HYDROX/SIMETH ES 30 ML SUSPENSION UDCUP PO PRN (10:55)
[2022-04-23 11:26] LABS: GLUCOMETER DEV NAME(LOC) 3EX.2; GLUCOSE,POINT OF CARE 341 MG/DL (70-110)
[2022-04-23] MEDS: TraMADol HCL 50 MG TABLET PO PRN (16:14)
[2022-04-23 16:36] LABS: GLUCOMETER DEV NAME(LOC) 3E.I 2; GLUCOSE,POINT OF CARE 205 MG/DL (70-110)
[2022-04-23 16:51] LABS: GLUCOMETER DEV NAME(LOC) 3EX.2; GLUCOSE,POINT OF CARE 331 MG/DL (70-110)
[2022-04-23 17:25] VITALS: BP 142/62
[2022-04-23] MEDS: LATANOPROST 0.005% 2.5 ML OPHTHALMIC SOLUTION OD SCH (20:25)
[2022-04-23 22:31] LABS: GLUCOMETER DEV NAME(LOC) 3E.I 2; GLUCOSE,POINT OF CARE 202 MG/DL (70-110)
[2022-04-24] MEDS: MAG HYDROX/AL HYDROX/SIMETH ES 30 ML SUSPENSION UDCUP PO PRN (02:43)
[2022-04-24] MEDS: LORazepam 1 MG TABLET PO PRN (02:46)
[2022-04-24 05:48] LABS: GLUCOMETER DEV NAME(LOC) 3E.I 2; GLUCOSE,POINT OF CARE 159 MG/DL (70-110)
[2022-04-24 06:05] VITALS: BP 145/74
[2022-04-24] MEDS: TraMADol HCL 50 MG TABLET PO PRN ×2 (06:07→15:37)
[2022-04-24] MEDS: INSULIN LISPRO 100 UNITS/ML SQ PRN ×4 (06:38→21:07)
[2022-04-24 07:59] LABS: COVID AG,FIA SOURCE NASAL SWAB
[2022-04-24 08:00] VITALS: BP 129/49
[2022-04-24] MEDS: CHOLECALCIFEROL (VIT D3) 1,000 UNITS [25 MCG] TABLET PO SCH (08:28)
[2022-04-24] MEDS: AmLODIPine BESYLATE 10 MG TABLET PO SCH (08:28)
[2022-04-24 11:51] LABS: GLUCOMETER DEV NAME(LOC) 3EX.2; GLUCOSE,POINT OF CARE 263 MG/DL (70-110)
[2022-04-24 15:38] VITALS: BP 141/57
[2022-04-24 16:16] VITALS: BP 143/66
[2022-04-24 16:37] VITALS: BP 138/74
[2022-04-24 16:41] LABS: GLUCOMETER DEV NAME(LOC) 3E.I 2; GLUCOSE,POINT OF CARE 261 MG/DL (70-110)
[2022-04-24 20:41] LABS: GLUCOMETER DEV NAME(LOC) 3E.I 2; GLUCOSE,POINT OF CARE 153 MG/DL (70-110)
[2022-04-24] MEDS: LATANOPROST 0.005% 2.5 ML OPHTHALMIC SOLUTION OD SCH (20:57)
[2022-04-24] MEDS: QUEtiapine FUMARATE 100 MG TABLET PO PRN (21:25)
[2022-04-25] VITALS (8 sets, daily range): BP systolic 115–128; BP diastolic 63–92
[2022-04-25] MEDS: TraMADol HCL 50 MG TABLET PO PRN ×3 (03:55→17:22)
[2022-04-25 05:36] LABS: GLUCOMETER DEV NAME(LOC) 3E.I 2; GLUCOSE,POINT OF CARE 157 MG/DL (70-110)
[2022-04-25] MEDS: INSULIN LISPRO 100 UNITS/ML SQ PRN ×3 (07:04→21:12)
[2022-04-25] MEDS: CHOLECALCIFEROL (VIT D3) 1,000 UNITS [25 MCG] TABLET PO SCH (09:09)
[2022-04-25] MEDS: AmLODIPine BESYLATE 10 MG TABLET PO SCH (09:09)
[2022-04-25 12:07] LABS: GLUCOMETER DEV NAME(LOC) 3EX.2; GLUCOSE,POINT OF CARE 235 MG/DL (70-110)
[2022-04-25 16:16] LABS: GLUCOMETER DEV NAME(LOC) 3E.I 2; GLUCOSE,POINT OF CARE 101 MG/DL (70-110)
[2022-04-25] MEDS: LATANOPROST 0.005% 2.5 ML OPHTHALMIC SOLUTION OD SCH (20:20)
[2022-04-25] MEDS: LORazepam 1 MG TABLET PO PRN (20:48)
[2022-04-25] MEDS: QUEtiapine FUMARATE 100 MG TABLET PO PRN (20:49)
[2022-04-25 21:01] LABS: GLUCOMETER DEV NAME(LOC) 3E.I 2; GLUCOSE,POINT OF CARE 242 MG/DL (70-110)
[2022-04-26 02:00] VITALS: BP 132/85
[2022-04-26] MEDS: TraMADol HCL 50 MG TABLET PO PRN ×3 (02:04→18:43)
[2022-04-26 06:06] LABS: GLUCOMETER DEV NAME(LOC) 3E.I 2; GLUCOSE,POINT OF CARE 159 MG/DL (70-110)
[2022-04-26] MEDS: INSULIN LISPRO 100 UNITS/ML SQ PRN ×4 (06:45→20:52)
[2022-04-26] MEDS: AmLODIPine BESYLATE 10 MG TABLET PO SCH (09:18)
[2022-04-26] MEDS: CHOLECALCIFEROL (VIT D3) 1,000 UNITS [25 MCG] TABLET PO SCH (09:18)
[2022-04-26 09:20] VITALS: BP 125/75
[2022-04-26] MEDS: QUEtiapine FUMARATE 100 MG TABLET PO PRN ×3 (09:20→23:02)
[2022-04-26] MEDS: LORazepam 1 MG TABLET PO PRN ×2 (09:20→18:43)
[2022-04-26 10:20] VITALS: BP 122/78
[2022-04-26 11:26] LABS: GLUCOMETER DEV NAME(LOC) 3E.I 2; GLUCOSE,POINT OF CARE 237 MG/DL (70-110)
[2022-04-26 16:00] VITALS: BP 127/73
[2022-04-26 16:56] LABS: GLUCOMETER DEV NAME(LOC) 3E.I 2; GLUCOSE,POINT OF CARE 165 MG/DL (70-110)
[2022-04-26 18:43] VITALS: BP 124/76
[2022-04-26] MEDS: LATANOPROST 0.005% 2.5 ML OPHTHALMIC SOLUTION OD SCH (20:11)
[2022-04-26 20:41] LABS: GLUCOMETER DEV NAME(LOC) 3E.I 2; GLUCOSE,POINT OF CARE 174 MG/DL (70-110)
[2022-04-27 05:40] VITALS: BP 119/76
[2022-04-27] MEDS: QUEtiapine FUMARATE 100 MG TABLET PO PRN ×3 (05:42→22:54)
[2022-04-27] MEDS: TraMADol HCL 50 MG TABLET PO PRN ×2 (05:42→22:54)
[2022-04-27 06:26] LABS: GLUCOMETER DEV NAME(LOC) 3EX.2; GLUCOSE,POINT OF CARE 180 MG/DL (70-110)
[2022-04-27] MEDS: INSULIN LISPRO 100 UNITS/ML SQ PRN ×4 (06:45→21:21)
[2022-04-27] MEDS: CHOLECALCIFEROL (VIT D3) 1,000 UNITS [25 MCG] TABLET PO SCH (09:50)
[2022-04-27] MEDS: AmLODIPine BESYLATE 10 MG TABLET PO SCH (09:50)
[2022-04-27 09:56] VITALS: BP 118/66
[2022-04-27 11:36] LABS: GLUCOMETER DEV NAME(LOC) 3EX.2; GLUCOSE,POINT OF CARE 242 MG/DL (70-110)
[2022-04-27] MEDS: LORazepam 1 MG TABLET PO PRN (16:19)
[2022-04-27 16:37] VITALS: BP 120/70
[2022-04-27 16:41] LABS: GLUCOMETER DEV NAME(LOC) 3EX.2; GLUCOSE,POINT OF CARE 240 MG/DL (70-110)
[2022-04-27] MEDS: LATANOPROST 0.005% 2.5 ML OPHTHALMIC SOLUTION OD SCH (20:24)
[2022-04-27 21:31] LABS: GLUCOMETER DEV NAME(LOC) 3E.I 2; GLUCOSE,POINT OF CARE 109 MG/DL (70-110)
[2022-04-27 22:50] VITALS: BP 126/81
[2022-04-28 06:22] LABS: GLUCOMETER DEV NAME(LOC) 3E.I 2; GLUCOSE,POINT OF CARE 173 MG/DL (70-110)
[2022-04-28] MEDS: INSULIN LISPRO 100 UNITS/ML SQ PRN ×4 (06:45→21:26)
[2022-04-28 08:10] VITALS: BP 123/61
[2022-04-28] MEDS: CHOLECALCIFEROL (VIT D3) 1,000 UNITS [25 MCG] TABLET PO SCH (08:27)
[2022-04-28] MEDS: AmLODIPine BESYLATE 10 MG TABLET PO SCH (08:27)
[2022-04-28 11:56] LABS: GLUCOMETER DEV NAME(LOC) 3EX.2; GLUCOSE,POINT OF CARE 174 MG/DL (70-110)
[2022-04-28 13:04] VITALS: BP 132/81
[2022-04-28] MEDS: LORazepam 1 MG TABLET PO PRN (13:11)
[2022-04-28 16:35] LABS: GLUCOMETER DEV NAME(LOC) 3EX.2; GLUCOSE,POINT OF CARE 160 MG/DL (70-110)
[2022-04-28 17:14] VITALS: BP 130/81
[2022-04-28 17:41] VITALS: BP 140/80
[2022-04-28] MEDS: TraMADol HCL 50 MG TABLET PO PRN (17:44)
[2022-04-28] MEDS: LATANOPROST 0.005% 2.5 ML OPHTHALMIC SOLUTION OD SCH (20:36)
[2022-04-28 20:41] LABS: GLUCOMETER DEV NAME(LOC) 3E.I 2; GLUCOSE,POINT OF CARE 245 MG/DL (70-110)
[2022-04-29 06:11] LABS: GLUCOMETER DEV NAME(LOC) 3E.I 2; GLUCOSE,POINT OF CARE 177 MG/DL (70-110)
[2022-04-29] MEDS: INSULIN LISPRO 100 UNITS/ML SQ PRN ×4 (06:55→21:16)
[2022-04-29] MEDS: CHOLECALCIFEROL (VIT D3) 1,000 UNITS [25 MCG] TABLET PO SCH (08:09)
[2022-04-29] MEDS: AmLODIPine BESYLATE 10 MG TABLET PO SCH (08:09)
[2022-04-29 08:35] VITALS: BP 126/76
[2022-04-29] MEDS: QUEtiapine FUMARATE 100 MG TABLET PO PRN ×2 (11:15→20:36)
[2022-04-29 11:21] LABS: GLUCOMETER DEV NAME(LOC) 3E.I 2; GLUCOSE,POINT OF CARE 258 MG/DL (70-110)
[2022-04-29] MEDS: TraMADol HCL 50 MG TABLET PO PRN (14:44)
[2022-04-29 16:37] VITALS: BP 125/76
[2022-04-29] MEDS: LATANOPROST 0.005% 2.5 ML OPHTHALMIC SOLUTION OD SCH (20:45)
[2022-04-29 20:46] LABS: GLUCOMETER DEV NAME(LOC) 3E.I 2; GLUCOSE,POINT OF CARE 227 MG/DL (70-110)
[2022-04-30 06:16] LABS: GLUCOMETER DEV NAME(LOC) 3E.I 2; GLUCOSE,POINT OF CARE 174 MG/DL (70-110)
[2022-04-30 07:00] VITALS: BP 126/80
[2022-04-30] MEDS: LORazepam 1 MG TABLET PO PRN (07:00)
[2022-04-30] MEDS: TraMADol HCL 50 MG TABLET PO PRN (07:00)
[2022-04-30] MEDS: INSULIN LISPRO 100 UNITS/ML SQ PRN ×4 (07:04→20:46)
[2022-04-30 08:00] VITALS: BP 150/83
[2022-04-30] MEDS: AmLODIPine BESYLATE 10 MG TABLET PO SCH (08:29)
[2022-04-30] MEDS: CHOLECALCIFEROL (VIT D3) 1,000 UNITS [25 MCG] TABLET PO SCH (08:29)
[2022-04-30] MEDS: QUEtiapine FUMARATE 100 MG TABLET PO PRN (10:14)
[2022-04-30 11:31] LABS: GLUCOMETER DEV NAME(LOC) 3E.I 2; GLUCOSE,POINT OF CARE 412 MG/DL (70-110)
[2022-04-30 16:47] LABS: GLUCOMETER DEV NAME(LOC) 3E.I 2; GLUCOSE,POINT OF CARE 311 MG/DL (70-110)
[2022-04-30 16:54] VITALS: BP 129/69
[2022-04-30] MEDS: MAG HYDROX/AL HYDROX/SIMETH ES 30 ML SUSPENSION UDCUP PO PRN (18:34)
[2022-04-30 20:40] LABS: GLUCOMETER DEV NAME(LOC) 3E.I 2; GLUCOSE,POINT OF CARE 96 MG/DL (70-110)
[2022-04-30] MEDS: LATANOPROST 0.005% 2.5 ML OPHTHALMIC SOLUTION OD SCH (20:44)
[2022-05-01 00:35] VITALS: BP 154/68
[2022-05-01] MEDS: LORazepam 1 MG TABLET PO PRN ×2 (00:37→14:36)
[2022-05-01] MEDS: TraMADol HCL 50 MG TABLET PO PRN ×2 (00:37→22:10)
[2022-05-01 06:17] LABS: GLUCOMETER DEV NAME(LOC) 3E.I 2; GLUCOSE,POINT OF CARE 156 MG/DL (70-110)
[2022-05-01] MEDS: INSULIN LISPRO 100 UNITS/ML SQ PRN ×4 (07:02→21:08)
[2022-05-01 07:35] LABS: COVID AG,FIA SOURCE NASAL SWAB
[2022-05-01 08:33] VITALS: BP 112/73
[2022-05-01] MEDS: AmLODIPine BESYLATE 10 MG TABLET PO SCH (09:05)
[2022-05-01] MEDS: MAG HYDROX/AL HYDROX/SIMETH ES 30 ML SUSPENSION UDCUP PO PRN ×2 (09:06→22:13)
[2022-05-01] MEDS: QUEtiapine FUMARATE 100 MG TABLET PO PRN ×2 (09:06→18:30)
[2022-05-01] MEDS: CHOLECALCIFEROL (VIT D3) 1,000 UNITS [25 MCG] TABLET PO SCH (09:06)
[2022-05-01 11:22] LABS: GLUCOMETER DEV NAME(LOC) 3E.I 2; GLUCOSE,POINT OF CARE 277 MG/DL (70-110)
[2022-05-01 16:28] VITALS: BP 101/60
[2022-05-01 16:30] VITALS: BP 146/74
[2022-05-01 16:36] LABS: GLUCOMETER DEV NAME(LOC) 3E.I 2; GLUCOSE,POINT OF CARE 251 MG/DL (70-110)
[2022-05-01] MEDS: LATANOPROST 0.005% 2.5 ML OPHTHALMIC SOLUTION OD SCH (20:10)
[2022-05-01 21:21] LABS: GLUCOMETER DEV NAME(LOC) 3E.I 2; GLUCOSE,POINT OF CARE 189 MG/DL (70-110)
[2022-05-01 22:00] VITALS: BP 132/85
[2022-05-01 22:12] VITALS: BP 132/85
[2022-05-02] MEDS: INSULIN LISPRO 100 UNITS/ML SQ PRN ×4 (06:37→21:15)
[2022-05-02 06:46] LABS: GLUCOMETER DEV NAME(LOC) 3E.I 2; GLUCOSE,POINT OF CARE 186 MG/DL (70-110)
[2022-05-02] MEDS: QUEtiapine FUMARATE 100 MG TABLET PO PRN ×2 (06:53→16:33)
[2022-05-02 08:30] VITALS: BP 114/67
[2022-05-02] MEDS: AmLODIPine BESYLATE 10 MG TABLET PO SCH (08:42)
[2022-05-02] MEDS: CHOLECALCIFEROL (VIT D3) 1,000 UNITS [25 MCG] TABLET PO SCH (08:42)
[2022-05-02 11:10] VITALS: BP 118/69
[2022-05-02] MEDS: TraMADol HCL 50 MG TABLET PO PRN ×2 (11:12→20:45)
[2022-05-02 11:37] LABS: GLUCOMETER DEV NAME(LOC) 3EX.2; GLUCOSE,POINT OF CARE 258 MG/DL (70-110)
[2022-05-02 16:23] VITALS: BP 120/68
[2022-05-02 16:46] LABS: GLUCOMETER DEV NAME(LOC) 3EX.2; GLUCOSE,POINT OF CARE 216 MG/DL (70-110)
[2022-05-02] MEDS: LORazepam 1 MG TABLET PO PRN (19:45)
[2022-05-02 20:41] VITALS: BP 131/74
[2022-05-02] MEDS: LATANOPROST 0.005% 2.5 ML OPHTHALMIC SOLUTION OD SCH (21:06)
[2022-05-02] MEDS: ZOLPIDEM TARTRATE 10 MG TABLET PO PRN (21:57)
[2022-05-02 22:07] LABS: GLUCOMETER DEV NAME(LOC) 3E.I 2; GLUCOSE,POINT OF CARE 292 MG/DL (70-110)
[2022-05-03 06:31] LABS: GLUCOMETER DEV NAME(LOC) 3E.I 2; GLUCOSE,POINT OF CARE 152 MG/DL (70-110)
[2022-05-03] MEDS: INSULIN LISPRO 100 UNITS/ML SQ PRN ×4 (06:33→20:45)
[2022-05-03] MEDS: QUEtiapine FUMARATE 100 MG TABLET PO PRN ×2 (07:05→20:22)
[2022-05-03] MEDS: AmLODIPine BESYLATE 10 MG TABLET PO SCH (08:22)
[2022-05-03] MEDS: CHOLECALCIFEROL (VIT D3) 1,000 UNITS [25 MCG] TABLET PO SCH (08:23)
[2022-05-03 09:00] VITALS: BP 101/67
[2022-05-03 12:01] LABS: GLUCOMETER DEV NAME(LOC) 3EX.2; GLUCOSE,POINT OF CARE 297 MG/DL (70-110)
[2022-05-03 14:43] VITALS: BP 106/54
[2022-05-03] MEDS: TraMADol HCL 50 MG TABLET PO PRN (14:43)
[2022-05-03 16:06] LABS: GLUCOMETER DEV NAME(LOC) 3E.I 2; GLUCOSE,POINT OF CARE 198 MG/DL (70-110)
[2022-05-03 16:09] VITALS: BP 100/75
[2022-05-03] MEDS: LORazepam 1 MG TABLET PO PRN (16:44)
[2022-05-03 20:41] LABS: GLUCOMETER DEV NAME(LOC) 3E.I 2; GLUCOSE,POINT OF CARE 189 MG/DL (70-110)
[2022-05-03] MEDS: LATANOPROST 0.005% 2.5 ML OPHTHALMIC SOLUTION OD SCH (20:47)
[2022-05-03 22:31] VITALS: BP 119/68
[2022-05-04] VITALS: BP 124/71
[2022-05-04] MEDS: INSULIN LISPRO 100 UNITS/ML SQ PRN ×2 (06:46→11:48)
[2022-05-04 07:06] LABS: GLUCOMETER DEV NAME(LOC) 3E.I 2; GLUCOSE,POINT OF CARE 195 MG/DL (70-110)
[2022-05-04 08:30] VITALS: BP 133/80
[2022-05-04] MEDS: AmLODIPine BESYLATE 10 MG TABLET PO SCH (08:58)
[2022-05-04] MEDS: CHOLECALCIFEROL (VIT D3) 1,000 UNITS [25 MCG] TABLET PO SCH (08:58)
[2022-05-04 09:00] VITALS: BP 136/79
[2022-05-04] MEDS: TraMADol HCL 50 MG TABLET PO PRN ×2 (09:00)
[2022-05-04 10:00] VITALS: BP 120/67
[2022-05-04 12:11] LABS: GLUCOMETER DEV NAME(LOC) 3EX.2; GLUCOSE,POINT OF CARE 320 MG/DL (70-110)
== END 2022-05-04 16:07 | DRG 885 ==
LOC: EMS 07:15 → 3EX 04-19 14:20
PROVIDERS: ADMIT Psychiatry & Neurology Psychiatry; ATTEND Psychiatry & Neurology Psychiatry
DX: F25.9 Schizoaffective disorder, unspecified (principal); B18.2 Chronic viral hepatitis C; E11.65 Type 2 diabetes mellitus with hyperglycemia; R45.851 Suicidal ideations; Z20.822 Contact with and (suspected) exposure to COVID-19; E78.5 Hyperlipidemia, unspecified; E87.6 Hypokalemia; F14.90 Cocaine use, unspecified, uncomplicated; G47.00 Insomnia, unspecified; K59.00 Constipation, unspecified; R26.9 Unspecified abnormalities of gait and mobility; F17.210 Nicotine dependence, cigarettes, uncomplicated; F32.A Depression, unspecified; G89.29 Other chronic pain; F41.9 Anxiety disorder, unspecified; M54.9 Dorsalgia, unspecified; I10 Essential (primary) hypertension; I25.10 Atherosclerotic heart disease of native coronary artery without angina pectoris; J44.9 Chronic obstructive pulmonary disease, unspecified; Z79.4 Long term (current) use of insulin; Z79.899 Other long term (current) drug therapy; Z71.6 Tobacco abuse counseling
CPT/HCPCS: 80053; 80307; 81001; 81002; 82009; 82962; 83036; 83735; 84100; 84132; 85025; 87086; 87186; 87804; 99285; G0378; G0480; J1815; J7030

== ENCOUNTER 2022-06-02 00:22 | Inpatient (IN) | payer MEDICARE, MEDICAID ==
[~2022-06-02] VITALS: Ht 165.1 cm; Wt 74.0 kg
[~2022-06-02 00:22] MED LIST changes: -AMLO-258 PO; -CHOL200074 PO; -PANT-31 PO; -XALA2.5OS OD
[2022-06-02 01:10] LABS: APPEARANCE,URINE CLEAR (CLEAR); GLUCOSE, URINE (UA) NEGATIVE (NEGATIVE); KETONES,URINE NEGATIVE (NEGATIVE); LEUKOCYTE ESTERASE ,URINE NEGATIVE (NEGATIVE); NITRATE,URINE NEGATIVE (NEGATIVE); OCCULT BLOOD,URINE NEGATIVE (NEGATIVE); PROTEIN,URINE 30-70 mg/dL (NEGATIVE); SPECIFIC GRAVITIY, URINE 1.024 (1.003-1.030)
[2022-06-02 01:12] LABS: BILIRUBIN,URINE SMALL (NEGATIVE)
[2022-06-02 01:16] LABS: AMPHET/METH SCREEN,URINE NEGATIVE (NEGATIVE); BARBITURATE SCREEN, URINE NEGATIVE (NEGATIVE); BENZODIAZEPINES SCREEN,URINE POSITIVE (NEGATIVE); CANNABINOID SCREEN,URINE NEGATIVE (NEGATIVE); COCAINE SCREEN,URINE NEGATIVE (NEGATIVE); METHADONE SCREEN, URINE NEGATIVE (NEGATIVE); OPIATE SCREEN,URINE POSITIVE (NEGATIVE); PHENCYCLIDINE SCREEN,URINE NEGATIVE (NEGATIVE)
[2022-06-02 01:19] LABS: BACTERIA,URINE None Seen /HPF (None Seen); RBC,URINE None Seen /HPF (0-2); SQUAMOUS EPITHELIAL CELL,UR Rare /LPF (None Seen); WBC,URINE 0-2 /HPF (0-5)
[2022-06-02 01:27] LABS: EOSINOPHILS % (AUTO) 0.2 % (1.0-6.0); HEMATOCRIT 29.8 % (36-46); HEMOGLOBIN 9.7 g/dL (12.0-16.0); LYMPHOCYTES # (AUTO) 3.5 K/uL (1.0-4.8); MEAN CORPUSCULAR HEMOGLOBIN 28.3 pg (26.0-34.0); MEAN CORPUSCULAR HGB CONC 32.5 G/dL (31.0-37.0); MEAN CORPUSCULAR VOLUME 87 fL (80-100); MONOCYTES # (AUTO) 1.4 K/uL (0.1-1.0); MONOCYTES % (AUTO) 8.6 % (2.0-9.0); NEUTROPHILS # (AUTO) 10.8 K/uL (1.8-7.7); NEUTROPHILS % (AUTO) 68.2 % (40.0-70.0); PLATELET COUNT (AUTO) 175 K/uL (150-450); RED BLOOD CELL COUNT(AUTO) 3.43 MIL/uL (4.00-5.20); RED CELL DISTRIBUTION WIDTH 18.1 % (11.5-14.5)
[2022-06-02 01:44] LABS: ALANINE AMINOTRANSFERASE 30 U/L (12-78); ALBUMIN 2.7 g/dL (3.4-5.0); ALKALINE PHOSPHATASE 131 U/L (46-116); ANION GAP 11 mmol/L (8-16); ASPARTATE AMINOTRANSFERASE 37 U/L (15-37); BILIRUBIN,TOTAL 0.8 mg/dL (0.1-1.0); CALCIUM, TOTAL 7.8 mg/dL (8.8-10.5); CARBON DIOXIDE 23 mmol/L (22-29); CHLORIDE 104 mmol/L (98-107); GLOMERULAR FILTR. RATE CALC > 60 mL/min (>60); GLUCOSE,RANDOM 197 mg/dL (70-110); LIPASE 36 U/L (73-393); SODIUM SERUM 138 mmol/L (136-145); TOTAL PROTEIN, SERUM 6.5 g/dL (6.4-8.2); UREA NITROGEN, BLOOD 10 mg/dL (7-18)
[2022-06-02 01:46] LABS: POTASSIUM 2.8 mmol/L (3.5-5.1)
[2022-06-02 01:59] LABS: ACETAMINOPHEN < 2 mcg/mL (10-30)
[2022-06-02 02:06] LABS: SALICYLATE 1.8 mg/dL (2.8-20.0)
[2022-06-02 02:46] LABS: COVID AG,FIA SOURCE NASOPHARYNGEAL
[2022-06-02] MEDS ORDERED: MAGNESIUM SULFATE 2 GM/WATER 50 ML IV ONE (03:00)
[2022-06-02] MEDS ORDERED: POTASSIUM CHLORIDE 10% 40 MEQ/30 ML LIQUID UDCUP PO ONE (03:00)
[2022-06-02] MEDS ORDERED: POTASSIUM CHL 10 MEQ/WATER 50 ML IV ONE ×2 (03:15→05:30)
[2022-06-02] MEDS ORDERED: ACETAMINOPHEN 325 MG TABLET PO PRN (04:45)
[2022-06-02] MEDS ORDERED: ONDANSETRON HCL 4 MG/2 ML VIAL IVP PRN (04:45)
[2022-06-02] MEDS ORDERED: RINGERS LACTATED IV ONE (04:45)
[2022-06-02 05:35] LABS: AMMONIA 19 umol/L (11-32)
[2022-06-02] MEDS ORDERED: MAGNESIUM SULFATE 2 GM/WATER 50 ML IV PRN (05:45)
[2022-06-02] MEDS ORDERED: MAGNESIUM SULFATE 4 GM/WATER 100 ML IV PRN (05:45)
[2022-06-02] MEDS ORDERED: MAGNESIUM OXIDE 400 MG TABLET PO PRN (05:45)
[2022-06-02 06:17] LABS: % IRON SATURATION 4.2 % (22-44)
[2022-06-02] MEDS ORDERED: PIPERACILLIN/TAZO 3.375 GM/D5W 50 ML IV SCH (07:00)
[2022-06-02] MEDS: PIPERACILLIN/TAZO 3.375 GM/D5W 50 ML IV SCH ×3 (07:30→19:02)
[2022-06-02] MEDS ORDERED: HEPARIN SODIUM,PORCINE 5,000 UNITS/ML VIAL SQ SCH (08:00)
[2022-06-02] MEDS: CITALOPRAM HYDROBROMIDE 20 MG TABLET PO SCH (08:15)
[2022-06-02 20:30] VITALS: BP 148/84
[2022-06-02] MEDS: HEPARIN SODIUM,PORCINE 5,000 UNITS/ML VIAL SQ SCH (21:00)
[2022-06-02] MEDS: QUEtiapine FUMARATE 200 MG TABLET PO SCH ×2 (21:33→22:15)
[2022-06-02] MEDS ORDERED: DEXTROSE 50%-WATER 25 GM/50 ML SYRINGE IVP PRN (22:00)
[2022-06-02] MEDS: INSULIN GLARGINE,HUM.REC.ANLOG 100 UNITS/ML SQ SCH (22:17)
[2022-06-02] MEDS: INSULIN LISPRO 100 UNITS/ML SQ PRN (22:17)
[2022-06-02 23:46] VITALS: BP 130/75
[2022-06-03] MEDS ORDERED: SODIUM CHLORIDE 0.9% 500 ML IV ONE (00:17)
[2022-06-03] MEDS: HEPARIN SODIUM,PORCINE 5,000 UNITS/ML VIAL SQ SCH ×3 (00:20→18:23)
[2022-06-03] MEDS: PIPERACILLIN/TAZO 3.375 GM/D5W 50 ML IV SCH ×3 (00:20→12:58)
[2022-06-03 01:51] LABS: GLUCOMETER DEV NAME(LOC) 5S.1B; GLUCOSE,POINT OF CARE 249 MG/DL (70-110)
[2022-06-03 05:50] VITALS: BP 154/60
[2022-06-03] MEDS: INSULIN LISPRO 100 UNITS/ML SQ PRN ×4 (06:33→21:00)
[2022-06-03 07:57] VITALS: BP 148/76
[2022-06-03 08:08] LABS: MAGNESIUM 1.3 mg/dL (1.80-2.40); POTASSIUM 3.6 mmol/L (3.5-5.1)
[2022-06-03 08:30] VITALS: BP 124/60
[2022-06-03] MEDS: CITALOPRAM HYDROBROMIDE 20 MG TABLET PO SCH (08:47)
[2022-06-03] MEDS ORDERED: MAGNESIUM SULFATE 4 GM/WATER 100 ML IV PRN (10:30)
[2022-06-03] MEDS ORDERED: MAGNESIUM OXIDE 400 MG TABLET PO PRN (10:30)
[2022-06-03] MEDS ORDERED: MAGNESIUM SULFATE 2 GM/WATER 50 ML IV PRN (10:30)
[2022-06-03 11:17] LABS: ALBUMIN 3.4 g/dL (3.4-5.0)
[2022-06-03 11:31] VITALS: BP 124/70
[2022-06-03 15:15] VITALS: BP 121/81
[2022-06-03] MEDS: TraMADol HCL 50 MG TABLET PO PRN (18:21)
[2022-06-03 19:59] VITALS: BP 127/68
[2022-06-03 20:26] LABS: GLUCOMETER DEV NAME(LOC) 5S.2B; GLUCOSE,POINT OF CARE 223 MG/DL (70-110)
[2022-06-03 20:26] LABS: GLUCOMETER DEV NAME(LOC) 5S.2B; GLUCOSE,POINT OF CARE 268 MG/DL (70-110)
[2022-06-03] MEDS: QUEtiapine FUMARATE 200 MG TABLET PO SCH (20:55)
[2022-06-03] MEDS: INSULIN GLARGINE,HUM.REC.ANLOG 100 UNITS/ML SQ SCH (20:59)
[2022-06-04 00:34] VITALS: BP 130/74
[2022-06-04] MEDS: HEPARIN SODIUM,PORCINE 5,000 UNITS/ML VIAL SQ SCH ×4 (00:49→23:15)
[2022-06-04] MEDS: PIPERACILLIN/TAZO 3.375 GM/D5W 50 ML IV SCH ×4 (02:30→20:36)
[2022-06-04] MEDS: TraMADol HCL 50 MG TABLET PO PRN ×3 (02:43→21:14)
[2022-06-04 04:59] VITALS: BP 109/70
[2022-06-04] MEDS: INSULIN LISPRO 100 UNITS/ML SQ PRN ×3 (05:53→20:33)
[2022-06-04 06:43] LABS: EOSINOPHILS % (AUTO) 1.2 % (1.0-6.0); HEMATOCRIT 35.2 % (36-46); HEMOGLOBIN 11.5 g/dL (12.0-16.0); LYMPHOCYTES # (AUTO) 3.6 K/uL (1.0-4.8); LYMPHOCYTES % (AUTO) 40.6 % (22.0-44.0); MEAN CORPUSCULAR HEMOGLOBIN 28.3 pg (26.0-34.0); MEAN CORPUSCULAR HGB CONC 32.7 G/dL (31.0-37.0); MEAN CORPUSCULAR VOLUME 87 fL (80-100); MONOCYTES # (AUTO) 0.7 K/uL (0.1-1.0); MONOCYTES % (AUTO) 7.7 % (2.0-9.0); NEUTROPHILS # (AUTO) 4.4 K/uL (1.8-7.7); NEUTROPHILS % (AUTO) 49.5 % (40.0-70.0); PLATELET COUNT (AUTO) 202 K/uL (150-450); RED BLOOD CELL COUNT(AUTO) 4.07 MIL/uL (4.00-5.20); RED CELL DISTRIBUTION WIDTH 18.2 % (11.5-14.5)
[2022-06-04 06:59] LABS: ANION GAP 8 mmol/L (8-16); CALCIUM, TOTAL 9.3 mg/dL (8.8-10.5); CARBON DIOXIDE 26 mmol/L (22-29); CHLORIDE 103 mmol/L (98-107); CREATININE 0.86 mg/dL (0.60-1.30); GLOMERULAR FILTR. RATE CALC > 60 mL/min (>60); GLUCOSE,RANDOM 153 mg/dL (70-110); POTASSIUM 3.8 mmol/L (3.5-5.1); SODIUM SERUM 137 mmol/L (136-145); UREA NITROGEN, BLOOD 7 mg/dL (7-18)
[2022-06-04] MEDS: CITALOPRAM HYDROBROMIDE 20 MG TABLET PO SCH (07:59)
[2022-06-04 08:26] VITALS: BP 124/73
[2022-06-04 11:20] VITALS: BP 115/64
[2022-06-04 15:31] VITALS: BP 124/83
[2022-06-04 19:43] VITALS: BP 122/65
[2022-06-04] MEDS: INSULIN GLARGINE,HUM.REC.ANLOG 100 UNITS/ML SQ SCH (20:34)
[2022-06-04] MEDS: QUEtiapine FUMARATE 200 MG TABLET PO SCH (20:36)
[2022-06-05 00:45] VITALS: BP 120/62
[2022-06-05] MEDS: PIPERACILLIN/TAZO 3.375 GM/D5W 50 ML IV SCH ×3 (01:22→14:00)
[2022-06-05 05:17] LABS: GLUCOMETER DEV NAME(LOC) 5N.1C; GLUCOSE,POINT OF CARE 166 MG/DL (70-110)
[2022-06-05 05:17] LABS: GLUCOMETER DEV NAME(LOC) 5N.1C; GLUCOSE,POINT OF CARE 216 MG/DL (70-110)
[2022-06-05 05:39] VITALS: BP 106/64
[2022-06-05] MEDS: TraMADol HCL 50 MG TABLET PO PRN ×2 (06:09→14:06)
[2022-06-05 06:56] LABS: GLUCOMETER DEV NAME(LOC) 5N.1C; GLUCOSE,POINT OF CARE 128 MG/DL (70-110)
[2022-06-05 07:12] LABS: EOSINOPHILS % (AUTO) 1.6 % (1.0-6.0); HEMATOCRIT 32.8 % (36-46); HEMOGLOBIN 10.7 g/dL (12.0-16.0); LYMPHOCYTES # (AUTO) 2.9 K/uL (1.0-4.8); LYMPHOCYTES % (AUTO) 40.2 % (22.0-44.0); MEAN CORPUSCULAR HEMOGLOBIN 28.4 pg (26.0-34.0); MEAN CORPUSCULAR HGB CONC 32.7 G/dL (31.0-37.0); MEAN CORPUSCULAR VOLUME 87 fL (80-100); MONOCYTES # (AUTO) 0.8 K/uL (0.1-1.0); MONOCYTES % (AUTO) 10.9 % (2.0-9.0); NEUTROPHILS # (AUTO) 3.3 K/uL (1.8-7.7); NEUTROPHILS % (AUTO) 46.3 % (40.0-70.0); PLATELET COUNT (AUTO) 203 K/uL (150-450); RED BLOOD CELL COUNT(AUTO) 3.78 MIL/uL (4.00-5.20); RED CELL DISTRIBUTION WIDTH 18.1 % (11.5-14.5)
[2022-06-05 07:30] VITALS: BP 125/71
[2022-06-05] MEDS: HEPARIN SODIUM,PORCINE 5,000 UNITS/ML VIAL SQ SCH ×2 (08:51→16:00)
[2022-06-05] MEDS: CITALOPRAM HYDROBROMIDE 20 MG TABLET PO SCH (08:52)
[2022-06-05] MEDS: INSULIN LISPRO 100 UNITS/ML SQ PRN (11:46)
[2022-06-05 12:00] VITALS: BP 120/73
[2022-06-05] MEDS ORDERED: AMOX1TAB16 PO (13:56)
[2022-06-05] MEDS ORDERED: INSLAN SQ (13:56)
[2022-06-05] MEDS ORDERED: TRAM-559 PO (14:16)
[2022-06-06 06:27] LABS: GLUCOMETER DEV NAME(LOC) 5S.2B; GLUCOSE,POINT OF CARE 208 MG/DL (70-110)
== END 2022-06-05 17:25 | disposition home or self-care (01) | DRG 177 ==
LOC: EMS 00:24 → AHU 07:17 → 5S 18:56
PROVIDERS: ADMIT Internal Medicine; ATTEND Internal Medicine
DX: J69.0 Pneumonitis due to inhalation of food and vomit (principal); E43 Unspecified severe protein-calorie malnutrition; G92.8 Other toxic encephalopathy; E87.6 Hypokalemia; E83.42 Hypomagnesemia; E11.65 Type 2 diabetes mellitus with hyperglycemia; Z20.822 Contact with and (suspected) exposure to COVID-19; D50.9 Iron deficiency anemia, unspecified; D53.9 Nutritional anemia, unspecified; F32.A Depression, unspecified; F41.9 Anxiety disorder, unspecified; F13.10 Sedative, hypnotic or anxiolytic abuse, uncomplicated; F25.9 Schizoaffective disorder, unspecified; R47.81 Slurred speech; I10 Essential (primary) hypertension; Z68.27 Body mass index [BMI] 27.0-27.9, adult; Z79.899 Other long term (current) drug therapy; Z87.891 Personal history of nicotine dependence; Z91.199 Patient's noncompliance with other medical treatment and regimen due to unspecified reason; Z79.4 Long term (current) use of insulin; Y92.89 Other specified places as the place of occurrence of the external cause
CPT/HCPCS: 70450; 71045; 80048; 80053; 80307; 81001; 82040; 82140; 82962; 83540; 83550; 83605; 83690; 83735; 84132; 84484; 85025; 85045; 87040; 92507; 92526; 92610; 93005; 97162; 97167; 97530; 97535; 99291; G0378; G0480; G0481; J1644; J1815; J2543; J3475; J3480; J7040; J7120; 36415-L1; 36415-TC

== ENCOUNTER 2022-08-06 13:46 | Emergency (ER) | payer MEDICARE, MEDICAID ==
[~2022-08-06] VITALS: Ht 165.1 cm; Wt 72.7 kg
[~2022-08-06 13:46] MED LIST changes: +AMOX1TAB16 PO; +INSLAN SQ; +TRAM-559 PO
[2022-08-06] MEDS ORDERED: ONDANSETRON HCL 4 MG/2 ML VIAL IVP ONE (14:30)
[2022-08-06] MEDS ORDERED: SODIUM CHLORIDE 0.9% 1,000 ML IV ONE (14:30)
[2022-08-06 15:40] LABS: BASOPHILS % (AUTO) 0.7 % (0.0-2.0); EOSINOPHILS % (AUTO) 0.2 % (1.0-6.0); HEMATOCRIT 36.7 % (36-46); HEMOGLOBIN 11.9 g/dL (12.0-16.0); LYMPHOCYTES # (AUTO) 2.3 K/uL (1.0-4.8); LYMPHOCYTES % (AUTO) 31.8 % (22.0-44.0); MEAN CORPUSCULAR HEMOGLOBIN 27.9 pg (26.0-34.0); MEAN CORPUSCULAR HGB CONC 32.3 G/dL (31.0-37.0); MEAN CORPUSCULAR VOLUME 87 fL (80-100); MONOCYTES # (AUTO) 0.5 K/uL (0.1-1.0); MONOCYTES % (AUTO) 6.5 % (2.0-9.0); NEUTROPHILS # (AUTO) 4.4 K/uL (1.8-7.7); NEUTROPHILS % (AUTO) 60.8 % (40.0-70.0); PLATELET COUNT (AUTO) 174 K/uL (150-450); RED BLOOD CELL COUNT(AUTO) 4.25 MIL/uL (4.00-5.20); RED CELL DISTRIBUTION WIDTH 14.9 % (11.5-14.5)
[2022-08-06 15:46] LABS: COVID AG,FIA SOURCE NASAL SWAB
[2022-08-06 15:51] LABS: ANION GAP 12 mmol/L (8-16); CALCIUM, TOTAL 8.8 mg/dL (8.8-10.5); CARBON DIOXIDE 22 mmol/L (22-29); CHLORIDE 105 mmol/L (98-107); CREATININE 0.59 mg/dL (0.60-1.30); GLOMERULAR FILTR. RATE CALC > 60 mL/min (>60); GLUCOSE,RANDOM 366 mg/dL (70-110); SODIUM SERUM 139 mmol/L (136-145); UREA NITROGEN, BLOOD 5 mg/dL (7-18)
[2022-08-06 15:56] LABS: ALANINE AMINOTRANSFERASE 48 U/L (12-78); ALBUMIN 3.2 g/dL (3.4-5.0); ALKALINE PHOSPHATASE 205 U/L (46-116); ASPARTATE AMINOTRANSFERASE 52 U/L (15-37); BILIRUBIN,TOTAL 0.7 mg/dL (0.1-1.0); LIPASE 108 U/L (73-393); TOTAL PROTEIN, SERUM 7.2 g/dL (6.4-8.2)
[2022-08-06 16:12] LABS: INFLUENZA TYPE A NEGATIVE FOR TYPE A (NEGATIVE); INFLUENZA TYPE B NEGATIVE FOR TYPE B (NEGATIVE)
[2022-08-06] MEDS ORDERED: BISMUTH SUBSALICYLATE 525 MG/30 ML SUSPENSION UDCUP PO ONE (16:15)
[2022-08-06] MEDS ORDERED: POTASSIUM CHLORIDE 20 MEQ ER TABLET PO ONE (16:15)
[2022-08-06 16:31] VITALS: BP 132/62
== END 2022-08-06 16:26 | disposition left against medical advice (07) ==
LOC: EMS 13:56 → AHU 16:58 → UNDOADMIN 16:58 → UNDODISIN 17:24
DX: R10.9 Unspecified abdominal pain (principal); R11.2 Nausea with vomiting, unspecified; R19.7 Diarrhea, unspecified; F41.9 Anxiety disorder, unspecified; G89.29 Other chronic pain; E87.6 Hypokalemia; F32.A Depression, unspecified; E11.9 Type 2 diabetes mellitus without complications; I10 Essential (primary) hypertension; F20.9 Schizophrenia, unspecified; F17.210 Nicotine dependence, cigarettes, uncomplicated; Z20.822 Contact with and (suspected) exposure to COVID-19
CPT/HCPCS: 99284; 96374; 96375; 87426; 80053; 83690; 84484; 85025; 87804; 93005; J2405; J7030; 99285

== ENCOUNTER 2022-09-01 17:21 | Inpatient (IN) | payer MEDICARE, MEDICAID ==
[~2022-09-01] VITALS: Ht 165.1 cm; Wt 69.4 kg
[2022-09-01] MEDS ORDERED: SODIUM CHLORIDE 0.9% 1,000 ML IV ONE (18:15)
[2022-09-01 18:28] LABS: BASOPHILS % (AUTO) 1.1 % (0.0-2.0); EOSINOPHILS % (AUTO) 0.4 % (1.0-6.0); HEMOGLOBIN 12.2 g/dL (12.0-16.0); LYMPHOCYTES # (AUTO) 2.9 K/uL (1.0-4.8); LYMPHOCYTES % (AUTO) 26.7 % (22.0-44.0); MEAN CORPUSCULAR HEMOGLOBIN 28.2 pg (26.0-34.0); MEAN CORPUSCULAR HGB CONC 32.2 G/dL (31.0-37.0); MEAN CORPUSCULAR VOLUME 88 fL (80-100); MONOCYTES # (AUTO) 0.9 K/uL (0.1-1.0); MONOCYTES % (AUTO) 7.9 % (2.0-9.0); NEUTROPHILS # (AUTO) 6.9 K/uL (1.8-7.7); NEUTROPHILS % (AUTO) 63.9 % (40.0-70.0); PLATELET COUNT (AUTO) 211 K/uL (150-450); RED BLOOD CELL COUNT(AUTO) 4.34 MIL/uL (4.00-5.20)
[2022-09-01 19:20] LABS: APPEARANCE,URINE CLEAR (CLEAR); BILIRUBIN,URINE NEGATIVE (NEGATIVE); GLUCOSE, URINE (UA) >=1000 mg/dL (NEGATIVE); KETONES,URINE NEGATIVE (NEGATIVE); LEUKOCYTE ESTERASE ,URINE NEGATIVE (NEGATIVE); NITRATE,URINE NEGATIVE (NEGATIVE); OCCULT BLOOD,URINE NEGATIVE (NEGATIVE); PROTEIN,URINE NEGATIVE (NEGATIVE); SPECIFIC GRAVITIY, URINE 1.011 (1.003-1.030)
[2022-09-01 19:28] LABS: AMPHET/METH SCREEN,URINE NEGATIVE (NEGATIVE); BARBITURATE SCREEN, URINE NEGATIVE (NEGATIVE); BENZODIAZEPINES SCREEN,URINE NEGATIVE (NEGATIVE); CANNABINOID SCREEN,URINE POSITIVE (NEGATIVE); COCAINE SCREEN,URINE NEGATIVE (NEGATIVE); METHADONE SCREEN, URINE NEGATIVE (NEGATIVE); OPIATE SCREEN,URINE NEGATIVE (NEGATIVE); PHENCYCLIDINE SCREEN,URINE NEGATIVE (NEGATIVE)
[2022-09-01 19:40] LABS: BACTERIA,URINE None Seen /HPF (None Seen); RBC,URINE None Seen /HPF (0-2); SQUAMOUS EPITHELIAL CELL,UR Few /LPF (None Seen); WBC,URINE None Seen /HPF (0-5)
[2022-09-01 21:45] LABS: COVID AG,FIA SOURCE NASOPHARYNGEAL
[2022-09-01] MEDS ORDERED: HALOPERIDOL 5 MG TABLET PO ONE (22:15)
[2022-09-01] MEDS ORDERED: DiphenhydrAMINE HCL 25 MG CAPSULE PO ONE (22:15)
[2022-09-02 02:16] LABS: GLUCOMETER DEV NAME(LOC) BV2X.2; GLUCOSE,POINT OF CARE 235 MG/DL (70-110)
[2022-09-02] MEDS: ZOLPIDEM TARTRATE 10 MG TABLET PO PRN (02:20)
[2022-09-02 03:35] VITALS: BP 170/80
[2022-09-02] MEDS ORDERED: BACITRACIN 28 GM OINTMENT TP PRN (06:00)
[2022-09-02] MEDS ORDERED: GLUCAGON,HUMAN RECOMBINANT 1 MG VIAL IM PRN (06:00)
[2022-09-02] MEDS ORDERED: ALBUTEROL SULFATE HFA 90 MCG/PUFF 8 GM INHALER IH PRN (06:00)
[2022-09-02] MEDS ORDERED: LOPERAMIDE HCL 2 MG CAPSULE PO PRN (06:00)
[2022-09-02] MEDS ORDERED: MAG HYDROX/AL HYDROX/SIMETH ES 30 ML SUSPENSION UDCUP PO PRN (06:00)
[2022-09-02] MEDS ORDERED: ACETAMINOPHEN 325 MG TABLET PO PRN (06:00)
[2022-09-02] MEDS ORDERED: DOCUSATE SODIUM 100 MG CAPSULE PO PRN (06:00)
[2022-09-02] MEDS ORDERED: ONDANSETRON HCL 4 MG TABLET PO PRN (06:00)
[2022-09-02] MEDS ORDERED: PETROLATUM,WHITE 28 GM JELLY TP PRN (06:00)
[2022-09-02] MEDS ORDERED: MAGNESIUM HYDROXIDE SUSPENSION 30 ML UDCUP PO PRN (06:00)
[2022-09-02] MEDS ORDERED: CloNIDine HCL 0.1 MG TABLET PO PRN (06:00)
[2022-09-02] MEDS ORDERED: OMEPRAZOLE 20 MG CAPSULE PO PRN (06:00)
[2022-09-02 06:02] VITALS: BP 182/127
[2022-09-02 06:51] LABS: GLUCOMETER DEV NAME(LOC) BV2X.2; GLUCOSE,POINT OF CARE 294 MG/DL (70-110)
[2022-09-02] MEDS: INSULIN LISPRO 100 UNITS/ML SQ PRN ×4 (07:05→20:55)
[2022-09-02 08:02] VITALS: BP 142/90
[2022-09-02] MEDS: TraMADol HCL 50 MG TABLET PO PRN ×2 (08:04→16:32)
[2022-09-02] MEDS: LORazepam 2 MG TABLET PO PRN ×3 (08:30→17:01)
[2022-09-02] MEDS: HALOPERIDOL 5 MG TABLET PO PRN (10:59)
[2022-09-02 11:46] LABS: GLUCOMETER DEV NAME(LOC) BV2X.2; GLUCOSE,POINT OF CARE 279 MG/DL (70-110)
[2022-09-02 17:01] LABS: GLUCOMETER DEV NAME(LOC) BV2X.2; GLUCOSE,POINT OF CARE 267 MG/DL (70-110)
[2022-09-02 20:16] VITALS: BP 156/87
[2022-09-02 21:21] LABS: GLUCOMETER DEV NAME(LOC) BV2X.2; GLUCOSE,POINT OF CARE 349 MG/DL (70-110)
[2022-09-03 00:57] VITALS: BP 148/81
[2022-09-03] MEDS: ZOLPIDEM TARTRATE 10 MG TABLET PO PRN (01:03)
[2022-09-03 03:50] VITALS: BP 134/74
[2022-09-03] MEDS: TraMADol HCL 50 MG TABLET PO PRN (03:58)
[2022-09-03 06:26] LABS: GLUCOMETER DEV NAME(LOC) BV2X.2; GLUCOSE,POINT OF CARE 198 MG/DL (70-110)
[2022-09-03] MEDS: INSULIN LISPRO 100 UNITS/ML SQ PRN ×4 (06:37→20:34)
[2022-09-03 08:10] LABS: ANION GAP 9 mmol/L (8-16); CALCIUM, TOTAL 8.7 mg/dL (8.8-10.5); CARBON DIOXIDE 25 mmol/L (22-29); CHLORIDE 104 mmol/L (98-107); CREATININE 0.62 mg/dL (0.60-1.30); GLOMERULAR FILTR. RATE CALC > 60 mL/min (>60); GLUCOSE,RANDOM 213 mg/dL (70-110); POTASSIUM 3.8 mmol/L (3.5-5.1); SODIUM SERUM 138 mmol/L (136-145)
[2022-09-03] MEDS: HALOPERIDOL 5 MG TABLET PO PRN (08:15)
[2022-09-03] MEDS: IBUPROFEN 600 MG TABLET PO PRN (08:15)
[2022-09-03] MEDS: LORazepam 2 MG TABLET PO PRN ×2 (08:15→12:16)
[2022-09-03 08:24] LABS: ALANINE AMINOTRANSFERASE 35 U/L (12-78); ALBUMIN 2.8 g/dL (3.4-5.0); ALKALINE PHOSPHATASE 163 U/L (46-116); ASPARTATE AMINOTRANSFERASE 40 U/L (15-37); BILIRUBIN,TOTAL 0.6 mg/dL (0.1-1.0); THYROID STIMULATING HORMONE 2.17 uIU/mL (0.36-3.74); TOTAL PROTEIN, SERUM 6.6 g/dL (6.4-8.2)
[2022-09-03 10:12] VITALS: BP 148/75
[2022-09-03 11:37] LABS: GLUCOMETER DEV NAME(LOC) BV2X.2; GLUCOSE,POINT OF CARE 317 MG/DL (70-110)
[2022-09-03] MEDS: TraMADol HCL 50 MG TABLET PO SCH ×2 (14:07→21:08)
[2022-09-03 16:51] LABS: GLUCOMETER DEV NAME(LOC) BV2X.2; GLUCOSE,POINT OF CARE 195 MG/DL (70-110)
[2022-09-03] MEDS: MELATONIN 5 MG TABLET PO SCH (20:13)
[2022-09-03] MEDS: QUEtiapine FUMARATE 200 MG TABLET PO SCH (20:14)
[2022-09-03 21:01] LABS: GLUCOMETER DEV NAME(LOC) BV2X.2; GLUCOSE,POINT OF CARE 231 MG/DL (70-110)
[2022-09-03 21:49] VITALS: BP 137/66
[2022-09-03 21:50] VITALS: BP 137/66
[2022-09-04 05:55] VITALS: BP 135/86
[2022-09-04] MEDS: TraMADol HCL 50 MG TABLET PO SCH ×3 (06:11→21:03)
[2022-09-04 06:22] LABS: GLUCOMETER DEV NAME(LOC) BV2X.2; GLUCOSE,POINT OF CARE 281 MG/DL (70-110)
[2022-09-04] MEDS: INSULIN LISPRO 100 UNITS/ML SQ PRN ×4 (06:34→21:02)
[2022-09-04] MEDS: AmLODIPine BESYLATE 10 MG TABLET PO SCH (08:38)
[2022-09-04] MEDS: IBUPROFEN 600 MG TABLET PO PRN (10:54)
[2022-09-04 11:17] LABS: GLUCOMETER DEV NAME(LOC) BV2X.2; GLUCOSE,POINT OF CARE 293 MG/DL (70-110)
[2022-09-04 16:34] VITALS: BP 139/81
[2022-09-04 16:46] LABS: GLUCOMETER DEV NAME(LOC) BV2X.2; GLUCOSE,POINT OF CARE 171 MG/DL (70-110)
[2022-09-04] MEDS: QUEtiapine FUMARATE 200 MG TABLET PO SCH (21:03)
[2022-09-04] MEDS: MELATONIN 5 MG TABLET PO SCH (21:03)
[2022-09-04 21:12] LABS: GLUCOMETER DEV NAME(LOC) BV2X.2; GLUCOSE,POINT OF CARE 181 MG/DL (70-110)
[2022-09-05 00:20] VITALS: BP 155/84
[2022-09-05] MEDS: IBUPROFEN 600 MG TABLET PO PRN ×2 (03:33→19:22)
[2022-09-05 03:35] VITALS: BP 115/69
[2022-09-05] MEDS: TraMADol HCL 50 MG TABLET PO SCH ×3 (06:05→22:09)
[2022-09-05] MEDS: INSULIN LISPRO 100 UNITS/ML SQ PRN ×4 (06:09→20:23)
[2022-09-05 08:05] VITALS: BP 123/86
[2022-09-05] MEDS: AmLODIPine BESYLATE 10 MG TABLET PO SCH (08:46)
[2022-09-05 11:40] LABS: GLUCOMETER DEV NAME(LOC) BV2S.; GLUCOSE,POINT OF CARE 171 MG/DL (70-110)
[2022-09-05 17:11] LABS: GLUCOMETER DEV NAME(LOC) BV2S.; GLUCOSE,POINT OF CARE 185 MG/DL (70-110)
[2022-09-05 17:29] VITALS: BP 145/81
[2022-09-05 20:20] LABS: GLUCOMETER DEV NAME(LOC) BV2X.2; GLUCOSE,POINT OF CARE 185 MG/DL (70-110)
[2022-09-05] MEDS: MELATONIN 5 MG TABLET PO SCH (20:54)
[2022-09-05] MEDS: QUEtiapine FUMARATE 200 MG TABLET PO SCH (20:55)
[2022-09-06 00:59] VITALS: BP 138/72
[2022-09-06] MEDS: TraMADol HCL 50 MG TABLET PO SCH ×3 (06:01→22:01)
[2022-09-06] MEDS: INSULIN LISPRO 100 UNITS/ML SQ PRN ×4 (06:04→20:49)
[2022-09-06 06:11] LABS: GLUCOMETER DEV NAME(LOC) BV2X.2; GLUCOSE,POINT OF CARE 208 MG/DL (70-110)
[2022-09-06 08:01] VITALS: BP 122/74
[2022-09-06] MEDS: AmLODIPine BESYLATE 10 MG TABLET PO SCH (08:24)
[2022-09-06 11:21] LABS: GLUCOMETER DEV NAME(LOC) BV2X.2; GLUCOSE,POINT OF CARE 208 MG/DL (70-110)
[2022-09-06] MEDS: IBUPROFEN 600 MG TABLET PO PRN (16:21)
[2022-09-06 16:22] VITALS: BP 127/92
[2022-09-06 16:31] LABS: GLUCOMETER DEV NAME(LOC) BV2X.2; GLUCOSE,POINT OF CARE 278 MG/DL (70-110)
[2022-09-06] MEDS: QUEtiapine FUMARATE 200 MG TABLET PO SCH (20:35)
[2022-09-06] MEDS: MELATONIN 5 MG TABLET PO SCH (20:35)
[2022-09-06 20:51] LABS: GLUCOMETER DEV NAME(LOC) BV2X.2; GLUCOSE,POINT OF CARE 234 MG/DL (70-110)
[2022-09-07] MEDS: TraMADol HCL 50 MG TABLET PO SCH ×3 (06:00→21:26)
[2022-09-07 06:41] LABS: GLUCOMETER DEV NAME(LOC) BV2X.2; GLUCOSE,POINT OF CARE 176 MG/DL (70-110)
[2022-09-07] MEDS: INSULIN LISPRO 100 UNITS/ML SQ PRN ×4 (06:41→20:42)
[2022-09-07] MEDS: AmLODIPine BESYLATE 10 MG TABLET PO SCH (08:37)
[2022-09-07] MEDS: IBUPROFEN 600 MG TABLET PO PRN (10:16)
[2022-09-07 11:21] LABS: GLUCOMETER DEV NAME(LOC) BV2X.2; GLUCOSE,POINT OF CARE 270 MG/DL (70-110)
[2022-09-07 16:31] LABS: GLUCOMETER DEV NAME(LOC) BV2X.2; GLUCOSE,POINT OF CARE 159 MG/DL (70-110)
[2022-09-07 17:44] VITALS: BP 132/85
[2022-09-07 20:31] LABS: GLUCOMETER DEV NAME(LOC) BV2X.2; GLUCOSE,POINT OF CARE 272 MG/DL (70-110)
[2022-09-07] MEDS: QUEtiapine FUMARATE 200 MG TABLET PO SCH (20:45)
[2022-09-07] MEDS: MELATONIN 5 MG TABLET PO SCH (20:45)
[2022-09-08] MEDS: TraMADol HCL 50 MG TABLET PO SCH ×3 (06:57→20:23)
[2022-09-08 08:01] VITALS: BP 132/90
[2022-09-08] MEDS: AmLODIPine BESYLATE 10 MG TABLET PO SCH (08:35)
[2022-09-08 11:31] LABS: GLUCOMETER DEV NAME(LOC) BV2X.2; GLUCOSE,POINT OF CARE 320 MG/DL (70-110)
[2022-09-08] MEDS: INSULIN LISPRO 100 UNITS/ML SQ PRN ×3 (11:32→20:49)
[2022-09-08] MEDS: IBUPROFEN 600 MG TABLET PO PRN (12:21)
[2022-09-08 16:22] VITALS: BP 146/78
[2022-09-08 17:06] LABS: GLUCOMETER DEV NAME(LOC) BV2X.2; GLUCOSE,POINT OF CARE 196 MG/DL (70-110)
[2022-09-08] MEDS: QUEtiapine FUMARATE 200 MG TABLET PO SCH (20:23)
[2022-09-08] MEDS: MELATONIN 5 MG TABLET PO SCH (20:23)
[2022-09-08 20:36] LABS: GLUCOMETER DEV NAME(LOC) BV2X.2; GLUCOSE,POINT OF CARE 166 MG/DL (70-110)
[2022-09-08] MEDS ORDERED: INSULIN GLARGINE,HUM.REC.ANLOG 100 UNITS/ML SQ SCH (21:00)
[2022-09-09 00:08] VITALS: BP 139/87
[2022-09-09] MEDS: TraMADol HCL 50 MG TABLET PO SCH (06:22)
[2022-09-09] MEDS: INSULIN LISPRO 100 UNITS/ML SQ PRN (06:49)
[2022-09-09 07:01] LABS: GLUCOMETER DEV NAME(LOC) BV2X.2; GLUCOSE,POINT OF CARE 198 MG/DL (70-110)
[2022-09-09 08:13] VITALS: BP 127/75
[2022-09-09] MEDS: AmLODIPine BESYLATE 10 MG TABLET PO SCH (08:18)
[2022-09-09] MEDS ORDERED: QUET200T30 PO (09:04)
[2022-09-09] MEDS ORDERED: INSLAN SQ (09:39)
[2022-09-09] MEDS ORDERED: AMLO-258 PO (09:42)
== END 2022-09-09 12:45 | disposition home or self-care (01) | DRG 885 ==
LOC: EMS 17:31 → UNDOADMIN 22:00 → B2X 22:00
PROVIDERS: ADMIT Psychiatry & Neurology Psychiatry; ATTEND Psychiatry & Neurology Psychiatry
DX: F25.1 Schizoaffective disorder, depressive type (principal); B19.20 Unspecified viral hepatitis C without hepatic coma; E11.65 Type 2 diabetes mellitus with hyperglycemia; I10 Essential (primary) hypertension; F41.9 Anxiety disorder, unspecified; M19.09 Primary osteoarthritis, other specified site; Z20.822 Contact with and (suspected) exposure to COVID-19; M54.9 Dorsalgia, unspecified; G89.29 Other chronic pain; I25.10 Atherosclerotic heart disease of native coronary artery without angina pectoris; J44.9 Chronic obstructive pulmonary disease, unspecified; Z72.0 Tobacco use; R26.9 Unspecified abnormalities of gait and mobility; Z90.710 Acquired absence of both cervix and uterus; K59.00 Constipation, unspecified; G47.00 Insomnia, unspecified
CPT/HCPCS: 80053; 80307; 81001; 82962; 84443; 85025; 99285; G0480; J1815; Q9967